=== PATIENT | female | born 1955 | race Asian ===

== ENCOUNTER 2016-12-22 11:03 | Inpatient (IN) | payer MEDICARE, BC ==
[~2016-12-22] VITALS: Ht 144.8 cm; Wt 34.0 kg
[2016-12-22] VITALS (22 sets, daily range): BP systolic 83–169; BP diastolic 48–107
[~2016-12-22 11:03] MED LIST: Lidocaine 2% MPF 5ml Vial INJ ONE
[2016-12-22] MEDS ORDERED: Levophed 4mg/4mL Inj IV ONE (11:15)
[2016-12-22] MEDS ORDERED: Vancomycin 1 GM in NS 275 ML IV ONE (11:15)
[2016-12-22] MEDS ORDERED: EPINEPHrine 1mg/10ml carp IV ONE (11:16)
[2016-12-22] MEDS ORDERED: Vancomycin 1gm inj IVPB ONE (11:33)
[2016-12-22] MEDS ORDERED: Zosyn 4.5gm inj ONE (11:33)
[2016-12-22 12:03] LABS: MEAN CORPUSCULAR HEMOGLOBIN 32.3 PG (27.0-31.0); MEAN CORPUSCULAR HGB CONC 31.3 G/DL (32.0-36.0); MEAN CORPUSCULAR VOLUME 103 FL (80-99); MEAN PLATELET VOLUME 7.5 FL (6.5-10.1); PLATELET COUNT 145 K/UL (150-450); RED BLOOD COUNT 2.63 M/UL (4.20-5.40); RED CELL DISTRIBUTION WIDTH 21.3 % (11.6-14.8); WHITE BLOOD COUNT 4.1 K/UL (4.8-10.8)
[2016-12-22 12:07] LABS: INR 1.4 (0.9-1.1); PROTHROMBIN TIME 13.9 SEC (9.30-11.50)
--- NOTE | 2016-12-22 12:11 | Diagnostic Imaging Report ---
Indications: Shortness of breath Technique: Portable AP chest Findings: Comparison: None Endotracheal tube in place, tip 2-3 cm above ramakrishna. DOS catheter and right chest wall, tip in region of right atrium. Cardiac silhouette enlarged. Pulmonary vasculature appears within normal limits. Interstitial markings mildly increased throughout both lungs. Both costophrenic angles mildly blunted. Aortic arch calcified. IMPRESSION: Endotracheal tube, hemodialysis catheter in good positions Cardiomegaly with evidence of congestive heart failure including pulmonary edema, small bilateral pleural effusions Aortosclerosis
[2016-12-22 12:15] LABS: ALBUMIN/GLOBULIN RATIO 0.8 (1.0-2.7); CALCIUM 7.6 mg/dL (8.6-10.2); CREATININE 4.6 mg/dL (0.5-0.9); GLOMERULAR FILTRATION RATE 9.6 mL/min (>60); POTASSIUM 5.3 mEQ/L (3.4-4.9); TOTAL PROTEIN 6.2 g/dL (6.6-8.7)
[2016-12-22 12:17] LABS: TROPONIN I < 0.30 ng/mL (<=0.30)
--- NOTE | 2016-12-22 12:20 | Emergency Room Report ---
History of Present Illness General Chief Complaint: Dyspnea/Respdistress Source: Medical Record Present Illness HPI 61 YOF brought in by EMS for AMS. Per EMS, found down on ground at SNF. Last seen well at 6am. Usually alert and oriented per SNF staff. Patient was hypoxic, lethargic per EMS. They placed left EJ. Poor peripheral access. Was due for HD today but didnt go. Patient being actively [facility] by EMS arrival. Hypoxic. Lethargic. No other history from EMS, patient, SNF. No family members bedside. EMS state patient is fullcode. Paperwork from SNF: CHF, anemia. ascites, cirrgosis, GI bleed, hypotension, toxic metabolic enceph Allergies: Coded Allergies: No Known Allergies (Unverified , 12/22/16) Nursing Documentation-PMH Hx Cardiac Problems: Yes - Blocked PAC, Hemorrhagic D/O, Anemia, Arrhythmia, DVT, PVC Hx Hypertension: Yes Hx Dialysis: Yes Review of Systems All Other Systems: limited - AMS Physical Exam Vital Signs Date Time Temp Pulse Resp B/P Pulse Ox O2 Delivery O2 Flow Rate FiO2 12/22/16 10:55 56 6 88/56 93 Ambu-Bag 15.0 12/22/16 11:20 100 Sp02 EP Interpretation: reviewed, abnormal General Appearance: severe distress, cachetic, lethargic Head: normocephalic, atraumatic Eyes: bilateral eye EOMI, bilateral eye PERRL ENT: normal ENT inspection, normal pharynx, no angioedema Neck: normal inspection, full range of motion, supple, no bony tend Respiratory: other - Poor respiratory effort; reduced air movement bilaterallyu Cardiovascular #1: normal inspection, normal peripheral pulses Gastrointestinal: normal inspection, soft, no guarding, no hernia, other - Distended abdomen Rectal: deferred Genitourinary: no CVA tenderness, other - Right groin central line placement by ED Musculoskeletal: other - Left tipia prox with IO placement in ED Neurologic: other - Focal extremity movement only to IO placement left tib Skin: normal inspection, other - Portocath access to Right upper chest; petichea on feet Procedures Critical Care Time Critical Care Time 60 minutes Care for a 61 YO F with AMS Hypotensive. borderline bradycardic, hypoxic. DDx includes CVA, ACS, infection, metabolic abnormality, CHF Patient is lethargic, responds only to painful stimuli. GCS4-5 Comprehensive physical exam completed, atraumatic. Unreliable history from patient. Labs include toxicology and chem panel, CT head, EKG 12 lead and constant cardiac rhythm strip monitoring, IV established. Patient emergently intubated for airway protection, hypoxia Central line placed for hypotension and poor access EKG reveals sinus bronson with 1st degree block Physician spent 60 minutes of direct critical care time monitoring patient's respiratory, cardiac and neurological status, reassessment, review of imaging, labs and discussion with attending hospitalist. Does not include procedures Central Line Central Line : Consent: Emergent Central Line Lumen: triple Maximal Sterile Barrier Tech: yes cap, yes mask, yes sterile gown, yes sterile gloves, yes large sterile sheet, yes hand hygiene, yes chlorhexidine prep No Max Barrier Tech Because: emergency insertion Central Line Postion: femoral (R) Anesthesia: Lidocaine Complications: none Central Line Post Position: sutured, good blood return Attempts: One Patient Tolerated: Well Complications: None Intubation Intubation : Consent: Emergent Tube Size (cm): 7.5 Medications: Etomidate, Rocuronium Breath Sounds after Intubation: equal Intubation Complications: no complications Post Intubation Xray: Yes Attempts: One Patient Tolerated: Well Complications: None Additional Procedure Procedure Narrative Left tibia Area 1-2cm on medial aspect of left tibia cleaned with betadine Flat area of medial aspect of left tibia palpated - no overlying cellulitis or other observed contraindications to IO access seen IO access obtained with retracted blood flow seen on negative pressure Line flushed with 10cc 2% lidocaine followed by NS flush Line secured to skin using IO tegaderm. Patient tolerated procedure No complications 1 attempt made Medical Decision Making Diagnostic Impression: Primary Impression: Acute respiratory failure Qualified Codes: J96.00 - Acute respiratory failure, unspecified whether with hypoxia or hypercapnia Additional Impressions: CHF (congestive heart failure) Qualified Codes: I50.9 - Heart failure, unspecified CKD (chronic kidney disease) Qualified Codes: N18.9 - Chronic kidney disease, unspecified Hypothermia Qualified Codes: T68.XXXA - Hypothermia, initial encounter Hyperkalemia Altered mental state Qualified Codes: R41.82 - Altered mental status, unspecified ER Course Acute respiratory failure, unknown cause. Hyothermic, hypotensive (now improved ), bradycardic. Labs: Leukopenic. H&H stable. Elevated serumCr, hyperK CXR with pulm congestion. No obvious PNA A: - Med records indicate history of cirrhosis and enceph. Adding on ammonia level - History of CHF, also acute on chronic - Empiric Abx given initially for undifferentiated AMS - CT head negative for ICH - ECG with sinus bronson. No previous to compare. IV calcium given - Likely needs HD when stable - Endorsed to Dr Hinojosa at 1220pm EKG Diagnostic Results Rate: other - sinus bronson with 1st av block Rhythm: NSR ST Segments: no acute changes ASA given to the pt in ED: No Rhythm Strip Diag. Results EP Interpretation: yes Rate: 56 Rhythm: NSR, no PVC's, no ectopy Chest X-Ray Diagnostic Results EP Interpretation: Yes Findings: no consolidation, no effusion, other - =Cardiomegaly, ?bilateral pulh congestion. ET tube in appropriate position Number of Views: 1 Last Vital Signs Date Time Temp Pulse Resp B/P Pulse Ox O2 Delivery O2 Flow Rate FiO2 12/22/16 11:20 55 20 100 12/22/16 10:55 88/56 93 Ambu-Bag 15.0 Status: improved Disposition: ADMITTED INPATIENT Condition: Critical Referrals: RACQUEL CRAMER (PCP) ROSCOE SAMANO M.D. Dec 22, 2016 12:20
[2016-12-22 12:26] LABS: CKMB 7.5 ng/mL (< 3.8)
[2016-12-22] MEDS ORDERED: Calcium Gluconate 10% 1 GM in NS 110 ML IVPB ONE (12:30)
[2016-12-22] MEDS ORDERED: Calcium Gluconate 1gm/10ml vial ONE (12:43)
[2016-12-22 12:48] LABS: LYMPHOCYTES % (MANUAL) 7 % (20-45); NEUTROPHILS % (MANUAL) 84 % (45-75); TOTAL CELLS COUNTED 100
[2016-12-22 12:49] LABS: ANISOCYTOSIS 2+; BAND NEUTROPHILS % (MANUAL) 0 % (0-8); BASOPHILS % (MANUAL) 0 % (0-2); EOSINOPHILS % (MANUAL) 0 % (0-3); HYPOCHROMASIA 1+; MACROCYTES 1+; PLATELET ESTIMATE ADEQUATE; PLATELET MORPHOLOGY NORMAL
[2016-12-22 12:55] LABS: ABG ALLEN TEST POSITIVE; ABG BASE EXCESS -4.8; ABG PCO2 30.7 mmHg (35.0-45.0)
--- NOTE | 2016-12-22 12:57 | Diagnostic Imaging Report ---
Indications: Altered level of consciousness Technique: Continuous helical CT imaging of the brain was performed with nonionic exposure control on a Siemens sensation [address] scanner. Axial and coronal images were reconstructed at 5 mm slice thickness and interval. CTDI volume(s): 70 mGy Total DLP: 1312 mGy-cm Findings: Comparison: None Confluent low attenuation is present in the bilateral periventricular and deep cerebral white matter. Prominent bilateral basal ganglia calcifications. Ventricles, cisterns, and sulci are diffusely prominent. No evidence of mass or hemorrhage, mass effect, midline shift, hydrocephalus, or increased intracranial pressure. Bone window images are unremarkable. Visualized paranasal sinuses and mastoid air cells are clear. IMPRESSION: No evidence of acute intracranial pathology Bilateral basal ganglia calcifications, very likely physiologic. Bilateral cerebral periventricular and deepwhite matter low attenuation, nonspecific, likely chronic microvascular ischemic in nature Atrophy The CT scanner at [facility] is accredited by the [employer] and the scans are performed using protocols designed to limit radiation exposure to as low as reasonably achievable to attain images of sufficient resolution adequate for diagnostic evaluation.
[2016-12-22] MEDS ORDERED: LORATADINE5 MG/5 ML PO (13:20)
[2016-12-22] MEDS ORDERED: B COMPLEX-FOLI1 EACH ORAL (13:20)
[2016-12-22] MEDS ORDERED: FLUTICASONE PRO16 G1 NASAL (13:20)
[2016-12-22] MEDS ORDERED: PROPAFENONE HC150 MG PO (13:20)
[2016-12-22] MEDS ORDERED: MARINOL2.5 MG ORAL (13:20)
[2016-12-22] MEDS ORDERED: ATORVASTATIN CA10 MG ORAL (13:20)
[2016-12-22] MEDS ORDERED: VITAMIN B-12500 MCG ORAL (13:20)
[2016-12-22] MEDS ORDERED: TYLENOL650 MG/20. ORAL (13:20)
[2016-12-22] MEDS ORDERED: ESCITALOPRAM OX10 MG ORAL (13:20)
[2016-12-22] MEDS ORDERED: XIFAXAN550 MG ORAL (13:20)
[2016-12-22] MEDS ORDERED: DUONEB 0.5-3(2.53 ML HHN (13:20)
[2016-12-22] MEDS ORDERED: HYDRALAZINE HCL50 MG ORAL (13:20)
[2016-12-22] MEDS ORDERED: LACTULOSE20 GM/301 ORAL (13:20)
[2016-12-22] MEDS ORDERED: SENNA8.6 M2 PO (13:20)
[2016-12-22] MEDS ORDERED: LISINOPRIL10 MG ORAL (13:20)
[2016-12-22] MEDS ORDERED: MIRTAZAPINE15 M3 ORAL (13:20)
[2016-12-22] MEDS ORDERED: EPOGEN20000 UNI1 SUBQ (13:20)
[2016-12-22] MEDS ORDERED: CARVEDILOL6.25 MG ORAL (13:20)
[2016-12-22] MEDS ORDERED: ZANTAC150 MG ORAL (13:20)
[2016-12-22] MEDS ORDERED: Miralax 17gm pkt ORAL PRN (13:45)
[2016-12-22] MEDS ORDERED: Nitroglycerin Subl 0.4mg tab (Bottle Of 25) SL PRN (13:45)
[2016-12-22] MEDS ORDERED: DuoNeb 0.5-3(2.5)mg/3ml neb HHN PRN (13:45)
[2016-12-22] MEDS ORDERED: Morphine Sulfate 2mg/ml Inj IVP PRN (13:45)
[2016-12-22] MEDS ORDERED: Piperacillin/Tazobactam 4.5 GM in NS 110 ML IV SCH (14:00)
--- NOTE | 2016-12-22 14:12 | Consultation ---
Consult Note Consult Note ID CONSULT: Dict# [id number] Assessment/Plan ASSESSMENT: 61 y/o female with: // Probable sepsis r/o HCAP, UTI, bacteremia - cultures pending // Leukopenia // Hypothermia // Acute encephalopathy / found down ?hepatic ( elevated NH4 ) r/o septic - CT Head: No evidence of acute intracranial pathology. Bilateral cerebral periventricular and deepwhite matter low attenuation, nonspecific, likely chronic microvascular ischemic in nature. Atrophy // Acute VDRF - intubated 12/22 // ?Cirrhosis / chronic liver disease with elevated LFTs, leukopenia, chronic macrocytic anemia, TCP, coagulopathy, hypoalbuminemia - US: pending // ESRD / HD with right chest TDC // Probable CHF exacerbation - CXR: evidence of congestive heart failure including pulmonary edema, small bilateral pleural effusions // NH resident // NKDA // Full Code PLAN: - continue empiric broad spectrum IV vancomycin, zosyn d# 1. DC cefepime ( no additional coverage ) - f/u cultures - f/u TTE - monitor CBC, temperatures - monitor BMP - monitor CXR - vent support, wean as tolerated Thanks! Will follow DARLIN GRANADO Dec 22, 2016 14:12
[2016-12-22 16:02] LABS: INR 1.3 (0.9-1.1); PROTHROMBIN TIME 12.9 SEC (9.30-11.50)
--- NOTE | 2016-12-22 17:19 | Consultation ---
History of Present Illness General Date patient seen: Dec 22, 2016 Time patient seen: 03:33 Chief Complaint: Dyspnea/Respdistress Reason for Consultation: HD Present Illness HPI pt with esrd on hd 2/2 ttp , GAVE, HTN, MR, multiple episodes of bleeding , ESLD ,She git [facility] on wednesday, today she was found unresponsive per sister she has been falling at the facility . She was hypotensive at the scene , no n/v diarrhea, ? gi bleed hb dropped by 2 gm in 1 day. Has been having chills x 2d ays . No other history is available . She is malnutrished, has ammonia levels of 56 , She lives at [facility]. Does not smoke drink Allergies: Coded Allergies: No Known Allergies (Unverified , 12/22/16) Medication History Scheduled Atorvastatin Calcium* (Lipitor*), 10 MG ORAL BEDTIME, (Reported) Carvedilol* (Carvedilol*), 6.25 MG ORAL EVERY 12 HOURS, (Reported) Cyanocobalamin (Vitamin B-12)* (Vitamin B-12*), 500 MCG ORAL DAILY, (Reported) Cyanocobalamin/Fa/Pyridoxine (B Complex-Folic Acid Tablet), 1 TAB ORAL DAILY, ( Reported) Dronabinol* (Marinol*), 2.5 MG ORAL THREE TIMES A DAY, (Reported) Epoetin José Miguel (Epogen), 20,000 UNIT SUBQ 3XW, (Reported) Escitalopram Oxalate (Escitalopram Oxalate*), 10 MG ORAL DAILY, (Reported) Fluticasone Propionate* (Fluticasone Propionate*), 1 SPRAY NASAL DAILY, ( Reported) Hydralazine Hcl* (Hydralazine Hcl*), 50 MG ORAL PRN, (Reported) Lactulose (Lactulose*), 15 ML ORAL BID, (Reported) Lisinopril* (Lisinopril*), 10 MG ORAL BID, (Reported) Loratadine (Loratadine), 10 MG PO DAILY, (Reported) Mirtazapine* (Mirtazapine*), 15 MG ORAL BEDTIME, (Reported) Propafenone Hcl* (Rhythmol*), 225 MG PO TID, (Reported) Ranitidine Hcl* (Zantac*), 150 MG ORAL DAILY, (Reported) Rifaximin* (Xifaxan*), 550 MG ORAL TWICE A DAY, (Reported) Scheduled PRN Acetaminophen (Acetaminophen), 650 MG ORAL Q6H PRN for Prn Headache/Temp > 101, (Reported) Ipratropium/Albuterol Sulfate (DuoNeb 0.5-3(2.5)mg/3ml), 3 ML HHN Q4HR PRN for Shortness of Breath, (Reported) Miscellaneous Medications Sennosides (Senna), 2 TAB PO, (Reported) Patient History Healthcare decision maker Resuscitation status Advanced Directive on File Past Medical/Surgical History Past Medical/Surgical History: (1) CHF (congestive heart failure) (2) CKD (chronic kidney disease) Review of Systems Constitutional: Reports: see HPI Physical Exam General Appearance: WD/WN, no apparent distress, thin, other - intubated Lines, tubes and drains: peripheral, other HEENT: normocephalic, atraumatic, anicteric, EOMI, supple, no JVD Neck: non-tender, normal alignment, supple Respiratory/Chest: chest wall non-tender, crackles/rales Cardiovascular/Chest: normal peripheral pulses, regular rhythm, systolic murmur - 3/6 systolic Abdomen: normal bowel sounds, non tender, distended, other - ascites Extremities: no edema Last 24 Hour Vital Signs Date Time Temp Pulse Resp B/P Pulse Ox O2 Delivery O2 Flow Rate FiO2 12/22/16 15:44 30 12/22/16 15:00 63 20 156/102 100 Mechanical Ventilator 30 12/22/16 14:33 70 23 30 12/22/16 14:15 68 21 151/113 100 Mechanical Ventilator 30 12/22/16 14:00 89.1 68 23 169/101 100 Mechanical Ventilator 30 12/22/16 13:09 86.7 61 23 161/107 100 Mechanical Ventilator 12/22/16 12:55 62 21 30 12/22/16 12:50 30 12/22/16 12:23 100 12/22/16 12:18 87.5 64 14 156/95 100 Mechanical Ventilator 100 12/22/16 11:20 55 20 100 12/22/16 11:05 44 12 Ambu-Bag 100 12/22/16 10:55 56 6 88/56 93 Ambu-Bag 15.0 Laboratory Tests Test 12/22/16 11:38 2/14/17 12:30 12/22/16 12:50 12/22/16 15:15 White Blood Count 4.1 K/UL (4.8-10.8) L Red Blood Count 2.63 M/UL (4.20-5.40) L Hemoglobin 8.5 G/DL (12.0-16.0) L Hematocrit 27.0 % (37.0-47.0) L Mean Corpuscular Volume 103 FL (80-99) H Mean Corpuscular Hemoglobin 32.3 PG (27.0-31.0) H Mean Corpuscular Hemoglobin Concent 31.3 G/DL (32.0-36.0) L Red Cell Distribution Width 21.3 % (11.6-14.8) H Platelet Count 145 K/UL (150-450) L Mean Platelet Volume 7.5 FL (6.5-10.1) Neutrophils (%) (Auto) % (45.0-75.0) Lymphocytes (%) (Auto) % (20.0-45.0) Monocytes (%) (Auto) % (1.0-10.0) Eosinophils (%) (Auto) % (0.0-3.0) Basophils (%) (Auto) % (0.0-2.0) Differential Total Cells Counted 100 Neutrophils % (Manual) 84 % (45-75) H Lymphocytes % (Manual) 7 % (20-45) L Monocytes % (Manual) 9 % (1-10) Eosinophils % (Manual) 0 % (0-3) Basophils % (Manual) 0 % (0-2) Band Neutrophils 0 % (0-8) Platelet Estimate Adequate Platelet Morphology Normal Hypochromasia 1+ Anisocytosis 2+ Macrocytosis 1+ Prothrombin Time 13.9 SEC (9.30-11.50) H 12.9 SEC (9.30-11.50) H Prothromb Time International Ratio 1.4 (0.9-1.1) H 1.3 (0.9-1.1) H Activated Partial Thromboplast Time 40 SEC (23-33) H 35 SEC (23-33) H Sodium Level 138 mEQ/L (135-145) Potassium Level 5.3 mEQ/L (3.4-4.9) H Chloride Level 103 mEQ/L (98-107) Carbon Dioxide Level 20 mEQ/L (20-30) Anion Gap 15 (5-15) Blood Urea Nitrogen 78 mg/dL (7-23) H Creatinine 4.6 mg/dL (0.5-0.9) H Estimat Glomerular Filtration Rate 9.6 mL/min (>60) Glucose Level 118 mg/dL (74-106) H Lactic Acid Level 0.60 mmol/L (0.66-2.22) L Calcium Level 7.6 mg/dL (8.6-10.2) L Total Bilirubin 0.2 mg/dL (0.0-1.2) Aspartate Amino Transf (AST/SGOT) 22 U/L (5-40) Alanine Aminotransferase (ALT/SGPT) 7 U/L (3-33) Alkaline Phosphatase 201 U/L (35-104) H Total Creatine Kinase 49 U/L (26-140) Creatine Kinase MB 7.5 ng/mL (< 3.8) H Creatine Kinase MB Relative Index 15.3 Troponin I < 0.30 ng/mL (<=0.30) Total Protein 6.2 g/dL (6.6-8.7) L Albumin 2.8 g/dL (3.5-5.2) L Globulin 3.4 g/dL Albumin/Globulin Ratio 0.8 (1.0-2.7) L Ammonia 56 umol/L (11-51) H Arterial Blood pH 7.400 (7.350-7.450) Arterial Blood Partial Pressure CO2 30.7 mmHg (35.0-45.0) L Arterial Blood Partial Pressure O2 594.5 mmHg (75.0-100.0) H Arterial Blood HCO3 19.8 mmol/L (22.0-26.0) L Arterial Blood Oxygen Saturation 99.7 % (92.0-98.0) H Arterial Blood Base Excess -4.8 Antonio Test Positive Erythrocyte Sedimentation Rate 88 MM/HR (0-30) H Reticulocyte Count Pending Iron Level 39 ug/dL (37-145) Total Iron Binding Capacity 98 ug/dL (250-400) L Percent Iron Saturation 40 % (15-50) Unsaturated Iron Binding 59 ug/dL (112-346) L Lactate Dehydrogenase 171 U/L (135-230) Carcinoembryonic Antigen 2.6 ng/mL Vitamin B12 Level 902 pg/mL (211-946) Folate Pending Height (Feet): 5 Height (Inches): 4.00 Weight (Pounds): 1000 Medications Current Medications Medications (Trade) Dose Ordered Sig/Reji Route PRN Reason Start Time Stop Time Status Last Admin Dose Admin Acetaminophen (Tylenol) 650 mg Q4H PRN ORAL fever 12/22/16 13:45 01/21/17 13:44 Albuterol/ Ipratropium 3 ml 3 ml Q4H PRN HHN Shortness of Breath 12/22/16 13:45 12/27/16 13:44 Lorazepam (Ativan 2mg/ml 1ml) 2 mg Q4H PRN IV For Anxiety 12/22/16 13:45 12/29/16 13:44 Morphine Sulfate (Morphine Sulfate) 4 mg Q4H PRN IVP For Pain 12/22/16 13:45 12/29/16 13:44 Nitroglycerin (Ntg) 0.4 mg Q5MIN X 3 DOSES PRN SL Prn Chest Pain 12/22/16 13:45 01/21/17 13:44 Ondansetron HCl (Zofran) 4 mg Q6H PRN IVP Nausea & Vomiting 12/22/16 13:45 01/21/17 13:44 Pantoprazole (Protonix) 40 mg DAILY IV 12/23/16 09:00 01/22/17 08:59 Polyethylene Glycol (Miralax) 17 gm DAILYPRN PRN ORAL Constipation 12/22/16 13:45 01/21/17 13:44 Vancomycin HCl/ Dextrose (Vancomycin/D5W) 110 ml @ 73.32 mls/ hr Q24H IVPB 12/23/16 13:00 12/28/16 12:59 Assessment/Plan Status: deteriorating Status Narrative 1. Sepsis 2. respiratory failure : pneumonia and Pulm edema most likely 3. ESRD on HD 4 GI bleed 5. ESLD 6. Encephalopathy 7. Anemia 2/2 GI bleed and CKD needs stat dialysis treatment with blood tx, since hemodynamically unstable Lactulose c/w antibiotics Blood cultures from Urine and permacath Assessment/Plan 1. Sepsis 2. respiratory failure : pneumonia and Pulm edema most likely 3. ESRD on HD 4 GI bleed 5. ESLD 6. Encephalopathy 7. Anemia 2/2 GI bleed and CKD needs stat dialysis treatment with blood tx, since hemodynamically unstable Lactulose c/w antibiotics Blood cultures from Urine and permacath all d/w pt 's sister pt, she opens her eyes and nods for yes or no. MOHIT TELLES Dec 22, 2016 17:19
--- NOTE | 2016-12-22 17:44 | History and Physical ---
History of Present Illness General Date patient seen: Dec 22, 2016 Reason for Hospitalization: Dyspnea/Respdistress Present Illness HPI 61 year old lady with cirrhosis of liver, ESRF, some sort of connective tissue disorder. She was at shelter when she was found down, with hypothermia. She was taken to [place] [facility]. She was intubated to protect the airway. Her CT of head was negative. She was hypotensive, was started on Levophed. Allergies: Coded Allergies: No Known Allergies (Unverified , 12/22/16) Medication History Scheduled Atorvastatin Calcium* (Lipitor*), 10 MG ORAL BEDTIME, (Reported) Carvedilol* (Carvedilol*), 6.25 MG ORAL EVERY 12 HOURS, (Reported) Cyanocobalamin (Vitamin B-12)* (Vitamin B-12*), 500 MCG ORAL DAILY, (Reported) Cyanocobalamin/Fa/Pyridoxine (B Complex-Folic Acid Tablet), 1 TAB ORAL DAILY, ( Reported) Dronabinol* (Marinol*), 2.5 MG ORAL THREE TIMES A DAY, (Reported) Epoetin José Miguel (Epogen), 20,000 UNIT SUBQ 3XW, (Reported) Escitalopram Oxalate (Escitalopram Oxalate*), 10 MG ORAL DAILY, (Reported) Fluticasone Propionate* (Fluticasone Propionate*), 1 SPRAY NASAL DAILY, ( Reported) Hydralazine Hcl* (Hydralazine Hcl*), 50 MG ORAL PRN, (Reported) Lactulose (Lactulose*), 15 ML ORAL BID, (Reported) Lisinopril* (Lisinopril*), 10 MG ORAL BID, (Reported) Loratadine (Loratadine), 10 MG PO DAILY, (Reported) Mirtazapine* (Mirtazapine*), 15 MG ORAL BEDTIME, (Reported) Propafenone Hcl* (Rhythmol*), 225 MG PO TID, (Reported) Ranitidine Hcl* (Zantac*), 150 MG ORAL DAILY, (Reported) Rifaximin* (Xifaxan*), 550 MG ORAL TWICE A DAY, (Reported) Scheduled PRN Acetaminophen (Acetaminophen), 650 MG ORAL Q6H PRN for Prn Headache/Temp > 101, (Reported) Ipratropium/Albuterol Sulfate (DuoNeb 0.5-3(2.5)mg/3ml), 3 ML HHN Q4HR PRN for Shortness of Breath, (Reported) Miscellaneous Medications Sennosides (Senna), 2 TAB PO, (Reported) Patient History Healthcare decision maker Resuscitation status Advanced Directive on File Past Medical/Surgical History Past Medical/Surgical History: (1) Liver cirrhosis (2) Connective tissue disease (3) CKD (chronic kidney disease) Review of Systems All Other Systems: negative except mentioned in HPI Physical Exam General Appearance: moderate distress, cachetic Lines, tubes and drains: peripheral, central line - right femoral HEENT: normocephalic, anicteric Neck: non-tender, normal alignment Respiratory/Chest: chest wall non-tender, lungs clear Breasts: no masses Cardiovascular/Chest: normal peripheral pulses, normal rate Abdomen: normal bowel sounds, non tender Genitourinary/Rectal: normal genital exam Extremities: normal range of motion 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 Last 24 Hour Vital Signs Date Time Temp Pulse Resp B/P Pulse Ox O2 Delivery O2 Flow Rate FiO2 12/22/16 16:50 75 28 30 12/22/16 15:44 30 12/22/16 15:00 63 20 156/102 100 Mechanical Ventilator 30 12/22/16 14:33 70 23 30 12/22/16 14:15 68 21 151/113 100 Mechanical Ventilator 30 12/22/16 14:00 89.1 68 23 169/101 100 Mechanical Ventilator 30 12/22/16 13:09 86.7 61 23 161/107 100 Mechanical Ventilator 12/22/16 12:55 62 21 30 12/22/16 12:50 30 12/22/16 12:23 100 12/22/16 12:18 87.5 64 14 156/95 100 Mechanical Ventilator 100 12/22/16 11:20 55 20 100 12/22/16 11:05 44 12 Ambu-Bag 100 12/22/16 10:55 56 6 88/56 93 Ambu-Bag 15.0 Laboratory Tests Test 12/22/16 11:38 12/22/16 12:30 12/22/16 12:50 12/22/16 15:15 White Blood Count 4.1 K/UL (4.8-10.8) L Red Blood Count 2.63 M/UL (4.20-5.40) L Hemoglobin 8.5 G/DL (12.0-16.0) L Hematocrit 27.0 % (37.0-47.0) L Mean Corpuscular Volume 103 FL (80-99) H Mean Corpuscular Hemoglobin 32.3 PG (27.0-31.0) H Mean Corpuscular Hemoglobin Concent 31.3 G/DL (32.0-36.0) L Red Cell Distribution Width 21.3 % (11.6-14.8) H Platelet Count 145 K/UL (150-450) L Mean Platelet Volume 7.5 FL (6.5-10.1) Neutrophils (%) (Auto) % (45.0-75.0) Lymphocytes (%) (Auto) % (20.0-45.0) Monocytes (%) (Auto) % (1.0-10.0) Eosinophils (%) (Auto) % (0.0-3.0) Basophils (%) (Auto) % (0.0-2.0) Differential Total Cells Counted 100 Neutrophils % (Manual) 84 % (45-75) H Lymphocytes % (Manual) 7 % (20-45) L Monocytes % (Manual) 9 % (1-10) Eosinophils % (Manual) 0 % (0-3) Basophils % (Manual) 0 % (0-2) Band Neutrophils 0 % (0-8) Platelet Estimate Adequate Platelet Morphology Normal Hypochromasia 1+ Anisocytosis 2+ Macrocytosis 1+ Prothrombin Time 13.9 SEC (9.30-11.50) H 12.9 SEC (9.30-11.50) H Prothromb Time International Ratio 1.4 (0.9-1.1) H 1.3 (0.9-1.1) H Activated Partial Thromboplast Time 40 SEC (23-33) H 35 SEC (23-33) H Sodium Level 138 mEQ/L (135-145) Potassium Level 5.3 mEQ/L (3.4-4.9) H Chloride Level 103 mEQ/L (98-107) Carbon Dioxide Level 20 mEQ/L (20-30) Anion Gap 15 (5-15) Blood Urea Nitrogen 78 mg/dL (7-23) H Creatinine 4.6 mg/dL (0.5-0.9) H Estimat Glomerular Filtration Rate 9.6 mL/min (>60) Glucose Level 118 mg/dL (74-106) H Lactic Acid Level 0.60 mmol/L (0.66-2.22) L Calcium Level 7.6 mg/dL (8.6-10.2) L Total Bilirubin 0.2 mg/dL (0.0-1.2) Aspartate Amino Transf (AST/SGOT) 22 U/L (5-40) Alanine Aminotransferase (ALT/SGPT) 7 U/L (3-33) Alkaline Phosphatase 201 U/L (35-104) H Total Creatine Kinase 49 U/L (26-140) Creatine Kinase MB 7.5 ng/mL (< 3.8) H Creatine Kinase MB Relative Index 15.3 Troponin I < 0.30 ng/mL (<=0.30) Total Protein 6.2 g/dL (6.6-8.7) L Albumin 2.8 g/dL (3.5-5.2) L Globulin 3.4 g/dL Albumin/Globulin Ratio 0.8 (1.0-2.7) L Ammonia 56 umol/L (11-51) H Arterial Blood pH 7.400 (7.350-7.450) Arterial Blood Partial Pressure CO2 30.7 mmHg (35.0-45.0) L Arterial Blood Partial Pressure O2 594.5 mmHg (75.0-100.0) H Arterial Blood HCO3 19.8 mmol/L (22.0-26.0) L Arterial Blood Oxygen Saturation 99.7 % (92.0-98.0) H Arterial Blood Base Excess -4.8 Antonio Test Positive Erythrocyte Sedimentation Rate 88 MM/HR (0-30) H Reticulocyte Count Pending Iron Level 39 ug/dL (37-145) Total Iron Binding Capacity 98 ug/dL (250-400) L Percent Iron Saturation 40 % (15-50) Unsaturated Iron Binding 59 ug/dL (112-346) L Lactate Dehydrogenase 171 U/L (135-230) Carcinoembryonic Antigen 2.6 ng/mL Vitamin B12 Level 902 pg/mL (211-946) Folate Pending Height (Feet): 5 Height (Inches): 4.00 Weight (Pounds): 1000 Medications Current Medications Medications (Trade) Dose Ordered Sig/Reji Route PRN Reason Start Time Stop Time Status Last Admin Dose Admin Acetaminophen (Tylenol) 650 mg Q4H PRN ORAL fever 12/22/16 13:45 01/21/17 13:44 Albuterol/ Ipratropium 3 ml 3 ml Q4H PRN HHN Shortness of Breath 12/22/16 13:45 12/27/16 13:44 Estrogens Conjugated (Premarin) 25 mg ONCE ONCE IV 12/22/16 17:45 12/22/16 17:46 UNV Lactulose (Cephulac) 20 gm THREE TIMES A DAY ORAL 12/22/16 18:00 01/21/17 17:59 Lorazepam (Ativan 2mg/ml 1ml) 2 mg Q4H PRN IV For Anxiety 12/22/16 13:45 12/29/16 13:44 Morphine Sulfate (Morphine Sulfate) 4 mg Q4H PRN IVP For Pain 12/22/16 13:45 12/29/16 13:44 Nitroglycerin (Ntg) 0.4 mg Q5MIN X 3 DOSES PRN SL Prn Chest Pain 12/22/16 13:45 01/21/17 13:44 Ondansetron HCl (Zofran) 4 mg Q6H PRN IVP Nausea & Vomiting 12/22/16 13:45 01/21/17 13:44 Pantoprazole (Protonix) 40 mg DAILY IV 12/23/16 09:00 01/22/17 08:59 Polyethylene Glycol (Miralax) 17 gm DAILYPRN PRN ORAL Constipation 12/22/16 13:45 01/21/17 13:44 Vancomycin HCl/ Dextrose (Vancomycin/D5W) 110 ml @ 73.32 mls/ hr Q24H IVPB 12/23/16 13:00 12/28/16 12:59 Assessment/Plan Problem List: (1) Acute respiratory failure ICD Codes: J96.00 - Acute respiratory failure, unspecified whether with hypoxia or hypercapnia SNOMED: 76625710 Qualifiers: Qualified Codes: J96.00 - Acute respiratory failure, unspecified whether with hypoxia or hypercapnia (2) Hyperkalemia ICD Codes: E87.5 - Hyperkalemia SNOMED: 70957493 (3) Altered mental state ICD Codes: R41.82 - Altered mental status, unspecified SNOMED: 388666681 Qualifiers: Qualified Codes: R41.82 - Altered mental status, unspecified (4) CHF (congestive heart failure) ICD Codes: I50.9 - Heart failure, unspecified SNOMED: 72630676 Qualifiers: Qualified Codes: I50.9 - Heart failure, unspecified (5) CKD (chronic kidney disease) ICD Codes: N18.9 - Chronic kidney disease, unspecified SNOMED: 935230400 Qualifiers: Qualified Codes: N18.9 - Chronic kidney disease, unspecified Respiratory: monitor respiratory rate, adjust FIO2, CXR, ABG Cardiac: continue pressors, continue to monitor HR/BP Renal: F/U I&O, keep IV fluid, check electrolytes, other - Hd Infectious Disease: check cultures, continue antibiotics Gastrointestinal: continue feedings/current rate Endocrine: monitor blood sugar, check HgA1C Hematologic: monitor H/H Neurologic: PRN Ativan, PRN Morphine Affect: PRN ativan Prophylaxis: Heparin Disposition: keep in ICU 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
[2016-12-22] MEDS: Lactulose 20gm/30ml UDC ORAL SCH (18:00)
[2016-12-22] MEDS ORDERED: Premarin Inj IV ONE (18:30)
[2016-12-22] MEDS ORDERED: Surgicel 4in x 8in TOPIC ONE (19:32)
[2016-12-22 20:02] LABS: PATH BLOOD SMEAR/OMC SENT TO PATHOLOGIST
[2016-12-22] MEDS ORDERED: Heparin 5000 units/ml inj SUBQ SCH (21:00)
[2016-12-22] MEDS ORDERED: Cefepime HCl 2 GM in D5W 110 ML IV SCH (21:00)
[2016-12-22] MEDS: Morphine Sulfate 4mg/ml Inj IVP PRN (23:01)
--- NOTE | 2016-12-22 23:19 | Consultation ---
DATE OF CONSULTATION: 12/22/2016 INFECTIOUS DISEASE CONSULTATION: REQUESTING PHYSICIAN: Jes Bautista M.D. REASON FOR CONSULTATION: Sepsis. HISTORY OF PRESENT ILLNESS: This is a 61-year-old female, [place] [facility] resident, admitted on 12/22/2016 after being found down. A CT of the head showed no evidence of acute intracranial pathology. The patient was intubated in the emergency room for airway protection. She has evidence of probable cirrhosis and chronic liver disease, end-stage renal disease, on dialysis with a right chest tunnel catheter, a probable CHF exacerbation with pulmonary edema and bilateral pleural effusions on chest x-ray, leukopenia, hypothermia, thrombocytopenia, elevated LFTs, and coagulopathy. She has been started on empiric IV vancomycin, cefepime, and Zosyn and ID now consulted to assist in management. PAST MEDICAL HISTORY: 1. End-stage renal disease, on dialysis. 2. CHF. 3. Hypertension. 4. Question chronic liver disease and cirrhosis. PAST SURGICAL HISTORY: Right chest tunneled catheter in place, otherwise unknown. MEDICATIONS: 1. Vancomycin. 2. Cefepime. 3. Zosyn. 4. Protonix. 5. DuoNebs. ALLERGIES: No known drug allergies. SOCIAL HISTORY: The patient is a resident of a [place] [facility] care facility. No active tobacco, alcohol, or illicit drug abuse. FAMILY HISTORY: None known. REVIEW OF SYSTEMS: Unable to obtain. PHYSICAL EXAMINATION: VITAL SIGNS: Maximum temperature 87.5 degrees, blood pressure 161/107, heart rate in the 60s, respiratory rate 23, saturating 100% on 30% FiO2. GENERAL: The patient is intubated. Nonresponsive. CARDIOVASCULAR: Bradycardic. PULMONARY: Clear to auscultation bilaterally. ABDOMEN: Bowel sounds present. Soft, nondistended, and nontender. EXTREMITIES: No edema. SKIN: Petechiae on the feet. LABORATORY DATA: White blood cell count 4.1 with left shift, hemoglobin 8.5, and platelets 145,000. Sodium 138, potassium 5.3, chloride 103, bicarbonate 20, BUN 78, and creatinine 4.6. INR 1.4. Lactic acid 0.6. AST 22, ALT 7, and alkaline phosphatase 201. Total bilirubin 0.2. Albumin 2.8. Troponin negative x1. Ammonia 56. MICROBIOLOGY: 1. On 12/22/2016, blood culture pending. 2. On 12/22/2016, urine culture pending. 3. On 12/22/2016, sputum culture pending. 4. On 12/22/2016, C. difficile toxin pending. IMAGIN. 12/22/2016, chest x-ray bilateral pulmonary edema and small pleural effusions. 2. On 12/22/2016, CT of the head, no acute findings. Atrophy and probable chronic microvascular ischemic changes. 3. On 12/22/2016, echocardiogram pending. ASSESSMENT: 1. Probable sepsis rule out healthcare associated pneumonia and urinary tract infection bacteremia. Cultures are pending. 2. Leukopenia. 3. Hypothermia. 4. Acute encephalopathy/found down question hepatic with elevated ammonia level rule out septic. CT of the head shows no acute findings. 5. Acute ventilator-dependent respiratory failure intubated on 12/22/2016. 6. Question cirrhosis and chronic liver disease with elevated liver function test, leukopenia, microcytic anemia, thrombocytopenia, coagulopathy, and hypoalbuminemia. An ultrasound is pending. 7. End-stage renal disease, on dialysis with a right chest tunneled catheter. 8. Probable congestive heart failure exacerbation with evidence of pulmonary edema and bilateral pleural effusions on chest x-ray. 9. [facility] resident. 10. No known drug allergies. 11. Full Code. PLAN: 1. Continue empiric broad-spectrum IV vancomycin Zosyn day # 1. Discontinue cefepime and provides no additional antimicrobial coverage. 2. Follow up cultures. 3. Follow up echocardiogram. 4. Monitor CBC and temperatures. 5. Monitor BMP. 6. Monitor chest x-ray. 7. Ventilator support and wean as tolerated. Thank you. We will follow. Vince Doty M.D. DR: Kathy JOB#: [id number] CC: Jes Bautista M.D.; Fax#: [phone] Calderon M.D; Fax#: [phone]
[2016-12-23] VITALS (84 sets, daily range): BP systolic 51–160; BP diastolic 25–116
[2016-12-23] MEDS ORDERED: NS 250 ML IVPB ONE ×2 (01:00)
[2016-12-23] MEDS ORDERED: Vancomycin 1 GM in D5W 275 ML IVPB ONE (01:00)
[2016-12-23] MEDS ORDERED: Levophed 4mg/4mL Inj IV ONE (01:07)
[2016-12-23 05:04] LABS: MEAN CORPUSCULAR HEMOGLOBIN 30.8 PG (27.0-31.0); MEAN CORPUSCULAR HGB CONC 32.2 G/DL (32.0-36.0); MEAN CORPUSCULAR VOLUME 96 FL (80-99); MEAN PLATELET VOLUME 7.9 FL (6.5-10.1); PLATELET COUNT 129 K/UL (150-450); RED BLOOD COUNT 3.52 M/UL (4.20-5.40); RED CELL DISTRIBUTION WIDTH 20.1 % (11.6-14.8); WHITE BLOOD COUNT 8.6 K/UL (4.8-10.8)
[2016-12-23 05:31] LABS: TOTAL PROTEIN 6.7 g/dL (6.6-8.7)
[2016-12-23 05:34] LABS: ALBUMIN/GLOBULIN RATIO 0.8 (1.0-2.7); CALCIUM 8.4 mg/dL (8.6-10.2); CREATININE 2.3 mg/dL (0.5-0.9); GLOMERULAR FILTRATION RATE 21.5 mL/min (>60); TOTAL PROTEIN 6.7 g/dL (6.6-8.7)
[2016-12-23] MEDS: Lactulose 20gm/30ml UDC ORAL SCH ×3 (08:31→17:33)
[2016-12-23] MEDS ORDERED: Pantoprazole Inj IV SCH (09:00)
[2016-12-23 09:35] LABS: BILIRUBIN,DIRECT 0.7 mg/dL (0.1-0.3)
[2016-12-23] MEDS ORDERED: KCl 10% 20 mEq/15ml liquid NG ONE (09:45)
[2016-12-23] MEDS ORDERED: Etomidate 40mg/20ml Inj IV ONE (11:01)
[2016-12-23] MEDS ORDERED: Zemuron 50mg/5ml Inj IV ONE (11:01)
[2016-12-23] MEDS ORDERED: Succinylcholine 20mg/ml 10ml vial ONE (11:01)
--- NOTE | 2016-12-23 11:14 | Pulmonolgy Critical Care Note ---
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, 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 Discussed with: nurses, consultants Critical Care - Objective Last 24 Hour Vital Signs Date Time Temp Pulse Resp B/P Pulse Ox O2 Delivery O2 Flow Rate FiO2 12/23/16 09:26 121/58 12/23/16 09:11 98 15 30 12/23/16 07:12 106 14 30 12/23/16 07:00 101 16 139/46 100 Mechanical Ventilator 30 12/23/16 06:45 95 16 51/25 100 Mechanical Ventilator 30 12/23/16 06:30 96 16 69/47 100 Mechanical Ventilator 30 12/23/16 06:15 107 16 130/47 100 Mechanical Ventilator 30 12/23/16 06:00 109 15 139/47 100 Mechanical Ventilator 30 12/23/16 05:45 111 15 149/60 100 Mechanical Ventilator 30 12/23/16 05:30 106 15 124/60 100 Mechanical Ventilator 30 12/23/16 05:22 100 14 30 12/23/16 05:15 101 15 124/60 100 Mechanical Ventilator 30 12/23/16 05:00 102 17 133/59 100 Mechanical Ventilator 30 12/23/16 04:45 101 14 120/54 100 Mechanical Ventilator 30 12/23/16 04:30 98 14 71/36 94 Mechanical Ventilator 30 12/23/16 04:15 98 14 69/37 100 Mechanical Ventilator 30 12/23/16 04:00 98.4 88 27 160/116 100 Mechanical Ventilator 30 12/23/16 04:00 98 12/23/16 04:00 30 12/23/16 03:18 98 27 30 12/23/16 03:00 99 28 121/52 100 Mechanical Ventilator 30 12/23/16 02:00 96 28 121/52 100 Mechanical Ventilator 30 12/23/16 01:14 79/54 12/23/16 01:00 92 27 112/37 100 Mechanical Ventilator 30 12/23/16 00:52 88 29 30 12/23/16 00:00 96 12/23/16 00:00 98.4 88 27 160/116 100 Mechanical Ventilator 30 12/23/16 00:00 30 12/22/16 23:31 98.2 12/22/16 23:30 97.8 89 166/89 12/22/16 23:15 113 141/67 12/22/16 23:00 109 139/61 12/22/16 23:00 97.1 114 27 141/87 100 Mechanical Ventilator 30 12/22/16 22:57 128 19 30 12/22/16 22:45 125 164/75 12/22/16 22:30 96 135/72 12/22/16 22:15 94 105/70 12/22/16 22:00 93 106/65 12/22/16 22:00 98.2 94 27 107/56 99 Mechanical Ventilator 30 12/22/16 21:45 92 97/54 12/22/16 21:30 90 95/61 12/22/16 21:15 88 109/52 12/22/16 21:09 87 29 30 12/22/16 21:00 87 83/48 12/22/16 21:00 81 20 110/69 100 Mechanical Ventilator 30 12/22/16 20:45 90 86/58 12/22/16 20:30 97.9 69 113/56 12/22/16 20:00 30 12/22/16 20:00 82 12/22/16 20:00 95.0 83 26 113/56 100 Mechanical Ventilator 30 12/22/16 19:18 83 26 30 12/22/16 19:00 81 20 129/69 100 Mechanical Ventilator 30 12/22/16 18:00 80 20 114/72 100 Mechanical Ventilator 30 12/22/16 17:00 94.8 72 23 124/87 100 Mechanical Ventilator 30 12/22/16 16:50 75 28 30 12/22/16 16:00 93.8 67 23 150/102 100 Mechanical Ventilator 30 12/22/16 16:00 30 12/22/16 16:00 80 12/22/16 15:44 30 12/22/16 15:00 63 20 156/102 100 Mechanical Ventilator 30 12/22/16 14:33 70 23 30 12/22/16 14:15 68 21 151/113 100 Mechanical Ventilator 30 12/22/16 14:00 89.1 68 23 169/101 100 Mechanical Ventilator 30 12/22/16 13:09 86.7 61 23 161/107 100 Mechanical Ventilator 12/22/16 12:55 62 21 30 12/22/16 12:50 30 12/22/16 12:23 100 12/22/16 12:18 87.5 64 14 156/95 100 Mechanical Ventilator 100 12/22/16 11:20 55 20 100 Status: awake Condition: critical, grave HEENT: atraumatic, normocephalic Lungs: clear, chest wall tender Heart: HR/BP stable, HR/BP unstable Abdomen: soft, active bowel sounds, feeding tube Extremities: no C/C/E, edema Micro: Microbiology Date/Time Source Procedure Growth Status 12/23/16 01:00 Stool Clostridium difficile Toxin Assay - Final Complete Accucheck: 55 Critical Care - Subjective ROS Limited/Unobtainable: No Condition: critical EKG Rhythm: V-Paced FI02: 30 Vent Support Breath Rate: 14 Vent Support Mode: AC Vent Tidal Volume: 450 Sputum Amount: Small PEEP: 5.0 PIP: 49 Fluids: levophed I&O: Intake and Output 12/22/16 12/23/16 19:00 07:00 Intake Total 100 ml 1281.25 ml Output Total 0 ml 1660 ml Balance 100 ml -378.75 ml Intake Oral 0 ml IV Total 100 ml 131.25 ml Blood Product 600 ml Hemodialysis 550 ml Output Urine Total 0 ml 10 ml Hemodialysis UF 1650 ml # Bowel Movements 3 CXR: no change ET-Tube: 7.5 ET Position: 22 Labs: Laboratory Tests Test 12/22/16 11:38 12/22/16 12:30 12/22/16 12:50 12/22/16 15:15 White Blood Count 4.1 K/UL (4.8-10.8) L Red Blood Count 2.63 M/UL (4.20-5.40) L Hemoglobin 8.5 G/DL (12.0-16.0) L Hematocrit 27.0 % (37.0-47.0) L Mean Corpuscular Volume 103 FL (80-99) H Mean Corpuscular Hemoglobin 32.3 PG (27.0-31.0) H Mean Corpuscular Hemoglobin Concent 31.3 G/DL (32.0-36.0) L Red Cell Distribution Width 21.3 % (11.6-14.8) H Platelet Count 145 K/UL (150-450) L Mean Platelet Volume 7.5 FL (6.5-10.1) Neutrophils (%) (Auto) % (45.0-75.0) Lymphocytes (%) (Auto) % (20.0-45.0) Monocytes (%) (Auto) % (1.0-10.0) Eosinophils (%) (Auto) % (0.0-3.0) Basophils (%) (Auto) % (0.0-2.0) Differential Total Cells Counted 100 Neutrophils % (Manual) 84 % (45-75) H Lymphocytes % (Manual) 7 % (20-45) L Monocytes % (Manual) 9 % (1-10) Eosinophils % (Manual) 0 % (0-3) Basophils % (Manual) 0 % (0-2) Band Neutrophils 0 % (0-8) Platelet Estimate Adequate Platelet Morphology Normal Hypochromasia 1+ Anisocytosis 2+ Macrocytosis 1+ Prothrombin Time 13.9 SEC (9.30-11.50) H 12.9 SEC (9.30-11.50) H Prothromb Time International Ratio 1.4 (0.9-1.1) H 1.3 (0.9-1.1) H Activated Partial Thromboplast Time 40 SEC (23-33) H 35 SEC (23-33) H Sodium Level 138 mEQ/L (135-145) Potassium Level 5.3 mEQ/L (3.4-4.9) H Chloride Level 103 mEQ/L (98-107) Carbon Dioxide Level 20 mEQ/L (20-30) Anion Gap 15 (5-15) Blood Urea Nitrogen 78 mg/dL (7-23) H Creatinine 4.6 mg/dL (0.5-0.9) H Estimat Glomerular Filtration Rate 9.6 mL/min (>60) Glucose Level 118 mg/dL (74-106) H Lactic Acid Level 0.60 mmol/L (0.66-2.22) L Calcium Level 7.6 mg/dL (8.6-10.2) L Total Bilirubin 0.2 mg/dL (0.0-1.2) Aspartate Amino Transf (AST/SGOT) 22 U/L (5-40) Alanine Aminotransferase (ALT/SGPT) 7 U/L (3-33) Alkaline Phosphatase 201 U/L (35-104) H Total Creatine Kinase 49 U/L (26-140) Creatine Kinase MB 7.5 ng/mL (< 3.8) H Creatine Kinase MB Relative Index 15.3 Troponin I < 0.30 ng/mL (<=0.30) Total Protein 6.2 g/dL (6.6-8.7) L Albumin 2.8 g/dL (3.5-5.2) L Globulin 3.4 g/dL Albumin/Globulin Ratio 0.8 (1.0-2.7) L Ammonia 56 umol/L (11-51) H Arterial Blood pH 7.400 (7.350-7.450) Arterial Blood Partial Pressure CO2 30.7 mmHg (35.0-45.0) L Arterial Blood Partial Pressure O2 594.5 mmHg (75.0-100.0) H Arterial Blood HCO3 19.8 mmol/L (22.0-26.0) L Arterial Blood Oxygen Saturation 99.7 % (92.0-98.0) H Arterial Blood Base Excess -4.8 Antonio Test Positive Erythrocyte Sedimentation Rate 88 MM/HR (0-30) H Reticulocyte Count 2.0 % (0.0-2.0) Iron Level 39 ug/dL (37-145) Total Iron Binding Capacity 98 ug/dL (250-400) L Percent Iron Saturation 40 % (15-50) Unsaturated Iron Binding 59 ug/dL (112-346) L Lactate Dehydrogenase 171 U/L (135-230) Carcinoembryonic Antigen 2.6 ng/mL Vitamin B12 Level 902 pg/mL (211-946) Folate Pending Test 12/23/16 01:00 12/23/16 04:00 Stool Occult Blood Pending White Blood Count 8.6 K/UL (4.8-10.8) # Red Blood Count 3.52 M/UL (4.20-5.40) L Hemoglobin 10.8 G/DL (12.0-16.0) L Hematocrit 33.6 % (37.0-47.0) L Mean Corpuscular Volume 96 FL (80-99) Mean Corpuscular Hemoglobin 30.8 PG (27.0-31.0) Mean Corpuscular Hemoglobin Concent 32.2 G/DL (32.0-36.0) Red Cell Distribution Width 20.1 % (11.6-14.8) H Platelet Count 129 K/UL (150-450) L Mean Platelet Volume 7.9 FL (6.5-10.1) Neutrophils (%) (Auto) % (45.0-75.0) Lymphocytes (%) (Auto) % (20.0-45.0) Monocytes (%) (Auto) % (1.0-10.0) Eosinophils (%) (Auto) % (0.0-3.0) Basophils (%) (Auto) % (0.0-2.0) Sodium Level 139 mEQ/L (135-145) Potassium Level 3.0 mEQ/L (3.4-4.9) L Chloride Level 97 mEQ/L (98-107) L Carbon Dioxide Level 23 mEQ/L (20-30) Anion Gap 19 (5-15) H Blood Urea Nitrogen 27 mg/dL (7-23) #H Creatinine 2.3 mg/dL (0.5-0.9) H Estimat Glomerular Filtration Rate 21.5 mL/min (>60) Glucose Level 55 mg/dL (74-106) L Calcium Level 8.4 mg/dL (8.6-10.2) L Total Bilirubin 2.5 mg/dL (0.0-1.2) H Direct Bilirubin 0.7 mg/dL (0.1-0.3) H Aspartate Amino Transf (AST/SGOT) 33 U/L (5-40) Alanine Aminotransferase (ALT/SGPT) 8 U/L (3-33) Alkaline Phosphatase 237 U/L (35-104) H Total Protein 6.7 g/dL (6.6-8.7) Albumin 3.0 g/dL (3.5-5.2) L Globulin 3.6 g/dL Albumin/Globulin Ratio 0.8 (1.0-2.7) L FRANCESCA FELTON Dec 23, 2016 11:13
[2016-12-23] MEDS: Dextrose 10%/0.9% SOD CHL 1,000 ML IV SCH (12:14)
--- NOTE | 2016-12-23 12:47 | History & Physical ---
History and Physical History & Physicial Dictated for Int Med-Dr Vigil [facility] no. [id number]. DIONE BULL Dec 23, 2016 12:47
[2016-12-23] MEDS: Vancomycin 500mg/D5W 110ml IVPB SCH ×2 (12:50)
--- NOTE | 2016-12-23 12:56 | Wound Care Consultation ---
Wound Assessment Wound Assessment : Wound Number: #1 Wound Present on Admission: Yes New Wound: No Status Change of Wound: No Wound Location Body Site Modif: mid Wound Location Body Site: sacral Wound Type: pressure ulcer Vishnu Test: Does not Vishnu Pressure Ulcer Stage: deep tissue injury - suspected Wound Thickness: Full Thickness Wound Length: 1.5 Wound Width: 1.0 Wound Depth: utd Percent of Wound Olin/Red: 50 Percent of Wound Purple/Maroon: 50 Wound Drainage Amount: None Wound Drainage Odor: None/Absent Tissue Surrounding Wound: Intact Wound General Appearance: Reddened Wound Comment #1 Mid Sacral Suspected Deep tissue injury. Recommendation -Apply low air loss overlay mattress for skin and wound management. -Local wound care as ordered. -Turn and reposition. -Offload affected site. -Offload heels and feet. -Heel protectors. -Avoid shear and friction. -Optimize nutrition. -Keep clean and dry. -Assess and notify MD for any change of condition noted. BETTINA STEPHENSON Dec 23, 2016 12:56
[2016-12-23] MEDS ORDERED: VANCOMYCIN IVPB SCH (13:00)
[2016-12-23] MEDS ORDERED: D5W IVPB SCH (13:00)
--- NOTE | 2016-12-23 14:08 | GI Initial Consult Note ---
History of Present Illness General Date patient seen: Dec 23, 2016 Time patient seen: 11:00 Reason for Hospitalization: Dyspnea/Respdistress Referring physician: FRANCESCA LOCO Reason for Consultation: GAVE / GI BLEED Present Illness HPI 61 YOF brought in by EMS for AMS. Per EMS, found down on ground at SNF. Last seen well at 6am. Usually alert and oriented per SNF staff. Patient was hypoxic, lethargic per EMS. They placed left EJ. Poor peripheral access. Was due for HD today but didn't go. Patient being actively [facility] by EMS arrival. Hypoxic. Lethargic. No other history from EMS, patient, SNF. No family members bedside. EMS state patient is full code. Paperwork from SNF: CHF, anemia. ascites, cirrhosis, GI bleed, hypotension, toxic metabolic encephalopathy GI CONSULT: HPI as noted above. GI consulted for hx of GI bleed / GAVE. Pt seen in ICU, alert & oriented intubated at this time. This is a [facility] patient whom recently underwent endoscopic procedures. According the [facility] endoscopy records, the patient was scoped and the esophagus had no varices given history of cirrhosis. The stomach with GAVE appearance and did not show portal hypertensive gastropathy. Findings included an active bleed in the focal area of the antrum which was treated. Noted that the patient went into a CODE BLUE during the procedure. See full endoscopic report in chart. The patient presents today with anemia, abnormal LFTs, hypoalbuminemia, and elevated ammonia levels. Home Meds Reported Medications Acetaminophen (Acetaminophen) 650 Mg/20.3 Ml Solution, 650 MG ORAL Q6H Y for Prn Headache/Temp > 101, ML 0 Refills 12/22/16 Sennosides (SENNA) 8.6 Mg Tablet, 2 TAB PO, TAB 12/22/16 Rifaximin* (XIFAXAN*) 550 Mg Tablet, 550 MG ORAL TWICE A DAY for 30 Days, MG 0 Refills 12/22/16 Ranitidine Hcl* (ZANTAC*) 150 Mg Tablet, 150 MG ORAL DAILY, #30 TAB 0 Refills 12/22/16 Propafenone Hcl* (RHYTHMOL*) 150 Mg Tablet, 225 MG PO TID, TAB 12/22/16 Mirtazapine* (MIRTAZAPINE*) 15 Mg Tablet, 15 MG ORAL BEDTIME, TAB 12/22/16 Loratadine (LORATADINE) 5 Mg/5 Ml Solution, 10 MG PO DAILY 12/22/16 Lisinopril* (LISINOPRIL*) 10 Mg Tablet, 10 MG ORAL BID, TAB 12/22/16 Atorvastatin Calcium* (LIPITOR*) 10 Mg Tablet, 10 MG ORAL BEDTIME, TAB 12/22/16 Lactulose (LACTULOSE*) 20 Gm/30 Ml Solution, 15 ML ORAL BID, ML 0 Refills 12/22/16 Hydralazine Hcl* (HYDRALAZINE HCL*) 50 Mg Tablet, 50 MG ORAL PRN, TAB 12/22/16 Fluticasone Propionate* (FLUTICASONE PROPIONATE*) 16 Gm [place].susp, 1 SPRAY NASAL DAILY, EA 12/22/16 Escitalopram Oxalate (ESCITALOPRAM OXALATE*) 10 Mg Tablet, 10 MG ORAL DAILY, # 30 TAB 0 Refills 12/22/16 Epoetin José Miguel (EPOGEN) 20,000 Unit/2 Ml Vial, 40467 UNIT SUBQ 3XW, VIAL 12/22/16 Ipratropium/Albuterol Sulfate (DuoNeb 0.5-3(2.5)mg/3ml) 3 Ml Ampul.neb, 3 ML HHN Q4HR Y for Shortness of Breath, EA 12/22/16 Dronabinol* (MARINOL*) 2.5 Mg Capsule, 2.5 MG ORAL THREE TIMES A DAY, #15 CAP 0 Refills 12/22/16 Carvedilol* (CARVEDILOL*) 6.25 Mg Tablet, 6.25 MG ORAL EVERY 12 HOURS, TAB 12/22/16 Cyanocobalamin (Vitamin B-12)* (VITAMIN B-12*) 500 Mcg Tablet, 500 MCG ORAL DAILY, #30 TAB 0 Refills 12/22/16 Cyanocobalamin/Fa/Pyridoxine (B COMPLEX-FOLIC ACID TABLET) 1 Each Tablet, 1 TAB ORAL DAILY, #30 TAB 0 Refills 12/22/16 Med list reviewed/reconciled: Yes Allergies: Coded Allergies: No Known Allergies (Unverified , 12/22/16) Patient History PMH Narrative Hx Cardiac Problems: Yes - Blocked PAC, Hemorrhagic D/O, Anemia, Arrhythmia, DVT, PVC Hx Hypertension: Yes Hx Dialysis: Yes Review of Systems All Other Systems: limited Physical Exam Vital Signs Date Time Temp Pulse Resp B/P Pulse Ox O2 Delivery O2 Flow Rate FiO2 12/22/16 10:55 56 6 88/56 93 Ambu-Bag 15.0 12/22/16 11:05 100 12/22/16 12:18 87.5 Sp02 EP Interpretation: reviewed Labs Laboratory Tests Test 12/22/16 15:15 12/23/16 01:00 12/23/16 04:00 Erythrocyte Sedimentation Rate 88 MM/HR (0-30) H Reticulocyte Count 2.0 % (0.0-2.0) Prothrombin Time 12.9 SEC (9.30-11.50) H Prothromb Time International Ratio 1.3 (0.9-1.1) H Activated Partial Thromboplast Time 35 SEC (23-33) H Iron Level 39 ug/dL (37-145) Total Iron Binding Capacity 98 ug/dL (250-400) L Percent Iron Saturation 40 % (15-50) Unsaturated Iron Binding 59 ug/dL (112-346) L Lactate Dehydrogenase 171 U/L (135-230) Carcinoembryonic Antigen 2.6 ng/mL Vitamin B12 Level 902 pg/mL (211-946) Folate 15.6 ng/mL (>3.0) Stool Occult Blood Positive (NEGATIVE) White Blood Count 8.6 K/UL (4.8-10.8) # Red Blood Count 3.52 M/UL (4.20-5.40) L Hemoglobin 10.8 G/DL (12.0-16.0) L Hematocrit 33.6 % (37.0-47.0) L Mean Corpuscular Volume 96 FL (80-99) Mean Corpuscular Hemoglobin 30.8 PG (27.0-31.0) Mean Corpuscular Hemoglobin Concent 32.2 G/DL (32.0-36.0) Red Cell Distribution Width 20.1 % (11.6-14.8) H Platelet Count 129 K/UL (150-450) L Mean Platelet Volume 7.9 FL (6.5-10.1) Neutrophils (%) (Auto) % (45.0-75.0) Lymphocytes (%) (Auto) % (20.0-45.0) Monocytes (%) (Auto) % (1.0-10.0) Eosinophils (%) (Auto) % (0.0-3.0) Basophils (%) (Auto) % (0.0-2.0) Sodium Level 139 mEQ/L (135-145) Potassium Level 3.0 mEQ/L (3.4-4.9) L Chloride Level 97 mEQ/L (98-107) L Carbon Dioxide Level 23 mEQ/L (20-30) Anion Gap 19 (5-15) H Blood Urea Nitrogen 27 mg/dL (7-23) #H Creatinine 2.3 mg/dL (0.5-0.9) H Estimat Glomerular Filtration Rate 21.5 mL/min (>60) Glucose Level 55 mg/dL (74-106) L Calcium Level 8.4 mg/dL (8.6-10.2) L Total Bilirubin 2.5 mg/dL (0.0-1.2) H Direct Bilirubin 0.7 mg/dL (0.1-0.3) H Aspartate Amino Transf (AST/SGOT) 33 U/L (5-40) Alanine Aminotransferase (ALT/SGPT) 8 U/L (3-33) Alkaline Phosphatase 237 U/L (35-104) H Total Protein 6.7 g/dL (6.6-8.7) Albumin 3.0 g/dL (3.5-5.2) L Globulin 3.6 g/dL Albumin/Globulin Ratio 0.8 (1.0-2.7) L General Appearance: no apparent distress, alert Head: normocephalic EENT: normal ENT inspection Neck: supple Respiratory: other - mech vent Cardiovascular: bradycardia Gastrointestinal: distended, other - firm / tympanic Rectal: deferred Neurologic: alert Skin: normal inspection, normal color, no rash, warm/dry Lymphatic: normal inspection, no adenopathy Current Medications Current Medications Medications (Trade) Dose Ordered Sig/Reji Route PRN Reason Start Time Stop Time Status Last Admin Dose Admin Acetaminophen (Tylenol) 650 mg Q4H PRN ORAL fever 12/22/16 13:45 01/21/17 13:44 Albuterol/ Ipratropium (DuoNeb 0.5-3(2.5)mg/3ml) 3 ml Q4H PRN HHN Shortness of Breath 12/22/16 13:45 12/27/16 13:44 Dextrose/Sodium Chloride (D10ns) 1,000 ml @ 20 mls/hr Q24H IV 12/23/16 11:00 01/22/17 10:59 12/23/16 12:14 Lactulose 20 gm 20 gm THREE TIMES A DAY ORAL 12/22/16 18:00 01/21/17 17:59 12/23/16 13:00 Lorazepam (Ativan 2mg/ml 1ml) 2 mg Q4H PRN IV For Anxiety 12/22/16 13:45 12/29/16 13:44 Morphine Sulfate (Morphine Sulfate) 4 mg Q4H PRN IVP For Pain 12/22/16 13:45 12/29/16 13:44 12/22/16 23:01 Nitroglycerin (Ntg) 0.4 mg Q5MIN X 3 DOSES PRN SL Prn Chest Pain 12/22/16 13:45 01/21/17 13:44 Norepinephrine Bitartrate 4 mg/ Dextrose 250 ml @ 0 mls/hr Q24H IV 12/23/16 01:00 01/22/17 00:59 12/23/16 09:26 Ondansetron HCl (Zofran) 4 mg Q6H PRN IVP Nausea & Vomiting 12/22/16 13:45 01/21/17 13:44 Pantoprazole (Protonix) 40 mg DAILY IV 12/23/16 09:00 01/22/17 08:59 12/23/16 08:31 Polyethylene Glycol (Miralax) 17 gm DAILYPRN PRN ORAL Constipation 12/22/16 13:45 01/21/17 13:44 Vancomycin HCl 500 mg/Dextrose 110 ml @ 110 mls/hr Q24H IVPB 12/23/16 13:00 12/28/16 12:59 12/23/16 12:50 GI: Plan Problems: (1) GAVE (gastric antral vascular ectasia) (2) Anemia (3) Hypoalbuminemia (4) Severe malnutrition (5) Gaseous abdominal distention (6) Liver cirrhosis (7) Altered mental state Plan s/p EGD/colon at [facility] recently, see full report in chart. defer any GI procedures at this time monitor H&H, transfuse prn ordered Protonix gtt ordered KUB dietary consult added Xifaxan, repeat ammonia levels fu abdominal U/S fu labs Discussed with Dr. Galarza. Thank you for referring this patient, we will follow. Suzy Middleton N.P. Dec 23, 2016 14:08
[2016-12-23] MEDS ORDERED: Tubing IV Secondary IV ONE (15:19)
[2016-12-23] MEDS ORDERED: NS 275ml ONE (15:19)
--- NOTE | 2016-12-23 15:21 | Cardiology Report ---
APPROVED REPORT EXAM: Two-dimensional and M-mode echocardiogram with Doppler and color Doppler. INDICATION LV function M-Mode DIMENSIONS IVSd1.1 (0.7-1.1cm)Left Atrium (MM)2.5 (1.6-4.0cm) LVDd3.8 (3.5-5.6cm)Aortic Root2.5 (2.0-3.7cm) PWd1.1 (0.7-1.1cm)Aortic Cusp Exc.1.7 (1.5-2.0cm) LVDs2.5 (2.5-4.0cm) PWs1.1 cm Normal left ventricular chamber size, systolic function and wall motion. Left ventricular ejection fraction estimated to be 65 %. Borderline mild left ventricular hypertrophy. Small posterior pericardial effusion. Large posterior pleural effusion. Left atrial size at upper limits of normal. Right cardiac chamber sizes are within normal limits. Mild focal aortic valve sclerosis with adequate cusp excursion. Mildly thickened mitral valve leaflets with normal excursion. Mitral annulus and aortic root calcification. Pulmonic valve not well visualized. Normal tricuspid valve structure. IVC measured at 2.1 cm with slight physiologic collapse suggestive of mildly increased RA pressure. A color flow and spectral Doppler study was performed and revealed: Trace aortic regurgitation. Moderate mitral regurgitation. Mitral diastolic velocities suggest reduced left ventricular relaxation c/w mild LV diastolic dysfunction (Grade I ). Mild to moderate tricuspid regurgitation. Tricuspid systolic velocities suggests peak right ventricular systolic pressure of 49 mmHg, consistent with moderate pulmonary hypertension. Trace pulmonic regurgitation present.
[2016-12-23] MEDS: Pantoprazole 80 MG in NS 250 ML IV SCH (15:49)
--- NOTE | 2016-12-23 15:50 | Diagnostic Imaging Report ---
Indication: Abdominal pain and distention Technique: Supine view of the abdomen Comparison: none Findings: Is a nasogastric tube in place, tip projected at the level gastric body. There is a right femoral central venous catheter. There is a Silveira catheter. Bowel gas pattern is unremarkable, with one or more prominent but not frankly dilated small bowel loops in the left lower quadrant. No unusual masses or calcifications Impression: No acute process. Satisfactory nasogastric tube and right femoral central venous catheter position, as described
--- NOTE | 2016-12-23 16:05 | Infectious Diseases Prog Note ---
Assessment/Plan Assessment/Plan ASSESSMENT: 61 y/o female with: // Probable sepsis r/o HCAP, UTI, bacteremia - cultures pending // Negative C.difficile // Shock / pressors // Leukopenia SP // Hypothermia SP // Acute encephalopathy / found down ?hepatic ( elevated NH4 ) r/o septic - improved - CT Head: No evidence of acute intracranial pathology. Bilateral cerebral periventricular and deepwhite matter low attenuation, nonspecific, likely chronic microvascular ischemic in nature. Atrophy // Acute VDRF - intubated 12/22 // ?Cirrhosis / chronic liver disease with elevated LFTs, leukopenia, chronic macrocytic anemia, TCP, coagulopathy, hypoalbuminemia - US: pending // ESRD / HD with right chest TDC // FOBT(+) macrocytic anemia SP PRBCs - recent EGD: GAVE // Probable CHF exacerbation - CXR: evidence of congestive heart failure including pulmonary edema, small bilateral pleural effusions - TTE: EF 65%, grade I diastolic dysfunction, mild-mod TR, mod MR, pulmonary HTN // Elevated ESR // NH resident // NKDA // Full Code PLAN: - continue empiric broad spectrum IV vancomycin, rifaximin d# 2. Noted zosyn DC 'd - f/u cultures - monitor CBC, temperatures - monitor BMP - monitor CXR - vent, pressor support, wean as tolerated - transfuse prn Subjective Allergies: Coded Allergies: No Known Allergies (Unverified , 12/22/16) Subjective remains afebrile on vent, pressors more awake family at bedside Objective Vital Signs Last 24 Hour Vital Signs Date Time Temp Pulse Resp B/P Pulse Ox O2 Delivery O2 Flow Rate FiO2 12/23/16 15:49 89/46 12/23/16 15:29 85 14 30 12/23/16 15:00 92 14 103/52 100 Mechanical Ventilator 30 12/23/16 14:45 93 15 109/55 100 Mechanical Ventilator 30 12/23/16 14:30 92 14 100/52 100 Mechanical Ventilator 30 12/23/16 14:15 95 15 103/53 100 Mechanical Ventilator 30 12/23/16 14:00 90 14 101/54 100 Mechanical Ventilator 30 12/23/16 13:45 90 14 88/45 100 Mechanical Ventilator 30 12/23/16 13:30 90 15 101/59 100 Mechanical Ventilator 30 12/23/16 13:16 92 14 30 12/23/16 13:15 93 15 105/54 100 Mechanical Ventilator 30 12/23/16 13:06 30 12/23/16 13:00 91 14 114/55 100 Mechanical Ventilator 30 12/23/16 12:45 89 14 97/54 100 Mechanical Ventilator 30 12/23/16 12:30 90 14 110/42 100 Mechanical Ventilator 30 12/23/16 12:15 90 14 94/44 100 Mechanical Ventilator 30 12/23/16 12:00 97.3 94 14 84/44 100 Mechanical Ventilator 30 12/23/16 12:00 92 12/23/16 11:45 95 14 86/62 100 Mechanical Ventilator 30 12/23/16 11:30 103 18 113/52 100 Mechanical Ventilator 30 12/23/16 11:21 109 27 30 12/23/16 11:15 93 15 87/37 100 Mechanical Ventilator 30 12/23/16 11:00 98 15 80/34 100 Mechanical Ventilator 30 12/23/16 10:45 110 17 106/66 100 Mechanical Ventilator 30 12/23/16 10:30 100 15 141/60 100 Mechanical Ventilator 30 12/23/16 10:15 101 14 132/58 100 Mechanical Ventilator 30 12/23/16 10:00 102 14 129/53 100 Mechanical Ventilator 30 12/23/16 09:45 100 15 112/50 100 Mechanical Ventilator 30 12/23/16 09:30 98 14 102/44 100 Mechanical Ventilator 30 12/23/16 09:26 121/58 12/23/16 09:15 102 15 121/58 100 Mechanical Ventilator 30 12/23/16 09:11 98 15 30 12/23/16 09:00 100 14 115/37 100 Mechanical Ventilator 30 12/23/16 08:45 100 15 119/40 100 Mechanical Ventilator 30 12/23/16 08:30 99 14 111/37 100 Mechanical Ventilator 30 12/23/16 08:15 99 15 127/44 100 Mechanical Ventilator 30 12/23/16 08:00 98.0 99 15 101/45 100 Mechanical Ventilator 30 12/23/16 08:00 104 12/23/16 08:00 30 12/23/16 07:45 101 15 114/40 100 Mechanical Ventilator 30 12/23/16 07:30 104 14 119/40 100 Mechanical Ventilator 30 12/23/16 07:15 105 14 139/46 100 Mechanical Ventilator 30 12/23/16 07:12 106 14 30 12/23/16 07:00 101 16 139/46 100 Mechanical Ventilator 30 12/23/16 06:45 95 16 51/25 100 Mechanical Ventilator 30 12/23/16 06:30 96 16 69/47 100 Mechanical Ventilator 30 12/23/16 06:15 107 16 130/47 100 Mechanical Ventilator 30 12/23/16 06:00 109 15 139/47 100 Mechanical Ventilator 30 12/23/16 05:45 111 15 149/60 100 Mechanical Ventilator 30 12/23/16 05:30 106 15 124/60 100 Mechanical Ventilator 30 12/23/16 05:22 100 14 30 12/23/16 05:15 101 15 124/60 100 Mechanical Ventilator 30 12/23/16 05:00 102 17 133/59 100 Mechanical Ventilator 30 12/23/16 04:45 101 14 120/54 100 Mechanical Ventilator 30 12/23/16 04:30 98 14 71/36 94 Mechanical Ventilator 30 12/23/16 04:15 98 14 69/37 100 Mechanical Ventilator 30 12/23/16 04:00 98.4 88 27 160/116 100 Mechanical Ventilator 30 12/23/16 04:00 98 12/23/16 04:00 30 12/23/16 03:18 98 27 30 12/23/16 03:00 99 28 121/52 100 Mechanical Ventilator 30 12/23/16 02:00 96 28 121/52 100 Mechanical Ventilator 30 12/23/16 01:14 79/54 12/23/16 01:00 92 27 112/37 100 Mechanical Ventilator 30 12/23/16 00:52 88 29 30 12/23/16 00:00 96 12/23/16 00:00 98.4 88 27 160/116 100 Mechanical Ventilator 30 12/23/16 00:00 30 12/22/16 23:31 98.2 12/22/16 23:30 97.8 89 166/89 12/22/16 23:15 113 141/67 12/22/16 23:00 109 139/61 12/22/16 23:00 97.1 114 27 141/87 100 Mechanical Ventilator 30 12/22/16 22:57 128 19 30 12/22/16 22:45 125 164/75 12/22/16 22:30 96 135/72 12/22/16 22:15 94 105/70 12/22/16 22:00 93 106/65 12/22/16 22:00 98.2 94 27 107/56 99 Mechanical Ventilator 30 12/22/16 21:45 92 97/54 12/22/16 21:30 90 95/61 12/22/16 21:15 88 109/52 12/22/16 21:09 87 29 30 12/22/16 21:00 87 83/48 12/22/16 21:00 81 20 110/69 100 Mechanical Ventilator 30 12/22/16 20:45 90 86/58 12/22/16 20:30 97.9 69 113/56 12/22/16 20:00 30 12/22/16 20:00 82 12/22/16 20:00 95.0 83 26 113/56 100 Mechanical Ventilator 30 12/22/16 19:18 83 26 30 12/22/16 19:00 81 20 129/69 100 Mechanical Ventilator 30 12/22/16 18:00 80 20 114/72 100 Mechanical Ventilator 30 12/22/16 17:00 94.8 72 23 124/87 100 Mechanical Ventilator 30 12/22/16 16:50 75 28 30 Height (Feet): 4 Height (Inches): 9.00 Weight (Pounds): 75 General Appearance: other - intubated Respiratory/Chest: no respiratory distress Cardiovascular: normal rate, regular rhythm Abdomen: normal bowel sounds, soft, non tender, non distended Microbiology Date/Time Source Procedure Growth Status 12/23/16 01:00 Stool Clostridium difficile Toxin Assay - Final Complete Laboratory Tests Test 12/23/16 01:00 12/23/16 04:00 Stool Occult Blood Positive (NEGATIVE) White Blood Count 8.6 K/UL (4.8-10.8) # Red Blood Count 3.52 M/UL (4.20-5.40) L Hemoglobin 10.8 G/DL (12.0-16.0) L Hematocrit 33.6 % (37.0-47.0) L Mean Corpuscular Volume 96 FL (80-99) Mean Corpuscular Hemoglobin 30.8 PG (27.0-31.0) Mean Corpuscular Hemoglobin Concent 32.2 G/DL (32.0-36.0) Red Cell Distribution Width 20.1 % (11.6-14.8) H Platelet Count 129 K/UL (150-450) L Mean Platelet Volume 7.9 FL (6.5-10.1) Neutrophils (%) (Auto) % (45.0-75.0) Lymphocytes (%) (Auto) % (20.0-45.0) Monocytes (%) (Auto) % (1.0-10.0) Eosinophils (%) (Auto) % (0.0-3.0) Basophils (%) (Auto) % (0.0-2.0) Sodium Level 139 mEQ/L (135-145) Potassium Level 3.0 mEQ/L (3.4-4.9) L Chloride Level 97 mEQ/L (98-107) L Carbon Dioxide Level 23 mEQ/L (20-30) Anion Gap 19 (5-15) H Blood Urea Nitrogen 27 mg/dL (7-23) #H Creatinine 2.3 mg/dL (0.5-0.9) H Estimat Glomerular Filtration Rate 21.5 mL/min (>60) Glucose Level 55 mg/dL (74-106) L Calcium Level 8.4 mg/dL (8.6-10.2) L Total Bilirubin 2.5 mg/dL (0.0-1.2) H Direct Bilirubin 0.7 mg/dL (0.1-0.3) H Aspartate Amino Transf (AST/SGOT) 33 U/L (5-40) Alanine Aminotransferase (ALT/SGPT) 8 U/L (3-33) Alkaline Phosphatase 237 U/L (35-104) H Total Protein 6.7 g/dL (6.6-8.7) Albumin 3.0 g/dL (3.5-5.2) L Globulin 3.6 g/dL Albumin/Globulin Ratio 0.8 (1.0-2.7) L Current Medications Medications (Trade) Dose Ordered Sig/Reji Route PRN Reason Start Time Stop Time Status Last Admin Dose Admin Acetaminophen (Tylenol) 650 mg Q4H PRN ORAL fever 12/22/16 13:45 01/21/17 13:44 Albuterol/ Ipratropium (DuoNeb 0.5-3(2.5)mg/3ml) 3 ml Q4H PRN HHN Shortness of Breath 12/22/16 13:45 12/27/16 13:44 Dextrose/Sodium Chloride 1,000 ml @ 20 mls/hr Q24H IV 12/23/16 11:00 01/22/17 10:59 12/23/16 12:14 Lactulose 20 gm 20 gm THREE TIMES A DAY ORAL 12/22/16 18:00 01/21/17 17:59 12/23/16 13:00 Lorazepam (Ativan 2mg/ml 1ml) 2 mg Q4H PRN IV For Anxiety 12/22/16 13:45 12/29/16 13:44 Morphine Sulfate (Morphine Sulfate) 4 mg Q4H PRN IVP For Pain 12/22/16 13:45 12/29/16 13:44 12/22/16 23:01 Nitroglycerin (Ntg) 0.4 mg Q5MIN X 3 DOSES PRN SL Prn Chest Pain 12/22/16 13:45 01/21/17 13:44 Norepinephrine Bitartrate 4 mg/ Dextrose 250 ml @ 0 mls/hr Q24H IV 12/23/16 01:00 01/22/17 00:59 12/23/16 15:49 Ondansetron HCl (Zofran) 4 mg Q6H PRN IVP Nausea & Vomiting 12/22/16 13:45 01/21/17 13:44 Pantoprazole/ Sodium Chloride (Protonix/Sodium Chloride) 250 ml @ 25 mls/hr Q10H IV 12/23/16 15:30 01/22/17 15:29 12/23/16 15:49 Polyethylene Glycol (Miralax) 17 gm DAILYPRN PRN ORAL Constipation 12/22/16 13:45 01/21/17 13:44 Rifaximin (Xifaxan) 550 mg EVERY 12 HOURS ORAL 12/23/16 21:00 12/30/16 20:59 Vancomycin HCl 500 mg/Dextrose 110 ml @ 110 mls/hr Q24H IVPB 12/23/16 13:00 12/28/16 12:59 12/23/16 12:50 DARLIN GRANADO Dec 23, 2016 16:05
--- NOTE | 2016-12-23 16:14 | Nephrology Progress Note ---
Assessment/Plan Problem List: (1) Hypovolemic shock (2) End-stage kidney disease (3) Acute respiratory failure (4) CHF (congestive heart failure) (5) Liver cirrhosis (6) Hypoalbuminemia (7) Severe malnutrition (8) GAVE (gastric antral vascular ectasia) Plan try to wean off levophed, NS and albumin, hd 12/24 Subjective Constitutional: Reports: weakness HEENT: Reports: no symptoms Genitourinary: Reports: no symptoms Neurologic/Psychiatric: Reports: no symptoms Subjective awake on vent Objective Objective Last 24 Hour Vital Signs Date Time Temp Pulse Resp B/P Pulse Ox O2 Delivery O2 Flow Rate FiO2 12/23/16 15:49 89/46 12/23/16 15:29 85 14 30 12/23/16 15:00 92 14 103/52 100 Mechanical Ventilator 30 12/23/16 14:45 93 15 109/55 100 Mechanical Ventilator 30 12/23/16 14:30 92 14 100/52 100 Mechanical Ventilator 30 12/23/16 14:15 95 15 103/53 100 Mechanical Ventilator 30 12/23/16 14:00 90 14 101/54 100 Mechanical Ventilator 30 12/23/16 13:45 90 14 88/45 100 Mechanical Ventilator 30 12/23/16 13:30 90 15 101/59 100 Mechanical Ventilator 30 12/23/16 13:16 92 14 30 12/23/16 13:15 93 15 105/54 100 Mechanical Ventilator 30 12/23/16 13:06 30 12/23/16 13:00 91 14 114/55 100 Mechanical Ventilator 30 12/23/16 12:45 89 14 97/54 100 Mechanical Ventilator 30 12/23/16 12:30 90 14 110/42 100 Mechanical Ventilator 30 12/23/16 12:15 90 14 94/44 100 Mechanical Ventilator 30 12/23/16 12:00 97.3 94 14 84/44 100 Mechanical Ventilator 30 12/23/16 12:00 92 12/23/16 11:45 95 14 86/62 100 Mechanical Ventilator 30 12/23/16 11:30 103 18 113/52 100 Mechanical Ventilator 30 12/23/16 11:21 109 27 30 12/23/16 11:15 93 15 87/37 100 Mechanical Ventilator 30 12/23/16 11:00 98 15 80/34 100 Mechanical Ventilator 30 12/23/16 10:45 110 17 106/66 100 Mechanical Ventilator 30 12/23/16 10:30 100 15 141/60 100 Mechanical Ventilator 30 12/23/16 10:15 101 14 132/58 100 Mechanical Ventilator 30 12/23/16 10:00 102 14 129/53 100 Mechanical Ventilator 30 17 09:45 100 15 112/50 100 Mechanical Ventilator 30 12/23/16 09:30 98 14 102/44 100 Mechanical Ventilator 30 12/23/16 09:26 121/58 12/23/16 09:15 102 15 121/58 100 Mechanical Ventilator 30 12/23/16 09:11 98 15 30 12/23/16 09:00 100 14 115/37 100 Mechanical Ventilator 30 12/23/16 08:45 100 15 119/40 100 Mechanical Ventilator 30 12/23/16 08:30 99 14 111/37 100 Mechanical Ventilator 30 12/23/16 08:15 99 15 127/44 100 Mechanical Ventilator 30 12/23/16 08:00 98.0 99 15 101/45 100 Mechanical Ventilator 30 12/23/16 08:00 104 12/23/16 08:00 30 12/23/16 07:45 101 15 114/40 100 Mechanical Ventilator 30 12/23/16 07:30 104 14 119/40 100 Mechanical Ventilator 30 12/23/16 07:15 105 14 139/46 100 Mechanical Ventilator 30 12/23/16 07:12 106 14 30 12/23/16 07:00 101 16 139/46 100 Mechanical Ventilator 30 12/23/16 06:45 95 16 51/25 100 Mechanical Ventilator 30 12/23/16 06:30 96 16 69/47 100 Mechanical Ventilator 30 12/23/16 06:15 107 16 130/47 100 Mechanical Ventilator 30 12/23/16 06:00 109 15 139/47 100 Mechanical Ventilator 30 12/23/16 05:45 111 15 149/60 100 Mechanical Ventilator 30 12/23/16 05:30 106 15 124/60 100 Mechanical Ventilator 30 12/23/16 05:22 100 14 30 12/23/16 05:15 101 15 124/60 100 Mechanical Ventilator 30 12/23/16 05:00 102 17 133/59 100 Mechanical Ventilator 30 12/23/16 04:45 101 14 120/54 100 Mechanical Ventilator 30 12/23/16 04:30 98 14 71/36 94 Mechanical Ventilator 30 12/23/16 04:15 98 14 69/37 100 Mechanical Ventilator 30 12/23/16 04:00 98.4 88 27 160/116 100 Mechanical Ventilator 30 12/23/16 04:00 98 12/23/16 04:00 30 12/23/16 03:18 98 27 30 12/23/16 03:00 99 28 121/52 100 Mechanical Ventilator 30 12/23/16 02:00 96 28 121/52 100 Mechanical Ventilator 30 12/23/16 01:14 79/54 12/23/16 01:00 92 27 112/37 100 Mechanical Ventilator 30 12/23/16 00:52 88 29 30 12/23/16 00:00 96 12/23/16 00:00 98.4 88 27 160/116 100 Mechanical Ventilator 30 12/23/16 00:00 30 12/22/16 23:31 98.2 12/22/16 23:30 97.8 89 166/89 12/22/16 23:15 113 141/67 12/22/16 23:00 109 139/61 12/22/16 23:00 97.1 114 27 141/87 100 Mechanical Ventilator 30 12/22/16 22:57 128 19 30 12/22/16 22:45 125 164/75 12/22/16 22:30 96 135/72 12/22/16 22:15 94 105/70 12/22/16 22:00 93 106/65 12/22/16 22:00 98.2 94 27 107/56 99 Mechanical Ventilator 30 12/22/16 21:45 92 97/54 12/22/16 21:30 90 95/61 12/22/16 21:15 88 109/52 12/22/16 21:09 87 29 30 12/22/16 21:00 87 83/48 12/22/16 21:00 81 20 110/69 100 Mechanical Ventilator 30 12/22/16 20:45 90 86/58 12/22/16 20:30 97.9 69 113/56 12/22/16 20:00 30 12/22/16 20:00 82 12/22/16 20:00 95.0 83 26 113/56 100 Mechanical Ventilator 30 12/22/16 19:18 83 26 30 12/22/16 19:00 81 20 129/69 100 Mechanical Ventilator 30 12/22/16 18:00 80 20 114/72 100 Mechanical Ventilator 30 12/22/16 17:00 94.8 72 23 124/87 100 Mechanical Ventilator 30 12/22/16 16:50 75 28 30 Intake and Output 12/22/16 12/23/16 19:00 07:00 Intake Total 100 ml 1281.25 ml Output Total 0 ml 1660 ml Balance 100 ml -378.75 ml Intake Oral 0 ml IV Total 100 ml 131.25 ml Blood Product 600 ml Hemodialysis 550 ml Output Urine Total 0 ml 10 ml Hemodialysis UF 1650 ml # Bowel Movements 3 Laboratory Tests 12/23/16 01:00: Stool Occult Blood Positive 12/23/16 04:00: White Blood Count 8.6#, Red Blood Count 3.52L, Hemoglobin 10.8L, Hematocrit 33.6L, Mean Corpuscular Volume 96, Mean Corpuscular Hemoglobin 30.8, Mean Corpuscular Hemoglobin Concent 32.2, Red Cell Distribution Width 20.1H, Platelet Count 129L, Mean Platelet Volume 7.9, Neutrophils (%) (Auto) , Lymphocytes (%) (Auto) , Monocytes (%) (Auto) , Eosinophils (%) (Auto) , Basophils (%) (Auto) , Sodium Level 139, Potassium Level 3.0L, Chloride Level 97L, Carbon Dioxide Level 23, Anion Gap 19H, Blood Urea Nitrogen 27#H, Creatinine 2.3H, Estimat Glomerular Filtration Rate 21.5, Glucose Level 55L, Calcium Level 8.4L, Total Bilirubin 2.5H, Direct Bilirubin 0.7H, Aspartate Amino Transf (AST/SGOT) 33, Alanine Aminotransferase (ALT/SGPT) 8, Alkaline Phosphatase 237H, Total Protein 6.7, Albumin 3.0L, Globulin 3.6, Albumin/ Globulin Ratio 0.8L Height (Feet): 4 Height (Inches): 9.00 Weight (Pounds): 75 General Appearance: thin EENT: PERRL/EOMI Neck: normal alignment Cardiovascular: regular rhythm Respiratory/Chest: lungs clear, normal breath sounds Abdomen: non tender, soft, no organomegaly Extremities: other - no edema muscle wasting Neurologic: emergency dept tech II-XII grossly normal PERLITA HOOD Dec 23, 2016 16:14
--- NOTE | 2016-12-23 17:56 | Cardiology Progress Note ---
Assessment/Plan Assessment/Plan ams hypotension hs of mod to sever MR paf hs of avb with pvc cirrhosis , esrd on dialyusis mgus htn scleroderma hs of [facility] o gave full note dictated contienu on rhtymol for now watch on tele for afib recurrece or for av block repeat trop titrae off levophed as safe and possible iv abx empiric dialyssis lv fucntion has been preserve [id number] Objective Last 24 Hour Vital Signs Date Time Temp Pulse Resp B/P Pulse Ox O2 Delivery O2 Flow Rate FiO2 12/23/16 17:01 83 14 30 12/23/16 16:00 30 12/23/16 16:00 88 12/23/16 16:00 98.9 87 15 91/51 100 Mechanical Ventilator 30 12/23/16 15:49 89/46 12/23/16 15:45 86 15 89/46 100 Mechanical Ventilator 30 12/23/16 15:30 90 16 96/33 100 Mechanical Ventilator 30 12/23/16 15:29 85 14 30 12/23/16 15:15 89 15 102/60 100 Mechanical Ventilator 30 12/23/16 15:00 92 14 103/52 100 Mechanical Ventilator 30 12/23/16 14:45 93 15 109/55 100 Mechanical Ventilator 30 12/23/16 14:30 92 14 100/52 100 Mechanical Ventilator 30 12/23/16 14:15 95 15 103/53 100 Mechanical Ventilator 30 12/23/16 14:00 90 14 101/54 100 Mechanical Ventilator 30 12/23/16 13:45 90 14 88/45 100 Mechanical Ventilator 30 12/23/16 13:30 90 15 101/59 100 Mechanical Ventilator 30 12/23/16 13:16 92 14 30 12/23/16 13:15 93 15 105/54 100 Mechanical Ventilator 30 12/23/16 13:06 30 12/23/16 13:00 91 14 114/55 100 Mechanical Ventilator 30 12/23/16 12:45 89 14 97/54 100 Mechanical Ventilator 30 12/23/16 12:30 90 14 110/42 100 Mechanical Ventilator 30 12/23/16 12:15 90 14 94/44 100 Mechanical Ventilator 30 12/23/16 12:00 97.3 94 14 84/44 100 Mechanical Ventilator 30 12/23/16 12:00 92 12/23/16 11:45 95 14 86/62 100 Mechanical Ventilator 30 12/23/16 11:30 103 18 113/52 100 Mechanical Ventilator 30 17 11:21 109 27 30 12/23/16 11:15 93 15 87/37 100 Mechanical Ventilator 30 12/23/16 11:00 98 15 80/34 100 Mechanical Ventilator 30 12/23/16 10:45 110 17 106/66 100 Mechanical Ventilator 30 12/23/16 10:30 100 15 141/60 100 Mechanical Ventilator 30 12/23/16 10:15 101 14 132/58 100 Mechanical Ventilator 30 12/23/16 10:00 102 14 129/53 100 Mechanical Ventilator 30 12/23/16 09:45 100 15 112/50 100 Mechanical Ventilator 30 12/23/16 09:30 98 14 102/44 100 Mechanical Ventilator 30 12/23/16 09:26 121/58 12/23/16 09:15 102 15 121/58 100 Mechanical Ventilator 30 12/23/16 09:11 98 15 30 12/23/16 09:00 100 14 115/37 100 Mechanical Ventilator 30 12/23/16 08:45 100 15 119/40 100 Mechanical Ventilator 30 12/23/16 08:30 99 14 111/37 100 Mechanical Ventilator 30 12/23/16 08:15 99 15 127/44 100 Mechanical Ventilator 30 12/23/16 08:00 98.0 99 15 101/45 100 Mechanical Ventilator 30 12/23/16 08:00 104 12/23/16 08:00 30 12/23/16 07:45 101 15 114/40 100 Mechanical Ventilator 30 12/23/16 07:30 104 14 119/40 100 Mechanical Ventilator 30 12/23/16 07:15 105 14 139/46 100 Mechanical Ventilator 30 12/23/16 07:12 106 14 30 17 07:00 101 16 139/46 100 Mechanical Ventilator 30 12/23/17 06:45 95 16 51/25 100 Mechanical Ventilator 30 12/23/16 06:30 96 16 69/47 100 Mechanical Ventilator 30 17 06:15 107 16 130/47 100 Mechanical Ventilator 30 17 06:00 109 15 139/47 100 Mechanical Ventilator 30 12/23/17 05:45 111 15 149/60 100 Mechanical Ventilator 30 12/23/16 05:30 106 15 124/60 100 Mechanical Ventilator 30 12/23/16 05:22 100 14 30 12/23/16 05:15 101 15 124/60 100 Mechanical Ventilator 30 12/23/16 05:00 102 17 133/59 100 Mechanical Ventilator 30 12/23/16 04:45 101 14 120/54 100 Mechanical Ventilator 30 12/23/16 04:30 98 14 71/36 94 Mechanical Ventilator 30 12/23/16 04:15 98 14 69/37 100 Mechanical Ventilator 30 12/23/16 04:00 98.4 88 27 160/116 100 Mechanical Ventilator 30 12/23/16 04:00 98 12/23/16 04:00 30 12/23/16 03:18 98 27 30 12/23/16 03:00 99 28 121/52 100 Mechanical Ventilator 30 12/23/16 02:00 96 28 121/52 100 Mechanical Ventilator 30 12/23/16 01:14 79/54 12/23/16 01:00 92 27 112/37 100 Mechanical Ventilator 30 12/23/16 00:52 88 29 30 12/23/16 00:00 96 12/23/16 00:00 98.4 88 27 160/116 100 Mechanical Ventilator 30 12/23/16 00:00 30 12/22/16 23:31 98.2 12/22/16 23:30 97.8 89 166/89 12/22/16 23:15 113 141/67 12/22/16 23:00 109 139/61 12/22/16 23:00 97.1 114 27 141/87 100 Mechanical Ventilator 30 12/22/16 22:57 128 19 30 12/22/16 22:45 125 164/75 12/22/16 22:30 96 135/72 12/22/16 22:15 94 105/70 12/22/16 22:00 93 106/65 12/22/16 22:00 98.2 94 27 107/56 99 Mechanical Ventilator 30 12/22/16 21:45 92 97/54 12/22/16 21:30 90 95/61 12/22/16 21:15 88 109/52 12/22/16 21:09 87 29 30 12/22/16 21:00 87 83/48 12/22/16 21:00 81 20 110/69 100 Mechanical Ventilator 30 12/22/16 20:45 90 86/58 12/22/16 20:30 97.9 69 113/56 2/14/17 20:00 30 12/22/16 20:00 82 12/22/16 20:00 95.0 83 26 113/56 100 Mechanical Ventilator 30 12/22/16 19:18 83 26 30 12/22/16 19:00 81 20 129/69 100 Mechanical Ventilator 30 12/22/16 18:00 80 20 114/72 100 Mechanical Ventilator 30 Intake and Output 12/22/16 12/23/16 19:00 07:00 Intake Total 100 ml 1281.25 ml Output Total 0 ml 1660 ml Balance 100 ml -378.75 ml Intake Oral 0 ml IV Total 100 ml 131.25 ml Blood Product 600 ml Hemodialysis 550 ml Output Urine Total 0 ml 10 ml Hemodialysis UF 1650 ml # Bowel Movements 3 Laboratory Tests Test 12/23/16 01:00 12/23/16 04:00 Stool Occult Blood Positive (NEGATIVE) White Blood Count 8.6 K/UL (4.8-10.8) # Red Blood Count 3.52 M/UL (4.20-5.40) L Hemoglobin 10.8 G/DL (12.0-16.0) L Hematocrit 33.6 % (37.0-47.0) L Mean Corpuscular Volume 96 FL (80-99) Mean Corpuscular Hemoglobin 30.8 PG (27.0-31.0) Mean Corpuscular Hemoglobin Concent 32.2 G/DL (32.0-36.0) Red Cell Distribution Width 20.1 % (11.6-14.8) H Platelet Count 129 K/UL (150-450) L Mean Platelet Volume 7.9 FL (6.5-10.1) Neutrophils (%) (Auto) % (45.0-75.0) Lymphocytes (%) (Auto) % (20.0-45.0) Monocytes (%) (Auto) % (1.0-10.0) Eosinophils (%) (Auto) % (0.0-3.0) Basophils (%) (Auto) % (0.0-2.0) Sodium Level 139 mEQ/L (135-145) Potassium Level 3.0 mEQ/L (3.4-4.9) L Chloride Level 97 mEQ/L (98-107) L Carbon Dioxide Level 23 mEQ/L (20-30) Anion Gap 19 (5-15) H Blood Urea Nitrogen 27 mg/dL (7-23) #H Creatinine 2.3 mg/dL (0.5-0.9) H Estimat Glomerular Filtration Rate 21.5 mL/min (>60) Glucose Level 55 mg/dL (74-106) L Calcium Level 8.4 mg/dL (8.6-10.2) L Total Bilirubin 2.5 mg/dL (0.0-1.2) H Direct Bilirubin 0.7 mg/dL (0.1-0.3) H Aspartate Amino Transf (AST/SGOT) 33 U/L (5-40) Alanine Aminotransferase (ALT/SGPT) 8 U/L (3-33) Alkaline Phosphatase 237 U/L (35-104) H Total Protein 6.7 g/dL (6.6-8.7) Albumin 3.0 g/dL (3.5-5.2) L Globulin 3.6 g/dL Albumin/Globulin Ratio 0.8 (1.0-2.7) L Microbiology Date/Time Source Procedure Growth Status 12/23/16 01:00 Stool Clostridium difficile Toxin Assay - Final Complete CHRISTIN JIMENEZ Dec 23, 2016 17:56
[2016-12-23] MEDS: Morphine Sulfate 4mg/ml Inj IVP PRN (19:36)
--- NOTE | 2016-12-23 19:49 | History and Physical Report ---
DATE OF ADMISSION: 12/22/2016 CHIEF COMPLAINT: The patient is a 61-year-old female who presents with chief complaint of altered mental status. HISTORY OF PRESENT ILLNESS: The patient is a resident of rehabilitation on [facility]. The patient was found by staff to be down. The patient was also hypothermic. The patient was transported to [facility]. The patient was emergently intubated in the emergency room. The patient presents with chief complaint of respiratory failure. REVIEW OF SYSTEMS: Unable to obtain secondary to patient's mental status. PAST MEDICAL HISTORY: Significant for: 1. End-stage renal disease, on hemodialysis. 2. Cirrhosis of the liver. 3. Congestive heart failure. 4. Gastrointestinal hemorrhage, status post endoscopy in September 2016. 5. Anemia of blood loss. 6. Ascites. 7. Toxic metabolic encephalopathy. 8. Major depression. PAST SURGICAL HISTORY: Endoscopy as above. CURRENT MEDICATIONS: From [facility] on [facility]. 1. Folic acid 0.8 mg p.o. daily. 2. Coreg 6.25 mg one tablet p.o. twice daily. 3. Vitamin. 4. Cyanocobalamin 500 mcg one tablet p.o. daily. 5. Marinol 2.5 mg one tablet p.o. twice daily. 6. DuoNeb nebulized every four hours as needed. 7. Epogen 9000 units every Wednesday and Wednesday with dialysis. 8. Lexapro 10 mg one tablet p.o. daily. 9. Flonase one spray in both nostrils twice daily. 10. Hydralazine 50 mg one tablet p.o. q.i.d. as needed hypertension. 11. Lactulose 15 mL by p.o. twice daily. 12. Lipitor 10 mg one tablet p.o. at bedtime. 13. Lisinopril 10 mg one tablet p.o. daily. 14. Claritin 10 mg p.o. daily. 15. Mirtazapine 15 mg one tablet p.o. at bedtime. 16. Protonix 40 mg one tablet p.o. twice daily. 17. Propafenone 225 mg one tablet p.o. 8 hours. 18. Zantac 150 mg one tablet p.o. daily. 19. Rifaximin 550 milligram one tablet p.o. twice daily. 20. Tylenol 650 mg one tablet p.o. every four hours as needed. ALLERGIES: No known drug allergies. SOCIAL HISTORY: The patient is resident of a local rehabilitation center [facility], [facility]. The patient denies tobacco or alcohol use. PHYSICAL EXAMINATION: VITAL SIGNS: Temperature 98.0, respirations 15, pulse 104, blood pressure 101/45. GENERAL: The patient is well-developed and well-nourished female, who is intubated and sedated. HEENT: Eyes are pupils are equal and responsive to light and accommodation. Extraocular movements are intact. NECK: Supple. No lymphadenopathy. CHEST: Diffuse wheezes bilaterally. Otherwise without crackles or rales. CARDIOVASCULAR: Regular rhythm and rate. S1 and S2. No murmurs, rubs, or gallops. ABDOMEN: Soft, nontender, and nondistended. Positive bowel sounds. No evidence of hepatosplenomegaly. Currently no rebound or guarding noted. EXTREMITIES: Negative for clubbing, cyanosis, or edema. RECTAL/GENITAL: Refused. NEUROLOGIC: Unable to assess secondary to patient's mental status. LABORATORY STUDIES: WBC 4.1, hemoglobin 8.5, hematocrit 27.0, platelets 145,000. Sodium 138, potassium 5.3, chloride 103, CO2 20, BUN 78, creatinine 4.6, glucose 118. Troponin less than 0.3. ASSESSMENT: This is a 61-year-old female. 1. Respiratory failure. 2. End-stage renal disease. 3. Cirrhosis of liver. 4. Congestive heart failure. 5. History of gastrointestinal hemorrhage. 6. Anemia of chronic blood loss. 7. Ascites. 8. Encephalopathy. 9. Major depression. TREATMENT: 1. Respiratory failure. The patient is currently admitted to the intensive care unit. The patient is intubated and sedated. The pulmonary consultation has been obtained with Dr. Jes Bautista. The patient is currently on intravenous vancomycin. Sputum cultures are pending. 2. End-stage renal disease. A Nephrology consultation was obtained with Dr. Boland. Hemodialysis as tolerated per Nephrology. 3. Cirrhosis of liver. Gastroenterology consultation obtained with Dr. Chau Galarza. We will follow recommendations of Gastroenterology. 4. Congestive heart failure. 5. History of gastrointestinal bleed as above. A Gastroenterology consultation obtained with Dr. Galarza. 6. Anemia of chronic blood loss. 7. Ascites. 8. Toxic metabolic encephalopathy. 9. Major depression. Hu Sullivan M.D. DR: Monica JOB#: [id number] CC:
[2016-12-23] MEDS: Rifaximin 550mg tab ORAL SCH (20:53)
--- NOTE | 2016-12-23 22:09 | Consultation ---
DATE OF CONSULTATION: 12/23/2016 CARDIOLOGY CONSULTATION CONSULTING PHYSICIAN: Cristian Green M.D. REFERRING PHYSICIAN: Jes Bautista M.D. REASON FOR REFERRAL: Altered mentation in a convalescent facility. There was extensive records at [facility], which I have been able to download some and review and in anticipation of this consultation. The patient was found lying in bed at the convalescent facility, the paramedics were called because of altered level of consciousness. Upon arrival, the patient found to be pale and cool and diaphoretic with a respiratory rate of 6, assisted ventilation with back valve was started. The patient was noted to have a gag reflex. She was usually alert and oriented, spontaneous. She was noted to be hypotensive and intravenous was established, 550 mL of normal saline was administered. The patient was supposed to get dialysis and was transferred from the Convalescent to the Emergency Room at [facility]. An EKG performed by the paramedics and it was reported to be normal. On arrival in the emergency room, she was intubated for airway protection and has been admitted to the hospital. She is now awake and oriented. She is hypotensive, on vasopressors that is being tapered down and she is responsive. She denies any chest pain and denies any shortness of breath at the present time. PAST MEDICAL HISTORY: Extensive includes a history of cardiac arrest status post pulseless electric activity in 12/03/2016. 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 difficile colitis, pneumonia, hypertension, anemia, history of AV block with PVC, cirrhosis, altered mentation, toxic metabolic encephalopathy, protein calorie malnutrition, SONIA positive, but 1 to 6 Dawson possible scleroderma subtypes all negative monoclonal gammopathy undetermined significance mitral regurgitation, cough that lowered, and normal left ventricular systolic function by history with [id number] mitral regurgitation, small pericardial effusion on prior occasions. She also has end-stage renal disease, on hemodialysis, atrial fibrillation rapid ventricular response, septic shock, and hypotension, metabolic acidosis, hepatic encephalopathy, hyponatremia, and low complement levels. MEDICATIONS: Available elsewhere. ALLERGIES: She has apparently no known drug allergies and according to the records here at [facility] an ischemia evaluation performed on 10/12/2016, was negative with ejection fraction of 52% at [facility]. 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 FAMILY HISTORY: Negative for premature coronary disease. Mother had a myocardial infarction at age 85 according to the data. REVIEW OF SYSTEMS: Unable to obtain. PHYSICAL EXAMINATION: GENERAL: Shows to be middle-aged female, on a mechanical ventilator. She is not communicative by head motions only. She is responsive at this time. LUNGS: Rhonchi noted on examination of lungs with good air entry. CARDIAC: Regular rate and rhythm. No heaves, lifts, thrills, or gallops noted. ABDOMEN: Soft and nontender. Positive bowel sounds. EXTREMITIES: There is no clubbing, cyanosis, nor is there any edema. NEUROLOGIC: Neurologically, she is awake, alert, and responsive. She seems to be moving all four extremities. LABORATORY VALUES: So far obtained today sodium 139, potassium 3.0, chloride 97, bicarbonate of 19, BUN 27, creatinine 2.3 and a glucose of 55. Liver function tests were all normal except for alkaline phosphatase of 240 and ammonia level was 56. Albumin is down at 3, folic acid is 15.6, and vitamin B12 was 902 with CEA of 2.6. Coagulations INR 1.3 and PTT of 35 and stool for occult blood was positive. Laboratories C. difficile negative at this time and x-rays of the abdomen performed shows satisfactory NG and right femoral venous catheter positions and an echocardiogram was apparently performed here to his ejection fraction of 65%, felt moderate mitral regurgitation with pressure of 49 estimated here. A chest x-ray performed yesterday shows endotracheal tube, hemodialysis catheter cardiomegaly with evidence of congestive heart failure including pulmonary edema with small bilateral pleural effusions and aortosclerosis. Head CT was negative and no intracranial pathology, but atrophy was noted bilateral basal ganglia calcifications. There is likely physiologic noted. ASSESSMENT AND PLAN: 1. Altered mentation in the convalescent facility. 2. Hypotension and possible sepsis. 3. Significant mitral regurgitation history with preserved left ventricular systolic function. 4. History gastrointestinal bleed, secondary to gastric antral vascular ectasia and telangiectasias. 5. History of recent Clostridium difficile colitis. 6. Hyperlipidemia. 7. Hypertension. 8. History of atrioventricular block with premature ventricular contractions. 9. Cirrhosis of the liver. 10. Monoclonal gammopathy of undetermined significance. 11. Scleroderma suspected. Dr. Bautista, this patient was seen in cardiac consultation. The patient is not experiencing any chest pain. She has had on telemetry appears to be sinus rhythm. No significant bradycardic episodes have been documented. No AV blocks have been documented. The electrocardiogram one found by the paramedics and subsequently here have not shown any significant bradycardia except for sinus at 56. At this time, her main issue is hypotension and she is being managed with vasopressors that the nursing staff were titrating downward as possible. An echocardiogram here performed shows evidence of moderate mitral regurgitation and not severe, although that may be interpretation issues. She has had some dialysis yesterday this will plan for having dialysis tomorrow. She does have a history of atrial fibrillation that record ventricular response according to the records from the [facility], but none have been documented since she has been here. She will have a cardiac enzymes checked as a matter of routine, the first one set yesterday was unremarkable, we will repeat that today. The remainder of the blood tests appeared to be relatively benign. Her C. difficile was negative. Blood cultures may be pending at this time and she may be getting empiric antibiotics per recommendations of Infectious Disease as well. I will follow the patient along with you. She will be monitored for episodes of arrhythmias including AV block that she has had previously and she apparently had symptomatic premature ventricular complexes and metal products viewer had seen her before was considering ablation of those in the future. Should she have evidence of AV block, we will need to address with again. I would consider decreasing the dose of Coreg in light of the fact that she has had episodes of AV block so as to not worsened that condition and she has been on propafenone previously as well for rhythm management for atrial fibrillation and that will be continued for the time being. Cristian Green M.D. DR: Tye JOB#: [id number] CC:
[2016-12-24] VITALS (65 sets, daily range): BP systolic 78–131; BP diastolic 45–85
[2016-12-24] MEDS: Pantoprazole 80 MG in NS 250 ML IV SCH ×3 (01:09→21:01)
[2016-12-24 05:17] LABS: MEAN CORPUSCULAR HEMOGLOBIN 32.2 PG (27.0-31.0); MEAN CORPUSCULAR HGB CONC 32.4 G/DL (32.0-36.0); MEAN CORPUSCULAR VOLUME 99 FL (80-99); MEAN PLATELET VOLUME 8.2 FL (6.5-10.1); PLATELET COUNT 114 K/UL (150-450); RED BLOOD COUNT 3.05 M/UL (4.20-5.40); RED CELL DISTRIBUTION WIDTH 20.5 % (11.6-14.8)
[2016-12-24 05:45] LABS: ALBUMIN/GLOBULIN RATIO 1.1 (1.0-2.7); CALCIUM 8.7 mg/dL (8.6-10.2); CREATININE 3.1 mg/dL (0.5-0.9); GLOMERULAR FILTRATION RATE 15.2 mL/min (>60); MAGNESIUM 1.8 mg/dL (1.7-2.5); PHOSPHORUS 5.3 mg/dL (2.5-4.8); POTASSIUM 3.5 mEQ/L (3.4-4.9); TOTAL PROTEIN 7.5 g/dL (6.6-8.7)
[2016-12-24] MEDS ORDERED: Heparin Sod 1000 units/ml 10ml IV PRN (06:00)
[2016-12-24 07:12] LABS: TROPONIN I < 0.30 ng/mL (<=0.30)
[2016-12-24 08:10] LABS: ABG BASE EXCESS -5.4; ABG PCO2 42.3 mmHg (35.0-45.0)
[2016-12-24 08:11] LABS: ABG ALLEN TEST POSITIVE
[2016-12-24] MEDS: Rifaximin 550mg tab ORAL SCH ×2 (08:35→21:01)
[2016-12-24] MEDS: Lactulose 20gm/30ml UDC ORAL SCH (08:36)
--- NOTE | 2016-12-24 10:46 | Diagnostic Imaging Report ---
Indication: Abnormal liver function tests and renal function tests Technique: Tyson-scale and duplex images of the upper abdomen were obtained Comparison: None Findings: There is moderate ascites.. Gallbladder demonstrates no stones. There is mild gallbladder wall thickening, gallbladder wall 4 mm thick.. . Common bile duct measures 8 mm in diameter. No intrahepatic biliary ductal dilatation. Liver demonstrates normal echogenicity, no focal abnormality. Portal vein and hepatic veins are patent.. Pancreas is unremarkable. Spleen is unremarkable. Left kidney measures 5.1 cm in length. Right kidney measures 6.6 cm length. Both kidneys demonstrate markedly increased echogenicity. There is no hydronephrosis. No focal abnormality. . Non-aneurysmal abdominal aorta. Impression: Moderate ascites, nonspecific as regards etiology Negative for gallstones. There is mild gallbladder wall thickening, suspect secondary to whatever process is causing ascites, but acute acalculous cholecystitis not completely excludable. Consider nuclear medicine hepatobiliary scan if there is high clinical suspicion for acute cholecystitis Bilateral echogenic atrophic kidneys, consistent with known history of chronic renal disease
[2016-12-24] MEDS: Dextrose 10%/0.9% SOD CHL 1,000 ML IV SCH ×3 (11:00→13:02)
--- NOTE | 2016-12-24 11:27 | GI Progress Note ---
Assessment/Plan Problems: (1) End-stage kidney disease ICD Codes: N18.6 - End stage renal disease SNOMED: 02442045 (2) GAVE (gastric antral vascular ectasia) ICD Codes: K31.819 - Angiodysplasia of stomach and duodenum without bleeding SNOMED: 88867235 (3) Severe malnutrition ICD Codes: E43 - Unspecified severe protein-calorie malnutrition SNOMED: 64699505 (4) Hypoalbuminemia ICD Codes: E88.09 - Other disorders of plasma-protein metabolism, not elsewhere classified SNOMED: 202987033 (5) Anemia ICD Codes: D64.9 - Anemia, unspecified SNOMED: 976860134 (6) Liver cirrhosis ICD Codes: K74.60 - Unspecified cirrhosis of liver SNOMED: 38862836 Status: progressing, unchanged Status Narrative Discussed with Dr. Galarza. Assessment/Plan s/p EGD/colon at [facility] recently, see full report in chart. KUB >> negative abd U/S >> Moderate ascites. Mild gallbladder wall thickening. See full report below. elevated ammonia defer any GI procedures at this time monitor H&H, transfuse prn protonix gtt OGT to goal rate per dietary lactulose + Xifaxan fu labs Subjective Subjective limited Objective Last 24 Hour Vital Signs Date Time Temp Pulse Resp B/P Pulse Ox O2 Delivery O2 Flow Rate FiO2 12/24/16 10:50 81 14 30 12/24/16 10:30 78 15 103/53 98 Mechanical Ventilator 30 12/24/16 10:20 82 14 30 12/24/16 10:00 82 15 99/65 98 Mechanical Ventilator 30 12/24/16 09:30 81 14 94/61 100 Mechanical Ventilator 30 12/24/16 09:00 81 15 94/51 98 Mechanical Ventilator 30 12/24/16 08:45 82 15 90/45 99 Mechanical Ventilator 30 12/24/16 08:36 81 12/24/16 08:30 82 15 111/64 100 Mechanical Ventilator 30 12/24/16 08:15 82 15 97/54 98 Mechanical Ventilator 30 12/24/16 08:00 97.0 79 14 96/56 99 Mechanical Ventilator 30 12/24/16 08:00 85 12/24/16 08:00 30 12/24/16 07:45 80 15 97/53 97 Mechanical Ventilator 30 12/24/16 07:30 80 15 98/60 97 Mechanical Ventilator 30 16/17 07:15 80 16 91/55 97 Mechanical Ventilator 30 16/17 07:05 80 14 30 16/17 07:00 80 15 91/53 100 Mechanical Ventilator 30 16/17 06:45 81 15 108/60 100 Mechanical Ventilator 30 16/17 06:30 91 15 101/58 99 Mechanical Ventilator 30 16/17 06:15 80 14 115/58 98 Mechanical Ventilator 30 12/24/17 06:00 82 15 115/57 97 Mechanical Ventilator 30 16/17 05:45 82 15 104/57 98 Mechanical Ventilator 30 12/24/17 05:30 82 16 111/56 99 Mechanical Ventilator 30 12/24/ 05:15 84 15 131/74 99 Mechanical Ventilator 30 12/24/ 05:02 86 14 30 12/24/ 05:00 85 16 122/73 98 Mechanical Ventilator 30 12/24/ 04:45 86 16 131/69 98 Mechanical Ventilator 30 12/24/16 04:30 86 16 126/85 95 Mechanical Ventilator 30 12/24/ 04:15 84 15 127/70 99 Mechanical Ventilator 30 12/24/ 04:00 81 16/ 04:00 80 15 113/63 100 Mechanical Ventilator 30 12/24/ 04:00 30 12/24/ 03:45 80 14 118/59 99 Mechanical Ventilator 30 12/24/ 03:30 80 14 102/52 99 Mechanical Ventilator 30 16/17 03:15 82 14 107/55 98 Mechanical Ventilator 30 12/24/16 03:00 82 14 114/60 96 Mechanical Ventilator 30 12/24/17 02:56 81 14 30 16/17 02:45 81 14 96/50 99 Mechanical Ventilator 30 16/17 02:30 79 14 95/49 97 Mechanical Ventilator 30 16/17 02:15 81 14 100/55 100 Mechanical Ventilator 30 16/17 02:00 79 14 105/56 97 Mechanical Ventilator 30 16/17 01:45 77 14 98/53 99 Mechanical Ventilator 30 16/17 01:30 78 14 94/53 95 Mechanical Ventilator 30 16/17 01:15 79 14 97/60 100 Mechanical Ventilator 30 16/17 01:00 78 15 97/60 100 Mechanical Ventilator 30 12/24/16 00:45 79 14 102/55 100 Mechanical Ventilator 30 12/24/16 00:44 83 14 30 12/24/16 00:30 81 14 109/65 100 Mechanical Ventilator 30 12/24/16 00:15 78 14 107/57 99 Mechanical Ventilator 30 12/24/16 00:00 30 12/24/16 00:00 78 12/24/16 00:00 78 14 98/56 99 Mechanical Ventilator 30 12/23/16 23:45 78 14 96/56 98 Mechanical Ventilator 30 12/23/16 23:30 97.1 77 14 93/57 100 Mechanical Ventilator 30 12/23/16 23:15 79 14 75/42 99 Mechanical Ventilator 30 12/23/16 23:00 80 16 87/56 100 Mechanical Ventilator 30 12/23/16 22:57 78 18 30 12/23/16 22:45 78 17 86/56 100 Mechanical Ventilator 30 12/23/16 22:30 83 16 97/58 100 Mechanical Ventilator 30 12/23/16 22:15 82 19 123/64 16 Mechanical Ventilator 30 12/23/16 22:00 76 15 89/58 100 Mechanical Ventilator 30 12/23/16 22:00 123/64 12/23/16 21:45 80 19 89/58 100 Mechanical Ventilator 30 12/23/16 21:30 80 14 101/60 100 Mechanical Ventilator 30 12/23/16 21:16 85 14 30 12/23/16 21:15 87 17 103/61 100 Mechanical Ventilator 30 12/23/16 21:00 88 19 116/54 100 Mechanical Ventilator 30 12/23/16 20:55 88 12/23/16 20:45 85 19 116/54 100 Mechanical Ventilator 30 12/23/16 20:30 81 19 98/57 100 Mechanical Ventilator 30 12/23/16 20:15 77 19 88/52 100 Mechanical Ventilator 30 12/23/16 20:06 98.9 12/23/16 20:00 98.9 81 19 89/45 100 Mechanical Ventilator 30 12/23/16 20:00 30 12/23/16 20:00 78 12/23/16 19:45 85 19 108/56 100 Mechanical Ventilator 30 12/23/16 19:30 96 19 92/56 100 Mechanical Ventilator 30 12/23/16 19:15 88 19 120/66 100 Mechanical Ventilator 30 12/23/16 19:10 85 14 30 12/23/16 19:00 87 19 86/34 100 Mechanical Ventilator 30 12/23/16 18:45 85 19 88/48 100 Mechanical Ventilator 30 12/23/16 18:30 85 19 99/56 100 Mechanical Ventilator 30 17 18:15 95 19 97/49 100 Mechanical Ventilator 30 17 18:00 95 19 97/49 100 Mechanical Ventilator 30 17 17:45 93 19 93/47 100 Mechanical Ventilator 30 17 17:30 96 19 92/66 100 Mechanical Ventilator 30 17 17:15 88 16 108/52 100 Mechanical Ventilator 30 12/23/16 17:01 83 14 30 12/23/16 17:00 86 15 100/58 100 Mechanical Ventilator 30 12/23/16 16:45 84 16 88/41 100 Mechanical Ventilator 30 12/23/16 16:30 89 15 81/50 100 Mechanical Ventilator 30 12/23/16 16:15 84 15 82/38 100 Mechanical Ventilator 30 12/23/16 16:00 30 12/23/16 16:00 88 12/23/16 16:00 98.9 87 15 91/51 100 Mechanical Ventilator 30 12/23/16 15:49 89/46 12/23/16 15:45 86 15 89/46 100 Mechanical Ventilator 30 12/23/16 15:30 90 16 96/33 100 Mechanical Ventilator 30 12/23/16 15:29 85 14 30 12/23/16 15:15 89 15 102/60 100 Mechanical Ventilator 30 12/23/16 15:00 92 14 103/52 100 Mechanical Ventilator 30 12/23/16 14:45 93 15 109/55 100 Mechanical Ventilator 30 12/23/16 14:30 92 14 100/52 100 Mechanical Ventilator 30 12/23/17 14:15 95 15 103/53 100 Mechanical Ventilator 30 12/23/16 14:00 90 14 101/54 100 Mechanical Ventilator 30 12/23/16 13:45 90 14 88/45 100 Mechanical Ventilator 30 12/23/16 13:30 90 15 101/59 100 Mechanical Ventilator 30 12/23/17 13:16 92 14 30 12/23/16 13:15 93 15 105/54 100 Mechanical Ventilator 30 12/23/16 13:06 30 12/23/16 13:00 91 14 114/55 100 Mechanical Ventilator 30 12/23/16 12:45 89 14 97/54 100 Mechanical Ventilator 30 12/23/16 12:30 90 14 110/42 100 Mechanical Ventilator 30 12/23/16 12:15 90 14 94/44 100 Mechanical Ventilator 30 12/23/16 12:00 97.3 94 14 84/44 100 Mechanical Ventilator 30 12/23/16 12:00 92 12/23/16 11:45 95 14 86/62 100 Mechanical Ventilator 30 12/23/16 11:30 103 18 113/52 100 Mechanical Ventilator 30 Intake and Output 12/23/16 12/24/16 19:00 07:00 Intake Total 890.0 ml 952.50 ml Output Total 5 ml 10 ml Balance 885.0 ml 942.50 ml Free Water 40 ml IV Total 790.0 ml 747.50 ml Tube Feeding 145 ml Other 60 ml 60 ml Output Urine Total 5 ml 10 ml # Bowel Movements 4 3 Laboratory Tests Test 12/24/16 05:00 12/24/16 08:02 White Blood Count 10.0 K/UL (4.8-10.8) Red Blood Count 3.05 M/UL (4.20-5.40) L Hemoglobin 9.8 G/DL (12.0-16.0) L Hematocrit 30.3 % (37.0-47.0) L Mean Corpuscular Volume 99 FL (80-99) Mean Corpuscular Hemoglobin 32.2 PG (27.0-31.0) H Mean Corpuscular Hemoglobin Concent 32.4 G/DL (32.0-36.0) Red Cell Distribution Width 20.5 % (11.6-14.8) H Platelet Count 114 K/UL (150-450) L Mean Platelet Volume 8.2 FL (6.5-10.1) Neutrophils (%) (Auto) % (45.0-75.0) Lymphocytes (%) (Auto) % (20.0-45.0) Monocytes (%) (Auto) % (1.0-10.0) Eosinophils (%) (Auto) % (0.0-3.0) Basophils (%) (Auto) % (0.0-2.0) Sodium Level 136 mEQ/L (135-145) Potassium Level 3.5 mEQ/L (3.4-4.9) Chloride Level 95 mEQ/L (98-107) L Carbon Dioxide Level 23 mEQ/L (20-30) Anion Gap 18 (5-15) H Blood Urea Nitrogen 39 mg/dL (7-23) H Creatinine 3.1 mg/dL (0.5-0.9) H Estimat Glomerular Filtration Rate 15.2 mL/min (>60) Glucose Level 138 mg/dL (74-106) H Calcium Level 8.7 mg/dL (8.6-10.2) Phosphorus Level 5.3 mg/dL (2.5-4.8) H Magnesium Level 1.8 mg/dL (1.7-2.5) Total Bilirubin 0.8 mg/dL (0.0-1.2) Aspartate Amino Transf (AST/SGOT) 28 U/L (5-40) Alanine Aminotransferase (ALT/SGPT) 7 U/L (3-33) Alkaline Phosphatase 291 U/L (35-104) H Ammonia 22 umol/L (11-51) Troponin I < 0.30 ng/mL (<=0.30) Total Protein 7.5 g/dL (6.6-8.7) Albumin 4.0 g/dL (3.5-5.2) Globulin 3.5 g/dL Albumin/Globulin Ratio 1.1 (1.0-2.7) Arterial Blood pH 7.305 (7.350-7.450) Arterial Blood Partial Pressure CO2 42.3 mmHg (35.0-45.0) Arterial Blood Partial Pressure O2 104.4 mmHg (75.0-100.0) H Arterial Blood HCO3 20.6 mmol/L (22.0-26.0) L Arterial Blood Oxygen Saturation 97.1 % (92.0-98.0) Arterial Blood Base Excess -5.4 Antonio Test Positive Height (Feet): 4 Height (Inches): 9.00 Weight (Pounds): 75 General Appearance: no apparent distress, alert, thin Cardiovascular: normal rate Respiratory/Chest: other - mech vent Abdominal Exam: other - OGT Objective Procedure: US ABD Complete Indication: Abnormal liver function tests and renal function tests Impression: Moderate ascites, nonspecific as regards etiology Negative for gallstones. There is mild gallbladder wall thickening, suspect secondary to whatever process is causing ascites, but acute acalculous cholecystitis not completely excludable. Consider nuclear medicine hepatobiliary scan if there is high clinical suspicion for acute cholecystitis Bilateral echogenic atrophic kidneys, consistent with known history of chronic renal disease Suzy Middleton N.P. Dec 24, 2016 11:27
--- NOTE | 2016-12-24 11:36 | Diagnostic Imaging Report ---
Indication: DYSPNEA Technique: One view of the chest Comparison: 12/22/2016 Findings: There appears to be slightly improved parenchymal opacity bilaterally. Minimal congestive change persists. Endotracheal tube and right jugular tunneled dialysis catheter remain. Interim placement of a nasogastric tube, tip projected beyond the image, presumably in good position Impression: Improved interstitial congestion, over 2 days Satisfactory nasogastric intubation Other stable findings as described
--- NOTE | 2016-12-24 13:03 | Pulmonolgy Critical Care Note ---
Critical Care - Asmt/Plan Problems: (1) Acute respiratory failure (2) Altered mental state (3) CKD (chronic kidney disease) (4) Hyperkalemia (5) Liver cirrhosis (6) Connective tissue disease (7) CHF (congestive heart failure) Respiratory: monitor respiratory rate, adjust FIO2, CXR Cardiac: continue pressors, continue to monitor HR/BP Renal: F/U I&O, keep IV fluid, check electrolytes Infectious Disease: check cultures, continue antibiotics Gastrointestinal: continue feedings/current rate Endocrine: monitor blood sugar, check HgA1C, continue sliding scale insulin Hematologic: monitor H/H, transfuse if hgb<8.5 Neurologic: PRN Ativan, PRN Morphine, keep patient comfortable Affect: PRN ativan Prophylaxis: Heparin Notes Reviewed: tobacco stemmer machine, cardio, renal Discussed with: nurses, consultants, 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 - Objective Last 24 Hour Vital Signs Date Time Temp Pulse Resp B/P Pulse Ox O2 Delivery O2 Flow Rate FiO2 12/24/16 11:55 30 12/24/16 11:00 78 16 97/61 97 Mechanical Ventilator 30 12/24/16 10:50 81 14 30 12/24/16 10:30 78 15 103/53 98 Mechanical Ventilator 30 12/24/16 10:20 82 14 30 12/24/16 10:00 82 15 99/65 98 Mechanical Ventilator 30 12/24/16 09:30 81 14 94/61 100 Mechanical Ventilator 30 12/24/16 09:00 81 15 94/51 98 Mechanical Ventilator 30 12/24/16 08:45 82 15 90/45 99 Mechanical Ventilator 30 12/24/16 08:36 81 12/24/16 08:30 82 15 111/64 100 Mechanical Ventilator 30 12/24/16 08:15 82 15 97/54 98 Mechanical Ventilator 30 12/24/16 08:00 97.0 79 14 96/56 99 Mechanical Ventilator 30 12/24/16 08:00 85 12/24/16 08:00 30 12/24/16 07:45 80 15 97/53 97 Mechanical Ventilator 30 12/24/16 07:30 80 15 98/60 97 Mechanical Ventilator 30 12/24/16 07:15 80 16 91/55 97 Mechanical Ventilator 30 12/24/16 07:05 80 14 30 12/24/16 07:00 80 15 91/53 100 Mechanical Ventilator 30 2/16/17 06:45 81 15 108/60 100 Mechanical Ventilator 30 16/17 06:30 91 15 101/58 99 Mechanical Ventilator 30 16/17 06:15 80 14 115/58 98 Mechanical Ventilator 30 16/17 06:00 82 15 115/57 97 Mechanical Ventilator 30 16/17 05:45 82 15 104/57 98 Mechanical Ventilator 30 16/17 05:30 82 16 111/56 99 Mechanical Ventilator 30 16/17 05:15 84 15 131/74 99 Mechanical Ventilator 30 16/17 05:02 86 14 30 16/17 05:00 85 16 122/73 98 Mechanical Ventilator 30 16/17 04:45 86 16 131/69 98 Mechanical Ventilator 30 12/24/ 04:30 86 16 126/85 95 Mechanical Ventilator 30 12/24/ 04:15 84 15 127/70 99 Mechanical Ventilator 30 12/24/ 04:00 81 16 04:00 80 15 113/63 100 Mechanical Ventilator 30 12/24/16 04:00 30 12/24/16 03:45 80 14 118/59 99 Mechanical Ventilator 30 12/24/ 03:30 80 14 102/52 99 Mechanical Ventilator 30 16/17 03:15 82 14 107/55 98 Mechanical Ventilator 30 12/24/16 03:00 82 14 114/60 96 Mechanical Ventilator 30 12/24/ 02:56 81 14 30 16/ 02:45 81 14 96/50 99 Mechanical Ventilator 30 12/24/ 02:30 79 14 95/49 97 Mechanical Ventilator 30 12/24/ 02:15 81 14 100/55 100 Mechanical Ventilator 30 12/24/ 02:00 79 14 105/56 97 Mechanical Ventilator 30 12/24/17 01:45 77 14 98/53 99 Mechanical Ventilator 30 16/17 01:30 78 14 94/53 95 Mechanical Ventilator 30 16/17 01:15 79 14 97/60 100 Mechanical Ventilator 30 16/17 01:00 78 15 97/60 100 Mechanical Ventilator 30 16/17 00:45 79 14 102/55 100 Mechanical Ventilator 30 16/17 00:44 83 14 30 16/ 00:30 81 14 109/65 100 Mechanical Ventilator 30 12/24/ 00:15 78 14 107/57 99 Mechanical Ventilator 30 12/24/16 00:00 30 12/24/16 00:00 78 12/24/16 00:00 78 14 98/56 99 Mechanical Ventilator 30 12/23/16 23:45 78 14 96/56 98 Mechanical Ventilator 30 12/23/16 23:30 97.1 77 14 93/57 100 Mechanical Ventilator 30 12/23/16 23:15 79 14 75/42 99 Mechanical Ventilator 30 12/23/16 23:00 80 16 87/56 100 Mechanical Ventilator 30 12/23/16 22:57 78 18 30 12/23/16 22:45 78 17 86/56 100 Mechanical Ventilator 30 12/23/16 22:30 83 16 97/58 100 Mechanical Ventilator 30 12/23/16 22:15 82 19 123/64 16 Mechanical Ventilator 30 12/23/16 22:00 76 15 89/58 100 Mechanical Ventilator 30 12/23/16 22:00 123/64 12/23/16 21:45 80 19 89/58 100 Mechanical Ventilator 30 12/23/16 21:30 80 14 101/60 100 Mechanical Ventilator 30 12/23/16 21:16 85 14 30 12/23/16 21:15 87 17 103/61 100 Mechanical Ventilator 30 12/23/16 21:00 88 19 116/54 100 Mechanical Ventilator 30 12/23/16 20:55 88 12/23/16 20:45 85 19 116/54 100 Mechanical Ventilator 30 12/23/16 20:30 81 19 98/57 100 Mechanical Ventilator 30 12/23/16 20:15 77 19 88/52 100 Mechanical Ventilator 30 12/23/16 20:06 98.9 12/23/16 20:00 98.9 81 19 89/45 100 Mechanical Ventilator 30 12/23/16 20:00 30 12/23/16 20:00 78 12/23/16 19:45 85 19 108/56 100 Mechanical Ventilator 30 12/23/16 19:30 96 19 92/56 100 Mechanical Ventilator 30 12/23/16 19:15 88 19 120/66 100 Mechanical Ventilator 30 12/23/16 19:10 85 14 30 12/23/16 19:00 87 19 86/34 100 Mechanical Ventilator 30 12/23/16 18:45 85 19 88/48 100 Mechanical Ventilator 30 12/23/16 18:30 85 19 99/56 100 Mechanical Ventilator 30 12/23/16 18:15 95 19 97/49 100 Mechanical Ventilator 30 12/23/16 18:00 95 19 97/49 100 Mechanical Ventilator 30 12/23/16 17:45 93 19 93/47 100 Mechanical Ventilator 30 12/23/16 17:30 96 19 92/66 100 Mechanical Ventilator 30 12/23/16 17:15 88 16 108/52 100 Mechanical Ventilator 30 12/23/16 17:01 83 14 30 12/23/16 17:00 86 15 100/58 100 Mechanical Ventilator 30 12/23/16 16:45 84 16 88/41 100 Mechanical Ventilator 30 12/23/16 16:30 89 15 81/50 100 Mechanical Ventilator 30 12/23/16 16:15 84 15 82/38 100 Mechanical Ventilator 30 12/23/16 16:00 30 12/23/16 16:00 88 12/23/16 16:00 98.9 87 15 91/51 100 Mechanical Ventilator 30 12/23/16 15:49 89/46 12/23/16 15:45 86 15 89/46 100 Mechanical Ventilator 30 12/23/16 15:30 90 16 96/33 100 Mechanical Ventilator 30 12/23/16 15:29 85 14 30 12/23/16 15:15 89 15 102/60 100 Mechanical Ventilator 30 12/23/16 15:00 92 14 103/52 100 Mechanical Ventilator 30 12/23/16 14:45 93 15 109/55 100 Mechanical Ventilator 30 12/23/16 14:30 92 14 100/52 100 Mechanical Ventilator 30 12/23/16 14:15 95 15 103/53 100 Mechanical Ventilator 30 12/23/16 14:00 90 14 101/54 100 Mechanical Ventilator 30 12/23/16 13:45 90 14 88/45 100 Mechanical Ventilator 30 12/23/16 13:30 90 15 101/59 100 Mechanical Ventilator 30 12/23/16 13:16 92 14 30 12/23/16 13:15 93 15 105/54 100 Mechanical Ventilator 30 12/23/16 13:06 30 Status: awake, sedated Condition: improving HEENT: atraumatic Neck: full ROM Lungs: clear Heart: HR/BP stable Abdomen: soft, non-tender Decubiti: location Micro: Microbiology Date/Time Source Procedure Growth Status 12/22/16 23:30 Blood Blood Culture - Preliminary NO GROWTH AFTER 24 HOURS Resulted 2/14/17 23:15 Blood Blood Culture - Preliminary NO GROWTH AFTER 24 HOURS Resulted 12/22/16 11:38 Blood Blood Culture - Preliminary NO GROWTH AFTER 24 HOURS Resulted 12/22/16 11:30 Blood Blood Culture - Preliminary NO GROWTH AFTER 24 HOURS Resulted 12/22/16 12:30 Nasal Nares MRSA Culture - Final NO METHICILLIN RESISTANT STAPH AUREUS... Complete 12/23/16 01:00 Stool Clostridium difficile Toxin Assay - Final Complete 12/22/16 12:30 Rectum VRE Culture - Final NO VANCOMYCIN RESISTANT ENTEROCOCCUS ... Complete Accucheck: 55 Critical Care - Subjective ROS Limited/Unobtainable: No ICU Day: 3 Intubation Day: 3 Condition: critical EKG Rhythm: Sinus Rhythm FI02: 30 Vent Support Breath Rate: 14 Vent Support Mode: AC Vent Tidal Volume: 450 Sputum Amount: Scant PEEP: 5.0 PIP: 50 Fluids: d10 w at 20cc.houir Tube Feeding Amount: 20 I&O: Intake and Output 12/23/16 12/24/16 19:00 07:00 Intake Total 890.0 ml 952.50 ml Output Total 5 ml 10 ml Balance 885.0 ml 942.50 ml Free Water 40 ml IV Total 790.0 ml 747.50 ml Tube Feeding 145 ml Other 60 ml 60 ml Output Urine Total 5 ml 10 ml # Bowel Movements 4 3 CXR: DINESH, ET in good position ET-Tube: 7.5 ET Position: 23 Labs: Laboratory Tests Test 12/24/16 05:00 12/24/16 08:02 White Blood Count 10.0 K/UL (4.8-10.8) Red Blood Count 3.05 M/UL (4.20-5.40) L Hemoglobin 9.8 G/DL (12.0-16.0) L Hematocrit 30.3 % (37.0-47.0) L Mean Corpuscular Volume 99 FL (80-99) Mean Corpuscular Hemoglobin 32.2 PG (27.0-31.0) H Mean Corpuscular Hemoglobin Concent 32.4 G/DL (32.0-36.0) Red Cell Distribution Width 20.5 % (11.6-14.8) H Platelet Count 114 K/UL (150-450) L Mean Platelet Volume 8.2 FL (6.5-10.1) Neutrophils (%) (Auto) % (45.0-75.0) Lymphocytes (%) (Auto) % (20.0-45.0) Monocytes (%) (Auto) % (1.0-10.0) Eosinophils (%) (Auto) % (0.0-3.0) Basophils (%) (Auto) % (0.0-2.0) Sodium Level 136 mEQ/L (135-145) Potassium Level 3.5 mEQ/L (3.4-4.9) Chloride Level 95 mEQ/L (98-107) L Carbon Dioxide Level 23 mEQ/L (20-30) Anion Gap 18 (5-15) H Blood Urea Nitrogen 39 mg/dL (7-23) H Creatinine 3.1 mg/dL (0.5-0.9) H Estimat Glomerular Filtration Rate 15.2 mL/min (>60) Glucose Level 138 mg/dL (74-106) H Calcium Level 8.7 mg/dL (8.6-10.2) Phosphorus Level 5.3 mg/dL (2.5-4.8) H Magnesium Level 1.8 mg/dL (1.7-2.5) Total Bilirubin 0.8 mg/dL (0.0-1.2) Aspartate Amino Transf (AST/SGOT) 28 U/L (5-40) Alanine Aminotransferase (ALT/SGPT) 7 U/L (3-33) Alkaline Phosphatase 291 U/L (35-104) H Ammonia 22 umol/L (11-51) Troponin I < 0.30 ng/mL (<=0.30) Total Protein 7.5 g/dL (6.6-8.7) Albumin 4.0 g/dL (3.5-5.2) Globulin 3.5 g/dL Albumin/Globulin Ratio 1.1 (1.0-2.7) Arterial Blood pH 7.305 (7.350-7.450) Arterial Blood Partial Pressure CO2 42.3 mmHg (35.0-45.0) Arterial Blood Partial Pressure O2 104.4 mmHg (75.0-100.0) H Arterial Blood HCO3 20.6 mmol/L (22.0-26.0) L Arterial Blood Oxygen Saturation 97.1 % (92.0-98.0) Arterial Blood Base Excess -5.4 Antonio Test Positive FRANCESCA FELTON Dec 24, 2016 13:03
--- NOTE | 2016-12-24 13:39 | Infectious Diseases Prog Note ---
Assessment/Plan Assessment/Plan ASSESSMENT: 61 y/o female with: // Probable sepsis r/o HCAP, UTI, bacteremia - cultures NGTD // Negative C.difficile // Shock SP - off pressors // Leukopenia SP // Hypothermia SP // Acute encephalopathy / found down ?hepatic ( elevated NH4 ) r/o septic - improved - CT Head: No evidence of acute intracranial pathology. Bilateral cerebral periventricular and deepwhite matter low attenuation, nonspecific, likely chronic microvascular ischemic in nature. Atrophy // Acute VDRF - intubated 12/22 // ?Cirrhosis / chronic liver disease with elevated LFTs, leukopenia, chronic macrocytic anemia, TCP, coagulopathy, hypoalbuminemia - US: pending // ESRD / HD with right chest TDC // FOBT(+) macrocytic anemia SP PRBCs - recent EGD: GAVE // Probable CHF exacerbation - CXR: evidence of congestive heart failure including pulmonary edema, small bilateral pleural effusions - TTE: EF 65%, grade I diastolic dysfunction, mild-mod TR, mod MR, pulmonary HTN // Elevated ESR // NH resident // NKDA // Full Code PLAN: - continue empiric broad spectrum IV vancomycin, rifaximin d# 3 ( 12/23 SP zosyn ) - f/u cultures - monitor CBC, temperatures - monitor BMP - monitor CXR - vent support, wean as tolerated - transfuse prn Subjective Allergies: Coded Allergies: No Known Allergies (Unverified , 12/22/16) Subjective remains afebrile, awake on vent, off pressors getting HD Objective Vital Signs Last 24 Hour Vital Signs Date Time Temp Pulse Resp B/P Pulse Ox O2 Delivery O2 Flow Rate FiO2 12/24/16 13:31 85 86/59 12/24/16 13:20 84 16 30 12/24/16 13:15 84 90/59 12/24/16 13:00 83 84/57 12/24/16 12:45 84 78/58 12/24/16 12:30 75 80/50 12/24/16 12:15 63 93/53 12/24/16 12:00 64 95/59 12/24/16 12:00 79 12/24/16 11:55 30 12/24/16 11:55 95.6 74 14 90/56 12/24/16 11:00 78 16 97/61 97 Mechanical Ventilator 30 12/24/17 10:50 81 14 30 16/17 10:30 78 15 103/53 98 Mechanical Ventilator 30 16/17 10:20 82 14 30 16/17 10:00 82 15 99/65 98 Mechanical Ventilator 30 16/17 09:30 81 14 94/61 100 Mechanical Ventilator 30 16/17 09:00 81 15 94/51 98 Mechanical Ventilator 30 12/24/17 08:45 82 15 90/45 99 Mechanical Ventilator 30 12/24/ 08:36 81 16/17 08:30 82 15 111/64 100 Mechanical Ventilator 30 16/17 08:15 82 15 97/54 98 Mechanical Ventilator 30 12/24/ 08:00 97.0 79 14 96/56 99 Mechanical Ventilator 30 12/24/16 08:00 85 16/ 08:00 30 16/ 07:45 80 15 97/53 97 Mechanical Ventilator 30 12/24/16 07:30 80 15 98/60 97 Mechanical Ventilator 30 12/24/16 07:15 80 16 91/55 97 Mechanical Ventilator 30 12/24/ 07:05 80 14 30 12/24/ 07:00 80 15 91/53 100 Mechanical Ventilator 30 12/24/ 06:45 81 15 108/60 100 Mechanical Ventilator 30 12/24/ 06:30 91 15 101/58 99 Mechanical Ventilator 30 12/24/ 06:15 80 14 115/58 98 Mechanical Ventilator 30 12/24/ 06:00 82 15 115/57 97 Mechanical Ventilator 30 12/24/16 05:45 82 15 104/57 98 Mechanical Ventilator 30 12/24/16 05:30 82 16 111/56 99 Mechanical Ventilator 30 12/24/17 05:15 84 15 131/74 99 Mechanical Ventilator 30 16/17 05:02 86 14 30 16/17 05:00 85 16 122/73 98 Mechanical Ventilator 30 16/17 04:45 86 16 131/69 98 Mechanical Ventilator 30 16/17 04:30 86 16 126/85 95 Mechanical Ventilator 30 16/17 04:15 84 15 127/70 99 Mechanical Ventilator 30 16/17 04:00 81 16/17 04:00 80 15 113/63 100 Mechanical Ventilator 30 2/16/17 04:00 30 12/24/16 03:45 80 14 118/59 99 Mechanical Ventilator 30 12/24/16 03:30 80 14 102/52 99 Mechanical Ventilator 30 12/24/16 03:15 82 14 107/55 98 Mechanical Ventilator 30 12/24/16 03:00 82 14 114/60 96 Mechanical Ventilator 30 12/24/16 02:56 81 14 30 12/24/16 02:45 81 14 96/50 99 Mechanical Ventilator 30 12/24/16 02:30 79 14 95/49 97 Mechanical Ventilator 30 12/24/16 02:15 81 14 100/55 100 Mechanical Ventilator 30 12/24/16 02:00 79 14 105/56 97 Mechanical Ventilator 30 12/24/16 01:45 77 14 98/53 99 Mechanical Ventilator 30 12/24/16 01:30 78 14 94/53 95 Mechanical Ventilator 30 12/24/16 01:15 79 14 97/60 100 Mechanical Ventilator 30 12/24/16 01:00 78 15 97/60 100 Mechanical Ventilator 30 12/24/16 00:45 79 14 102/55 100 Mechanical Ventilator 30 12/24/16 00:44 83 14 30 12/24/16 00:30 81 14 109/65 100 Mechanical Ventilator 30 12/24/16 00:15 78 14 107/57 99 Mechanical Ventilator 30 12/24/16 00:00 30 12/24/16 00:00 78 12/24/16 00:00 78 14 98/56 99 Mechanical Ventilator 30 12/23/16 23:45 78 14 96/56 98 Mechanical Ventilator 30 12/23/16 23:30 97.1 77 14 93/57 100 Mechanical Ventilator 30 12/23/16 23:15 79 14 75/42 99 Mechanical Ventilator 30 12/23/16 23:00 80 16 87/56 100 Mechanical Ventilator 30 12/23/16 22:57 78 18 30 12/23/16 22:45 78 17 86/56 100 Mechanical Ventilator 30 12/23/16 22:30 83 16 97/58 100 Mechanical Ventilator 30 12/23/16 22:15 82 19 123/64 16 Mechanical Ventilator 30 12/23/16 22:00 76 15 89/58 100 Mechanical Ventilator 30 12/23/16 22:00 123/64 12/23/16 21:45 80 19 89/58 100 Mechanical Ventilator 30 12/23/16 21:30 80 14 101/60 100 Mechanical Ventilator 30 12/23/16 21:16 85 14 30 12/23/16 21:15 87 17 103/61 100 Mechanical Ventilator 30 12/23/16 21:00 88 19 116/54 100 Mechanical Ventilator 30 12/23/16 20:55 88 12/23/16 20:45 85 19 116/54 100 Mechanical Ventilator 30 12/23/16 20:30 81 19 98/57 100 Mechanical Ventilator 30 12/23/16 20:15 77 19 88/52 100 Mechanical Ventilator 30 12/23/16 20:06 98.9 12/23/16 20:00 98.9 81 19 89/45 100 Mechanical Ventilator 30 12/23/16 20:00 30 12/23/16 20:00 78 12/23/16 19:45 85 19 108/56 100 Mechanical Ventilator 30 12/23/16 19:30 96 19 92/56 100 Mechanical Ventilator 30 12/23/16 19:15 88 19 120/66 100 Mechanical Ventilator 30 12/23/16 19:10 85 14 30 12/23/16 19:00 87 19 86/34 100 Mechanical Ventilator 30 12/23/16 18:45 85 19 88/48 100 Mechanical Ventilator 30 12/23/16 18:30 85 19 99/56 100 Mechanical Ventilator 30 12/23/16 18:15 95 19 97/49 100 Mechanical Ventilator 30 12/23/16 18:00 95 19 97/49 100 Mechanical Ventilator 30 12/23/16 17:45 93 19 93/47 100 Mechanical Ventilator 30 12/23/16 17:30 96 19 92/66 100 Mechanical Ventilator 30 17 17:15 88 16 108/52 100 Mechanical Ventilator 30 12/23/16 17:01 83 14 30 12/23/16 17:00 86 15 100/58 100 Mechanical Ventilator 30 17 16:45 84 16 88/41 100 Mechanical Ventilator 30 17 16:30 89 15 81/50 100 Mechanical Ventilator 30 17 16:15 84 15 82/38 100 Mechanical Ventilator 30 17 16:00 30 17 16:00 88 17 16:00 98.9 87 15 91/51 100 Mechanical Ventilator 30 17 15:49 89/46 17 15:45 86 15 89/46 100 Mechanical Ventilator 30 12/23/16 15:30 90 16 96/33 100 Mechanical Ventilator 30 12/23/16 15:29 85 14 30 12/23/16 15:15 89 15 102/60 100 Mechanical Ventilator 30 12/23/16 15:00 92 14 103/52 100 Mechanical Ventilator 30 12/23/16 14:45 93 15 109/55 100 Mechanical Ventilator 30 12/23/16 14:30 92 14 100/52 100 Mechanical Ventilator 30 12/23/16 14:15 95 15 103/53 100 Mechanical Ventilator 30 12/23/16 14:00 90 14 101/54 100 Mechanical Ventilator 30 12/23/16 13:45 90 14 88/45 100 Mechanical Ventilator 30 Height (Feet): 4 Height (Inches): 9.00 Weight (Pounds): 75 General Appearance: other - intubated, awake Respiratory/Chest: decreased breath sounds Cardiovascular: normal rate, regular rhythm Abdomen: normal bowel sounds, soft, non tender, non distended Microbiology Date/Time Source Procedure Growth Status 12/22/16 23:30 Blood Blood Culture - Preliminary NO GROWTH AFTER 24 HOURS Resulted 12/22/16 23:15 Blood Blood Culture - Preliminary NO GROWTH AFTER 24 HOURS Resulted 12/22/16 11:38 Blood Blood Culture - Preliminary NO GROWTH AFTER 24 HOURS Resulted 12/22/16 11:30 Blood Blood Culture - Preliminary NO GROWTH AFTER 24 HOURS Resulted 12/22/16 12:30 Nasal Nares MRSA Culture - Final NO METHICILLIN RESISTANT STAPH AUREUS... Complete 12/23/16 01:00 Stool Clostridium difficile Toxin Assay - Final Complete 12/22/16 12:30 Rectum VRE Culture - Final NO VANCOMYCIN RESISTANT ENTEROCOCCUS ... Complete Laboratory Tests Test 12/24/16 05:00 12/24/16 08:02 White Blood Count 10.0 K/UL (4.8-10.8) Red Blood Count 3.05 M/UL (4.20-5.40) L Hemoglobin 9.8 G/DL (12.0-16.0) L Hematocrit 30.3 % (37.0-47.0) L Mean Corpuscular Volume 99 FL (80-99) Mean Corpuscular Hemoglobin 32.2 PG (27.0-31.0) H Mean Corpuscular Hemoglobin Concent 32.4 G/DL (32.0-36.0) Red Cell Distribution Width 20.5 % (11.6-14.8) H Platelet Count 114 K/UL (150-450) L Mean Platelet Volume 8.2 FL (6.5-10.1) Neutrophils (%) (Auto) % (45.0-75.0) Lymphocytes (%) (Auto) % (20.0-45.0) Monocytes (%) (Auto) % (1.0-10.0) Eosinophils (%) (Auto) % (0.0-3.0) Basophils (%) (Auto) % (0.0-2.0) Sodium Level 136 mEQ/L (135-145) Potassium Level 3.5 mEQ/L (3.4-4.9) Chloride Level 95 mEQ/L (98-107) L Carbon Dioxide Level 23 mEQ/L (20-30) Anion Gap 18 (5-15) H Blood Urea Nitrogen 39 mg/dL (7-23) H Creatinine 3.1 mg/dL (0.5-0.9) H Estimat Glomerular Filtration Rate 15.2 mL/min (>60) Glucose Level 138 mg/dL (74-106) H Calcium Level 8.7 mg/dL (8.6-10.2) Phosphorus Level 5.3 mg/dL (2.5-4.8) H Magnesium Level 1.8 mg/dL (1.7-2.5) Total Bilirubin 0.8 mg/dL (0.0-1.2) Aspartate Amino Transf (AST/SGOT) 28 U/L (5-40) Alanine Aminotransferase (ALT/SGPT) 7 U/L (3-33) Alkaline Phosphatase 291 U/L (35-104) H Ammonia 22 umol/L (11-51) Troponin I < 0.30 ng/mL (<=0.30) Total Protein 7.5 g/dL (6.6-8.7) Albumin 4.0 g/dL (3.5-5.2) Globulin 3.5 g/dL Albumin/Globulin Ratio 1.1 (1.0-2.7) Arterial Blood pH 7.305 (7.350-7.450) Arterial Blood Partial Pressure CO2 42.3 mmHg (35.0-45.0) Arterial Blood Partial Pressure O2 104.4 mmHg (75.0-100.0) H Arterial Blood HCO3 20.6 mmol/L (22.0-26.0) L Arterial Blood Oxygen Saturation 97.1 % (92.0-98.0) Arterial Blood Base Excess -5.4 Antonio Test Positive Current Medications Medications (Trade) Dose Ordered Sig/Reji Route PRN Reason Start Time Stop Time Status Last Admin Dose Admin Acetaminophen (Tylenol) 650 mg Q4H PRN ORAL fever 12/22/16 13:45 01/21/17 13:44 Albumin Human (Albumisol) 100 ml @ 200 mls/hr PRN PRN IV sbp<90 during hd 12/24/16 06:00 12/24/16 23:59 12/24/16 11:27 Albuterol/ Ipratropium (DuoNeb 0.5-3(2.5)mg/3ml) 3 ml Q4H PRN HHN Shortness of Breath 12/22/16 13:45 12/27/16 13:44 Dextrose/Sodium Chloride 1,000 ml @ 20 mls/hr Q24H IV 12/23/16 11:00 01/22/17 10:59 12/24/16 13:02 Heparin Sodium (Porcine) (Heparin Sod 1000 units/ml 10ml) 500 unit ONCE PRN IV FOR HD 12/24/16 06:00 12/24/16 23:59 Lactulose (Cephulac) 20 gm BID GT 12/24/16 18:00 01/23/17 17:59 Lorazepam (Ativan 2mg/ml 1ml) 2 mg Q4H PRN IV For Anxiety 12/22/16 13:45 12/29/16 13:44 Morphine Sulfate 4 mg 4 mg Q4H PRN IVP For Pain 12/22/16 13:45 12/29/16 13:44 12/23/16 19:36 Nitroglycerin (Ntg) 0.4 mg Q5MIN X 3 DOSES PRN SL Prn Chest Pain 12/22/16 13:45 01/21/17 13:44 Norepinephrine Bitartrate 4 mg/ Dextrose 250 ml @ 0 mls/hr Q24H IV 12/23/16 01:00 01/22/17 00:59 12/23/16 15:49 Ondansetron HCl (Zofran) 4 mg Q6H PRN IVP Nausea & Vomiting 12/22/16 13:45 01/21/17 13:44 12/23/16 19:36 Pantoprazole/ Sodium Chloride (Protonix/Sodium Chloride) 250 ml @ 25 mls/hr Q10H IV 12/23/16 15:30 01/22/17 15:29 12/24/16 11:16 Polyethylene Glycol (Miralax) 17 gm DAILYPRN PRN ORAL Constipation 12/22/16 13:45 01/21/17 13:44 Propafenone HCl (Rythmol) 225 mg TID NG 12/23/16 21:00 01/22/17 20:59 12/24/16 08:36 Rifaximin 550 mg 550 mg EVERY 12 HOURS ORAL 12/23/16 21:00 12/30/16 20:59 12/24/16 08:35 Sodium Chloride 1,000 ml @ 500 mls/hr Q2H PRN IVLG sbp<90 during hd 12/24/16 06:00 12/24/16 23:59 Vancomycin HCl (Vanco rx to dose) 1 ea DAILY PRN MISC . 12/24/16 13:00 01/23/17 12:59 Vancomycin HCl 500 mg/Dextrose 110 ml @ 110 mls/hr Q24H IVPB 12/23/16 13:00 12/24/16 19:00 12/23/16 12:50 DARLIN GRANADO Dec 24, 2016 13:39
[2016-12-24] MEDS: Vancomycin 500mg/D5W 110ml IVPB SCH ×2 (16:23)
--- NOTE | 2016-12-24 17:43 | Nephrology Progress Note ---
Assessment/Plan Problem List: (1) Hypovolemic shock (2) End-stage kidney disease (3) Acute respiratory failure (4) CHF (congestive heart failure) (5) Liver cirrhosis (6) Hypoalbuminemia (7) Severe malnutrition (8) GAVE (gastric antral vascular ectasia) (9) Diarrhea Plan try to wean off levophed, done NS and albumin, hd 12/24 stable with low-nl bp, cxr better despite giving fluids Subjective Constitutional: Reports: weakness HEENT: Reports: no symptoms Genitourinary: Reports: no symptoms Neurologic/Psychiatric: Reports: weakness Subjective awake on vent Objective Objective Last 24 Hour Vital Signs Date Time Temp Pulse Resp B/P Pulse Ox O2 Delivery O2 Flow Rate FiO2 12/24/16 17:39 30 12/24/16 17:20 81 22 30 12/24/16 17:00 98.0 83 21 111/69 95 Mechanical Ventilator 30 12/24/16 16:00 80 15 92/54 95 Mechanical Ventilator 30 12/24/16 16:00 80 12/24/16 16:00 30 12/24/16 15:20 97.0 93 110/62 12/24/16 15:15 79 94/56 12/24/16 15:10 80 23 30 12/24/16 15:00 81 99/46 12/24/16 15:00 81 99/46 12/24/16 14:45 80 85/47 12/24/16 14:30 80 89/49 12/24/16 14:15 81 84/60 12/24/16 14:00 82 103/46 12/24/16 13:45 84 92/50 12/24/16 13:31 85 86/59 12/24/16 13:20 84 16 30 12/24/16 13:15 84 90/59 12/24/16 13:00 83 84/57 12/24/16 12:45 84 78/58 12/24/16 12:30 75 80/50 12/24/16 12:15 63 93/53 12/24/16 12:00 64 95/59 12/24/16 12:00 79 12/24/16 11:55 30 12/24/16 11:55 95.6 74 14 90/56 12/24/16 11:00 78 16 97/61 97 Mechanical Ventilator 30 12/24/16 10:50 81 14 30 12/24/16 10:30 78 15 103/53 98 Mechanical Ventilator 30 12/24/16 10:20 82 14 30 12/24/16 10:00 82 15 99/65 98 Mechanical Ventilator 30 12/24/16 09:30 81 14 94/61 100 Mechanical Ventilator 30 12/24/16 09:00 81 15 94/51 98 Mechanical Ventilator 30 12/24/16 08:45 82 15 90/45 99 Mechanical Ventilator 30 12/24/16 08:36 81 12/24/16 08:30 82 15 111/64 100 Mechanical Ventilator 30 12/24/16 08:15 82 15 97/54 98 Mechanical Ventilator 30 12/24/16 08:00 97.0 79 14 96/56 99 Mechanical Ventilator 30 12/24/16 08:00 85 12/24/16 08:00 30 12/24/16 07:45 80 15 97/53 97 Mechanical Ventilator 30 12/24/16 07:30 80 15 98/60 97 Mechanical Ventilator 30 12/24/16 07:15 80 16 91/55 97 Mechanical Ventilator 30 12/24/16 07:05 80 14 30 12/24/16 07:00 80 15 91/53 100 Mechanical Ventilator 30 12/24/16 06:45 81 15 108/60 100 Mechanical Ventilator 30 12/24/16 06:30 91 15 101/58 99 Mechanical Ventilator 30 12/24/16 06:15 80 14 115/58 98 Mechanical Ventilator 30 12/24/16 06:00 82 15 115/57 97 Mechanical Ventilator 30 12/24/16 05:45 82 15 104/57 98 Mechanical Ventilator 30 12/24/16 05:30 82 16 111/56 99 Mechanical Ventilator 30 12/24/16 05:15 84 15 131/74 99 Mechanical Ventilator 30 12/24/16 05:02 86 14 30 12/24/16 05:00 85 16 122/73 98 Mechanical Ventilator 30 12/24/16 04:45 86 16 131/69 98 Mechanical Ventilator 30 12/24/16 04:30 86 16 126/85 95 Mechanical Ventilator 30 12/24/16 04:15 84 15 127/70 99 Mechanical Ventilator 30 12/24/16 04:00 81 16 04:00 80 15 113/63 100 Mechanical Ventilator 30 12/24/16 04:00 30 12/24/16 03:45 80 14 118/59 99 Mechanical Ventilator 30 12/24/16 03:30 80 14 102/52 99 Mechanical Ventilator 30 12/24/16 03:15 82 14 107/55 98 Mechanical Ventilator 30 12/24/16 03:00 82 14 114/60 96 Mechanical Ventilator 30 12/24/16 02:56 81 14 30 12/24/16 02:45 81 14 96/50 99 Mechanical Ventilator 30 12/24/16 02:30 79 14 95/49 97 Mechanical Ventilator 30 12/24/16 02:15 81 14 100/55 100 Mechanical Ventilator 30 12/24/16 02:00 79 14 105/56 97 Mechanical Ventilator 30 12/24/16 01:45 77 14 98/53 99 Mechanical Ventilator 30 12/24/16 01:30 78 14 94/53 95 Mechanical Ventilator 30 12/24/16 01:15 79 14 97/60 100 Mechanical Ventilator 30 12/24/16 01:00 78 15 97/60 100 Mechanical Ventilator 30 12/24/16 00:45 79 14 102/55 100 Mechanical Ventilator 30 12/24/16 00:44 83 14 30 12/24/16 00:30 81 14 109/65 100 Mechanical Ventilator 30 12/24/16 00:15 78 14 107/57 99 Mechanical Ventilator 30 12/24/16 00:00 30 12/24/16 00:00 78 12/24/16 00:00 78 14 98/56 99 Mechanical Ventilator 30 12/23/16 23:45 78 14 96/56 98 Mechanical Ventilator 30 12/23/16 23:30 97.1 77 14 93/57 100 Mechanical Ventilator 30 12/23/16 23:15 79 14 75/42 99 Mechanical Ventilator 30 12/23/16 23:00 80 16 87/56 100 Mechanical Ventilator 30 12/23/16 22:57 78 18 30 12/23/16 22:45 78 17 86/56 100 Mechanical Ventilator 30 12/23/16 22:30 83 16 97/58 100 Mechanical Ventilator 30 12/23/16 22:15 82 19 123/64 16 Mechanical Ventilator 30 12/23/16 22:00 76 15 89/58 100 Mechanical Ventilator 30 12/23/16 22:00 123/64 12/23/16 21:45 80 19 89/58 100 Mechanical Ventilator 30 12/23/16 21:30 80 14 101/60 100 Mechanical Ventilator 30 12/23/16 21:16 85 14 30 12/23/16 21:15 87 17 103/61 100 Mechanical Ventilator 30 12/23/16 21:00 88 19 116/54 100 Mechanical Ventilator 30 12/23/16 20:55 88 12/23/16 20:45 85 19 116/54 100 Mechanical Ventilator 30 12/23/16 20:30 81 19 98/57 100 Mechanical Ventilator 30 12/23/16 20:15 77 19 88/52 100 Mechanical Ventilator 30 12/23/16 20:06 98.9 12/23/16 20:00 98.9 81 19 89/45 100 Mechanical Ventilator 30 12/23/16 20:00 30 12/23/16 20:00 78 12/23/16 19:45 85 19 108/56 100 Mechanical Ventilator 30 12/23/16 19:30 96 19 92/56 100 Mechanical Ventilator 30 12/23/16 19:15 88 19 120/66 100 Mechanical Ventilator 30 12/23/16 19:10 85 14 30 12/23/16 19:00 87 19 86/34 100 Mechanical Ventilator 30 12/23/16 18:45 85 19 88/48 100 Mechanical Ventilator 30 12/23/16 18:30 85 19 99/56 100 Mechanical Ventilator 30 12/23/16 18:15 95 19 97/49 100 Mechanical Ventilator 30 12/23/16 18:00 95 19 97/49 100 Mechanical Ventilator 30 12/23/16 17:45 93 19 93/47 100 Mechanical Ventilator 30 Intake and Output 12/23/16 12/24/16 19:00 07:00 Intake Total 890.0 ml 952.50 ml Output Total 5 ml 10 ml Balance 885.0 ml 942.50 ml Free Water 40 ml IV Total 790.0 ml 747.50 ml Tube Feeding 145 ml Other 60 ml 60 ml Output Urine Total 5 ml 10 ml # Bowel Movements 4 3 Laboratory Tests 12/24/16 05:00: White Blood Count 10.0, Red Blood Count 3.05L, Hemoglobin 9.8L, Hematocrit 30.3L , Mean Corpuscular Volume 99, Mean Corpuscular Hemoglobin 32.2H, Mean Corpuscular Hemoglobin Concent 32.4, Red Cell Distribution Width 20.5H, Platelet Count 114L, Mean Platelet Volume 8.2, Neutrophils (%) (Auto) , Lymphocytes (%) (Auto) , Monocytes (%) (Auto) , Eosinophils (%) (Auto) , Basophils (%) (Auto) , Sodium Level 136, Potassium Level 3.5, Chloride Level 95L , Carbon Dioxide Level 23, Anion Gap 18H, Blood Urea Nitrogen 39H, Creatinine 3.1H, Estimat Glomerular Filtration Rate 15.2, Glucose Level 138H, Calcium Level 8.7, Phosphorus Level 5.3H, Magnesium Level 1.8, Total Bilirubin 0.8, Aspartate Amino Transf (AST/SGOT) 28, Alanine Aminotransferase (ALT/SGPT) 7, Alkaline Phosphatase 291H, Ammonia 22, Troponin I < 0.30, Total Protein 7.5, Albumin 4.0, Globulin 3.5, Albumin/Globulin Ratio 1.1 12/24/16 08:02: Arterial Blood pH 7.305L, Arterial Blood Partial Pressure CO2 42.3, Arterial Blood Partial Pressure O2 104.4H, Arterial Blood HCO3 20.6L, Arterial Blood Oxygen Saturation 97.1, Arterial Blood Base Excess -5.4, Antonio Test Positive 12/24/16 13:58: Hepatitis A IgM Antibody [Pending], Hepatitis B Surface Antigen [Pending], Hepatitis B Core IgM Antibody [Pending], Hepatitis C Antibody [Pending] Height (Feet): 4 Height (Inches): 9.00 Weight (Pounds): 75 General Appearance: no apparent distress, thin EENT: PERRL/EOMI Neck: normal alignment Cardiovascular: normal rate, regular rhythm Respiratory/Chest: lungs clear Abdomen: non tender Extremities: other - no edema 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
--- NOTE | 2016-12-24 17:44 | Internal Med Progress Note ---
Subjective Date of Service: Dec 24, 2016 Physician Name Dione Bull Attending Physician Jes Bautista Current Medications Medications (Trade) Dose Ordered Sig/Reji Route PRN Reason Start Time Stop Time Status Last Admin Dose Admin Acetaminophen (Tylenol) 650 mg Q4H PRN ORAL fever 12/22/16 13:45 01/21/17 13:44 Albumin Human (Albumisol) 100 ml @ 200 mls/hr PRN PRN IV sbp<90 during hd 12/24/16 06:00 12/24/16 23:59 12/24/16 11:27 Albuterol/ Ipratropium (DuoNeb 0.5-3(2.5)mg/3ml) 3 ml Q4H PRN HHN Shortness of Breath 12/22/16 13:45 12/27/16 13:44 Dextrose/Sodium Chloride 1,000 ml @ 20 mls/hr Q24H IV 12/23/16 11:00 01/22/17 10:59 12/24/16 13:02 Heparin Sodium (Porcine) (Heparin Sod 1000 units/ml 10ml) 500 unit ONCE PRN IV FOR HD 12/24/16 06:00 12/24/16 23:59 Lactulose (Cephulac) 20 gm BID GT 12/24/16 18:00 01/23/17 17:59 Lorazepam (Ativan 2mg/ml 1ml) 2 mg Q4H PRN IV For Anxiety 12/22/16 13:45 12/29/16 13:44 Morphine Sulfate 4 mg 4 mg Q4H PRN IVP For Pain 12/22/16 13:45 12/29/16 13:44 12/23/16 19:36 Nitroglycerin (Ntg) 0.4 mg Q5MIN X 3 DOSES PRN SL Prn Chest Pain 12/22/16 13:45 01/21/17 13:44 Norepinephrine Bitartrate 4 mg/ Dextrose 250 ml @ 0 mls/hr Q24H IV 12/23/16 01:00 01/22/17 00:59 12/23/16 15:49 Ondansetron HCl (Zofran) 4 mg Q6H PRN IVP Nausea & Vomiting 12/22/16 13:45 01/21/17 13:44 12/23/16 19:36 Pantoprazole/ Sodium Chloride (Protonix/Sodium Chloride) 250 ml @ 25 mls/hr Q10H IV 12/23/16 15:30 01/22/17 15:29 12/24/16 11:16 Polyethylene Glycol (Miralax) 17 gm DAILYPRN PRN ORAL Constipation 12/22/16 13:45 01/21/17 13:44 Propafenone HCl (Rythmol) 225 mg TID NG 12/23/16 21:00 01/22/17 20:59 12/24/16 08:36 Rifaximin 550 mg 550 mg EVERY 12 HOURS ORAL 12/23/16 21:00 12/30/16 20:59 12/24/16 08:35 Sodium Chloride 1,000 ml @ 500 mls/hr Q2H PRN IVLG sbp<90 during hd 12/24/16 06:00 12/24/16 23:59 Vancomycin HCl (Vanco rx to dose) 1 ea DAILY PRN MISC . 12/24/16 13:00 01/23/17 12:59 Vancomycin HCl 500 mg/Dextrose 110 ml @ 110 mls/hr Q24H IVPB 12/23/16 13:00 12/24/16 19:00 12/23/16 12:50 Allergies: Coded Allergies: No Known Allergies (Unverified , 12/22/16) ROS Limited/Unobtainable: Yes Subjective 61 YO F admitted with respiratory failure. Now probable sepsis with septic shock. Intubated and sedated. ICU. Cover for Int Jamie-Dr Vigil. 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 Skin: normal pigmentation, warm/dry Laboratory Tests Test 12/24/16 05:00 12/24/16 08:02 12/24/16 13:58 White Blood Count 10.0 K/UL (4.8-10.8) Red Blood Count 3.05 M/UL (4.20-5.40) L Hemoglobin 9.8 G/DL (12.0-16.0) L Hematocrit 30.3 % (37.0-47.0) L Mean Corpuscular Volume 99 FL (80-99) Mean Corpuscular Hemoglobin 32.2 PG (27.0-31.0) H Mean Corpuscular Hemoglobin Concent 32.4 G/DL (32.0-36.0) Red Cell Distribution Width 20.5 % (11.6-14.8) H Platelet Count 114 K/UL (150-450) L Mean Platelet Volume 8.2 FL (6.5-10.1) Neutrophils (%) (Auto) % (45.0-75.0) Lymphocytes (%) (Auto) % (20.0-45.0) Monocytes (%) (Auto) % (1.0-10.0) Eosinophils (%) (Auto) % (0.0-3.0) Basophils (%) (Auto) % (0.0-2.0) Sodium Level 136 mEQ/L (135-145) Potassium Level 3.5 mEQ/L (3.4-4.9) Chloride Level 95 mEQ/L (98-107) L Carbon Dioxide Level 23 mEQ/L (20-30) Anion Gap 18 (5-15) H Blood Urea Nitrogen 39 mg/dL (7-23) H Creatinine 3.1 mg/dL (0.5-0.9) H Estimat Glomerular Filtration Rate 15.2 mL/min (>60) Glucose Level 138 mg/dL (74-106) H Calcium Level 8.7 mg/dL (8.6-10.2) Phosphorus Level 5.3 mg/dL (2.5-4.8) H Magnesium Level 1.8 mg/dL (1.7-2.5) Total Bilirubin 0.8 mg/dL (0.0-1.2) Aspartate Amino Transf (AST/SGOT) 28 U/L (5-40) Alanine Aminotransferase (ALT/SGPT) 7 U/L (3-33) Alkaline Phosphatase 291 U/L (35-104) H Ammonia 22 umol/L (11-51) Troponin I < 0.30 ng/mL (<=0.30) Total Protein 7.5 g/dL (6.6-8.7) Albumin 4.0 g/dL (3.5-5.2) Globulin 3.5 g/dL Albumin/Globulin Ratio 1.1 (1.0-2.7) Arterial Blood pH 7.305 (7.350-7.450) Arterial Blood Partial Pressure CO2 42.3 mmHg (35.0-45.0) Arterial Blood Partial Pressure O2 104.4 mmHg (75.0-100.0) H Arterial Blood HCO3 20.6 mmol/L (22.0-26.0) L Arterial Blood Oxygen Saturation 97.1 % (92.0-98.0) Arterial Blood Base Excess -5.4 Antonio Test Positive Hepatitis A IgM Antibody Pending Hepatitis B Surface Antigen Pending Hepatitis B Core IgM Antibody Pending Hepatitis C Antibody Pending Microbiology Date/Time Source Procedure Growth Status 12/22/16 23:30 Blood Blood Culture - Preliminary NO GROWTH AFTER 24 HOURS Resulted 12/22/16 23:15 Blood Blood Culture - Preliminary NO GROWTH AFTER 24 HOURS Resulted 12/22/16 11:38 Blood Blood Culture - Preliminary NO GROWTH AFTER 24 HOURS Resulted 12/22/16 11:30 Blood Blood Culture - Preliminary NO GROWTH AFTER 24 HOURS Resulted 12/22/16 12:30 Nasal Nares MRSA Culture - Final NO METHICILLIN RESISTANT STAPH AUREUS... Complete 12/23/16 01:00 Stool Clostridium difficile Toxin Assay - Final Complete 12/22/16 12:30 Rectum VRE Culture - Final NO VANCOMYCIN RESISTANT ENTEROCOCCUS ... Complete Intake and Output 12/23/16 12/24/16 19:00 07:00 Intake Total 890.0 ml 952.50 ml Output Total 5 ml 10 ml Balance 885.0 ml 942.50 ml Free Water 40 ml IV Total 790.0 ml 747.50 ml Tube Feeding 145 ml Other 60 ml 60 ml Output Urine Total 5 ml 10 ml # Bowel Movements 4 3 Assessment/Plan Problem List: (1) Encephalopathy (2) ESRD (end stage renal disease) on dialysis Assessment & Plan: See nephrology note. (3) HTN (hypertension) Assessment & Plan: Currently hypotensive. (4) Acute respiratory failure Assessment & Plan: Cont mech vent per pulmonary (5) CHF (congestive heart failure) (6) Anemia (7) Liver cirrhosis (8) Sepsis Assessment & Plan: Cont zosyn and vanco per ID (9) Septic shock Assessment & Plan: Cont pressors. Status: not improved DIONE BULL Dec 24, 2016 17:44
[2016-12-24] MEDS: Lactulose 20gm/30ml UDC GT SCH (18:24)
--- NOTE | 2016-12-24 19:31 | Cardiology Progress Note ---
Assessment/Plan Assessment/Plan ams hypotension hs of mod to sever MR paf hs of avb with pvc cirrhosis , esrd on dialyusis mgus htn scleroderma hs of [place] o gave continue on rhtymol for now watch on tele for afib recurrence or for av block wean off tele iv abx dialysis lv function has been preserved tele sinus wean to extubate Subjective Cardiovascular: Denies: chest pain, irregular heart rate, lightheadedness, palpitations Respiratory: Denies: shortness of breath Gastrointestinal/Abdominal: Denies: abdominal pain Genitourinary: Denies: burning Objective Last 24 Hour Vital Signs Date Time Temp Pulse Resp B/P Pulse Ox O2 Delivery O2 Flow Rate FiO2 12/24/16 19:00 87 19 112/69 96 Mechanical Ventilator 30 12/24/16 18:25 88 12/24/16 18:00 83 19 117/61 99 Mechanical Ventilator 30 12/24/16 17:39 30 12/24/16 17:20 81 22 30 12/24/16 17:00 98.0 83 21 111/69 95 Mechanical Ventilator 30 12/24/16 16:00 80 15 92/54 95 Mechanical Ventilator 30 12/24/16 16:00 80 12/24/16 16:00 30 12/24/16 15:20 97.0 93 110/62 12/24/16 15:15 79 94/56 12/24/16 15:10 80 23 30 12/24/16 15:00 81 99/46 12/24/16 15:00 81 99/46 12/24/16 14:45 80 85/47 12/24/16 14:30 80 89/49 12/24/16 14:15 81 84/60 12/24/16 14:00 82 103/46 12/24/16 13:45 84 92/50 12/24/16 13:31 85 86/59 12/24/16 13:20 84 16 30 12/24/16 13:15 84 90/59 12/24/16 13:00 83 84/57 12/24/16 12:45 84 78/58 12/24/16 12:30 75 80/50 12/24/16 12:15 63 93/53 12/24/16 12:00 64 95/59 12/24/16 12:00 79 12/24/16 11:55 30 2/16/17 11:55 95.6 74 14 90/56 12/24/ 11:00 78 16 97/61 97 Mechanical Ventilator 30 16/ 10:50 81 14 30 16/17 10:30 78 15 103/53 98 Mechanical Ventilator 30 16/17 10:20 82 14 30 16/17 10:00 82 15 99/65 98 Mechanical Ventilator 30 12/24/ 09:30 81 14 94/61 100 Mechanical Ventilator 30 12/24/16 09:00 81 15 94/51 98 Mechanical Ventilator 30 16/17 08:45 82 15 90/45 99 Mechanical Ventilator 30 12/24/ 08:36 81 16 08:30 82 15 111/64 100 Mechanical Ventilator 30 12/24/16 08:15 82 15 97/54 98 Mechanical Ventilator 30 12/24/16 08:00 97.0 79 14 96/56 99 Mechanical Ventilator 30 12/24/16 08:00 85 12/24/16 08:00 30 12/24/16 07:45 80 15 97/53 97 Mechanical Ventilator 30 12/24/16 07:30 80 15 98/60 97 Mechanical Ventilator 30 12/24/16 07:15 80 16 91/55 97 Mechanical Ventilator 30 12/24/ 07:05 80 14 30 12/24/ 07:00 80 15 91/53 100 Mechanical Ventilator 30 12/24/16 06:45 81 15 108/60 100 Mechanical Ventilator 30 12/24/16 06:30 91 15 101/58 99 Mechanical Ventilator 30 12/24/16 06:15 80 14 115/58 98 Mechanical Ventilator 30 12/24/16 06:00 82 15 115/57 97 Mechanical Ventilator 30 12/24/16 05:45 82 15 104/57 98 Mechanical Ventilator 30 12/24/16 05:30 82 16 111/56 99 Mechanical Ventilator 30 16/17 05:15 84 15 131/74 99 Mechanical Ventilator 30 12/24/ 05:02 86 14 30 12/24/16 05:00 85 16 122/73 98 Mechanical Ventilator 30 16/17 04:45 86 16 131/69 98 Mechanical Ventilator 30 16/17 04:30 86 16 126/85 95 Mechanical Ventilator 30 16/17 04:15 84 15 127/70 99 Mechanical Ventilator 30 12/24/16 04:00 81 2/16/17 04:00 80 15 113/63 100 Mechanical Ventilator 30 12/24/16 04:00 30 12/24/16 03:45 80 14 118/59 99 Mechanical Ventilator 30 12/24/16 03:30 80 14 102/52 99 Mechanical Ventilator 30 12/24/16 03:15 82 14 107/55 98 Mechanical Ventilator 30 12/24/16 03:00 82 14 114/60 96 Mechanical Ventilator 30 12/24/16 02:56 81 14 30 12/24/16 02:45 81 14 96/50 99 Mechanical Ventilator 30 12/24/16 02:30 79 14 95/49 97 Mechanical Ventilator 30 12/24/16 02:15 81 14 100/55 100 Mechanical Ventilator 30 12/24/16 02:00 79 14 105/56 97 Mechanical Ventilator 30 12/24/16 01:45 77 14 98/53 99 Mechanical Ventilator 30 12/24/16 01:30 78 14 94/53 95 Mechanical Ventilator 30 12/24/16 01:15 79 14 97/60 100 Mechanical Ventilator 30 12/24/16 01:00 78 15 97/60 100 Mechanical Ventilator 30 12/24/16 00:45 79 14 102/55 100 Mechanical Ventilator 30 12/24/16 00:44 83 14 30 12/24/16 00:30 81 14 109/65 100 Mechanical Ventilator 30 12/24/16 00:15 78 14 107/57 99 Mechanical Ventilator 30 12/24/16 00:00 30 12/24/16 00:00 78 12/24/16 00:00 78 14 98/56 99 Mechanical Ventilator 30 12/23/16 23:45 78 14 96/56 98 Mechanical Ventilator 30 12/23/16 23:30 97.1 77 14 93/57 100 Mechanical Ventilator 30 12/23/16 23:15 79 14 75/42 99 Mechanical Ventilator 30 12/23/16 23:00 80 16 87/56 100 Mechanical Ventilator 30 12/23/16 22:57 78 18 30 12/23/16 22:45 78 17 86/56 100 Mechanical Ventilator 30 12/23/16 22:30 83 16 97/58 100 Mechanical Ventilator 30 12/23/16 22:15 82 19 123/64 16 Mechanical Ventilator 30 12/23/16 22:00 76 15 89/58 100 Mechanical Ventilator 30 12/23/16 22:00 123/64 2/15/17 21:45 80 19 89/58 100 Mechanical Ventilator 30 12/23/16 21:30 80 14 101/60 100 Mechanical Ventilator 30 12/23/16 21:16 85 14 30 12/23/16 21:15 87 17 103/61 100 Mechanical Ventilator 30 12/23/16 21:00 88 19 116/54 100 Mechanical Ventilator 30 12/23/16 20:55 88 12/23/16 20:45 85 19 116/54 100 Mechanical Ventilator 30 12/23/16 20:30 81 19 98/57 100 Mechanical Ventilator 30 12/23/16 20:15 77 19 88/52 100 Mechanical Ventilator 30 12/23/16 20:06 98.9 12/23/16 20:00 98.9 81 19 89/45 100 Mechanical Ventilator 30 12/23/16 20:00 30 12/23/16 20:00 78 12/23/16 19:45 85 19 108/56 100 Mechanical Ventilator 30 12/23/16 19:30 96 19 92/56 100 Mechanical Ventilator 30 General Appearance: no apparent distress, alert Neck: non-tender Cardiovascular: normal rate, regular rhythm Respiratory/Chest: chest wall non-tender, lungs clear Abdomen: normal bowel sounds, non tender, soft Extremities: no swelling Intake and Output 12/23/16 12/24/16 19:00 07:00 Intake Total 890.0 ml 952.50 ml Output Total 5 ml 10 ml Balance 885.0 ml 942.50 ml Free Water 40 ml IV Total 790.0 ml 747.50 ml Tube Feeding 145 ml Other 60 ml 60 ml Output Urine Total 5 ml 10 ml # Bowel Movements 4 3 Laboratory Tests Test 12/24/16 05:00 12/24/16 08:02 12/24/16 13:58 White Blood Count 10.0 K/UL (4.8-10.8) Red Blood Count 3.05 M/UL (4.20-5.40) L Hemoglobin 9.8 G/DL (12.0-16.0) L Hematocrit 30.3 % (37.0-47.0) L Mean Corpuscular Volume 99 FL (80-99) Mean Corpuscular Hemoglobin 32.2 PG (27.0-31.0) H Mean Corpuscular Hemoglobin Concent 32.4 G/DL (32.0-36.0) Red Cell Distribution Width 20.5 % (11.6-14.8) H Platelet Count 114 K/UL (150-450) L Mean Platelet Volume 8.2 FL (6.5-10.1) Neutrophils (%) (Auto) % (45.0-75.0) Lymphocytes (%) (Auto) % (20.0-45.0) Monocytes (%) (Auto) % (1.0-10.0) Eosinophils (%) (Auto) % (0.0-3.0) Basophils (%) (Auto) % (0.0-2.0) Sodium Level 136 mEQ/L (135-145) Potassium Level 3.5 mEQ/L (3.4-4.9) Chloride Level 95 mEQ/L (98-107) L Carbon Dioxide Level 23 mEQ/L (20-30) Anion Gap 18 (5-15) H Blood Urea Nitrogen 39 mg/dL (7-23) H Creatinine 3.1 mg/dL (0.5-0.9) H Estimat Glomerular Filtration Rate 15.2 mL/min (>60) Glucose Level 138 mg/dL (74-106) H Calcium Level 8.7 mg/dL (8.6-10.2) Phosphorus Level 5.3 mg/dL (2.5-4.8) H Magnesium Level 1.8 mg/dL (1.7-2.5) Total Bilirubin 0.8 mg/dL (0.0-1.2) Aspartate Amino Transf (AST/SGOT) 28 U/L (5-40) Alanine Aminotransferase (ALT/SGPT) 7 U/L (3-33) Alkaline Phosphatase 291 U/L (35-104) H Ammonia 22 umol/L (11-51) Troponin I < 0.30 ng/mL (<=0.30) Total Protein 7.5 g/dL (6.6-8.7) Albumin 4.0 g/dL (3.5-5.2) Globulin 3.5 g/dL Albumin/Globulin Ratio 1.1 (1.0-2.7) Arterial Blood pH 7.305 (7.350-7.450) Arterial Blood Partial Pressure CO2 42.3 mmHg (35.0-45.0) Arterial Blood Partial Pressure O2 104.4 mmHg (75.0-100.0) H Arterial Blood HCO3 20.6 mmol/L (22.0-26.0) L Arterial Blood Oxygen Saturation 97.1 % (92.0-98.0) Arterial Blood Base Excess -5.4 Antonio Test Positive Hepatitis A IgM Antibody Pending Hepatitis B Surface Antigen Pending Hepatitis B Core IgM Antibody Pending Hepatitis C Antibody Pending Microbiology Date/Time Source Procedure Growth Status 12/22/16 23:30 Blood Blood Culture - Preliminary NO GROWTH AFTER 24 HOURS Resulted 12/22/16 23:15 Blood Blood Culture - Preliminary NO GROWTH AFTER 24 HOURS Resulted 12/22/16 11:38 Blood Blood Culture - Preliminary NO GROWTH AFTER 24 HOURS Resulted 12/22/16 11:30 Blood Blood Culture - Preliminary NO GROWTH AFTER 24 HOURS Resulted 12/22/16 12:30 Nasal Nares MRSA Culture - Final NO METHICILLIN RESISTANT STAPH AUREUS... Complete 12/23/16 01:00 Stool Clostridium difficile Toxin Assay - Final Complete 12/22/16 12:30 Rectum VRE Culture - Final NO VANCOMYCIN RESISTANT ENTEROCOCCUS ... Complete CHRISTIN JIMENEZ Dec 24, 2016 19:31
[2016-12-25] VITALS (27 sets, daily range): BP systolic 67–131; BP diastolic 35–78
[2016-12-25 05:44] LABS: MEAN CORPUSCULAR HGB CONC 31.9 G/DL (32.0-36.0); MEAN CORPUSCULAR VOLUME 97 FL (80-99); MEAN PLATELET VOLUME 11.3 FL (6.5-10.1); PLATELET COUNT 93 K/UL (150-450); RED BLOOD COUNT 2.89 M/UL (4.20-5.40); RED CELL DISTRIBUTION WIDTH 20.7 % (11.6-14.8); WHITE BLOOD COUNT 7.3 K/UL (4.8-10.8)
[2016-12-25 06:12] LABS: MAGNESIUM 1.6 mg/dL (1.7-2.5); PHOSPHORUS 2.9 mg/dL (2.5-4.8)
[2016-12-25 06:20] LABS: ALBUMIN/GLOBULIN RATIO 1.2 (1.0-2.7); CALCIUM 8.6 mg/dL (8.6-10.2); CREATININE 1.9 mg/dL (0.5-0.9); GLOMERULAR FILTRATION RATE 26.8 mL/min (>60); POTASSIUM 3.8 mEQ/L (3.4-4.9); TOTAL PROTEIN 6.6 g/dL (6.6-8.7)
[2016-12-25] MEDS: Pantoprazole 80 MG in NS 250 ML IV SCH ×2 (06:34→16:52)
[2016-12-25 07:37] LABS: ABG ALLEN TEST POSITIVE; ABG BASE EXCESS -1.7
[2016-12-25] MEDS: Lactulose 20gm/30ml UDC GT SCH (08:31)
[2016-12-25] MEDS: Rifaximin 550mg tab ORAL SCH (08:32)
[2016-12-25 08:35] LABS: ANISOCYTOSIS 2+; BAND NEUTROPHILS % (MANUAL) 2 % (0-8); BASOPHILS % (MANUAL) 0 % (0-2); EOSINOPHILS % (MANUAL) 1 % (0-3); HYPOCHROMASIA 1+; LYMPHOCYTES % (MANUAL) 11 % (20-45); NEUTROPHILS % (MANUAL) 78 % (45-75); PLATELET ESTIMATE DECREASED; TOTAL CELLS COUNTED 100
[2016-12-25 09:18] LABS: PLATELET MORPHOLOGY NORMAL
--- NOTE | 2016-12-25 10:17 | Pulmonolgy Critical Care Note ---
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 Discussed with: nurses, consultants, 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 - Objective Last 24 Hour Vital Signs Date Time Temp Pulse Resp B/P Pulse Ox O2 Delivery O2 Flow Rate FiO2 12/25/16 09:10 100 12/25/16 09:10 81 21 30 12/25/16 09:00 82 14 112/60 100 Mechanical Ventilator 30 12/25/16 08:38 86 12/25/16 08:00 86 12/25/16 08:00 30 12/25/16 08:00 97.0 84 13 122/64 100 Mechanical Ventilator 30 12/25/16 07:10 85 15 30 12/25/16 07:00 85 16 105/57 100 Mechanical Ventilator 30 12/25/16 06:00 88 14 102/56 100 Mechanical Ventilator 30 12/25/16 05:29 90 20 30 12/25/16 05:00 89 16 122/73 100 Mechanical Ventilator 30 12/25/16 04:00 98.1 90 15 121/63 100 Mechanical Ventilator 30 12/25/16 04:00 30 12/25/16 04:00 88 12/25/16 03:22 89 13 30 12/25/16 03:00 88 16 131/78 100 Mechanical Ventilator 30 12/25/16 02:00 87 17 93/51 100 Mechanical Ventilator 30 12/25/16 01:04 88 16 30 12/25/16 01:00 114/69 12/25/16 01:00 86 18 114/69 99 Mechanical Ventilator 30 12/25/16 00:00 98.4 87 20 113/69 100 Mechanical Ventilator 30 12/25/16 00:00 82 12/25/16 00:00 30 12/24/16 23:30 84 14 30 2/16/17 23:00 86 21 109/63 99 Mechanical Ventilator 30 16 22:00 87 20 112/60 99 Mechanical Ventilator 30 1617 21:20 86 26 30 16/17 21:00 83 19 111/68 96 Mechanical Ventilator 30 1617 20:00 98.1 84 19 103/49 96 Mechanical Ventilator 30 16/17 20:00 86 1617 19:30 85 20 30 16/17 19:00 87 19 112/69 96 Mechanical Ventilator 30 16/17 18:25 88 16/17 18:00 83 19 117/61 99 Mechanical Ventilator 30 16/17 17:39 30 16/17 17:20 81 22 30 16/17 17:00 98.0 83 21 111/69 95 Mechanical Ventilator 30 12/24/16 16:00 80 15 92/54 95 Mechanical Ventilator 30 16/17 16:00 80 1617 16:00 30 12/24/16 15:20 97.0 93 110/62 1617 15:15 79 94/56 16/17 15:10 80 23 30 16/17 15:00 81 99/46 16/17 15:00 81 99/46 16/17 14:45 80 85/47 16/17 14:30 80 89/49 16/17 14:15 81 84/60 16/17 14:00 82 103/46 16/17 13:45 84 92/50 16/17 13:31 85 86/59 16/17 13:20 84 16 30 16/17 13:15 84 90/59 16/17 13:00 83 84/57 16/17 12:45 84 78/58 16/17 12:30 75 80/50 16/17 12:15 63 93/53 16/17 12:00 64 95/59 16/17 12:00 79 16/17 11:55 30 16/17 11:55 95.6 74 14 90/56 16/17 11:00 78 16 97/61 97 Mechanical Ventilator 30 12/24/16 10:50 81 14 30 2/16/17 10:30 78 15 103/53 98 Mechanical Ventilator 30 12/24/16 10:20 82 14 30 Status: awake, sedated Condition: critical HEENT: atraumatic, normocephalic Neck: full ROM Lungs: chest wall tender Heart: HR/BP stable Abdomen: soft, non-tender Extremities: no C/C/E, edema Micro: Microbiology Date/Time Source Procedure Growth Status 12/22/16 23:30 Blood Blood Culture - Preliminary NO GROWTH AFTER 48 HOURS Resulted 12/22/16 23:15 Blood Blood Culture - Preliminary NO GROWTH AFTER 48 HOURS Resulted 12/22/16 11:38 Blood Blood Culture - Preliminary NO GROWTH AFTER 48 HOURS Resulted 12/22/16 11:30 Blood Blood Culture - Preliminary NO GROWTH AFTER 48 HOURS Resulted 12/23/16 23:00 Sputum Gram Stain - Final Resulted 12/23/16 23:00 Sputum Sputum Culture - Preliminary Resulted 12/22/16 12:30 Nasal Nares MRSA Culture - Final NO METHICILLIN RESISTANT STAPH AUREUS... Complete 12/23/16 01:00 Stool Clostridium difficile Toxin Assay - Final Complete 12/22/16 12:30 Rectum VRE Culture - Final NO VANCOMYCIN RESISTANT ENTEROCOCCUS ... Complete Accucheck: 55 Critical Care - Subjective ROS Limited/Unobtainable: Yes ICU Day: 3 Intubation Day: 3 Condition: critical EKG Rhythm: Sinus Rhythm FI02: 30 Vent Support Breath Rate: 10 Vent Support Mode: IMV/SIMV Vent Tidal Volume: 450 Sputum Amount: Scant PEEP: 5.0 PIP: 49 Tube Feeding Amount: 25 I&O: Intake and Output 12/24/16 12/25/16 19:00 07:00 Intake Total 1820 ml 740 ml Output Total 593 ml 0 ml Balance 1227 ml 740 ml Free Water 20 ml IV Total 595 ml 515 ml Tube Feeding 125 ml 175 ml Hemodialysis 1000 ml Other 80 ml 50 ml Output Urine Total 0 ml 0 ml Hemodialysis UF 593 ml # Bowel Movements 6 10 CXR: DINESH, ET tube in good position ET-Tube: 7.5 ET Position: 22 Labs: Laboratory Tests Test 12/24/16 13:58 12/25/16 04:00 12/25/16 07:31 Hepatitis A IgM Antibody Pending Hepatitis B Surface Antigen Pending Hepatitis B Core IgM Antibody Pending Hepatitis C Antibody Pending White Blood Count 7.3 K/UL (4.8-10.8) Red Blood Count 2.89 M/UL (4.20-5.40) L Hemoglobin 9.0 G/DL (12.0-16.0) L Hematocrit 28.1 % (37.0-47.0) L Mean Corpuscular Volume 97 FL (80-99) Mean Corpuscular Hemoglobin 31.0 PG (27.0-31.0) Mean Corpuscular Hemoglobin Concent 31.9 G/DL (32.0-36.0) L Red Cell Distribution Width 20.7 % (11.6-14.8) H Platelet Count 93 K/UL (150-450) L Mean Platelet Volume 11.3 FL (6.5-10.1) H Neutrophils (%) (Auto) % (45.0-75.0) Lymphocytes (%) (Auto) % (20.0-45.0) Monocytes (%) (Auto) % (1.0-10.0) Eosinophils (%) (Auto) % (0.0-3.0) Basophils (%) (Auto) % (0.0-2.0) Differential Total Cells Counted 100 Neutrophils % (Manual) 78 % (45-75) H Lymphocytes % (Manual) 11 % (20-45) L Monocytes % (Manual) 8 % (1-10) Eosinophils % (Manual) 1 % (0-3) Basophils % (Manual) 0 % (0-2) Band Neutrophils 2 % (0-8) Platelet Estimate Decreased L Platelet Morphology Normal Hypochromasia 1+ Anisocytosis 2+ Sodium Level 132 mEQ/L (135-145) L Potassium Level 3.8 mEQ/L (3.4-4.9) Chloride Level 93 mEQ/L (98-107) L Carbon Dioxide Level 26 mEQ/L (20-30) Anion Gap 13 (5-15) Blood Urea Nitrogen 20 mg/dL (7-23) Creatinine 1.9 mg/dL (0.5-0.9) H Estimat Glomerular Filtration Rate 26.8 mL/min (>60) Glucose Level 103 mg/dL (74-106) Calcium Level 8.6 mg/dL (8.6-10.2) Phosphorus Level 2.9 mg/dL (2.5-4.8) Magnesium Level 1.6 mg/dL (1.7-2.5) L Total Bilirubin 0.5 mg/dL (0.0-1.2) Aspartate Amino Transf (AST/SGOT) 47 U/L (5-40) H Alanine Aminotransferase (ALT/SGPT) 11 U/L (3-33) Alkaline Phosphatase 335 U/L (35-104) H Total Protein 6.6 g/dL (6.6-8.7) Albumin 3.6 g/dL (3.5-5.2) Globulin 3.0 g/dL Albumin/Globulin Ratio 1.2 (1.0-2.7) Arterial Blood pH 7.352 (7.350-7.450) Arterial Blood Partial Pressure CO2 44.0 mmHg (35.0-45.0) Arterial Blood Partial Pressure O2 116.7 mmHg (75.0-100.0) H Arterial Blood HCO3 23.9 mmol/L (22.0-26.0) Arterial Blood Oxygen Saturation 98.2 % (92.0-98.0) H Arterial Blood Base Excess -1.7 Antonio Test Positive FRANCESCA FELTON Dec 25, 2016 10:17
[2016-12-25] MEDS ORDERED: Miralax 17gm pkt GT PRN (11:03)
[2016-12-25] MEDS: Dextrose 10%/0.9% SOD CHL 1,000 ML IV SCH (11:04)
--- NOTE | 2016-12-25 12:01 | GI Progress Note ---
Assessment/Plan Problems: (1) End-stage kidney disease ICD Codes: N18.6 - End stage renal disease SNOMED: 04662235 (2) GAVE (gastric antral vascular ectasia) ICD Codes: K31.819 - Angiodysplasia of stomach and duodenum without bleeding SNOMED: 65309008 (3) Severe malnutrition ICD Codes: E43 - Unspecified severe protein-calorie malnutrition SNOMED: 92789334 (4) Hypoalbuminemia ICD Codes: E88.09 - Other disorders of plasma-protein metabolism, not elsewhere classified SNOMED: 611712565 (5) Anemia ICD Codes: D64.9 - Anemia, unspecified SNOMED: 745246009 (6) Liver cirrhosis ICD Codes: K74.60 - Unspecified cirrhosis of liver SNOMED: 22081954 Status: progressing, unchanged Status Narrative Discussed with Dr. Galarza. Assessment/Plan s/p EGD/colon at [facility] recently, see full report in chart. KUB >> negative abd U/S >> Moderate ascites. Mild gallbladder wall thickening. See full report below. elevated ammonia OB stool positive defer any GI procedures at this time monitor H&H, transfuse prn protonix gtt OGT to goal rate per dietary lactulose + Xifaxan fu labs Subjective Subjective limited Objective Last 24 Hour Vital Signs Date Time Temp Pulse Resp B/P Pulse Ox O2 Delivery O2 Flow Rate FiO2 12/25/16 11:10 84 25 30 12/25/16 11:00 86 17 106/66 100 Mechanical Ventilator 30 12/25/16 10:00 88 27 98/49 100 Mechanical Ventilator 30 12/25/16 09:10 100 12/25/16 09:10 81 21 30 12/25/16 09:00 82 14 112/60 100 Mechanical Ventilator 30 12/25/16 08:38 86 12/25/16 08:00 86 12/25/16 08:00 30 12/25/16 08:00 97.0 84 13 122/64 100 Mechanical Ventilator 30 12/25/16 07:10 85 15 30 12/25/16 07:00 85 16 105/57 100 Mechanical Ventilator 30 12/25/16 06:00 88 14 102/56 100 Mechanical Ventilator 30 12/25/16 05:29 90 20 30 12/25/16 05:00 89 16 122/73 100 Mechanical Ventilator 30 12/25/16 04:00 98.1 90 15 121/63 100 Mechanical Ventilator 30 12/25/16 04:00 30 12/25/16 04:00 88 12/25/16 03:22 89 13 30 12/25/16 03:00 88 16 131/78 100 Mechanical Ventilator 30 12/25/16 02:00 87 17 93/51 100 Mechanical Ventilator 30 12/25/16 01:04 88 16 30 12/25/16 01:00 114/69 12/25/16 01:00 86 18 114/69 99 Mechanical Ventilator 30 12/25/16 00:00 98.4 87 20 113/69 100 Mechanical Ventilator 30 12/25/16 00:00 82 12/25/16 00:00 30 12/24/16 23:30 84 14 30 12/24/16 23:00 86 21 109/63 99 Mechanical Ventilator 30 12/24/16 22:00 87 20 112/60 99 Mechanical Ventilator 30 12/24/16 21:20 86 26 30 12/24/16 21:00 83 19 111/68 96 Mechanical Ventilator 30 12/24/16 20:00 98.1 84 19 103/49 96 Mechanical Ventilator 30 12/24/16 20:00 86 17 19:30 85 20 30 17 19:00 87 19 112/69 96 Mechanical Ventilator 30 12/24/16 18:25 88 12/24/16 18:00 83 19 117/61 99 Mechanical Ventilator 30 17 17:39 30 12/24/17 17:20 81 22 30 1617 17:00 98.0 83 21 111/69 95 Mechanical Ventilator 30 17 16:00 80 15 92/54 95 Mechanical Ventilator 30 16/17 16:00 80 16/17 16:00 30 16/17 15:20 97.0 93 110/62 16/17 15:15 79 94/56 16/17 15:10 80 23 30 16/17 15:00 81 99/46 216/17 15:00 81 99/46 16/17 14:45 80 85/47 216/17 14:30 80 89/49 216/17 14:15 81 84/60 16/17 14:00 82 103/46 216/17 13:45 84 92/50 12/24/16 13:31 85 86/59 12/24/16 13:20 84 16 30 12/24/16 13:15 84 90/59 12/24/16 13:00 83 84/57 12/24/16 12:45 84 78/58 12/24/16 12:30 75 80/50 12/24/16 12:15 63 93/53 12/24/16 12:00 64 95/59 12/24/16 12:00 79 Intake and Output 12/24/16 12/25/16 19:00 07:00 Intake Total 1820 ml 740 ml Output Total 593 ml 0 ml Balance 1227 ml 740 ml Free Water 20 ml IV Total 595 ml 515 ml Tube Feeding 125 ml 175 ml Hemodialysis 1000 ml Other 80 ml 50 ml Output Urine Total 0 ml 0 ml Hemodialysis UF 593 ml # Bowel Movements 6 10 Laboratory Tests Test 12/24/16 13:58 12/25/16 04:00 12/25/16 07:31 Hepatitis A IgM Antibody Pending Hepatitis B Surface Antigen Pending Hepatitis B Core IgM Antibody Pending Hepatitis C Antibody Pending White Blood Count 7.3 K/UL (4.8-10.8) Red Blood Count 2.89 M/UL (4.20-5.40) L Hemoglobin 9.0 G/DL (12.0-16.0) L Hematocrit 28.1 % (37.0-47.0) L Mean Corpuscular Volume 97 FL (80-99) Mean Corpuscular Hemoglobin 31.0 PG (27.0-31.0) Mean Corpuscular Hemoglobin Concent 31.9 G/DL (32.0-36.0) L Red Cell Distribution Width 20.7 % (11.6-14.8) H Platelet Count 93 K/UL (150-450) L Mean Platelet Volume 11.3 FL (6.5-10.1) H Neutrophils (%) (Auto) % (45.0-75.0) Lymphocytes (%) (Auto) % (20.0-45.0) Monocytes (%) (Auto) % (1.0-10.0) Eosinophils (%) (Auto) % (0.0-3.0) Basophils (%) (Auto) % (0.0-2.0) Differential Total Cells Counted 100 Neutrophils % (Manual) 78 % (45-75) H Lymphocytes % (Manual) 11 % (20-45) L Monocytes % (Manual) 8 % (1-10) Eosinophils % (Manual) 1 % (0-3) Basophils % (Manual) 0 % (0-2) Band Neutrophils 2 % (0-8) Platelet Estimate Decreased L Platelet Morphology Normal Hypochromasia 1+ Anisocytosis 2+ Sodium Level 132 mEQ/L (135-145) L Potassium Level 3.8 mEQ/L (3.4-4.9) Chloride Level 93 mEQ/L (98-107) L Carbon Dioxide Level 26 mEQ/L (20-30) Anion Gap 13 (5-15) Blood Urea Nitrogen 20 mg/dL (7-23) Creatinine 1.9 mg/dL (0.5-0.9) H Estimat Glomerular Filtration Rate 26.8 mL/min (>60) Glucose Level 103 mg/dL (74-106) Calcium Level 8.6 mg/dL (8.6-10.2) Phosphorus Level 2.9 mg/dL (2.5-4.8) Magnesium Level 1.6 mg/dL (1.7-2.5) L Total Bilirubin 0.5 mg/dL (0.0-1.2) Aspartate Amino Transf (AST/SGOT) 47 U/L (5-40) H Alanine Aminotransferase (ALT/SGPT) 11 U/L (3-33) Alkaline Phosphatase 335 U/L (35-104) H Total Protein 6.6 g/dL (6.6-8.7) Albumin 3.6 g/dL (3.5-5.2) Globulin 3.0 g/dL Albumin/Globulin Ratio 1.2 (1.0-2.7) Arterial Blood pH 7.352 (7.350-7.450) Arterial Blood Partial Pressure CO2 44.0 mmHg (35.0-45.0) Arterial Blood Partial Pressure O2 116.7 mmHg (75.0-100.0) H Arterial Blood HCO3 23.9 mmol/L (22.0-26.0) Arterial Blood Oxygen Saturation 98.2 % (92.0-98.0) H Arterial Blood Base Excess -1.7 Antonio Test Positive Height (Feet): 4 Height (Inches): 9.00 Weight (Pounds): 75 General Appearance: no apparent distress, alert Cardiovascular: normal rate Respiratory/Chest: other - mech vent Abdominal Exam: other - OGT Objective Procedure: US ABD Complete Indication: Abnormal liver function tests and renal function tests Impression: Moderate ascites, nonspecific as regards etiology Negative for gallstones. There is mild gallbladder wall thickening, suspect secondary to whatever process is causing ascites, but acute acalculous cholecystitis not completely excludable. Consider nuclear medicine hepatobiliary scan if there is high clinical suspicion for acute cholecystitis Bilateral echogenic atrophic kidneys, consistent with known history of chronic renal disease Suzy Middleton N.P. Dec 25, 2016 12:01
--- NOTE | 2016-12-25 12:02 | Cardiology Report ---
APPROVED REPORT EKG Measurement Heart [id number] Sinus bradycardia with 1st degree AV block Possible Left atrial enlargement Left bundle branch block Abnormal ECG
--- NOTE | 2016-12-25 12:06 | Infectious Diseases Prog Note ---
Assessment/Plan Assessment/Plan ASSESSMENT: 61 y/o female with: // Probable sepsis r/o HCAP, UTI, bacteremia - cultures NGTD // Negative C.difficile // Shock SP - off pressors // Leukopenia SP // Hypothermia SP // Acute encephalopathy / found down ?hepatic ( elevated NH4 ) r/o septic - improved - CT Head: No evidence of acute intracranial pathology. Bilateral cerebral periventricular and deepwhite matter low attenuation, nonspecific, likely chronic microvascular ischemic in nature. Atrophy // Acute VDRF - intubated 12/22, weaning to extubate // ?Cirrhosis / chronic liver disease with elevated LFTs, leukopenia, chronic macrocytic anemia, TCP, coagulopathy, hypoalbuminemia - US: pending // ESRD / HD with right chest TDC // FOBT(+) macrocytic anemia SP PRBCs - recent EGD: GAVE // Probable CHF exacerbation - CXR: evidence of congestive heart failure including pulmonary edema, small bilateral pleural effusions - TTE: EF 65%, grade I diastolic dysfunction, mild-mod TR, mod MR, pulmonary HTN // Elevated ESR // NH resident // NKDA // Full Code PLAN: - continue empiric IV vancomycin, rifaximin d# 4 / 5 ( 12/23 SP zosyn ) - f/u final cultures - monitor CBC, temperatures - monitor BMP - monitor CXR - vent support, wean as tolerated - transfuse prn Subjective Allergies: Coded Allergies: No Known Allergies (Unverified , 12/22/16) Subjective remains afebrile, awake on vent weaning to extubate Objective Vital Signs Last 24 Hour Vital Signs Date Time Temp Pulse Resp B/P Pulse Ox O2 Delivery O2 Flow Rate FiO2 12/25/16 12:00 30 12/25/16 11:10 84 25 30 12/25/16 11:00 86 17 106/66 100 Mechanical Ventilator 30 12/25/16 10:00 88 27 98/49 100 Mechanical Ventilator 30 12/25/16 09:10 100 12/25/16 09:10 81 21 30 12/25/16 09:00 82 14 112/60 100 Mechanical Ventilator 30 12/25/16 08:38 86 12/25/16 08:00 86 12/25/16 08:00 30 12/25/16 08:00 97.0 84 13 122/64 100 Mechanical Ventilator 30 12/25/16 07:10 85 15 30 12/25/16 07:00 85 16 105/57 100 Mechanical Ventilator 30 12/25/16 06:00 88 14 102/56 100 Mechanical Ventilator 30 12/25/16 05:29 90 20 30 12/25/16 05:00 89 16 122/73 100 Mechanical Ventilator 30 12/25/16 04:00 98.1 90 15 121/63 100 Mechanical Ventilator 30 12/25/16 04:00 30 12/25/16 04:00 88 12/25/16 03:22 89 13 30 12/25/16 03:00 88 16 131/78 100 Mechanical Ventilator 30 12/25/16 02:00 87 17 93/51 100 Mechanical Ventilator 30 12/25/16 01:04 88 16 30 12/25/16 01:00 114/69 12/25/16 01:00 86 18 114/69 99 Mechanical Ventilator 30 12/25/16 00:00 98.4 87 20 113/69 100 Mechanical Ventilator 30 12/25/16 00:00 82 12/25/16 00:00 30 12/24/16 23:30 84 14 30 12/24/16 23:00 86 21 109/63 99 Mechanical Ventilator 30 12/24/16 22:00 87 20 112/60 99 Mechanical Ventilator 30 12/24/16 21:20 86 26 30 12/24/16 21:00 83 19 111/68 96 Mechanical Ventilator 30 12/24/16 20:00 98.1 84 19 103/49 96 Mechanical Ventilator 30 12/24/16 20:00 86 12/24/16 19:30 85 20 30 12/24/16 19:00 87 19 112/69 96 Mechanical Ventilator 30 17 18:25 88 17 18:00 83 19 117/61 99 Mechanical Ventilator 30 17 17:39 30 16/17 17:20 81 22 30 16/17 17:00 98.0 83 21 111/69 95 Mechanical Ventilator 30 12/24/17 16:00 80 15 92/54 95 Mechanical Ventilator 30 12/24/17 16:00 80 16/17 16:00 30 16/17 15:20 97.0 93 110/62 16/17 15:15 79 94/56 16/17 15:10 80 23 30 12/24/16 15:00 81 99/46 12/24/16 15:00 81 99/46 12/24/16 14:45 80 85/47 12/24/16 14:30 80 89/49 12/24/16 14:15 81 84/60 12/24/16 14:00 82 103/46 12/24/16 13:45 84 92/50 12/24/16 13:31 85 86/59 12/24/16 13:20 84 16 30 12/24/16 13:15 84 90/59 12/24/16 13:00 83 84/57 12/24/16 12:45 84 78/58 12/24/16 12:30 75 80/50 12/24/16 12:15 63 93/53 Height (Feet): 4 Height (Inches): 9.00 Weight (Pounds): 75 General Appearance: other - intubated, awake Respiratory/Chest: decreased breath sounds Cardiovascular: normal rate, regular rhythm Abdomen: normal bowel sounds, soft, non tender, non distended Microbiology Date/Time Source Procedure Growth Status 12/22/16 23:30 Blood Blood Culture - Preliminary NO GROWTH AFTER 48 HOURS Resulted 12/22/16 23:15 Blood Blood Culture - Preliminary NO GROWTH AFTER 48 HOURS Resulted 12/23/16 23:00 Sputum Gram Stain - Final Resulted 12/23/16 23:00 Sputum Sputum Culture - Preliminary Resulted 12/22/16 12:30 Nasal Nares MRSA Culture - Final NO METHICILLIN RESISTANT STAPH AUREUS... Complete 12/23/16 01:00 Stool Clostridium difficile Toxin Assay - Final Complete 12/22/16 12:30 Rectum VRE Culture - Final NO VANCOMYCIN RESISTANT ENTEROCOCCUS ... Complete Laboratory Tests Test 12/24/16 13:58 12/25/16 04:00 12/25/16 07:31 Hepatitis A IgM Antibody Pending Hepatitis B Surface Antigen Pending Hepatitis B Core IgM Antibody Pending Hepatitis C Antibody Pending White Blood Count 7.3 K/UL (4.8-10.8) Red Blood Count 2.89 M/UL (4.20-5.40) L Hemoglobin 9.0 G/DL (12.0-16.0) L Hematocrit 28.1 % (37.0-47.0) L Mean Corpuscular Volume 97 FL (80-99) Mean Corpuscular Hemoglobin 31.0 PG (27.0-31.0) Mean Corpuscular Hemoglobin Concent 31.9 G/DL (32.0-36.0) L Red Cell Distribution Width 20.7 % (11.6-14.8) H Platelet Count 93 K/UL (150-450) L Mean Platelet Volume 11.3 FL (6.5-10.1) H Neutrophils (%) (Auto) % (45.0-75.0) Lymphocytes (%) (Auto) % (20.0-45.0) Monocytes (%) (Auto) % (1.0-10.0) Eosinophils (%) (Auto) % (0.0-3.0) Basophils (%) (Auto) % (0.0-2.0) Differential Total Cells Counted 100 Neutrophils % (Manual) 78 % (45-75) H Lymphocytes % (Manual) 11 % (20-45) L Monocytes % (Manual) 8 % (1-10) Eosinophils % (Manual) 1 % (0-3) Basophils % (Manual) 0 % (0-2) Band Neutrophils 2 % (0-8) Platelet Estimate Decreased L Platelet Morphology Normal Hypochromasia 1+ Anisocytosis 2+ Sodium Level 132 mEQ/L (135-145) L Potassium Level 3.8 mEQ/L (3.4-4.9) Chloride Level 93 mEQ/L (98-107) L Carbon Dioxide Level 26 mEQ/L (20-30) Anion Gap 13 (5-15) Blood Urea Nitrogen 20 mg/dL (7-23) Creatinine 1.9 mg/dL (0.5-0.9) H Estimat Glomerular Filtration Rate 26.8 mL/min (>60) Glucose Level 103 mg/dL (74-106) Calcium Level 8.6 mg/dL (8.6-10.2) Phosphorus Level 2.9 mg/dL (2.5-4.8) Magnesium Level 1.6 mg/dL (1.7-2.5) L Total Bilirubin 0.5 mg/dL (0.0-1.2) Aspartate Amino Transf (AST/SGOT) 47 U/L (5-40) H Alanine Aminotransferase (ALT/SGPT) 11 U/L (3-33) Alkaline Phosphatase 335 U/L (35-104) H Total Protein 6.6 g/dL (6.6-8.7) Albumin 3.6 g/dL (3.5-5.2) Globulin 3.0 g/dL Albumin/Globulin Ratio 1.2 (1.0-2.7) Arterial Blood pH 7.352 (7.350-7.450) Arterial Blood Partial Pressure CO2 44.0 mmHg (35.0-45.0) Arterial Blood Partial Pressure O2 116.7 mmHg (75.0-100.0) H Arterial Blood HCO3 23.9 mmol/L (22.0-26.0) Arterial Blood Oxygen Saturation 98.2 % (92.0-98.0) H Arterial Blood Base Excess -1.7 Antonio Test Positive Current Medications Medications (Trade) Dose Ordered Sig/Erji Route PRN Reason Start Time Stop Time Status Last Admin Dose Admin Acetaminophen (Tylenol) 650 mg Q4H PRN ORAL fever 12/22/16 13:45 01/21/17 13:44 Albuterol/ Ipratropium (DuoNeb 0.5-3(2.5)mg/3ml) 3 ml Q4H PRN HHN Shortness of Breath 12/22/16 13:45 12/27/16 13:44 12/25/16 11:51 Dextrose/Sodium Chloride 1,000 ml @ 20 mls/hr Q24H IV 12/23/16 11:00 01/22/17 10:59 12/25/16 11:04 Lactulose (Cephulac) 20 gm DAILY GT 12/26/16 09:00 01/25/17 08:59 UNV Lorazepam (Ativan 2mg/ml 1ml) 2 mg Q4H PRN IV For Anxiety 12/22/16 13:45 12/29/16 13:44 Morphine Sulfate 4 mg 4 mg Q4H PRN IVP For Pain 12/22/16 13:45 12/29/16 13:44 12/23/16 19:36 Nitroglycerin (Ntg) 0.4 mg Q5MIN X 3 DOSES PRN SL Prn Chest Pain 12/22/16 13:45 01/21/17 13:44 Norepinephrine Bitartrate 4 mg/ Dextrose 250 ml @ 0 mls/hr Q24H IV 12/23/16 01:00 01/22/17 00:59 12/23/16 15:49 Ondansetron HCl (Zofran) 4 mg Q6H PRN IVP Nausea & Vomiting 12/22/16 13:45 01/21/17 13:44 12/23/16 19:36 Pantoprazole/ Sodium Chloride (Protonix/Sodium Chloride) 250 ml @ 25 mls/hr Q10H IV 12/23/16 15:30 01/22/17 15:29 12/25/16 06:34 Polyethylene Glycol (Miralax) 17 gm DAILYPRN PRN GT Constipation 12/25/16 11:03 01/21/17 13:44 Propafenone HCl (Rythmol) 225 mg TID NG 12/23/16 21:00 01/22/17 20:59 12/25/16 08:38 Rifaximin (Xifaxan) 550 mg EVERY 12 HOURS GT 12/25/16 11:03 12/30/16 20:59 Vancomycin HCl (Vanco rx to dose) 1 ea DAILY PRN MISC . 12/24/16 13:00 01/23/17 12:59 DARLIN GRANADO Dec 25, 2016 12:06
[2016-12-25] MEDS ORDERED: Surgicel 4in x 8in TOPIC ONE ×2 (13:13)
--- NOTE | 2016-12-25 14:27 | Nephrology Progress Note ---
Assessment/Plan Problem List: (1) Hypovolemic shock (2) End-stage kidney disease (3) Acute respiratory failure (4) CHF (congestive heart failure) (5) Liver cirrhosis (6) Hypoalbuminemia (7) Severe malnutrition (8) GAVE (gastric antral vascular ectasia) (9) Diarrhea Plan try to wean off levophed, done NS and albumin, hd 12/24 stable with low-nl bp, cxr better despite giving fluids , paracentesis, hd 12/26 Subjective Constitutional: Reports: weakness HEENT: Reports: no symptoms Genitourinary: Reports: no symptoms Neurologic/Psychiatric: Reports: no symptoms Subjective awake on vent Objective Objective Last 24 Hour Vital Signs Date Time Temp Pulse Resp B/P Pulse Ox O2 Delivery O2 Flow Rate FiO2 12/25/16 14:00 87 20 84/49 100 Mechanical Ventilator 30 12/25/16 13:08 81 12 30 12/25/16 13:00 83 13 90/49 100 Mechanical Ventilator 30 12/25/16 12:20 81 12/25/16 12:00 96.9 85 18 121/67 100 Mechanical Ventilator 30 12/25/16 12:00 85 12/25/16 12:00 30 12/25/16 11:10 84 25 30 12/25/16 11:00 86 17 106/66 100 Mechanical Ventilator 30 12/25/16 10:00 88 27 98/49 100 Mechanical Ventilator 30 12/25/16 09:10 100 12/25/16 09:10 81 21 30 12/25/16 09:00 82 14 112/60 100 Mechanical Ventilator 30 12/25/16 08:38 86 12/25/16 08:00 86 12/25/16 08:00 30 12/25/16 08:00 97.0 84 13 122/64 100 Mechanical Ventilator 30 12/25/16 07:10 85 15 30 12/25/16 07:00 85 16 105/57 100 Mechanical Ventilator 30 12/25/16 06:00 88 14 102/56 100 Mechanical Ventilator 30 12/25/16 05:29 90 20 30 12/25/16 05:00 89 16 122/73 100 Mechanical Ventilator 30 12/25/16 04:00 98.1 90 15 121/63 100 Mechanical Ventilator 30 12/25/16 04:00 30 12/25/16 04:00 88 12/25/16 03:22 89 13 30 2/17/17 03:00 88 16 131/78 100 Mechanical Ventilator 30 12/25/16 02:00 87 17 93/51 100 Mechanical Ventilator 30 12/25/16 01:04 88 16 30 12/25/16 01:00 114/69 12/25/16 01:00 86 18 114/69 99 Mechanical Ventilator 30 12/25/16 00:00 98.4 87 20 113/69 100 Mechanical Ventilator 30 12/25/16 00:00 82 12/25/16 00:00 30 12/24/16 23:30 84 14 30 12/24/16 23:00 86 21 109/63 99 Mechanical Ventilator 30 12/24/16 22:00 87 20 112/60 99 Mechanical Ventilator 30 12/24/16 21:20 86 26 30 12/24/16 21:00 83 19 111/68 96 Mechanical Ventilator 30 12/24/16 20:00 98.1 84 19 103/49 96 Mechanical Ventilator 30 12/24/16 20:00 86 12/24/16 19:30 85 20 30 12/24/16 19:00 87 19 112/69 96 Mechanical Ventilator 30 12/24/16 18:25 88 12/24/16 18:00 83 19 117/61 99 Mechanical Ventilator 30 12/24/16 17:39 30 12/24/16 17:20 81 22 30 12/24/16 17:00 98.0 83 21 111/69 95 Mechanical Ventilator 30 12/24/16 16:00 80 15 92/54 95 Mechanical Ventilator 30 12/24/16 16:00 80 12/24/16 16:00 30 12/24/16 15:20 97.0 93 110/62 12/24/16 15:15 79 94/56 12/24/16 15:10 80 23 30 12/24/16 15:00 81 99/46 12/24/16 15:00 81 99/46 12/24/16 14:45 80 85/47 12/24/16 14:30 80 89/49 Intake and Output 12/24/16 12/25/16 19:00 07:00 Intake Total 1820 ml 740 ml Output Total 593 ml 0 ml Balance 1227 ml 740 ml Free Water 20 ml IV Total 595 ml 515 ml Tube Feeding 125 ml 175 ml Hemodialysis 1000 ml Other 80 ml 50 ml Output Urine Total 0 ml 0 ml Hemodialysis UF 593 ml # Bowel Movements 6 10 Laboratory Tests 12/25/16 04:00: White Blood Count 7.3, Red Blood Count 2.89L, Hemoglobin 9.0L, Hematocrit 28.1L , Mean Corpuscular Volume 97, Mean Corpuscular Hemoglobin 31.0, Mean Corpuscular Hemoglobin Concent 31.9L, Red Cell Distribution Width 20.7H, Platelet Count 93L, Mean Platelet Volume 11.3H, Neutrophils (%) (Auto) , Lymphocytes (%) (Auto) , Monocytes (%) (Auto) , Eosinophils (%) (Auto) , Basophils (%) (Auto) , Differential Total Cells Counted 100, Neutrophils % ( Manual) 78H, Lymphocytes % (Manual) 11L, Monocytes % (Manual) 8, Eosinophils % ( Manual) 1, Basophils % (Manual) 0, Band Neutrophils 2, Platelet Estimate DecreasedL, Platelet Morphology Normal, Hypochromasia 1+, Anisocytosis 2+, Sodium Level 132L, Potassium Level 3.8, Chloride Level 93L, Carbon Dioxide Level 26, Anion Gap 13, Blood Urea Nitrogen 20, Creatinine 1.9H, Estimat Glomerular Filtration Rate 26.8, Glucose Level 103, Calcium Level 8.6, Phosphorus Level 2.9, Magnesium Level 1.6L, Total Bilirubin 0.5, Aspartate Amino Transf (AST/SGOT) 47H, Alanine Aminotransferase (ALT/SGPT) 11, Alkaline Phosphatase 335H, Total Protein 6.6, Albumin 3.6, Globulin 3.0, Albumin/ Globulin Ratio 1.2 12/25/16 07:31: Arterial Blood pH 7.352, Arterial Blood Partial Pressure CO2 44.0, Arterial Blood Partial Pressure O2 116.7H, Arterial Blood HCO3 23.9, Arterial Blood Oxygen Saturation 98.2H, Arterial Blood Base Excess -1.7, Antonio Test Positive Height (Feet): 4 Height (Inches): 9.00 Weight (Pounds): 75 General Appearance: thin EENT: PERRL/EOMI Neck: non-tender Cardiovascular: regular rhythm Respiratory/Chest: lungs clear, decreased breath sounds Abdomen: other - ascites Extremities: other - no PERLITA Marte Dec 25, 2016 14:27
--- NOTE | 2016-12-25 15:07 | Cardiology Report ---
APPROVED REPORT EKG Measurement Heart [id number] Normal sinus rhythm Possible Left atrial enlargement Nonspecific T wave abnormality Prolonged QT Abnormal ECG
[2016-12-25] MEDS ORDERED: NS 275ml ONE (15:24)
[2016-12-25] MEDS ORDERED: Tubing IV Secondary IV ONE (15:24)
[2016-12-25] MEDS ORDERED: NS 550ML IV ONE (15:24)
--- NOTE | 2016-12-25 18:51 | Internal Med Progress Note ---
Subjective Date of Service: Dec 25, 2016 Physician Name Dione Bull Attending Physician Jes Bautista Current Medications Medications (Trade) Dose Ordered Sig/Reji Route PRN Reason Start Time Stop Time Status Last Admin Dose Admin Acetaminophen (Tylenol) 650 mg Q4H PRN ORAL fever 12/22/16 13:45 01/21/17 13:44 Albumin Human (Albumisol) 100 ml @ 200 mls/hr PRN PRN IV sbp<90 during hd 12/26/16 06:00 12/26/16 23:59 Albuterol/ Ipratropium (DuoNeb 0.5-3(2.5)mg/3ml) 3 ml Q4H PRN HHN Shortness of Breath 12/22/16 13:45 12/27/16 13:44 12/25/16 11:51 Dextrose/Sodium Chloride 1,000 ml @ 20 mls/hr Q24H IV 12/23/16 11:00 01/22/17 10:59 12/25/16 11:04 Epoetin José Miguel (Procrit (for ESRD on dialysis)) 7,000 units WED-WED-WED SUBQ 12/25/16 21:00 01/24/17 20:59 Heparin Sodium (Porcine) (Heparin Sod 1000 units/ml 10ml) 500 unit ONCE PRN IV for HD 12/26/16 06:00 12/26/16 23:59 Lactulose 20 gm 20 gm DAILY GT 12/26/16 09:00 01/25/17 08:59 Lorazepam (Ativan 2mg/ml 1ml) 2 mg Q4H PRN IV For Anxiety 12/22/16 13:45 12/29/16 13:44 Morphine Sulfate 4 mg 4 mg Q4H PRN IVP For Pain 12/22/16 13:45 12/29/16 13:44 12/23/16 19:36 Nitroglycerin (Ntg) 0.4 mg Q5MIN X 3 DOSES PRN SL Prn Chest Pain 12/22/16 13:45 01/21/17 13:44 Norepinephrine Bitartrate 4 mg/ Dextrose 250 ml @ 0 mls/hr Q24H IV 12/23/16 01:00 01/22/17 00:59 12/23/16 15:49 Ondansetron HCl (Zofran) 4 mg Q6H PRN IVP Nausea & Vomiting 12/22/16 13:45 01/21/17 13:44 12/23/16 19:36 Pantoprazole/ Sodium Chloride (Protonix/Sodium Chloride) 250 ml @ 25 mls/hr Q10H IV 12/23/16 15:30 01/22/17 15:29 12/25/16 16:52 Polyethylene Glycol (Miralax) 17 gm DAILYPRN PRN GT Constipation 12/25/16 11:03 01/21/17 13:44 Propafenone HCl (Rythmol) 225 mg TID NG 12/23/16 21:00 01/22/17 20:59 12/25/16 18:29 Rifaximin (Xifaxan) 550 mg EVERY 12 HOURS GT 12/25/16 11:03 12/30/16 20:59 Sodium Chloride 1,000 ml @ 500 mls/hr Q2H PRN IVLG sbp<90 during hd 12/26/16 06:00 12/26/16 23:59 Vancomycin HCl (Vanco rx to dose) 1 ea DAILY PRN MISC . 12/24/16 13:00 01/23/17 12:59 Allergies: Coded Allergies: No Known Allergies (Unverified , 12/22/16) Subjective 61 YO F admitted with respiratory failure. Now probable sepsis with septic shock. Intubated and sedated. ICU. Cover for Int Jamie-Dr Vigil. Objective Last Vital Signs Date Time Temp Pulse Resp B/P Pulse Ox O2 Delivery O2 Flow Rate FiO2 12/25/16 18:29 87 12/25/16 17:10 19 30 12/25/16 17:00 107/64 100 Mechanical Ventilator 12/25/16 16:00 98.0 12/22/16 10:55 15.0 Laboratory Tests Test 12/25/16 04:00 12/25/16 07:31 White Blood Count 7.3 K/UL (4.8-10.8) Red Blood Count 2.89 M/UL (4.20-5.40) L Hemoglobin 9.0 G/DL (12.0-16.0) L Hematocrit 28.1 % (37.0-47.0) L Mean Corpuscular Volume 97 FL (80-99) Mean Corpuscular Hemoglobin 31.0 PG (27.0-31.0) Mean Corpuscular Hemoglobin Concent 31.9 G/DL (32.0-36.0) L Red Cell Distribution Width 20.7 % (11.6-14.8) H Platelet Count 93 K/UL (150-450) L Mean Platelet Volume 11.3 FL (6.5-10.1) H Neutrophils (%) (Auto) % (45.0-75.0) Lymphocytes (%) (Auto) % (20.0-45.0) Monocytes (%) (Auto) % (1.0-10.0) Eosinophils (%) (Auto) % (0.0-3.0) Basophils (%) (Auto) % (0.0-2.0) Differential Total Cells Counted 100 Neutrophils % (Manual) 78 % (45-75) H Lymphocytes % (Manual) 11 % (20-45) L Monocytes % (Manual) 8 % (1-10) Eosinophils % (Manual) 1 % (0-3) Basophils % (Manual) 0 % (0-2) Band Neutrophils 2 % (0-8) Platelet Estimate Decreased L Platelet Morphology Normal Hypochromasia 1+ Anisocytosis 2+ Sodium Level 132 mEQ/L (135-145) L Potassium Level 3.8 mEQ/L (3.4-4.9) Chloride Level 93 mEQ/L (98-107) L Carbon Dioxide Level 26 mEQ/L (20-30) Anion Gap 13 (5-15) Blood Urea Nitrogen 20 mg/dL (7-23) Creatinine 1.9 mg/dL (0.5-0.9) H Estimat Glomerular Filtration Rate 26.8 mL/min (>60) Glucose Level 103 mg/dL (74-106) Calcium Level 8.6 mg/dL (8.6-10.2) Phosphorus Level 2.9 mg/dL (2.5-4.8) Magnesium Level 1.6 mg/dL (1.7-2.5) L Total Bilirubin 0.5 mg/dL (0.0-1.2) Aspartate Amino Transf (AST/SGOT) 47 U/L (5-40) H Alanine Aminotransferase (ALT/SGPT) 11 U/L (3-33) Alkaline Phosphatase 335 U/L (35-104) H Total Protein 6.6 g/dL (6.6-8.7) Albumin 3.6 g/dL (3.5-5.2) Globulin 3.0 g/dL Albumin/Globulin Ratio 1.2 (1.0-2.7) Arterial Blood pH 7.352 (7.350-7.450) Arterial Blood Partial Pressure CO2 44.0 mmHg (35.0-45.0) Arterial Blood Partial Pressure O2 116.7 mmHg (75.0-100.0) H Arterial Blood HCO3 23.9 mmol/L (22.0-26.0) Arterial Blood Oxygen Saturation 98.2 % (92.0-98.0) H Arterial Blood Base Excess -1.7 Antonio Test Positive Microbiology Date/Time Source Procedure Growth Status 12/22/16 23:30 Blood Blood Culture - Preliminary NO GROWTH AFTER 48 HOURS Resulted 12/22/16 23:15 Blood Blood Culture - Preliminary NO GROWTH AFTER 48 HOURS Resulted 12/23/16 23:00 Sputum Gram Stain - Final Resulted 12/23/16 23:00 Sputum Sputum Culture - Preliminary Resulted 12/23/16 01:00 Stool Clostridium difficile Toxin Assay - Final Complete Intake and Output 12/24/16 12/25/16 19:00 07:00 Intake Total 1820 ml 740 ml Output Total 593 ml 0 ml Balance 1227 ml 740 ml Free Water 20 ml IV Total 595 ml 515 ml Tube Feeding 125 ml 175 ml Hemodialysis 1000 ml Other 80 ml 50 ml Output Urine Total 0 ml 0 ml Hemodialysis UF 593 ml # Bowel Movements 6 10 Objective General Appearance: mild distress, thin EENT: PERRL/EOMI, normal ENT inspection Neck: non-tender, normal alignment, supple Cardiovascular: normal peripheral pulses, normal rate, regular rhythm, no gallop/murmur, no JVD Respiratory/Chest: Mech Vent; respiratory distress, crackles/rales, rhonchi - bilaterally, expiratory wheezing Abdomen: normal bowel sounds, non tender, soft, no organomegaly, no mass Neurologic: supplier manager II-XII grossly normal Skin: normal pigmentation, warm/dry Assessment/Plan Problem List: (1) Encephalopathy (2) ESRD (end stage renal disease) on dialysis Assessment & Plan: See nephrology note. (3) HTN (hypertension) Assessment & Plan: Currently hypotensive. (4) Acute respiratory failure Assessment & Plan: Cont mech vent per pulmonary (5) CHF (congestive heart failure) (6) Anemia (7) Liver cirrhosis (8) Sepsis Assessment & Plan: Cont zosyn and vanco per ID (9) Septic shock Assessment & Plan: Cont pressors. Status: not improved DIONE BULL Dec 25, 2016 18:51
--- NOTE | 2016-12-25 19:19 | Cardiology Progress Note ---
Assessment/Plan Assessment/Plan ams hypotension hs of mod to sever MR paf hs of avb with pvc cirrhosis , esrd on dialyusis mgus htn scleroderma hs of [place] o gave continue on rhtymol for now watch on tele for afib recurrence or for av block wean off tele iv abx dialysis lv function has been preserved tele sinus wean to extubate Subjective ROS Limited/Unobtainable: Yes Subjective no cp soem sob no dizziness Objective Last 24 Hour Vital Signs Date Time Temp Pulse Resp B/P Pulse Ox O2 Delivery O2 Flow Rate FiO2 12/25/16 19:00 90 23 30 12/25/16 18:29 87 12/25/16 17:10 86 19 30 12/25/16 17:00 88 21 107/64 100 Mechanical Ventilator 30 12/25/16 16:00 98.0 89 21 107/60 100 Mechanical Ventilator 30 12/25/16 15:10 87 16 30 12/25/16 15:00 85 20 105/71 100 Mechanical Ventilator 30 12/25/16 14:00 87 20 84/49 100 Mechanical Ventilator 30 12/25/16 13:08 81 12 30 12/25/16 13:00 83 13 90/49 100 Mechanical Ventilator 30 12/25/16 12:20 81 12/25/16 12:00 96.9 85 18 121/67 100 Mechanical Ventilator 30 12/25/16 12:00 85 12/25/16 12:00 30 12/25/16 11:55 24 25 100 Mechanical Ventilator 30 12/25/16 11:45 85 22 100 Mechanical Ventilator 30 12/25/16 11:10 84 25 30 12/25/16 11:00 86 17 106/66 100 Mechanical Ventilator 30 12/25/16 10:00 88 27 98/49 100 Mechanical Ventilator 30 12/25/16 09:10 100 12/25/16 09:10 81 21 30 12/25/16 09:00 82 14 112/60 100 Mechanical Ventilator 30 12/25/16 08:38 86 12/25/16 08:00 86 12/25/16 08:00 30 12/25/16 08:00 97.0 84 13 122/64 100 Mechanical Ventilator 30 12/25/16 07:10 85 15 30 12/25/16 07:00 85 16 105/57 100 Mechanical Ventilator 30 12/25/16 06:00 88 14 102/56 100 Mechanical Ventilator 30 12/25/16 05:29 90 20 30 12/25/16 05:00 89 16 122/73 100 Mechanical Ventilator 30 12/25/16 04:00 98.1 90 15 121/63 100 Mechanical Ventilator 30 12/25/16 04:00 30 12/25/16 04:00 88 12/25/16 03:22 89 13 30 12/25/16 03:00 88 16 131/78 100 Mechanical Ventilator 30 12/25/16 02:00 87 17 93/51 100 Mechanical Ventilator 30 12/25/16 01:04 88 16 30 12/25/16 01:00 114/69 12/25/16 01:00 86 18 114/69 99 Mechanical Ventilator 30 12/25/16 00:00 98.4 87 20 113/69 100 Mechanical Ventilator 30 12/25/16 00:00 82 12/25/16 00:00 30 12/24/16 23:30 84 14 30 12/24/16 23:00 86 21 109/63 99 Mechanical Ventilator 30 12/24/16 22:00 87 20 112/60 99 Mechanical Ventilator 30 12/24/16 21:20 86 26 30 12/24/16 21:00 83 19 111/68 96 Mechanical Ventilator 30 12/24/16 20:00 98.1 84 19 103/49 96 Mechanical Ventilator 30 12/24/16 20:00 86 12/24/16 19:30 85 20 30 General Appearance: no apparent distress, alert, on vent, patient on isolation Neck: supple Cardiovascular: normal rate, regular rhythm Respiratory/Chest: lungs clear, normal breath sounds Abdomen: normal bowel sounds, non tender, soft Extremities: no swelling Intake and Output 12/24/16 12/25/16 19:00 07:00 Intake Total 1820 ml 740 ml Output Total 593 ml 0 ml Balance 1227 ml 740 ml Free Water 20 ml IV Total 595 ml 515 ml Tube Feeding 125 ml 175 ml Hemodialysis 1000 ml Other 80 ml 50 ml Output Urine Total 0 ml 0 ml Hemodialysis UF 593 ml # Bowel Movements 6 10 Laboratory Tests Test 12/25/16 04:00 12/25/16 07:31 White Blood Count 7.3 K/UL (4.8-10.8) Red Blood Count 2.89 M/UL (4.20-5.40) L Hemoglobin 9.0 G/DL (12.0-16.0) L Hematocrit 28.1 % (37.0-47.0) L Mean Corpuscular Volume 97 FL (80-99) Mean Corpuscular Hemoglobin 31.0 PG (27.0-31.0) Mean Corpuscular Hemoglobin Concent 31.9 G/DL (32.0-36.0) L Red Cell Distribution Width 20.7 % (11.6-14.8) H Platelet Count 93 K/UL (150-450) L Mean Platelet Volume 11.3 FL (6.5-10.1) H Neutrophils (%) (Auto) % (45.0-75.0) Lymphocytes (%) (Auto) % (20.0-45.0) Monocytes (%) (Auto) % (1.0-10.0) Eosinophils (%) (Auto) % (0.0-3.0) Basophils (%) (Auto) % (0.0-2.0) Differential Total Cells Counted 100 Neutrophils % (Manual) 78 % (45-75) H Lymphocytes % (Manual) 11 % (20-45) L Monocytes % (Manual) 8 % (1-10) Eosinophils % (Manual) 1 % (0-3) Basophils % (Manual) 0 % (0-2) Band Neutrophils 2 % (0-8) Platelet Estimate Decreased L Platelet Morphology Normal Hypochromasia 1+ Anisocytosis 2+ Sodium Level 132 mEQ/L (135-145) L Potassium Level 3.8 mEQ/L (3.4-4.9) Chloride Level 93 mEQ/L (98-107) L Carbon Dioxide Level 26 mEQ/L (20-30) Anion Gap 13 (5-15) Blood Urea Nitrogen 20 mg/dL (7-23) Creatinine 1.9 mg/dL (0.5-0.9) H Estimat Glomerular Filtration Rate 26.8 mL/min (>60) Glucose Level 103 mg/dL (74-106) Calcium Level 8.6 mg/dL (8.6-10.2) Phosphorus Level 2.9 mg/dL (2.5-4.8) Magnesium Level 1.6 mg/dL (1.7-2.5) L Total Bilirubin 0.5 mg/dL (0.0-1.2) Aspartate Amino Transf (AST/SGOT) 47 U/L (5-40) H Alanine Aminotransferase (ALT/SGPT) 11 U/L (3-33) Alkaline Phosphatase 335 U/L (35-104) H Total Protein 6.6 g/dL (6.6-8.7) Albumin 3.6 g/dL (3.5-5.2) Globulin 3.0 g/dL Albumin/Globulin Ratio 1.2 (1.0-2.7) Arterial Blood pH 7.352 (7.350-7.450) Arterial Blood Partial Pressure CO2 44.0 mmHg (35.0-45.0) Arterial Blood Partial Pressure O2 116.7 mmHg (75.0-100.0) H Arterial Blood HCO3 23.9 mmol/L (22.0-26.0) Arterial Blood Oxygen Saturation 98.2 % (92.0-98.0) H Arterial Blood Base Excess -1.7 Antonio Test Positive Microbiology Date/Time Source Procedure Growth Status 12/22/16 23:30 Blood Blood Culture - Preliminary NO GROWTH AFTER 48 HOURS Resulted 12/22/16 23:15 Blood Blood Culture - Preliminary NO GROWTH AFTER 48 HOURS Resulted 12/23/16 23:00 Sputum Gram Stain - Final Resulted 12/23/16 23:00 Sputum Sputum Culture - Preliminary Resulted 12/23/16 01:00 Stool Clostridium difficile Toxin Assay - Final Complete CHRISTIN JIMENEZ Dec 25, 2016 19:19
[2016-12-25] MEDS ORDERED: Epogen (for ESRD on dialysis) SUBQ SCH (21:00)
[2016-12-25] MEDS: Rifaximin 550mg tab GT SCH (21:31)
[2016-12-25] MEDS: LORazepam Inj 2mg/ml 1ml IV PRN (22:32)
[2016-12-25] MEDS ORDERED: Levophed 4mg/4mL Inj IV ONE (23:41)
[2016-12-26] VITALS (93 sets, daily range): BP systolic 80–174; BP diastolic 40–88
[2016-12-26] MEDS: Pantoprazole 80 MG in NS 250 ML IV SCH ×3 (03:12→23:51)
[2016-12-26 05:52] LABS: MEAN CORPUSCULAR HEMOGLOBIN 30.5 PG (27.0-31.0); MEAN CORPUSCULAR HGB CONC 31.1 G/DL (32.0-36.0); MEAN CORPUSCULAR VOLUME 98 FL (80-99); MEAN PLATELET VOLUME 9.6 FL (6.5-10.1); PLATELET COUNT 97 K/UL (150-450); RED BLOOD COUNT 2.86 M/UL (4.20-5.40); RED CELL DISTRIBUTION WIDTH 20.2 % (11.6-14.8); WHITE BLOOD COUNT 8.1 K/UL (4.8-10.8)
[2016-12-26] MEDS ORDERED: Heparin Sod 1000 units/ml 10ml IV PRN (06:00)
[2016-12-26 06:25] LABS: ALBUMIN/GLOBULIN RATIO 0.9 (1.0-2.7); CALCIUM 8.3 mg/dL (8.6-10.2); CREATININE 2.7 mg/dL (0.5-0.9); GLOMERULAR FILTRATION RATE 17.9 mL/min (>60); POTASSIUM 4.1 mEQ/L (3.4-4.9); TOTAL PROTEIN 6.1 g/dL (6.6-8.7)
[2016-12-26 07:13] LABS: ABG PCO2 45.4 mmHg (35.0-45.0)
[2016-12-26 07:14] LABS: ABG ALLEN TEST POSITIVE
[2016-12-26 07:24] LABS: MAGNESIUM 1.6 mg/dL (1.7-2.5); PHOSPHORUS 3.8 mg/dL (2.5-4.8)
[2016-12-26 08:05] LABS: BAND NEUTROPHILS % (MANUAL) 0 % (0-8); BASOPHILS % (MANUAL) 0 % (0-2); EOSINOPHILS % (MANUAL) 3 % (0-3); LYMPHOCYTES % (MANUAL) 2 % (20-45); NEUTROPHILS % (MANUAL) 83 % (45-75); PLATELET ESTIMATE DECREASED; TOTAL CELLS COUNTED 100
[2016-12-26 08:06] LABS: ANISOCYTOSIS 2+; HYPOCHROMASIA 2+; PLATELET MORPHOLOGY NORMAL
[2016-12-26] MEDS: Rifaximin 550mg tab GT SCH ×2 (09:28→20:59)
[2016-12-26] MEDS: Lactulose 20gm/30ml UDC GT SCH (09:28)
--- NOTE | 2016-12-26 10:48 | Pulmonology Progress Note ---
Assessment/Plan Problems: (1) Acute respiratory failure (2) Hyperkalemia (3) Altered mental state (4) CHF (congestive heart failure) (5) CKD (chronic kidney disease) Respiratory: monitor respiratory rate, adjust FIO2 Cardiac: continue to monitor HR/BP Renal: F/U I&O, keep IV fluid, check electrolytes Infectious Disease: check cultures, continue antibiotics Gastrointestinal: continue feedings/current rate Endocrine: monitor blood sugar, check HgA1C, continue sliding scale insulin Hematologic: transfuse if hgb<8.5 Neurologic: PRN Ativan, PRN Morphine, keep patient comfortable Affect: PRN ativan Disposition: keep in ICU Notes Reviewed: cardio, renal Discussed with: nurses, consultants, pillowcase cutter Subjective ROS Limited/Unobtainable: Yes Allergies: Coded Allergies: No Known Allergies (Unverified , 12/22/16) All Systems: reviewed and negative except above Objective Last 24 Hour Vital Signs Date Time Temp Pulse Resp B/P Pulse Ox O2 Delivery O2 Flow Rate FiO2 12/26/16 10:15 81 14 95/58 100 Mechanical Ventilator 30 12/26/16 10:00 82 14 106/60 100 Mechanical Ventilator 30 12/26/16 09:45 82 14 98/59 100 Mechanical Ventilator 30 12/26/16 09:30 82 14 96/58 100 Mechanical Ventilator 30 12/26/16 09:27 81 12/26/16 09:15 86 14 114/67 100 Mechanical Ventilator 30 12/26/16 09:08 85 14 30 12/26/16 09:00 85 14 111/61 100 Mechanical Ventilator 30 12/26/16 08:45 78 14 89/53 100 Mechanical Ventilator 30 12/26/16 08:30 80 14 86/51 100 Mechanical Ventilator 30 12/26/16 08:15 82 14 97/57 100 Mechanical Ventilator 30 12/26/16 08:15 97/57 12/26/16 08:06 12/26/16 08:00 87 12/26/16 08:00 96.7 84 14 97/57 100 Mechanical Ventilator 30 12/26/16 07:45 30 12/26/16 07:45 90 16 103/60 100 Mechanical Ventilator 30 12/26/16 07:30 82 14 89/52 100 Mechanical Ventilator 30 12/26/16 07:20 82 14 30 12/26/16 07:15 86 15 109/62 100 Mechanical Ventilator 30 2/18/17 07:00 105/62 2/18/17 07:00 95 17 109/48 100 Mechanical Ventilator 30 2/18/17 06:45 95 17 105/50 100 Mechanical Ventilator 30 2/18/17 06:30 95 17 116/56 100 Mechanical Ventilator 30 2/18/17 06:15 78 20 105/50 100 Mechanical Ventilator 30 2/18/17 06:00 116/65 2/18/17 06:00 86 17 95/46 100 Mechanical Ventilator 30 2/18/17 05:45 95 18 100/56 100 Mechanical Ventilator 30 2/18/17 05:30 85 17 96/46 100 Mechanical Ventilator 30 2/18/17 05:15 80 20 105/40 100 Mechanical Ventilator 30 2/18/17 05:06 86 14 30 2/18/17 05:00 72 17 101/46 100 Mechanical Ventilator 30 2/18/17 05:00 95/50 2/18/17 04:45 74 17 109/69 100 Mechanical Ventilator 30 2/18/17 04:30 71 17 105/46 100 Mechanical Ventilator 30 2/18/17 04:15 97.5 72 17 101/54 100 Mechanical Ventilator 30 2/18/17 04:00 30 2/18/17 04:00 101/56 2/18/17 04:00 78 17 101/46 100 Mechanical Ventilator 30 2/18/17 04:00 70 2/18/17 03:45 96 17 86/46 100 Mechanical Ventilator 30 2/18/17 03:30 78 17 86/56 100 Mechanical Ventilator 30 2/18/17 03:15 80 17 84/56 100 Mechanical Ventilator 30 2/18/17 03:05 90 16 30 2/18/17 03:00 82 17 86/56 100 Mechanical Ventilator 30 2/18/17 03:00 86/58 2/18/17 02:45 84 17 95/46 100 Mechanical Ventilator 30 2/18/17 02:30 82 17 96/52 100 Mechanical Ventilator 30 2/18/17 02:15 82 17 96/52 100 Mechanical Ventilator 30 2/18/17 02:00 84 17 86/49 100 Mechanical Ventilator 30 2/18/17 02:00 30 2/18/17 02:00 96/56 2/18/17 01:45 83 17 85/49 100 Mechanical Ventilator 30 2/18/17 01:30 84 16 82/46 100 Mechanical Ventilator 30 2/18/17 01:15 88 18 84/46 100 Mechanical Ventilator 30 2/18/17 01:00 92 16 89/48 100 Mechanical Ventilator 30 2/18/17 01:00 84/46 2/18/17 01:00 84/46 2/18/17 00:45 94 17 113/58 100 Mechanical Ventilator 30 2/18/17 00:45 90 16 30 2/18/17 00:30 100 18 129/68 100 Mechanical Ventilator 30 2/18/17 00:15 95 18 174/88 100 Mechanical Ventilator 30 2/18/17 00:00 30 2/18/17 00:00 83 2/18/17 00:00 97.4 90 16 151/59 100 Mechanical Ventilator 30 2/17/17 23:45 82 19 72/44 100 Mechanical Ventilator 30 2/17/17 23:30 81 18 68/43 100 Mechanical Ventilator 30 2/17/17 23:15 82 17 67/35 100 Mechanical Ventilator 30 2/17/17 23:01 86 20 30 2/17/17 23:00 80 20 71/43 100 Mechanical Ventilator 30 2/17/17 22:00 90 20 110/54 100 Mechanical Ventilator 30 2/17/17 21:14 85 20 30 2/17/17 21:00 89 18 102/54 100 Mechanical Ventilator 30 2/17/17 20:00 30 2/17/17 20:00 98.2 86 18 95/39 100 Mechanical Ventilator 30 2/17/17 20:00 86 2/17/17 19:00 87 17 89/39 100 Mechanical Ventilator 30 2/17/17 19:00 90 23 30 2/17/17 18:29 87 2/17/17 18:00 90 21 116/64 100 Mechanical Ventilator 30 2/17/17 17:10 86 19 30 2/17/17 17:00 88 21 107/64 100 Mechanical Ventilator 30 2/17/17 16:00 30 2/17/17 16:00 87 2/17/17 16:00 98.0 89 21 107/60 100 Mechanical Ventilator 30 2/17/17 15:10 87 16 30 2/17/17 15:00 85 20 105/71 100 Mechanical Ventilator 30 2/17/17 14:00 87 20 84/49 100 Mechanical Ventilator 30 2 13:08 81 12 30 12/25/16 13:00 83 13 90/49 100 Mechanical Ventilator 30 12/25/16 12:20 81 12/25/16 12:00 96.9 85 18 121/67 100 Mechanical Ventilator 30 12/25/16 12:00 85 12/25/16 12:00 30 12/25/16 11:55 24 25 100 Mechanical Ventilator 30 12/25/16 11:45 85 22 100 Mechanical Ventilator 30 12/25/16 11:10 84 25 30 12/25/16 11:00 86 17 106/66 100 Mechanical Ventilator 30 Intake and Output 12/25/16 12/26/16 19:00 07:00 Intake Total 845 ml 942.5 ml Output Total 1606 ml 0 ml Balance -761 ml 942.5 ml Free Water 130 ml 100 ml IV Total 540 ml 567.5 ml Tube Feeding 75 ml 275 ml Other 100 ml Output Urine Total 6 ml 0 ml Other 1600 ml # Bowel Movements 3 3 General Appearance: cachetic HEENT: normocephalic, atraumatic Respiratory/Chest: chest wall non-tender, lungs clear Cardiovascular: normal peripheral pulses, normal rate Abdomen: normal bowel sounds, no organomegaly Extremities: no cyanosis, no clubbing Skin: no lesions Microbiology Date/Time Source Procedure Growth Status 12/23/16 23:00 Sputum Gram Stain - Final Resulted 12/23/16 23:00 Sputum Sputum Culture - Preliminary Resulted Laboratory Tests 12/26/16 05:30: White Blood Count 8.1, Red Blood Count 2.86L, Hemoglobin 8.7L, Hematocrit 28.1L , Mean Corpuscular Volume 98, Mean Corpuscular Hemoglobin 30.5, Mean Corpuscular Hemoglobin Concent 31.1L, Red Cell Distribution Width 20.2H, Platelet Count 97L, Mean Platelet Volume 9.6, Neutrophils (%) (Auto) , Lymphocytes (%) (Auto) , Monocytes (%) (Auto) , Eosinophils (%) (Auto) , Basophils (%) (Auto) , Differential Total Cells Counted 100, Neutrophils % ( Manual) 83H, Lymphocytes % (Manual) 2L, Monocytes % (Manual) 12H, Eosinophils % (Manual) 3, Basophils % (Manual) 0, Band Neutrophils 0, Platelet Estimate DecreasedL, Platelet Morphology Normal, Hypochromasia 2+, Anisocytosis 2+, Sodium Level 131L, Potassium Level 4.1, Chloride Level 96L, Carbon Dioxide Level 23, Anion Gap 12, Blood Urea Nitrogen 36H, Creatinine 2.7H, Estimat Glomerular Filtration Rate 17.9, Glucose Level 103, Calcium Level 8.3L, Phosphorus Level 3.8, Magnesium Level 1.6L, Total Bilirubin 0.5, Aspartate Amino Transf (AST/SGOT) 29, Alanine Aminotransferase (ALT/SGPT) 8, Alkaline Phosphatase 274H, Total Protein 6.1L, Albumin 2.9L, Globulin 3.2, Albumin/ Globulin Ratio 0.9L, Random Vancomycin Level 15.6 12/26/16 07:03: Arterial Blood pH 7.300L, Arterial Blood Partial Pressure CO2 45.4H, Arterial Blood Partial Pressure O2 117.8H, Arterial Blood HCO3 22.1, Arterial Blood Oxygen Saturation 98.0, Arterial Blood Base Excess -4.0, Antonio Test Positive Current Medications Medications (Trade) Dose Ordered Sig/Reji Route PRN Reason Start Time Stop Time Status Last Admin Dose Admin Acetaminophen (Tylenol) 650 mg Q4H PRN ORAL fever 12/22/16 13:45 01/21/17 13:44 Albumin Human (Albumisol) 100 ml @ 200 mls/hr PRN PRN IV sbp<90 during hd 12/26/16 06:00 12/26/16 23:59 Albuterol/ Ipratropium (DuoNeb 0.5-3(2.5)mg/3ml) 3 ml Q4H PRN HHN Shortness of Breath 12/22/16 13:45 12/27/16 13:44 12/25/16 11:51 Dextrose/Sodium Chloride 1,000 ml @ 20 mls/hr Q24H IV 12/23/16 11:00 01/22/17 10:59 12/25/16 11:04 Epoetin José Miguel 7000 units 7,000 units WED-WED-WED SUBQ 12/25/16 21:00 01/24/17 20:59 12/25/16 21:31 Heparin Sodium (Porcine) (Heparin Sod 1000 units/ml 10ml) 500 unit ONCE PRN IV for HD 12/26/16 06:00 12/26/16 23:59 Lactulose 20 gm 20 gm DAILY GT 12/26/16 09:00 01/25/17 08:59 12/26/16 09:28 Lorazepam (Ativan 2mg/ml 1ml) 2 mg Q4H PRN IV For Anxiety 12/22/16 13:45 12/29/16 13:44 12/25/16 22:32 Morphine Sulfate 4 mg 4 mg Q4H PRN IVP For Pain 12/22/16 13:45 12/29/16 13:44 12/23/16 19:36 Nitroglycerin (Ntg) 0.4 mg Q5MIN X 3 DOSES PRN SL Prn Chest Pain 12/22/16 13:45 01/21/17 13:44 Norepinephrine Bitartrate 4 mg/ Dextrose 250 ml @ 0 mls/hr Q24H IV 12/23/16 01:00 01/22/17 00:59 12/26/16 01:00 Ondansetron HCl (Zofran) 4 mg Q6H PRN IVP Nausea & Vomiting 12/22/16 13:45 01/21/17 13:44 12/23/16 19:36 Pantoprazole/ Sodium Chloride (Protonix/Sodium Chloride) 250 ml @ 25 mls/hr Q10H IV 12/23/16 15:30 01/22/17 15:29 12/26/16 03:12 Polyethylene Glycol (Miralax) 17 gm DAILYPRN PRN GT Constipation 12/25/16 11:03 01/21/17 13:44 Propafenone HCl (Rythmol) 225 mg TID NG 12/23/16 21:00 01/22/17 20:59 12/26/16 09:27 Rifaximin (Xifaxan) 550 mg EVERY 12 HOURS GT 12/25/16 11:03 12/30/16 20:59 12/26/16 09:28 Sodium Chloride 1,000 ml @ 500 mls/hr Q2H PRN IVLG sbp<90 during hd 12/26/16 06:00 12/26/16 23:59 Vancomycin HCl (Vanco rx to dose) 1 ea DAILY PRN MISC . 12/24/16 13:00 01/23/17 12:59 Vancomycin HCl/ Dextrose (Vancomycin/D5W) 110 ml @ 110 mls/hr ONCE ONCE IVPB 12/26/16 20:00 12/26/16 20:59 FRANCESCA FELTON Dec 26, 2016 10:48
--- NOTE | 2016-12-26 11:03 | Infectious Diseases Prog Note ---
Assessment/Plan Assessment/Plan ASSESSMENT: 61 y/o female with: // Probable sepsis r/o HCAP, UTI, bacteremia - cultures NGTD // Negative C.difficile // Shock SP - off pressors // Leukopenia SP // Hypothermia SP // Acute encephalopathy / found down ?hepatic ( elevated NH4 ) r/o septic - improved - CT Head: No evidence of acute intracranial pathology. Bilateral cerebral periventricular and deepwhite matter low attenuation, nonspecific, likely chronic microvascular ischemic in nature. Atrophy // Acute VDRF - intubated 12/22, weaning to extubate // ?Cirrhosis / chronic liver disease with elevated LFTs, leukopenia, chronic macrocytic anemia, TCP, coagulopathy, hypoalbuminemia - US: pending // ESRD / HD with right chest TDC // FOBT(+) macrocytic anemia SP PRBCs - recent EGD: GAVE // Probable CHF exacerbation - CXR: evidence of congestive heart failure including pulmonary edema, small bilateral pleural effusions - TTE: EF 65%, grade I diastolic dysfunction, mild-mod TR, mod MR, pulmonary HTN // Elevated ESR // NH resident // NKDA // Full Code PLAN: - continue empiric IV vancomycin, rifaximin d# 5 / ( may stop in AM ) ( 12/23 SP zosyn ) - f/u final cultures - monitor CBC, temperatures - monitor BMP - monitor CXR - vent support, wean as tolerated - transfuse prn Subjective Constitutional: Denies: anorexia, chills, drenching sweats, fatigue, fever, no symptoms, other Allergies: Coded Allergies: No Known Allergies (Unverified , 12/22/16) Objective Vital Signs Last 24 Hour Vital Signs Date Time Temp Pulse Resp B/P Pulse Ox O2 Delivery O2 Flow Rate FiO2 12/26/16 10:15 81 14 95/58 100 Mechanical Ventilator 30 12/26/16 10:00 82 14 106/60 100 Mechanical Ventilator 30 12/26/16 09:45 82 14 98/59 100 Mechanical Ventilator 30 12/26/16 09:30 82 14 96/58 100 Mechanical Ventilator 30 12/26/16 09:27 81 12/26/16 09:15 86 14 114/67 100 Mechanical Ventilator 30 12/26/16 09:08 85 14 30 12/26/16 09:00 85 14 111/61 100 Mechanical Ventilator 30 2/18/17 08:45 78 14 89/53 100 Mechanical Ventilator 30 2/18/17 08:30 80 14 86/51 100 Mechanical Ventilator 30 2/18/17 08:15 82 14 97/57 100 Mechanical Ventilator 30 2/18/17 08:15 97/57 2/18/17 08:06 2/18/17 08:00 87 2/18/17 08:00 96.7 84 14 97/57 100 Mechanical Ventilator 30 2/18/17 07:45 30 2/18/17 07:45 90 16 103/60 100 Mechanical Ventilator 30 2/18/17 07:30 82 14 89/52 100 Mechanical Ventilator 30 2/18/17 07:20 82 14 30 2/18/17 07:15 86 15 109/62 100 Mechanical Ventilator 30 2/18/17 07:00 105/62 2/18/17 07:00 95 17 109/48 100 Mechanical Ventilator 30 2/18/17 06:45 95 17 105/50 100 Mechanical Ventilator 30 2/18/17 06:30 95 17 116/56 100 Mechanical Ventilator 30 2/18/17 06:15 78 20 105/50 100 Mechanical Ventilator 30 2/18/17 06:00 116/65 2/18/17 06:00 86 17 95/46 100 Mechanical Ventilator 30 2/18/17 05:45 95 18 100/56 100 Mechanical Ventilator 30 2/18/17 05:30 85 17 96/46 100 Mechanical Ventilator 30 2/18/17 05:15 80 20 105/40 100 Mechanical Ventilator 30 2/18/17 05:06 86 14 30 2/18/17 05:00 72 17 101/46 100 Mechanical Ventilator 30 2/18/17 05:00 95/50 2/18/17 04:45 74 17 109/69 100 Mechanical Ventilator 30 2/18/17 04:30 71 17 105/46 100 Mechanical Ventilator 30 2/18/17 04:15 97.5 72 17 101/54 100 Mechanical Ventilator 30 2/18/17 04:00 30 2/18/17 04:00 101/56 2/18/17 04:00 78 17 101/46 100 Mechanical Ventilator 30 2/18/17 04:00 70 2/18/17 03:45 96 17 86/46 100 Mechanical Ventilator 30 2/18/17 03:30 78 17 86/56 100 Mechanical Ventilator 30 2/18/17 03:15 80 17 84/56 100 Mechanical Ventilator 30 2/18/17 03:05 90 16 30 2/18/17 03:00 82 17 86/56 100 Mechanical Ventilator 30 2/18/17 03:00 86/58 2/18/17 02:45 84 17 95/46 100 Mechanical Ventilator 30 2/18/17 02:30 82 17 96/52 100 Mechanical Ventilator 30 2/18/17 02:15 82 17 96/52 100 Mechanical Ventilator 30 2/18/17 02:00 84 17 86/49 100 Mechanical Ventilator 30 2/18/17 02:00 30 2/18/17 02:00 96/56 2/18/17 01:45 83 17 85/49 100 Mechanical Ventilator 30 2/18/17 01:30 84 16 82/46 100 Mechanical Ventilator 30 2/18/17 01:15 88 18 84/46 100 Mechanical Ventilator 30 2/18/17 01:00 92 16 89/48 100 Mechanical Ventilator 30 2/18/17 01:00 84/46 2/18/17 01:00 84/46 2/18/17 00:45 94 17 113/58 100 Mechanical Ventilator 30 2/18/17 00:45 90 16 30 2/18/17 00:30 100 18 129/68 100 Mechanical Ventilator 30 2/18/17 00:15 95 18 174/88 100 Mechanical Ventilator 30 2/18/17 00:00 30 2/18/17 00:00 83 2/18/17 00:00 97.4 90 16 151/59 100 Mechanical Ventilator 30 2/17/17 23:45 82 19 72/44 100 Mechanical Ventilator 30 2/17/17 23:30 81 18 68/43 100 Mechanical Ventilator 30 2/17/17 23:15 82 17 67/35 100 Mechanical Ventilator 30 2/17/17 23:01 86 20 30 2/17/17 23:00 80 20 71/43 100 Mechanical Ventilator 30 2/17/17 22:00 90 20 110/54 100 Mechanical Ventilator 30 2/17/17 21:14 85 20 30 2/17/17 21:00 89 18 102/54 100 Mechanical Ventilator 30 2/17/17 20:00 30 2/17/17 20:00 98.2 86 18 95/39 100 Mechanical Ventilator 30 2/17/ 20:00 86 12/25/16 19:00 87 17 89/39 100 Mechanical Ventilator 30 12/25/16 19:00 90 23 30 12/25/16 18:29 87 12/25/16 18:00 90 21 116/64 100 Mechanical Ventilator 30 12/25/16 17:10 86 19 30 12/25/16 17:00 88 21 107/64 100 Mechanical Ventilator 30 12/25/16 16:00 30 12/25/16 16:00 87 12/25/16 16:00 98.0 89 21 107/60 100 Mechanical Ventilator 30 12/25/16 15:10 87 16 30 12/25/16 15:00 85 20 105/71 100 Mechanical Ventilator 30 12/25/16 14:00 87 20 84/49 100 Mechanical Ventilator 30 12/25/16 13:08 81 12 30 12/25/16 13:00 83 13 90/49 100 Mechanical Ventilator 30 12/25/16 12:20 81 12/25/16 12:00 96.9 85 18 121/67 100 Mechanical Ventilator 30 12/25/16 12:00 85 12/25/16 12:00 30 12/25/16 11:55 24 25 100 Mechanical Ventilator 30 12/25/16 11:45 85 22 100 Mechanical Ventilator 30 12/25/16 11:10 84 25 30 Height (Feet): 4 Height (Inches): 9.00 Weight (Pounds): 75 HEENT: atraumatic Respiratory/Chest: lungs clear Cardiovascular: regular rhythm Abdomen: non distended Microbiology Date/Time Source Procedure Growth Status 12/23/16 23:00 Sputum Gram Stain - Final Resulted 12/23/16 23:00 Sputum Sputum Culture - Preliminary Resulted Laboratory Tests Test 12/26/16 05:30 12/26/16 07:03 White Blood Count 8.1 K/UL (4.8-10.8) Red Blood Count 2.86 M/UL (4.20-5.40) L Hemoglobin 8.7 G/DL (12.0-16.0) L Hematocrit 28.1 % (37.0-47.0) L Mean Corpuscular Volume 98 FL (80-99) Mean Corpuscular Hemoglobin 30.5 PG (27.0-31.0) Mean Corpuscular Hemoglobin Concent 31.1 G/DL (32.0-36.0) L Red Cell Distribution Width 20.2 % (11.6-14.8) H Platelet Count 97 K/UL (150-450) L Mean Platelet Volume 9.6 FL (6.5-10.1) Neutrophils (%) (Auto) % (45.0-75.0) Lymphocytes (%) (Auto) % (20.0-45.0) Monocytes (%) (Auto) % (1.0-10.0) Eosinophils (%) (Auto) % (0.0-3.0) Basophils (%) (Auto) % (0.0-2.0) Differential Total Cells Counted 100 Neutrophils % (Manual) 83 % (45-75) H Lymphocytes % (Manual) 2 % (20-45) L Monocytes % (Manual) 12 % (1-10) H Eosinophils % (Manual) 3 % (0-3) Basophils % (Manual) 0 % (0-2) Band Neutrophils 0 % (0-8) Platelet Estimate Decreased L Platelet Morphology Normal Hypochromasia 2+ Anisocytosis 2+ Sodium Level 131 mEQ/L (135-145) L Potassium Level 4.1 mEQ/L (3.4-4.9) Chloride Level 96 mEQ/L (98-107) L Carbon Dioxide Level 23 mEQ/L (20-30) Anion Gap 12 (5-15) Blood Urea Nitrogen 36 mg/dL (7-23) H Creatinine 2.7 mg/dL (0.5-0.9) H Estimat Glomerular Filtration Rate 17.9 mL/min (>60) Glucose Level 103 mg/dL (74-106) Calcium Level 8.3 mg/dL (8.6-10.2) L Phosphorus Level 3.8 mg/dL (2.5-4.8) Magnesium Level 1.6 mg/dL (1.7-2.5) L Total Bilirubin 0.5 mg/dL (0.0-1.2) Aspartate Amino Transf (AST/SGOT) 29 U/L (5-40) Alanine Aminotransferase (ALT/SGPT) 8 U/L (3-33) Alkaline Phosphatase 274 U/L (35-104) H Total Protein 6.1 g/dL (6.6-8.7) L Albumin 2.9 g/dL (3.5-5.2) L Globulin 3.2 g/dL Albumin/Globulin Ratio 0.9 (1.0-2.7) L Random Vancomycin Level 15.6 ug/mL Arterial Blood pH 7.300 (7.350-7.450) Arterial Blood Partial Pressure CO2 45.4 mmHg (35.0-45.0) H Arterial Blood Partial Pressure O2 117.8 mmHg (75.0-100.0) H Arterial Blood HCO3 22.1 mmol/L (22.0-26.0) Arterial Blood Oxygen Saturation 98.0 % (92.0-98.0) Arterial Blood Base Excess -4.0 Antonio Test Positive Current Medications Medications (Trade) Dose Ordered Sig/Reji Route PRN Reason Start Time Stop Time Status Last Admin Dose Admin Acetaminophen (Tylenol) 650 mg Q4H PRN ORAL fever 12/22/16 13:45 01/21/17 13:44 Albumin Human (Albumisol) 100 ml @ 200 mls/hr PRN PRN IV sbp<90 during hd 12/26/16 06:00 12/26/16 23:59 Albuterol/ Ipratropium (DuoNeb 0.5-3(2.5)mg/3ml) 3 ml Q4H PRN HHN Shortness of Breath 12/22/16 13:45 12/27/16 13:44 12/25/16 11:51 Dextrose/Sodium Chloride 1,000 ml @ 20 mls/hr Q24H IV 12/23/16 11:00 01/22/17 10:59 12/25/16 11:04 Epoetin José Miguel 7000 units 7,000 units WED-WED-WED SUBQ 12/25/16 21:00 01/24/17 20:59 12/25/16 21:31 Heparin Sodium (Porcine) (Heparin Sod 1000 units/ml 10ml) 500 unit ONCE PRN IV for HD 12/26/16 06:00 12/26/16 23:59 Lactulose 20 gm 20 gm DAILY GT 12/26/16 09:00 01/25/17 08:59 12/26/16 09:28 Lorazepam (Ativan 2mg/ml 1ml) 2 mg Q4H PRN IV For Anxiety 12/22/16 13:45 12/29/16 13:44 12/25/16 22:32 Morphine Sulfate 4 mg 4 mg Q4H PRN IVP For Pain 12/22/16 13:45 12/29/16 13:44 12/23/16 19:36 Nitroglycerin (Ntg) 0.4 mg Q5MIN X 3 DOSES PRN SL Prn Chest Pain 12/22/16 13:45 01/21/17 13:44 Norepinephrine Bitartrate 4 mg/ Dextrose 250 ml @ 0 mls/hr Q24H IV 12/23/16 01:00 01/22/17 00:59 12/26/16 01:00 Ondansetron HCl (Zofran) 4 mg Q6H PRN IVP Nausea & Vomiting 12/22/16 13:45 01/21/17 13:44 12/23/16 19:36 Pantoprazole/ Sodium Chloride (Protonix/Sodium Chloride) 250 ml @ 25 mls/hr Q10H IV 12/23/16 15:30 01/22/17 15:29 12/26/16 03:12 Polyethylene Glycol (Miralax) 17 gm DAILYPRN PRN GT Constipation 12/25/16 11:03 01/21/17 13:44 Propafenone HCl (Rythmol) 225 mg TID NG 12/23/16 21:00 01/22/17 20:59 12/26/16 09:27 Rifaximin (Xifaxan) 550 mg EVERY 12 HOURS GT 12/25/16 11:03 12/30/16 20:59 12/26/16 09:28 Sodium Chloride 1,000 ml @ 500 mls/hr Q2H PRN IVLG sbp<90 during hd 12/26/16 06:00 12/26/16 23:59 Vancomycin HCl (Vanco rx to dose) 1 ea DAILY PRN MISC . 12/24/16 13:00 01/23/17 12:59 Vancomycin HCl/ Dextrose (Vancomycin/D5W) 110 ml @ 110 mls/hr ONCE ONCE IVPB 12/26/16 20:00 12/26/16 20:59 RISHABH COTTO M.D. Dec 26, 2016 11:03
[2016-12-26] MEDS: Dextrose 10%/0.9% SOD CHL 1,000 ML IV SCH (11:40)
--- NOTE | 2016-12-26 12:11 | General Progress Note ---
Assessment/Plan Problem List: (1) ESRD (end stage renal disease) on dialysis ICD Codes: N18.6 - End stage renal disease; Z99.2 - Dependence on renal dialysis SNOMED: 695504346 (2) HTN (hypertension) ICD Codes: I10 - Essential (primary) hypertension SNOMED: 33817916 (3) Encephalopathy ICD Codes: G93.40 - Encephalopathy, unspecified SNOMED: 50806287, 964772874 (4) Cirrhosis of liver ICD Codes: K74.60 - Unspecified cirrhosis of liver SNOMED: 48208373 (5) GAVE (gastric antral vascular ectasia) ICD Codes: K31.819 - Angiodysplasia of stomach and duodenum without bleeding SNOMED: 18387269 (6) Anemia ICD Codes: D64.9 - Anemia, unspecified SNOMED: 296897040 Assessment/Plan s/p 1600 paracentesis fu labs increase TF poor prognosis Subjective ROS Limited/Unobtainable: No Allergies: Coded Allergies: No Known Allergies (Unverified , 12/22/16) Objective Last 24 Hour Vital Signs Date Time Temp Pulse Resp B/P Pulse Ox O2 Delivery O2 Flow Rate FiO2 12/26/16 11:45 81 14 86/52 100 Mechanical Ventilator 30 12/26/16 11:45 86/52 12/26/16 11:30 84 14 92/55 100 Mechanical Ventilator 30 12/26/16 11:19 81 14 30 12/26/16 11:15 80 14 91/53 100 Mechanical Ventilator 30 12/26/16 11:00 81 14 85/54 100 Mechanical Ventilator 30 12/26/16 11:00 85/54 12/26/16 10:45 80 14 116/52 100 Mechanical Ventilator 30 12/26/16 10:30 80 14 90/56 100 Mechanical Ventilator 30 12/26/16 10:15 81 14 95/58 100 Mechanical Ventilator 30 12/26/16 10:00 82 14 106/60 100 Mechanical Ventilator 30 12/26/16 10:00 106/60 12/26/16 09:45 82 14 98/59 100 Mechanical Ventilator 30 12/26/16 09:30 82 14 96/58 100 Mechanical Ventilator 30 12/26/16 09:27 81 12/26/16 09:15 86 14 114/67 100 Mechanical Ventilator 30 12/26/16 09:08 85 14 30 2/18/17 09:00 85 14 111/61 100 Mechanical Ventilator 30 2/18/17 09:00 111/61 2/18/17 08:45 78 14 89/53 100 Mechanical Ventilator 30 2/18/17 08:30 80 14 86/51 100 Mechanical Ventilator 30 2/18/17 08:15 82 14 97/57 100 Mechanical Ventilator 30 2/18/17 08:15 97/57 2/18/17 08:06 2/18/17 08:00 87 2/18/17 08:00 96.7 84 14 97/57 100 Mechanical Ventilator 30 2/18/17 07:45 30 2/18/17 07:45 90 16 103/60 100 Mechanical Ventilator 30 2/18/17 07:30 82 14 89/52 100 Mechanical Ventilator 30 2/18/17 07:20 82 14 30 2/18/17 07:15 86 15 109/62 100 Mechanical Ventilator 30 2/18/17 07:00 105/62 2/18/17 07:00 95 17 109/48 100 Mechanical Ventilator 30 2/18/17 06:45 95 17 105/50 100 Mechanical Ventilator 30 2/18/17 06:30 95 17 116/56 100 Mechanical Ventilator 30 2/18/17 06:15 78 20 105/50 100 Mechanical Ventilator 30 2/18/17 06:00 116/65 2/18/17 06:00 86 17 95/46 100 Mechanical Ventilator 30 2/18/17 05:45 95 18 100/56 100 Mechanical Ventilator 30 2/18/17 05:30 85 17 96/46 100 Mechanical Ventilator 30 2/18/17 05:15 80 20 105/40 100 Mechanical Ventilator 30 2/18/17 05:06 86 14 30 2/18/17 05:00 72 17 101/46 100 Mechanical Ventilator 30 2/18/17 05:00 95/50 2/18/17 04:45 74 17 109/69 100 Mechanical Ventilator 30 2/18/17 04:30 71 17 105/46 100 Mechanical Ventilator 30 2/18/17 04:15 97.5 72 17 101/54 100 Mechanical Ventilator 30 2/18/17 04:00 30 2/18/17 04:00 101/56 2/18/17 04:00 78 17 101/46 100 Mechanical Ventilator 30 2/18/17 04:00 70 2/18/17 03:45 96 17 86/46 100 Mechanical Ventilator 30 2/18/17 03:30 78 17 86/56 100 Mechanical Ventilator 30 2/18/17 03:15 80 17 84/56 100 Mechanical Ventilator 30 2/18/17 03:05 90 16 30 2/18/17 03:00 82 17 86/56 100 Mechanical Ventilator 30 2/18/17 03:00 86/58 2/18/17 02:45 84 17 95/46 100 Mechanical Ventilator 30 2/18/17 02:30 82 17 96/52 100 Mechanical Ventilator 30 2/18/17 02:15 82 17 96/52 100 Mechanical Ventilator 30 2/18/17 02:00 84 17 86/49 100 Mechanical Ventilator 30 2/18/17 02:00 30 2/18/17 02:00 96/56 2/18/17 01:45 83 17 85/49 100 Mechanical Ventilator 30 2/18/17 01:30 84 16 82/46 100 Mechanical Ventilator 30 2/18/17 01:15 88 18 84/46 100 Mechanical Ventilator 30 2/18/17 01:00 92 16 89/48 100 Mechanical Ventilator 30 2/18/17 01:00 84/46 2/18/17 01:00 84/46 2/18/17 00:45 94 17 113/58 100 Mechanical Ventilator 30 2/18/17 00:45 90 16 30 2/18/17 00:30 100 18 129/68 100 Mechanical Ventilator 30 2/18/17 00:15 95 18 174/88 100 Mechanical Ventilator 30 2/18/17 00:00 30 2/18/17 00:00 83 2/18/17 00:00 97.4 90 16 151/59 100 Mechanical Ventilator 30 2/17/17 23:45 82 19 72/44 100 Mechanical Ventilator 30 2/17/17 23:30 81 18 68/43 100 Mechanical Ventilator 30 2/17/17 23:15 82 17 67/35 100 Mechanical Ventilator 30 2/17/17 23:01 86 20 30 2/17/17 23:00 80 20 71/43 100 Mechanical Ventilator 30 2/17/17 22:00 90 20 110/54 100 Mechanical Ventilator 30 2/17/17 21:14 85 20 30 2/17/17 21:00 89 18 102/54 100 Mechanical Ventilator 30 2/17/17 20:00 30 2/17/17 20:00 98.2 86 18 95/39 100 Mechanical Ventilator 30 12/25/16 20:00 86 12/25/16 19:00 87 17 89/39 100 Mechanical Ventilator 30 12/25/16 19:00 90 23 30 12/25/16 18:29 87 12/25/16 18:00 90 21 116/64 100 Mechanical Ventilator 30 12/25/16 17:10 86 19 30 12/25/16 17:00 88 21 107/64 100 Mechanical Ventilator 30 12/25/16 16:00 30 12/25/16 16:00 87 12/25/16 16:00 98.0 89 21 107/60 100 Mechanical Ventilator 30 12/25/16 15:10 87 16 30 12/25/16 15:00 85 20 105/71 100 Mechanical Ventilator 30 12/25/16 14:00 87 20 84/49 100 Mechanical Ventilator 30 12/25/16 13:08 81 12 30 12/25/16 13:00 83 13 90/49 100 Mechanical Ventilator 30 12/25/16 12:20 81 Intake and Output 12/25/16 12/26/16 19:00 07:00 Intake Total 845 ml 942.5 ml Output Total 1606 ml 0 ml Balance -761 ml 942.5 ml Free Water 130 ml 100 ml IV Total 540 ml 567.5 ml Tube Feeding 75 ml 275 ml Other 100 ml Output Urine Total 6 ml 0 ml Other 1600 ml # Bowel Movements 3 3 Laboratory Tests 12/26/16 05:30: White Blood Count 8.1, Red Blood Count 2.86L, Hemoglobin 8.7L, Hematocrit 28.1L , Mean Corpuscular Volume 98, Mean Corpuscular Hemoglobin 30.5, Mean Corpuscular Hemoglobin Concent 31.1L, Red Cell Distribution Width 20.2H, Platelet Count 97L, Mean Platelet Volume 9.6, Neutrophils (%) (Auto) , Lymphocytes (%) (Auto) , Monocytes (%) (Auto) , Eosinophils (%) (Auto) , Basophils (%) (Auto) , Differential Total Cells Counted 100, Neutrophils % ( Manual) 83H, Lymphocytes % (Manual) 2L, Monocytes % (Manual) 12H, Eosinophils % (Manual) 3, Basophils % (Manual) 0, Band Neutrophils 0, Platelet Estimate DecreasedL, Platelet Morphology Normal, Hypochromasia 2+, Anisocytosis 2+, Sodium Level 131L, Potassium Level 4.1, Chloride Level 96L, Carbon Dioxide Level 23, Anion Gap 12, Blood Urea Nitrogen 36H, Creatinine 2.7H, Estimat Glomerular Filtration Rate 17.9, Glucose Level 103, Calcium Level 8.3L, Phosphorus Level 3.8, Magnesium Level 1.6L, Total Bilirubin 0.5, Aspartate Amino Transf (AST/SGOT) 29, Alanine Aminotransferase (ALT/SGPT) 8, Alkaline Phosphatase 274H, Total Protein 6.1L, Albumin 2.9L, Globulin 3.2, Albumin/ Globulin Ratio 0.9L, Random Vancomycin Level 15.6 12/26/16 07:03: Arterial Blood pH 7.300L, Arterial Blood Partial Pressure CO2 45.4H, Arterial Blood Partial Pressure O2 117.8H, Arterial Blood HCO3 22.1, Arterial Blood Oxygen Saturation 98.0, Arterial Blood Base Excess -4.0, Antonio Test Positive Height (Feet): 4 Height (Inches): 9.00 Weight (Pounds): 75 General Appearance: lethargic EENT: normal ENT inspection Neck: supple Cardiovascular: normal rate Respiratory/Chest: decreased breath sounds Abdomen: hypoactive bowel sounds, distended Extremities: non-tender RADHA GROSSMAN Dec 26, 2016 12:11
--- NOTE | 2016-12-26 14:29 | Internal Med Progress Note ---
Subjective Date of Service: Dec 26, 2016 Physician Name LaurieDione Attending Physician Jes Bautista Current Medications Medications (Trade) Dose Ordered Sig/Reji Route PRN Reason Start Time Stop Time Status Last Admin Dose Admin Acetaminophen (Tylenol) 650 mg Q4H PRN ORAL fever 12/22/16 13:45 01/21/17 13:44 Albumin Human (Albumisol) 100 ml @ 200 mls/hr PRN PRN IV sbp<90 during hd 12/26/16 06:00 12/26/16 23:59 Albuterol/ Ipratropium (DuoNeb 0.5-3(2.5)mg/3ml) 3 ml Q4H PRN HHN Shortness of Breath 12/22/16 13:45 12/27/16 13:44 12/25/16 11:51 Dextrose/Sodium Chloride 1,000 ml @ 20 mls/hr Q24H IV 12/23/16 11:00 01/22/17 10:59 12/26/16 11:40 Epoetin José Miguel 7000 units 7,000 units WED-WED-WED SUBQ 12/25/16 21:00 01/24/17 20:59 12/25/16 21:31 Heparin Sodium (Porcine) (Heparin Sod 1000 units/ml 10ml) 500 unit ONCE PRN IV for HD 12/26/16 06:00 12/26/16 23:59 Lactulose 20 gm 20 gm DAILY GT 12/26/16 09:00 01/25/17 08:59 12/26/16 09:28 Lorazepam (Ativan 2mg/ml 1ml) 2 mg Q4H PRN IV For Anxiety 12/22/16 13:45 12/29/16 13:44 12/25/16 22:32 Morphine Sulfate 4 mg 4 mg Q4H PRN IVP For Pain 12/22/16 13:45 12/29/16 13:44 12/23/16 19:36 Nitroglycerin (Ntg) 0.4 mg Q5MIN X 3 DOSES PRN SL Prn Chest Pain 12/22/16 13:45 01/21/17 13:44 Norepinephrine Bitartrate 4 mg/ Dextrose 250 ml @ 0 mls/hr Q24H IV 12/23/16 01:00 01/22/17 00:59 12/26/16 01:00 Ondansetron HCl (Zofran) 4 mg Q6H PRN IVP Nausea & Vomiting 12/22/16 13:45 01/21/17 13:44 12/23/16 19:36 Pantoprazole/ Sodium Chloride (Protonix/Sodium Chloride) 250 ml @ 25 mls/hr Q10H IV 12/23/16 15:30 01/22/17 15:29 12/26/16 14:14 Polyethylene Glycol (Miralax) 17 gm DAILYPRN PRN GT Constipation 12/25/16 11:03 01/21/17 13:44 Propafenone HCl (Rythmol) 225 mg TID NG 12/23/16 21:00 01/22/17 20:59 12/26/16 13:45 Rifaximin (Xifaxan) 550 mg EVERY 12 HOURS GT 12/25/16 11:03 12/30/16 20:59 12/26/16 09:28 Sodium Chloride 1,000 ml @ 500 mls/hr Q2H PRN IVLG sbp<90 during hd 12/26/16 06:00 12/26/16 23:59 Vancomycin HCl (Vanco rx to dose) 1 ea DAILY PRN MISC . 12/24/16 13:00 01/23/17 12:59 Vancomycin HCl/ Dextrose (Vancomycin/D5W) 110 ml @ 110 mls/hr ONCE ONCE IVPB 12/26/16 20:00 12/26/16 20:59 Allergies: Coded Allergies: No Known Allergies (Unverified , 12/22/16) ROS Limited/Unobtainable: Yes Subjective 61 YO F admitted with respiratory failure. Now probable sepsis with septic shock. Intubated and sedated. ICU. Cover for Samuel Ayala-Dr Vigil. Objective Last Vital Signs Date Time Temp Pulse Resp B/P Pulse Ox O2 Delivery O2 Flow Rate FiO2 12/26/16 14:00 80 14 96/57 100 Mechanical Ventilator 30 12/26/16 12:00 97.0 12/22/16 10:55 15.0 Laboratory Tests Test 12/26/16 05:30 12/26/16 07:03 White Blood Count 8.1 K/UL (4.8-10.8) Red Blood Count 2.86 M/UL (4.20-5.40) L Hemoglobin 8.7 G/DL (12.0-16.0) L Hematocrit 28.1 % (37.0-47.0) L Mean Corpuscular Volume 98 FL (80-99) Mean Corpuscular Hemoglobin 30.5 PG (27.0-31.0) Mean Corpuscular Hemoglobin Concent 31.1 G/DL (32.0-36.0) L Red Cell Distribution Width 20.2 % (11.6-14.8) H Platelet Count 97 K/UL (150-450) L Mean Platelet Volume 9.6 FL (6.5-10.1) Neutrophils (%) (Auto) % (45.0-75.0) Lymphocytes (%) (Auto) % (20.0-45.0) Monocytes (%) (Auto) % (1.0-10.0) Eosinophils (%) (Auto) % (0.0-3.0) Basophils (%) (Auto) % (0.0-2.0) Differential Total Cells Counted 100 Neutrophils % (Manual) 83 % (45-75) H Lymphocytes % (Manual) 2 % (20-45) L Monocytes % (Manual) 12 % (1-10) H Eosinophils % (Manual) 3 % (0-3) Basophils % (Manual) 0 % (0-2) Band Neutrophils 0 % (0-8) Platelet Estimate Decreased L Platelet Morphology Normal Hypochromasia 2+ Anisocytosis 2+ Sodium Level 131 mEQ/L (135-145) L Potassium Level 4.1 mEQ/L (3.4-4.9) Chloride Level 96 mEQ/L (98-107) L Carbon Dioxide Level 23 mEQ/L (20-30) Anion Gap 12 (5-15) Blood Urea Nitrogen 36 mg/dL (7-23) H Creatinine 2.7 mg/dL (0.5-0.9) H Estimat Glomerular Filtration Rate 17.9 mL/min (>60) Glucose Level 103 mg/dL (74-106) Calcium Level 8.3 mg/dL (8.6-10.2) L Phosphorus Level 3.8 mg/dL (2.5-4.8) Magnesium Level 1.6 mg/dL (1.7-2.5) L Total Bilirubin 0.5 mg/dL (0.0-1.2) Aspartate Amino Transf (AST/SGOT) 29 U/L (5-40) Alanine Aminotransferase (ALT/SGPT) 8 U/L (3-33) Alkaline Phosphatase 274 U/L (35-104) H Total Protein 6.1 g/dL (6.6-8.7) L Albumin 2.9 g/dL (3.5-5.2) L Globulin 3.2 g/dL Albumin/Globulin Ratio 0.9 (1.0-2.7) L Random Vancomycin Level 15.6 ug/mL Arterial Blood pH 7.300 (7.350-7.450) Arterial Blood Partial Pressure CO2 45.4 mmHg (35.0-45.0) H Arterial Blood Partial Pressure O2 117.8 mmHg (75.0-100.0) H Arterial Blood HCO3 22.1 mmol/L (22.0-26.0) Arterial Blood Oxygen Saturation 98.0 % (92.0-98.0) Arterial Blood Base Excess -4.0 Antonio Test Positive Microbiology Date/Time Source Procedure Growth Status 12/23/16 23:00 Sputum Gram Stain - Final Complete 12/23/16 23:00 Sputum Sputum Culture - Final NORMAL UPPER RESPIRATORY DENNIS AT 48 ... Complete Intake and Output 12/25/16 12/26/16 19:00 07:00 Intake Total 845 ml 942.5 ml Output Total 1606 ml 0 ml Balance -761 ml 942.5 ml Free Water 130 ml 100 ml IV Total 540 ml 567.5 ml Tube Feeding 75 ml 275 ml Other 100 ml Output Urine Total 6 ml 0 ml Other 1600 ml # Bowel Movements 3 3 Objective General Appearance: mild distress, thin EENT: PERRL/EOMI, normal ENT inspection Neck: non-tender, normal alignment, supple Cardiovascular: normal peripheral pulses, normal rate, regular rhythm, no gallop/murmur, no JVD Respiratory/Chest: Mech Vent; respiratory distress, crackles/rales, rhonchi - bilaterally, expiratory wheezing Abdomen: normal bowel sounds, non tender, soft, no organomegaly, no mass 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 (3) HTN (hypertension) Assessment & Plan: Currently hypotensive. (4) Acute respiratory failure Assessment & Plan: Cont mech vent per pulmonary (5) CHF (congestive heart failure) (6) Anemia (7) Liver cirrhosis (8) Sepsis Assessment & Plan: Cont vanco per ID (9) Septic shock Assessment & Plan: Cont pressors. Status: not improved DIONE BULL Dec 26, 2016 14:28
--- NOTE | 2016-12-26 16:05 | Nephrology Progress Note ---
Assessment/Plan Assessment 1) ESRD 2) CHF 3) S?p resp failure on the vent 4) GAVE 5) Cirrhosis Plan: Continue HD as ordered Subjective Subjective Seen on HD, alert on the vent, no c/p or increasing sob Objective Objective Last 24 Hour Vital Signs Date Time Temp Pulse Resp B/P Pulse Ox O2 Delivery O2 Flow Rate FiO2 12/26/16 15:28 87 14 30 17 14:45 88 20 113/63 100 Mechanical Ventilator 30 12/26/16 14:30 85 16 108/52 100 Mechanical Ventilator 30 12/26/16 14:15 80 12 93/60 100 Mechanical Ventilator 30 12/26/16 14:00 96/57 12/26/16 14:00 80 14 96/57 100 Mechanical Ventilator 30 12/26/16 13:45 84 14 94/54 100 Mechanical Ventilator 30 12/26/16 13:45 84 18 13:30 90 14 108/67 100 Mechanical Ventilator 30 12/26/16 13:15 84 14 105/62 100 Mechanical Ventilator 30 12/26/16 13:11 86 14 30 12/26/16 13:00 82 14 88/58 100 Mechanical Ventilator 30 12/26/16 13:00 105/62 17 12:45 85 14 102/61 100 Mechanical Ventilator 30 12/26/16 12:30 83 14 103/62 100 Mechanical Ventilator 30 12/26/16 12:15 82 14 97/62 100 Mechanical Ventilator 30 17 12:15 81 14 92/55 100 Mechanical Ventilator 30 12/26/16 12:00 30 12/26/16 12:00 92/55 12/26/16 12:00 90 12/26/16 12:00 97.0 80 14 80/47 100 Mechanical Ventilator 30 17 11:45 81 14 86/52 100 Mechanical Ventilator 30 12/26/17 11:45 86/52 18/17 11:30 84 14 92/55 100 Mechanical Ventilator 30 12/26/17 11:19 81 14 30 18/17 11:15 80 14 91/53 100 Mechanical Ventilator 30 18/17 11:00 81 14 85/54 100 Mechanical Ventilator 30 18/17 11:00 85/54 18/17 10:45 80 14 116/52 100 Mechanical Ventilator 30 2/18/17 10:30 80 14 90/56 100 Mechanical Ventilator 30 2/18/17 10:15 81 14 95/58 100 Mechanical Ventilator 30 2/18/17 10:00 82 14 106/60 100 Mechanical Ventilator 30 2/18/17 10:00 106/60 2/18/17 09:45 82 14 98/59 100 Mechanical Ventilator 30 2/18/17 09:30 82 14 96/58 100 Mechanical Ventilator 30 2/18/17 09:27 81 2/18/17 09:15 86 14 114/67 100 Mechanical Ventilator 30 2/18/17 09:08 85 14 30 2/18/17 09:00 85 14 111/61 100 Mechanical Ventilator 30 2/18/17 09:00 111/61 2/18/17 08:45 78 14 89/53 100 Mechanical Ventilator 30 2/18/17 08:30 80 14 86/51 100 Mechanical Ventilator 30 2/18/17 08:15 82 14 97/57 100 Mechanical Ventilator 30 2/18/17 08:15 97/57 2/18/17 08:06 2/18/17 08:00 87 2/18/17 08:00 96.7 84 14 97/57 100 Mechanical Ventilator 30 2/18/17 07:45 30 2/18/17 07:45 90 16 103/60 100 Mechanical Ventilator 30 2/18/17 07:30 82 14 89/52 100 Mechanical Ventilator 30 2/18/17 07:20 82 14 30 2/18/17 07:15 86 15 109/62 100 Mechanical Ventilator 30 2/18/17 07:00 105/62 2/18/17 07:00 95 17 109/48 100 Mechanical Ventilator 30 2/18/17 06:45 95 17 105/50 100 Mechanical Ventilator 30 2/18/17 06:30 95 17 116/56 100 Mechanical Ventilator 30 2/18/17 06:15 78 20 105/50 100 Mechanical Ventilator 30 2/18/17 06:00 116/65 2/18/17 06:00 86 17 95/46 100 Mechanical Ventilator 30 2/18/17 05:45 95 18 100/56 100 Mechanical Ventilator 30 2/18/17 05:30 85 17 96/46 100 Mechanical Ventilator 30 2/18/17 05:15 80 20 105/40 100 Mechanical Ventilator 30 2/18/17 05:06 86 14 30 2/18/17 05:00 72 17 101/46 100 Mechanical Ventilator 30 2/18/17 05:00 95/50 2/18/17 04:45 74 17 109/69 100 Mechanical Ventilator 30 2/18/17 04:30 71 17 105/46 100 Mechanical Ventilator 30 2/18/17 04:15 97.5 72 17 101/54 100 Mechanical Ventilator 30 2/18/17 04:00 30 2/18/17 04:00 101/56 2/18/17 04:00 78 17 101/46 100 Mechanical Ventilator 30 2/18/17 04:00 70 2/18/17 03:45 96 17 86/46 100 Mechanical Ventilator 30 2/18/17 03:30 78 17 86/56 100 Mechanical Ventilator 30 2/18/17 03:15 80 17 84/56 100 Mechanical Ventilator 30 2/18/17 03:05 90 16 30 2/18/17 03:00 82 17 86/56 100 Mechanical Ventilator 30 2/18/17 03:00 86/58 2/18/17 02:45 84 17 95/46 100 Mechanical Ventilator 30 2/18/17 02:30 82 17 96/52 100 Mechanical Ventilator 30 2/18/17 02:15 82 17 96/52 100 Mechanical Ventilator 30 2/18/17 02:00 84 17 86/49 100 Mechanical Ventilator 30 2/18/17 02:00 30 2/18/17 02:00 96/56 2/18/17 01:45 83 17 85/49 100 Mechanical Ventilator 30 2/18/17 01:30 84 16 82/46 100 Mechanical Ventilator 30 2/18/17 01:15 88 18 84/46 100 Mechanical Ventilator 30 2/18/17 01:00 92 16 89/48 100 Mechanical Ventilator 30 2/18/17 01:00 84/46 2/18/17 01:00 84/46 2/18/17 00:45 94 17 113/58 100 Mechanical Ventilator 30 2/18/17 00:45 90 16 30 2/18/17 00:30 100 18 129/68 100 Mechanical Ventilator 30 2/18/17 00:15 95 18 174/88 100 Mechanical Ventilator 30 2/18/17 00:00 30 2/18/17 00:00 83 2/18/17 00:00 97.4 90 16 151/59 100 Mechanical Ventilator 30 2/17/17 23:45 82 19 72/44 100 Mechanical Ventilator 30 12/25/16 23:30 81 18 68/43 100 Mechanical Ventilator 30 12/25/16 23:15 82 17 67/35 100 Mechanical Ventilator 30 12/25/16 23:01 86 20 30 12/25/16 23:00 80 20 71/43 100 Mechanical Ventilator 30 12/25/16 22:00 90 20 110/54 100 Mechanical Ventilator 30 12/25/16 21:14 85 20 30 12/25/16 21:00 89 18 102/54 100 Mechanical Ventilator 30 12/25/16 20:00 30 12/25/16 20:00 98.2 86 18 95/39 100 Mechanical Ventilator 30 12/25/16 20:00 86 12/25/16 19:00 87 17 89/39 100 Mechanical Ventilator 30 12/25/16 19:00 90 23 30 12/25/16 18:29 87 12/25/16 18:00 90 21 116/64 100 Mechanical Ventilator 30 12/25/16 17:10 86 19 30 12/25/16 17:00 88 21 107/64 100 Mechanical Ventilator 30 Intake and Output 12/25/16 12/26/16 19:00 07:00 Intake Total 845 ml 942.5 ml Output Total 1606 ml 0 ml Balance -761 ml 942.5 ml Free Water 130 ml 100 ml IV Total 540 ml 567.5 ml Tube Feeding 75 ml 275 ml Other 100 ml Output Urine Total 6 ml 0 ml Other 1600 ml # Bowel Movements 3 3 Laboratory Tests 12/26/16 05:30: White Blood Count 8.1, Red Blood Count 2.86L, Hemoglobin 8.7L, Hematocrit 28.1L , Mean Corpuscular Volume 98, Mean Corpuscular Hemoglobin 30.5, Mean Corpuscular Hemoglobin Concent 31.1L, Red Cell Distribution Width 20.2H, Platelet Count 97L, Mean Platelet Volume 9.6, Neutrophils (%) (Auto) , Lymphocytes (%) (Auto) , Monocytes (%) (Auto) , Eosinophils (%) (Auto) , Basophils (%) (Auto) , Differential Total Cells Counted 100, Neutrophils % ( Manual) 83H, Lymphocytes % (Manual) 2L, Monocytes % (Manual) 12H, Eosinophils % (Manual) 3, Basophils % (Manual) 0, Band Neutrophils 0, Platelet Estimate DecreasedL, Platelet Morphology Normal, Hypochromasia 2+, Anisocytosis 2+, Sodium Level 131L, Potassium Level 4.1, Chloride Level 96L, Carbon Dioxide Level 23, Anion Gap 12, Blood Urea Nitrogen 36H, Creatinine 2.7H, Estimat Glomerular Filtration Rate 17.9, Glucose Level 103, Calcium Level 8.3L, Phosphorus Level 3.8, Magnesium Level 1.6L, Total Bilirubin 0.5, Aspartate Amino Transf (AST/SGOT) 29, Alanine Aminotransferase (ALT/SGPT) 8, Alkaline Phosphatase 274H, Total Protein 6.1L, Albumin 2.9L, Globulin 3.2, Albumin/ Globulin Ratio 0.9L, Random Vancomycin Level 15.6 12/26/16 07:03: Arterial Blood pH 7.300L, Arterial Blood Partial Pressure CO2 45.4H, Arterial Blood Partial Pressure O2 117.8H, Arterial Blood HCO3 22.1, Arterial Blood Oxygen Saturation 98.0, Arterial Blood Base Excess -4.0, Antonio Test Positive Height (Feet): 4 Height (Inches): 9.00 Weight (Pounds): 75 General Appearance: WD/WN, alert EENT: PERRL/EOMI, other - on the vent Neck: supple Cardiovascular: normal rate, regular rhythm, JVD - high Respiratory/Chest: crackles/rales, expiratory wheezing Abdomen: soft 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
--- NOTE | 2016-12-26 17:52 | Cardiology Progress Note ---
Assessment/Plan Assessment/Plan during last 24 hours, no new cardiac arrhythmia noted. she was in sinus rhythm with PVC will monitor Subjective Subjective The patient is intubated she is not comminaicating, does not seem to udnerstand questions seen during dialysis Objective Last 24 Hour Vital Signs Date Time Temp Pulse Resp B/P Pulse Ox O2 Delivery O2 Flow Rate FiO2 12/26/16 17:30 82 100/61 18/17 17:30 84 18 100/61 100 Mechanical Ventilator 30 12/26/17 17:17 81 18 30 18/17 17:15 80 18 97/55 94 Mechanical Ventilator 30 12/26/17 17:15 82 18 102/56 94 Mechanical Ventilator 30 12/26/17 17:00 80 18 100/53 100 Mechanical Ventilator 30 12/26/17 17:00 80 18 100/53 100 12/26/17 16:45 83 101/52 12/26/17 16:30 83 98/56 18/17 16:15 87 94/50 12/26/17 16:00 30 12/26/17 16:00 86 107/47 12/26/17 16:00 98.0 85 19 107/47 100 Mechanical Ventilator 30 12/26/17 16:00 85 18/17 15:45 87 17 107/47 94 Mechanical Ventilator 30 12/26/17 15:45 87 101/56 18/17 15:30 88 111/71 218/17 15:30 87 18 111/64 96 Mechanical Ventilator 30 12/26/17 15:28 87 14 30 18/17 15:15 88 18 108/62 96 Mechanical Ventilator 30 18/17 15:15 90 106/68 218/17 15:00 89 20 108/63 96 Mechanical Ventilator 30 18/17 15:00 89 113/63 2/18/17 14:45 88 20 113/63 100 Mechanical Ventilator 30 18/17 14:45 89 113/61 2/18/17 14:30 83 108/52 218/17 14:30 85 16 108/52 100 Mechanical Ventilator 30 18/17 14:15 80 12 93/60 100 Mechanical Ventilator 30 18/17 14:15 79 93/60 218/17 14:12 97.2 81 16 96/57 18/17 14:00 96/57 2/18/17 14:00 80 14 96/57 100 Mechanical Ventilator 30 2/18/17 13:45 84 14 94/54 100 Mechanical Ventilator 30 2/18/17 13:45 84 2/18/17 13:30 90 14 108/67 100 Mechanical Ventilator 30 2/18/17 13:15 84 14 105/62 100 Mechanical Ventilator 30 2/18/17 13:11 86 14 30 2/18/17 13:00 82 14 88/58 100 Mechanical Ventilator 30 2/18/17 13:00 105/62 2/18/17 12:45 85 14 102/61 100 Mechanical Ventilator 30 2/18/17 12:30 83 14 103/62 100 Mechanical Ventilator 30 2/18/17 12:15 82 14 97/62 100 Mechanical Ventilator 30 2/18/17 12:15 81 14 92/55 100 Mechanical Ventilator 30 2/18/17 12:00 30 2/18/17 12:00 92/55 2/18/17 12:00 90 2/18/17 12:00 97.0 80 14 80/47 100 Mechanical Ventilator 30 2/18/17 11:45 81 14 86/52 100 Mechanical Ventilator 30 2/18/17 11:45 86/52 2/18/17 11:30 84 14 92/55 100 Mechanical Ventilator 30 2/18/17 11:19 81 14 30 2/18/17 11:15 80 14 91/53 100 Mechanical Ventilator 30 2/18/17 11:00 81 14 85/54 100 Mechanical Ventilator 30 2/18/17 11:00 85/54 2/18/17 10:45 80 14 116/52 100 Mechanical Ventilator 30 2/18/17 10:30 80 14 90/56 100 Mechanical Ventilator 30 2/18/17 10:15 81 14 95/58 100 Mechanical Ventilator 30 2/18/17 10:00 82 14 106/60 100 Mechanical Ventilator 30 2/18/17 10:00 106/60 2/18/17 09:45 82 14 98/59 100 Mechanical Ventilator 30 2/18/17 09:30 82 14 96/58 100 Mechanical Ventilator 30 2/18/17 09:27 81 2/18/17 09:15 86 14 114/67 100 Mechanical Ventilator 30 2/18/17 09:08 85 14 30 2/18/17 09:00 85 14 111/61 100 Mechanical Ventilator 30 2/18/17 09:00 111/61 2/18/17 08:45 78 14 89/53 100 Mechanical Ventilator 30 2/18/17 08:30 80 14 86/51 100 Mechanical Ventilator 30 2/18/17 08:15 82 14 97/57 100 Mechanical Ventilator 30 2/18/17 08:15 97/57 2/18/17 08:06 2/18/17 08:00 87 2/18/17 08:00 96.7 84 14 97/57 100 Mechanical Ventilator 30 2/18/17 07:45 30 2/18/17 07:45 90 16 103/60 100 Mechanical Ventilator 30 2/18/17 07:30 82 14 89/52 100 Mechanical Ventilator 30 2/18/17 07:20 82 14 30 2/18/17 07:15 86 15 109/62 100 Mechanical Ventilator 30 2/18/17 07:00 105/62 2/18/17 07:00 95 17 109/48 100 Mechanical Ventilator 30 2/18/17 06:45 95 17 105/50 100 Mechanical Ventilator 30 2/18/17 06:30 95 17 116/56 100 Mechanical Ventilator 30 2/18/17 06:15 78 20 105/50 100 Mechanical Ventilator 30 2/18/17 06:00 116/65 2/18/17 06:00 86 17 95/46 100 Mechanical Ventilator 30 2/18/17 05:45 95 18 100/56 100 Mechanical Ventilator 30 2/18/17 05:30 85 17 96/46 100 Mechanical Ventilator 30 2/18/17 05:15 80 20 105/40 100 Mechanical Ventilator 30 2/18/17 05:06 86 14 30 2/18/17 05:00 72 17 101/46 100 Mechanical Ventilator 30 2/18/17 05:00 95/50 2/18/17 04:45 74 17 109/69 100 Mechanical Ventilator 30 2/18/17 04:30 71 17 105/46 100 Mechanical Ventilator 30 2/18/17 04:15 97.5 72 17 101/54 100 Mechanical Ventilator 30 2/18/17 04:00 30 2/18/17 04:00 101/56 2/18/17 04:00 78 17 101/46 100 Mechanical Ventilator 30 2/18/17 04:00 70 2/18/17 03:45 96 17 86/46 100 Mechanical Ventilator 30 2/18/17 03:30 78 17 86/56 100 Mechanical Ventilator 30 2/18/17 03:15 80 17 84/56 100 Mechanical Ventilator 30 2/18/17 03:05 90 16 30 2/18/17 03:00 82 17 86/56 100 Mechanical Ventilator 30 2/18/17 03:00 86/58 2/18/17 02:45 84 17 95/46 100 Mechanical Ventilator 30 2/18/17 02:30 82 17 96/52 100 Mechanical Ventilator 30 2/18/17 02:15 82 17 96/52 100 Mechanical Ventilator 30 2/18/17 02:00 84 17 86/49 100 Mechanical Ventilator 30 2/18/17 02:00 30 2/18/17 02:00 96/56 2/18/17 01:45 83 17 85/49 100 Mechanical Ventilator 30 2/18/17 01:30 84 16 82/46 100 Mechanical Ventilator 30 2/18/17 01:15 88 18 84/46 100 Mechanical Ventilator 30 2/18/17 01:00 92 16 89/48 100 Mechanical Ventilator 30 2/18/17 01:00 84/46 2/18/17 01:00 84/46 2/18/17 00:45 94 17 113/58 100 Mechanical Ventilator 30 2/18/17 00:45 90 16 30 2/18/17 00:30 100 18 129/68 100 Mechanical Ventilator 30 2/18/17 00:15 95 18 174/88 100 Mechanical Ventilator 30 2/18/17 00:00 30 2/18/17 00:00 83 2/18/17 00:00 97.4 90 16 151/59 100 Mechanical Ventilator 30 2/17/17 23:45 82 19 72/44 100 Mechanical Ventilator 30 2/17/17 23:30 81 18 68/43 100 Mechanical Ventilator 30 2/17/17 23:15 82 17 67/35 100 Mechanical Ventilator 30 2/17/17 23:01 86 20 30 2/17/17 23:00 80 20 71/43 100 Mechanical Ventilator 30 2/17/17 22:00 90 20 110/54 100 Mechanical Ventilator 30 2/17/17 21:14 85 20 30 2/17/17 21:00 89 18 102/54 100 Mechanical Ventilator 30 2/17/17 20:00 30 2/17/17 20:00 98.2 86 18 95/39 100 Mechanical Ventilator 30 2/17/17 20:00 86 12/25/16 19:00 87 17 89/39 100 Mechanical Ventilator 30 12/25/16 19:00 90 23 30 12/25/16 18:29 87 12/25/16 18:00 90 21 116/64 100 Mechanical Ventilator 30 General Appearance: on vent EENT: PERRL/EOMI Neck: non-tender Rhythm: NSR, PACs Cardiovascular: normal rate Respiratory/Chest: crackles/rales Abdomen: soft Extremities: normal range of motion Intake and Output 12/25/16 12/26/16 19:00 07:00 Intake Total 845 ml 942.5 ml Output Total 1606 ml 0 ml Balance -761 ml 942.5 ml Free Water 130 ml 100 ml IV Total 540 ml 567.5 ml Tube Feeding 75 ml 275 ml Other 100 ml Output Urine Total 6 ml 0 ml Other 1600 ml # Bowel Movements 3 3 Laboratory Tests Test 12/26/16 05:30 12/26/16 07:03 White Blood Count 8.1 K/UL (4.8-10.8) Red Blood Count 2.86 M/UL (4.20-5.40) L Hemoglobin 8.7 G/DL (12.0-16.0) L Hematocrit 28.1 % (37.0-47.0) L Mean Corpuscular Volume 98 FL (80-99) Mean Corpuscular Hemoglobin 30.5 PG (27.0-31.0) Mean Corpuscular Hemoglobin Concent 31.1 G/DL (32.0-36.0) L Red Cell Distribution Width 20.2 % (11.6-14.8) H Platelet Count 97 K/UL (150-450) L Mean Platelet Volume 9.6 FL (6.5-10.1) Neutrophils (%) (Auto) % (45.0-75.0) Lymphocytes (%) (Auto) % (20.0-45.0) Monocytes (%) (Auto) % (1.0-10.0) Eosinophils (%) (Auto) % (0.0-3.0) Basophils (%) (Auto) % (0.0-2.0) Differential Total Cells Counted 100 Neutrophils % (Manual) 83 % (45-75) H Lymphocytes % (Manual) 2 % (20-45) L Monocytes % (Manual) 12 % (1-10) H Eosinophils % (Manual) 3 % (0-3) Basophils % (Manual) 0 % (0-2) Band Neutrophils 0 % (0-8) Platelet Estimate Decreased L Platelet Morphology Normal Hypochromasia 2+ Anisocytosis 2+ Sodium Level 131 mEQ/L (135-145) L Potassium Level 4.1 mEQ/L (3.4-4.9) Chloride Level 96 mEQ/L (98-107) L Carbon Dioxide Level 23 mEQ/L (20-30) Anion Gap 12 (5-15) Blood Urea Nitrogen 36 mg/dL (7-23) H Creatinine 2.7 mg/dL (0.5-0.9) H Estimat Glomerular Filtration Rate 17.9 mL/min (>60) Glucose Level 103 mg/dL (74-106) Calcium Level 8.3 mg/dL (8.6-10.2) L Phosphorus Level 3.8 mg/dL (2.5-4.8) Magnesium Level 1.6 mg/dL (1.7-2.5) L Total Bilirubin 0.5 mg/dL (0.0-1.2) Aspartate Amino Transf (AST/SGOT) 29 U/L (5-40) Alanine Aminotransferase (ALT/SGPT) 8 U/L (3-33) Alkaline Phosphatase 274 U/L (35-104) H Total Protein 6.1 g/dL (6.6-8.7) L Albumin 2.9 g/dL (3.5-5.2) L Globulin 3.2 g/dL Albumin/Globulin Ratio 0.9 (1.0-2.7) L Random Vancomycin Level 15.6 ug/mL Arterial Blood pH 7.300 (7.350-7.450) Arterial Blood Partial Pressure CO2 45.4 mmHg (35.0-45.0) H Arterial Blood Partial Pressure O2 117.8 mmHg (75.0-100.0) H Arterial Blood HCO3 22.1 mmol/L (22.0-26.0) Arterial Blood Oxygen Saturation 98.0 % (92.0-98.0) Arterial Blood Base Excess -4.0 Antonio Test Positive Microbiology Date/Time Source Procedure Growth Status 12/23/16 23:00 Sputum Gram Stain - Final Complete 12/23/16 23:00 Sputum Sputum Culture - Final NORMAL UPPER RESPIRATORY DENNIS AT 48 ... Complete ROSSANA FOURNIER Dec 26, 2016 17:52
[2016-12-26] MEDS ORDERED: Vancomycin 500mg/D5W 110ml IVPB ONE ×2 (20:00)
[2016-12-27] VITALS (24 sets, daily range): BP systolic 75–132; BP diastolic 43–80
[2016-12-27 04:35] LABS: BASOPHILS % (AUTO) 0.5 % (0.0-2.0); EOSINOPHILS % (AUTO) 1.5 % (0.0-3.0); LYMPHOCYTES % (AUTO) 1.6 % (20.0-45.0); MEAN CORPUSCULAR HEMOGLOBIN 31.2 PG (27.0-31.0); MEAN CORPUSCULAR HGB CONC 31.6 G/DL (32.0-36.0); MEAN CORPUSCULAR VOLUME 99 FL (80-99); MEAN PLATELET VOLUME 10.2 FL (6.5-10.1); MONOCYTES % (AUTO) 13.2 % (1.0-10.0); NEUTROPHILS % (AUTO) 83.2 % (45.0-75.0); PLATELET COUNT 101 K/UL (150-450); RED BLOOD COUNT 2.76 M/UL (4.20-5.40); RED CELL DISTRIBUTION WIDTH 20.7 % (11.6-14.8); WHITE BLOOD COUNT 8.7 K/UL (4.8-10.8)
[2016-12-27 05:03] LABS: ALBUMIN/GLOBULIN RATIO 0.9 (1.0-2.7); CALCIUM 8.1 mg/dL (8.6-10.2); CREATININE 1.7 mg/dL (0.5-0.9); GLOMERULAR FILTRATION RATE 30.4 mL/min (>60); MAGNESIUM 1.6 mg/dL (1.7-2.5); PHOSPHORUS 2.2 mg/dL (2.5-4.8); POTASSIUM 3.9 mEQ/L (3.4-4.9); TOTAL PROTEIN 6.3 g/dL (6.6-8.7)
[2016-12-27] MEDS: Lactulose 20gm/30ml UDC GT SCH (08:21)
[2016-12-27] MEDS: Rifaximin 550mg tab GT SCH ×2 (08:22→21:29)
[2016-12-27] MEDS: LORazepam Inj 2mg/ml 1ml IV PRN (08:22)
[2016-12-27 09:14] LABS: ABG ALLEN TEST POSITIVE; ABG BASE EXCESS -1.4
[2016-12-27] MEDS ORDERED: Morphine Sulfate 4mg/ml Inj IVP PRN (09:45)
[2016-12-27] MEDS ORDERED: DuoNeb 0.5-3(2.5)mg/3ml neb HHN PRN (09:45)
[2016-12-27] MEDS: Pantoprazole 80 MG in NS 250 ML IV SCH ×2 (10:00→20:25)
[2016-12-27] MEDS: Dextrose 10%/0.9% SOD CHL 1,000 ML IV SCH (11:17)
--- NOTE | 2016-12-27 12:31 | Infectious Diseases Prog Note ---
Assessment/Plan Assessment/Plan ASSESSMENT: 61 y/o female with: // Probable sepsis r/o HCAP, UTI, bacteremia - cultures NGTD // Negative C.difficile // Shock SP - off pressors // Leukopenia SP // Hypothermia SP // Acute encephalopathy / found down ?hepatic ( elevated NH4 ) r/o septic - improved - CT Head: No evidence of acute intracranial pathology. Bilateral cerebral periventricular and deepwhite matter low attenuation, nonspecific, likely chronic microvascular ischemic in nature. Atrophy // Acute VDRF - intubated 12/22, weaning // ?Cirrhosis / chronic liver disease with elevated LFTs, leukopenia, chronic macrocytic anemia, TCP, coagulopathy, hypoalbuminemia - US: pending // ESRD / HD with right chest TDC // FOBT(+) macrocytic anemia SP PRBCs - recent EGD: GAVE // Probable CHF exacerbation - CXR: evidence of congestive heart failure including pulmonary edema, small bilateral pleural effusions - TTE: EF 65%, grade I diastolic dysfunction, mild-mod TR, mod MR, pulmonary HTN // Elevated ESR // NH resident // NKDA // Full Code PLAN: - DC empiric IV vancomycin d# 5 / , monitor pt off of ABX ( 12/23 SP zosyn ) - f/u final cultures - monitor CBC, temperatures - monitor BMP - monitor CXR - vent support, wean as tolerated - transfuse prn Subjective Allergies: Coded Allergies: No Known Allergies (Unverified , 12/22/16) Subjective remains afebrile, awake on vent Objective Vital Signs Last 24 Hour Vital Signs Date Time Temp Pulse Resp B/P Pulse Ox O2 Delivery O2 Flow Rate FiO2 12/27/16 12:26 102 12/27/16 10:44 85 14 50 12/27/16 09:14 92 22 122/80 100 Mechanical Ventilator 30 12/27/16 09:10 89 15 50 12/27/16 08:22 98 12/27/16 08:00 96 12/27/16 08:00 30 12/27/16 08:00 98.3 92 21 122/80 100 Mechanical Ventilator 30 12/27/16 07:00 98 21 109/54 100 Mechanical Ventilator 30 12/27/16 06:45 100 23 30 12/27/16 06:00 97 22 122/78 100 Mechanical Ventilator 30 2/19/17 05:00 97 22 111/58 100 Mechanical Ventilator 30 2/17 04:59 97 24 30 12/27/17 04:00 93 2/17 04:00 98.7 96 21 106/48 100 Mechanical Ventilator 30 2/17 04:00 30 2/17 03:05 94 22 30 2/17 03:00 95 20 132/65 100 Mechanical Ventilator 30 12/27/17 02:00 91 25 99/50 100 Mechanical Ventilator 30 12/27/17 01:00 104/61 2/17 01:00 88 20 94/47 100 Mechanical Ventilator 30 12/27/17 00:48 89 17 30 12/27/17 00:00 98.1 91 20 100/57 100 Mechanical Ventilator 30 12/27/17 00:00 93 12/27/17 00:00 30 218/17 23:00 94 25 104/47 100 Mechanical Ventilator 30 218/17 22:59 88 21 30 218/17 22:30 90 20 97/46 100 Mechanical Ventilator 30 218/17 22:00 89 24 102/51 100 Mechanical Ventilator 30 218/17 22:00 102/51 2/18/17 21:45 90 24 108/48 100 Mechanical Ventilator 30 218/17 21:30 88 20 98/55 100 Mechanical Ventilator 30 2/18/17 21:15 87 27 120/64 100 Mechanical Ventilator 30 2/18/17 21:00 113/61 2/18/17 21:00 83 22 110/64 100 Mechanical Ventilator 30 2/18/17 20:52 80 22 30 2/18/17 20:45 80 20 105/48 100 Mechanical Ventilator 30 2/18/17 20:30 79 16 91/59 100 Mechanical Ventilator 30 2/18/17 20:15 79 18 97/68 100 Mechanical Ventilator 30 2/18/17 20:04 99/51 2/18/17 20:00 30 2/18/17 20:00 80 2/18/17 20:00 98.2 80 16 99/51 100 Mechanical Ventilator 30 2/18/17 19:45 83 17 126/64 100 Mechanical Ventilator 30 2/18/17 19:30 84 19 89/53 100 Mechanical Ventilator 30 2/18/17 19:15 84 18 110/56 100 Mechanical Ventilator 30 2/18/17 19:00 79 14 90/57 100 Mechanical Ventilator 30 2/18/17 19:00 90/57 2/18/17 18:45 78 14 98/63 100 Mechanical Ventilator 30 2/18/17 18:43 76 14 30 2/18/17 18:30 76 14 87/57 100 Mechanical Ventilator 30 2/18/17 18:15 78 14 98/56 100 Mechanical Ventilator 30 2/18/17 18:12 78 2/18/17 18:00 115/62 2/18/17 18:00 80 17 115/62 100 Mechanical Ventilator 30 2/18/17 17:45 82 17 107/63 100 Mechanical Ventilator 30 2/18/17 17:42 97.5 86 18 113/57 100 2/18/17 17:30 82 100/61 2/18/17 17:30 84 18 100/61 100 Mechanical Ventilator 30 2/18/17 17:17 81 18 30 2/18/17 17:15 80 18 97/55 94 Mechanical Ventilator 30 2/18/17 17:15 82 18 102/56 94 Mechanical Ventilator 30 2/18/17 17:00 80 18 100/53 100 Mechanical Ventilator 30 2/18/17 17:00 80 18 100/53 100 2/18/17 17:00 102/48 2/18/17 16:45 83 101/52 2/18/17 16:30 83 98/56 2/18/17 16:15 87 94/50 2/18/17 16:00 30 2/18/17 16:00 86 107/47 2/18/17 16:00 107/47 2/18/17 16:00 98.0 85 19 107/47 100 Mechanical Ventilator 30 2/18/17 16:00 85 2/18/17 15:45 87 17 107/47 94 Mechanical Ventilator 30 2/18/17 15:45 87 101/56 2/18/17 15:30 88 111/71 2/18/17 15:30 87 18 111/64 96 Mechanical Ventilator 30 2/18/17 15:28 87 14 30 2/18/17 15:15 88 18 108/62 96 Mechanical Ventilator 30 2/18/17 15:15 90 106/68 2/18/17 15:00 89 20 108/63 96 Mechanical Ventilator 30 2/18/17 15:00 108/63 2/18/17 15:00 89 113/63 12/26/16 14:45 88 20 113/63 100 Mechanical Ventilator 30 12/26/16 14:45 89 113/61 12/26/16 14:30 83 108/52 12/26/16 14:30 85 16 108/52 100 Mechanical Ventilator 30 12/26/16 14:15 80 12 93/60 100 Mechanical Ventilator 30 12/26/16 14:15 79 93/60 12/26/16 14:12 97.2 81 16 96/57 12/26/16 14:00 96/57 12/26/16 14:00 80 14 96/57 100 Mechanical Ventilator 30 12/26/16 13:45 84 14 94/54 100 Mechanical Ventilator 30 12/26/16 13:45 84 12/26/16 13:30 90 14 108/67 100 Mechanical Ventilator 30 12/26/16 13:15 84 14 105/62 100 Mechanical Ventilator 30 12/26/16 13:11 86 14 30 12/26/16 13:00 82 14 88/58 100 Mechanical Ventilator 30 12/26/16 13:00 105/62 12/26/16 12:45 85 14 102/61 100 Mechanical Ventilator 30 12/26/16 12:30 83 14 103/62 100 Mechanical Ventilator 30 Height (Feet): 4 Height (Inches): 9.00 Weight (Pounds): 75 General Appearance: other - intubated, awake Respiratory/Chest: decreased breath sounds Cardiovascular: normal rate, regular rhythm Abdomen: normal bowel sounds, soft, non tender, non distended Microbiology Date/Time Source Procedure Growth Status 12/25/16 14:40 Indwelling Cath Urine Culture - Preliminary NO GROWTH Resulted Laboratory Tests Test 12/27/16 04:00 12/27/16 08:42 White Blood Count 8.7 K/UL (4.8-10.8) Red Blood Count 2.76 M/UL (4.20-5.40) L Hemoglobin 8.6 G/DL (12.0-16.0) L Hematocrit 27.2 % (37.0-47.0) L Mean Corpuscular Volume 99 FL (80-99) Mean Corpuscular Hemoglobin 31.2 PG (27.0-31.0) H Mean Corpuscular Hemoglobin Concent 31.6 G/DL (32.0-36.0) L Red Cell Distribution Width 20.7 % (11.6-14.8) H Platelet Count 101 K/UL (150-450) L Mean Platelet Volume 10.2 FL (6.5-10.1) H Neutrophils (%) (Auto) 83.2 % (45.0-75.0) H Lymphocytes (%) (Auto) 1.6 % (20.0-45.0) L Monocytes (%) (Auto) 13.2 % (1.0-10.0) H Eosinophils (%) (Auto) 1.5 % (0.0-3.0) Basophils (%) (Auto) 0.5 % (0.0-2.0) Sodium Level 136 mEQ/L (135-145) Potassium Level 3.9 mEQ/L (3.4-4.9) Chloride Level 100 mEQ/L (98-107) Carbon Dioxide Level 26 mEQ/L (20-30) Anion Gap 10 (5-15) Blood Urea Nitrogen 17 mg/dL (7-23) Creatinine 1.7 mg/dL (0.5-0.9) H Estimat Glomerular Filtration Rate 30.4 mL/min (>60) Glucose Level 144 mg/dL (74-106) H Calcium Level 8.1 mg/dL (8.6-10.2) L Phosphorus Level 2.2 mg/dL (2.5-4.8) L Magnesium Level 1.6 mg/dL (1.7-2.5) L Total Bilirubin 0.4 mg/dL (0.0-1.2) Aspartate Amino Transf (AST/SGOT) 32 U/L (5-40) Alanine Aminotransferase (ALT/SGPT) 9 U/L (3-33) Alkaline Phosphatase 265 U/L (35-104) H Total Protein 6.3 g/dL (6.6-8.7) L Albumin 3.0 g/dL (3.5-5.2) L Globulin 3.3 g/dL Albumin/Globulin Ratio 0.9 (1.0-2.7) L Arterial Blood pH 7.309 (7.350-7.450) Arterial Blood Partial Pressure CO2 51.0 mmHg (35.0-45.0) H Arterial Blood Partial Pressure O2 51.1 mmHg (75.0-100.0) L Arterial Blood HCO3 25.0 mmol/L (22.0-26.0) Arterial Blood Oxygen Saturation 85.5 % (92.0-98.0) L Arterial Blood Base Excess -1.4 Antonio Test Positive Current Medications Medications (Trade) Dose Ordered Sig/Reji Route PRN Reason Start Time Stop Time Status Last Admin Dose Admin Acetaminophen (Tylenol) 650 mg Q4H PRN ORAL fever 12/22/16 13:45 01/21/17 13:44 Albuterol/ Ipratropium (DuoNeb 0.5-3(2.5)mg/3ml) 3 ml Q4H PRN HHN Shortness of Breath 12/27/16 09:45 01/01/17 09:44 Dextrose/Sodium Chloride 1,000 ml @ 20 mls/hr Q24H IV 12/23/16 11:00 01/22/17 10:59 12/27/16 11:17 Epoetin José Miguel (Procrit (for ESRD on dialysis)) 7,000 units WED-WED-WED SUBQ 12/25/16 21:00 01/24/17 20:59 12/25/16 21:31 Lactulose (Cephulac) 20 gm DAILY GT 12/26/16 09:00 01/25/17 08:59 12/27/16 08:21 Lorazepam 2 mg 2 mg Q4H PRN IV For Anxiety 12/22/16 13:45 12/29/16 13:44 12/27/16 08:22 Morphine Sulfate (Morphine Sulfate) 4 mg Q4H PRN IVP PAIN 4-10 12/27/16 09:45 01/03/17 09:44 Nitroglycerin (Ntg) 0.4 mg Q5MIN X 3 DOSES PRN SL Prn Chest Pain 12/22/16 13:45 01/21/17 13:44 Norepinephrine Bitartrate 4 mg/ Dextrose 250 ml @ 0 mls/hr Q24H IV 12/23/16 01:00 01/22/17 00:59 12/26/16 01:00 Ondansetron HCl (Zofran) 4 mg Q6H PRN IVP Nausea & Vomiting 12/22/16 13:45 01/21/17 13:44 12/23/16 19:36 Pantoprazole/ Sodium Chloride (Protonix/Sodium Chloride) 250 ml @ 25 mls/hr Q10H IV 12/23/16 15:30 01/22/17 15:29 12/27/16 10:00 Polyethylene Glycol (Miralax) 17 gm DAILYPRN PRN GT Constipation 12/25/16 11:03 01/21/17 13:44 Propafenone HCl (Rythmol) 225 mg TID NG 12/23/16 21:00 01/22/17 20:59 12/27/16 12:26 Rifaximin (Xifaxan) 550 mg EVERY 12 HOURS GT 12/25/16 11:03 12/30/16 20:59 12/27/16 08:22 Vancomycin HCl (Vanco rx to dose) 1 ea DAILY PRN MISC . 12/24/16 13:00 01/23/17 12:59 DARLIN GRANADO Dec 27, 2016 12:31
--- NOTE | 2016-12-27 12:52 | Internal Med Progress Note ---
Subjective Date of Service: Dec 27, 2016 Physician Name LaurieDione Attending Physician Jes Bautista Current Medications Medications (Trade) Dose Ordered Sig/Reji Route PRN Reason Start Time Stop Time Status Last Admin Dose Admin Acetaminophen (Tylenol) 650 mg Q4H PRN ORAL fever 12/22/16 13:45 01/21/17 13:44 Albuterol/ Ipratropium (DuoNeb 0.5-3(2.5)mg/3ml) 3 ml Q4H PRN HHN Shortness of Breath 12/27/16 09:45 01/01/17 09:44 Dextrose/Sodium Chloride 1,000 ml @ 20 mls/hr Q24H IV 12/23/16 11:00 01/22/17 10:59 12/27/16 11:17 Epoetin José Miguel (Procrit (for ESRD on dialysis)) 7,000 units WED-WED-WED SUBQ 12/25/16 21:00 01/24/17 20:59 12/25/16 21:31 Lactulose (Cephulac) 20 gm DAILY GT 12/26/16 09:00 01/25/17 08:59 12/27/16 08:21 Lorazepam 2 mg 2 mg Q4H PRN IV For Anxiety 12/22/16 13:45 12/29/16 13:44 12/27/16 08:22 Morphine Sulfate (Morphine Sulfate) 4 mg Q4H PRN IVP PAIN 4-10 12/27/16 09:45 01/03/17 09:44 Nitroglycerin (Ntg) 0.4 mg Q5MIN X 3 DOSES PRN SL Prn Chest Pain 12/22/16 13:45 01/21/17 13:44 Norepinephrine Bitartrate 4 mg/ Dextrose 250 ml @ 0 mls/hr Q24H IV 12/23/16 01:00 01/22/17 00:59 12/26/16 01:00 Ondansetron HCl (Zofran) 4 mg Q6H PRN IVP Nausea & Vomiting 12/22/16 13:45 01/21/17 13:44 12/23/16 19:36 Pantoprazole/ Sodium Chloride (Protonix/Sodium Chloride) 250 ml @ 25 mls/hr Q10H IV 12/23/16 15:30 01/22/17 15:29 12/27/16 10:00 Polyethylene Glycol (Miralax) 17 gm DAILYPRN PRN GT Constipation 12/25/16 11:03 01/21/17 13:44 Propafenone HCl (Rythmol) 225 mg TID NG 12/23/16 21:00 01/22/17 20:59 12/27/16 12:26 Rifaximin (Xifaxan) 550 mg EVERY 12 HOURS GT 12/25/16 11:03 12/30/16 20:59 12/27/16 08:22 Allergies: Coded Allergies: No Known Allergies (Unverified , 12/22/16) ROS Limited/Unobtainable: Yes Subjective 61 YO F admitted with respiratory failure. Now probable sepsis with septic shock. Intubated and sedated. ICU. Cover for Int Med-Dr Vigil. Objective Last Vital Signs Date Time Temp Pulse Resp B/P Pulse Ox O2 Delivery O2 Flow Rate FiO2 12/27/16 12:26 102 12/27/16 10:44 14 50 12/27/16 09:14 122/80 100 Mechanical Ventilator 12/27/16 08:00 98.3 12/22/16 10:55 15.0 Laboratory Tests Test 12/27/16 04:00 12/27/16 08:42 White Blood Count 8.7 K/UL (4.8-10.8) Red Blood Count 2.76 M/UL (4.20-5.40) L Hemoglobin 8.6 G/DL (12.0-16.0) L Hematocrit 27.2 % (37.0-47.0) L Mean Corpuscular Volume 99 FL (80-99) Mean Corpuscular Hemoglobin 31.2 PG (27.0-31.0) H Mean Corpuscular Hemoglobin Concent 31.6 G/DL (32.0-36.0) L Red Cell Distribution Width 20.7 % (11.6-14.8) H Platelet Count 101 K/UL (150-450) L Mean Platelet Volume 10.2 FL (6.5-10.1) H Neutrophils (%) (Auto) 83.2 % (45.0-75.0) H Lymphocytes (%) (Auto) 1.6 % (20.0-45.0) L Monocytes (%) (Auto) 13.2 % (1.0-10.0) H Eosinophils (%) (Auto) 1.5 % (0.0-3.0) Basophils (%) (Auto) 0.5 % (0.0-2.0) Sodium Level 136 mEQ/L (135-145) Potassium Level 3.9 mEQ/L (3.4-4.9) Chloride Level 100 mEQ/L (98-107) Carbon Dioxide Level 26 mEQ/L (20-30) Anion Gap 10 (5-15) Blood Urea Nitrogen 17 mg/dL (7-23) Creatinine 1.7 mg/dL (0.5-0.9) H Estimat Glomerular Filtration Rate 30.4 mL/min (>60) Glucose Level 144 mg/dL (74-106) H Calcium Level 8.1 mg/dL (8.6-10.2) L Phosphorus Level 2.2 mg/dL (2.5-4.8) L Magnesium Level 1.6 mg/dL (1.7-2.5) L Total Bilirubin 0.4 mg/dL (0.0-1.2) Aspartate Amino Transf (AST/SGOT) 32 U/L (5-40) Alanine Aminotransferase (ALT/SGPT) 9 U/L (3-33) Alkaline Phosphatase 265 U/L (35-104) H Total Protein 6.3 g/dL (6.6-8.7) L Albumin 3.0 g/dL (3.5-5.2) L Globulin 3.3 g/dL Albumin/Globulin Ratio 0.9 (1.0-2.7) L Arterial Blood pH 7.309 (7.350-7.450) Arterial Blood Partial Pressure CO2 51.0 mmHg (35.0-45.0) H Arterial Blood Partial Pressure O2 51.1 mmHg (75.0-100.0) L Arterial Blood HCO3 25.0 mmol/L (22.0-26.0) Arterial Blood Oxygen Saturation 85.5 % (92.0-98.0) L Arterial Blood Base Excess -1.4 Antonio Test Positive Microbiology Date/Time Source Procedure Growth Status 12/25/16 14:40 Indwelling Cath Urine Culture - Preliminary NO GROWTH Resulted Intake and Output 12/26/16 12/27/16 19:00 07:00 Intake Total 1654.840 ml 1155.0 ml Output Total 1000 ml 0 ml Balance 654.840 ml 1155.0 ml Free Water 100 ml IV Total 669.840 ml 665.0 ml Tube Feeding 265 ml 440 ml Hemodialysis 500 ml Other 120 ml 50 ml Output Urine Total 0 ml 0 ml Hemodialysis UF 1000 ml # Bowel Movements 5 Objective General Appearance: mild distress, thin EENT: PERRL/EOMI, normal ENT inspection Neck: non-tender, normal alignment, supple Cardiovascular: normal peripheral pulses, normal rate, regular rhythm, no gallop/murmur, no JVD Respiratory/Chest: Mech Vent; respiratory distress, crackles/rales, rhonchi - bilaterally, expiratory wheezing Abdomen: normal bowel sounds, non tender, soft, no organomegaly, no mass 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 (3) HTN (hypertension) Assessment & Plan: Currently hypotensive. (4) Acute respiratory failure Assessment & Plan: Cont mech vent per pulmonary (5) CHF (congestive heart failure) (6) Anemia (7) Liver cirrhosis (8) Sepsis Assessment & Plan: Cont vanco per ID (9) Septic shock Assessment & Plan: Cont pressors. Status: not improved DIONE BULL Dec 27, 2016 12:52
--- NOTE | 2016-12-27 14:19 | Nephrology Progress Note ---
Assessment/Plan Assessment 1) ESRD 2) CHF 3) S?p resp failure on the vent 4) GAVE 5) Cirrhosis Plan: Will HD tomorrow Subjective Subjective She had HD yesterday, still on the vent, lethargic Objective Objective Last 24 Hour Vital Signs Date Time Temp Pulse Resp B/P Pulse Ox O2 Delivery O2 Flow Rate FiO2 12/27/16 13:04 83 20 97/77 100 Mechanical Ventilator 50 12/27/16 12:47 85 14 50 12/27/16 12:26 102 12/27/16 12:00 97.4 83 14 96/54 100 Mechanical Ventilator 50 12/27/16 12:00 83 12/27/16 12:00 50 12/27/16 11:00 83 14 91/56 100 Mechanical Ventilator 50 12/27/16 10:44 85 14 50 12/27/16 10:00 86 15 103/58 100 Mechanical Ventilator 50 12/27/16 09:14 92 22 122/80 100 Mechanical Ventilator 30 12/27/16 09:10 50 12/27/16 09:10 89 15 50 12/27/16 08:22 98 12/27/16 08:00 96 12/27/16 08:00 30 12/27/16 08:00 98.3 92 21 122/80 100 Mechanical Ventilator 30 12/27/16 07:00 98 21 109/54 100 Mechanical Ventilator 30 12/27/16 06:45 100 23 30 12/27/16 06:00 97 22 122/78 100 Mechanical Ventilator 30 12/27/16 05:00 97 22 111/58 100 Mechanical Ventilator 30 12/27/16 04:59 97 24 30 12/27/16 04:00 93 12/27/16 04:00 98.7 96 21 106/48 100 Mechanical Ventilator 30 12/27/16 04:00 30 12/27/16 03:05 94 22 30 12/27/16 03:00 95 20 132/65 100 Mechanical Ventilator 30 12/27/16 02:00 91 25 99/50 100 Mechanical Ventilator 30 12/27/16 01:00 104/61 12/27/16 01:00 88 20 94/47 100 Mechanical Ventilator 30 12/27/16 00:48 89 17 30 12/27/16 00:00 98.1 91 20 100/57 100 Mechanical Ventilator 30 12/27/16 00:00 93 2/19/17 00:00 30 2/18/17 23:00 94 25 104/47 100 Mechanical Ventilator 30 2/18/17 22:59 88 21 30 2/18/17 22:30 90 20 97/46 100 Mechanical Ventilator 30 2/18/17 22:00 89 24 102/51 100 Mechanical Ventilator 30 2/18/17 22:00 102/51 2/18/17 21:45 90 24 108/48 100 Mechanical Ventilator 30 2/18/17 21:30 88 20 98/55 100 Mechanical Ventilator 30 2/18/17 21:15 87 27 120/64 100 Mechanical Ventilator 30 2/18/17 21:00 113/61 2/18/17 21:00 83 22 110/64 100 Mechanical Ventilator 30 2/18/17 20:52 80 22 30 2/18/17 20:45 80 20 105/48 100 Mechanical Ventilator 30 2/18/17 20:30 79 16 91/59 100 Mechanical Ventilator 30 2/18/17 20:15 79 18 97/68 100 Mechanical Ventilator 30 2/18/17 20:04 99/51 2/18/17 20:00 30 2/18/17 20:00 80 2/18/17 20:00 98.2 80 16 99/51 100 Mechanical Ventilator 30 2/18/17 19:45 83 17 126/64 100 Mechanical Ventilator 30 2/18/17 19:30 84 19 89/53 100 Mechanical Ventilator 30 2/18/17 19:15 84 18 110/56 100 Mechanical Ventilator 30 2/18/17 19:00 79 14 90/57 100 Mechanical Ventilator 30 2/18/17 19:00 90/57 2/18/17 18:45 78 14 98/63 100 Mechanical Ventilator 30 2/18/17 18:43 76 14 30 2/18/17 18:30 76 14 87/57 100 Mechanical Ventilator 30 2/18/17 18:15 78 14 98/56 100 Mechanical Ventilator 30 2/18/17 18:12 78 2/18/17 18:00 115/62 2/18/17 18:00 80 17 115/62 100 Mechanical Ventilator 30 2/18/17 17:45 82 17 107/63 100 Mechanical Ventilator 30 2/18/17 17:42 97.5 86 18 113/57 100 2/18/17 17:30 82 100/61 2/18/17 17:30 84 18 100/61 100 Mechanical Ventilator 30 218/17 17:17 81 18 30 2/18/17 17:15 80 18 97/55 94 Mechanical Ventilator 30 218/17 17:15 82 18 102/56 94 Mechanical Ventilator 30 2/18/17 17:00 80 18 100/53 100 Mechanical Ventilator 30 218/17 17:00 80 18 100/53 100 2/18/17 17:00 102/48 2/18/17 16:45 83 101/52 2/18/17 16:30 83 98/56 2/18/17 16:15 87 94/50 2/18/17 16:00 30 218/17 16:00 86 107/47 2/18/17 16:00 107/47 2/18/17 16:00 98.0 85 19 107/47 100 Mechanical Ventilator 30 218/17 16:00 85 2/18/17 15:45 87 17 107/47 94 Mechanical Ventilator 30 218/17 15:45 87 101/56 218/17 15:30 88 111/71 218/17 15:30 87 18 111/64 96 Mechanical Ventilator 30 218/17 15:28 87 14 30 218/17 15:15 88 18 108/62 96 Mechanical Ventilator 30 218/17 15:15 90 106/68 2/18/17 15:00 89 20 108/63 96 Mechanical Ventilator 30 218/17 15:00 108/63 2/18/17 15:00 89 113/63 218/17 14:45 88 20 113/63 100 Mechanical Ventilator 30 218/17 14:45 89 113/61 218/17 14:30 83 108/52 218/17 14:30 85 16 108/52 100 Mechanical Ventilator 30 218/17 14:15 80 12 93/60 100 Mechanical Ventilator 30 218/17 14:15 79 93/60 Intake and Output 18/17 2 19:00 07:00 Intake Total 1654.840 ml 1155.0 ml Output Total 1000 ml 0 ml Balance 654.840 ml 1155.0 ml Free Water 100 ml IV Total 669.840 ml 665.0 ml Tube Feeding 265 ml 440 ml Hemodialysis 500 ml Other 120 ml 50 ml Output Urine Total 0 ml 0 ml Hemodialysis UF 1000 ml # Bowel Movements 5 Laboratory Tests 12/27/16 04:00: White Blood Count 8.7, Red Blood Count 2.76L, Hemoglobin 8.6L, Hematocrit 27.2L , Mean Corpuscular Volume 99, Mean Corpuscular Hemoglobin 31.2H, Mean Corpuscular Hemoglobin Concent 31.6L, Red Cell Distribution Width 20.7H, Platelet Count 101L, Mean Platelet Volume 10.2H, Neutrophils (%) (Auto) 83.2H, Lymphocytes (%) (Auto) 1.6L, Monocytes (%) (Auto) 13.2H, Eosinophils (%) (Auto) 1.5, Basophils (%) (Auto) 0.5, Sodium Level 136, Potassium Level 3.9, Chloride Level 100, Carbon Dioxide Level 26, Anion Gap 10, Blood Urea Nitrogen 17, Creatinine 1.7H, Estimat Glomerular Filtration Rate 30.4, Glucose Level 144H, Calcium Level 8.1L, Phosphorus Level 2.2L, Magnesium Level 1.6L, Total Bilirubin 0.4, Aspartate Amino Transf (AST/SGOT) 32, Alanine Aminotransferase ( ALT/SGPT) 9, Alkaline Phosphatase 265H, Total Protein 6.3L, Albumin 3.0L, Globulin 3.3, Albumin/Globulin Ratio 0.9L 12/27/16 08:42: Arterial Blood pH 7.309L, Arterial Blood Partial Pressure CO2 51.0H, Arterial Blood Partial Pressure O2 51.1L, Arterial Blood HCO3 25.0, Arterial Blood Oxygen Saturation 85.5L, Arterial Blood Base Excess -1.4, Antonio Test Positive Height (Feet): 4 Height (Inches): 9.00 Weight (Pounds): 75 General Appearance: WD/WN, no apparent distress EENT: PERRL/EOMI Neck: normal alignment, supple Cardiovascular: normal rate, JVD - high Respiratory/Chest: lungs clear, decreased breath sounds Abdomen: non tender, soft Neurologic: other - lethargic PILAR MENESES Dec 27, 2016 14:19
--- NOTE | 2016-12-27 16:39 | Cardiology Progress Note ---
Assessment/Plan Assessment/Plan during last 24 hours, no new cardiac arrhythmia noted. she was in sinus rhythm with PVC will monitor Subjective Subjective The patient is intubated she is not comminaicating, does not seem to udnerstand questions intubated, no changes Objective Last 24 Hour Vital Signs Date Time Temp Pulse Resp B/P Pulse Ox O2 Delivery O2 Flow Rate FiO2 12/27/16 15:00 80 18 117/44 100 Mechanical Ventilator 50 12/27/16 14:43 80 14 50 12/27/16 14:00 80 14 94/68 100 Mechanical Ventilator 50 12/27/16 13:04 83 20 97/77 100 Mechanical Ventilator 50 12/27/16 12:47 85 14 50 12/27/16 12:26 102 12/27/16 12:00 97.4 83 14 96/54 100 Mechanical Ventilator 50 12/27/16 12:00 83 12/27/16 12:00 50 12/27/16 11:00 83 14 91/56 100 Mechanical Ventilator 50 12/27/16 10:44 85 14 50 12/27/16 10:00 86 15 103/58 100 Mechanical Ventilator 50 12/27/16 09:14 92 22 122/80 100 Mechanical Ventilator 50 12/27/16 09:10 50 12/27/16 09:10 89 15 50 12/27/16 08:22 98 12/27/16 08:00 96 12/27/16 08:00 30 12/27/16 08:00 98.3 92 21 122/80 100 Mechanical Ventilator 30 12/27/16 07:00 98 21 109/54 100 Mechanical Ventilator 30 12/27/16 06:45 100 23 30 12/27/16 06:00 97 22 122/78 100 Mechanical Ventilator 30 12/27/16 05:00 97 22 111/58 100 Mechanical Ventilator 30 12/27/16 04:59 97 24 30 12/27/16 04:00 93 12/27/16 04:00 98.7 96 21 106/48 100 Mechanical Ventilator 30 12/27/16 04:00 30 12/27/16 03:05 94 22 30 12/27/16 03:00 95 20 132/65 100 Mechanical Ventilator 30 12/27/16 02:00 91 25 99/50 100 Mechanical Ventilator 30 12/27/16 01:00 104/61 2/19/17 01:00 88 20 94/47 100 Mechanical Ventilator 30 2/19/17 00:48 89 17 30 2/19/17 00:00 98.1 91 20 100/57 100 Mechanical Ventilator 30 2/19/17 00:00 93 2/19/17 00:00 30 2/18/17 23:00 94 25 104/47 100 Mechanical Ventilator 30 2/18/17 22:59 88 21 30 2/18/17 22:30 90 20 97/46 100 Mechanical Ventilator 30 2/18/17 22:00 89 24 102/51 100 Mechanical Ventilator 30 2/18/17 22:00 102/51 2/18/17 21:45 90 24 108/48 100 Mechanical Ventilator 30 2/18/17 21:30 88 20 98/55 100 Mechanical Ventilator 30 2/18/17 21:15 87 27 120/64 100 Mechanical Ventilator 30 2/18/17 21:00 113/61 2/18/17 21:00 83 22 110/64 100 Mechanical Ventilator 30 2/18/17 20:52 80 22 30 2/18/17 20:45 80 20 105/48 100 Mechanical Ventilator 30 2/18/17 20:30 79 16 91/59 100 Mechanical Ventilator 30 2/18/17 20:15 79 18 97/68 100 Mechanical Ventilator 30 2/18/17 20:04 99/51 2/18/17 20:00 30 2/18/17 20:00 80 2/18/17 20:00 98.2 80 16 99/51 100 Mechanical Ventilator 30 2/18/17 19:45 83 17 126/64 100 Mechanical Ventilator 30 2/18/17 19:30 84 19 89/53 100 Mechanical Ventilator 30 2/18/17 19:15 84 18 110/56 100 Mechanical Ventilator 30 2/18/17 19:00 79 14 90/57 100 Mechanical Ventilator 30 2/18/17 19:00 90/57 2/18/17 18:45 78 14 98/63 100 Mechanical Ventilator 30 2/18/17 18:43 76 14 30 2/18/17 18:30 76 14 87/57 100 Mechanical Ventilator 30 2/18/17 18:15 78 14 98/56 100 Mechanical Ventilator 30 2/18/17 18:12 78 2/18/17 18:00 115/62 2/18/17 18:00 80 17 115/62 100 Mechanical Ventilator 30 2/18/17 17:45 82 17 107/63 100 Mechanical Ventilator 30 12/26/16 17:42 97.5 86 18 113/57 100 12/26/16 17:30 82 100/61 12/26/16 17:30 84 18 100/61 100 Mechanical Ventilator 30 12/26/16 17:17 81 18 30 12/26/16 17:15 80 18 97/55 94 Mechanical Ventilator 30 12/26/16 17:15 82 18 102/56 94 Mechanical Ventilator 30 12/26/16 17:00 80 18 100/53 100 Mechanical Ventilator 30 12/26/16 17:00 80 18 100/53 100 12/26/16 17:00 102/48 12/26/16 16:45 83 101/52 EENT: PERRL/EOMI Neck: non-tender Rhythm: NSR, PVCs Cardiovascular: regular rhythm Respiratory/Chest: rhonchi - bilaterally, other - permacath in right subclavian vein Abdomen: soft Neurologic: other - not focused Intake and Output 12/26/16 12/27/16 19:00 07:00 Intake Total 1654.840 ml 1155.0 ml Output Total 1000 ml 0 ml Balance 654.840 ml 1155.0 ml Free Water 100 ml IV Total 669.840 ml 665.0 ml Tube Feeding 265 ml 440 ml Hemodialysis 500 ml Other 120 ml 50 ml Output Urine Total 0 ml 0 ml Hemodialysis UF 1000 ml # Bowel Movements 5 Laboratory Tests Test 12/27/16 04:00 12/27/16 08:42 White Blood Count 8.7 K/UL (4.8-10.8) Red Blood Count 2.76 M/UL (4.20-5.40) L Hemoglobin 8.6 G/DL (12.0-16.0) L Hematocrit 27.2 % (37.0-47.0) L Mean Corpuscular Volume 99 FL (80-99) Mean Corpuscular Hemoglobin 31.2 PG (27.0-31.0) H Mean Corpuscular Hemoglobin Concent 31.6 G/DL (32.0-36.0) L Red Cell Distribution Width 20.7 % (11.6-14.8) H Platelet Count 101 K/UL (150-450) L Mean Platelet Volume 10.2 FL (6.5-10.1) H Neutrophils (%) (Auto) 83.2 % (45.0-75.0) H Lymphocytes (%) (Auto) 1.6 % (20.0-45.0) L Monocytes (%) (Auto) 13.2 % (1.0-10.0) H Eosinophils (%) (Auto) 1.5 % (0.0-3.0) Basophils (%) (Auto) 0.5 % (0.0-2.0) Sodium Level 136 mEQ/L (135-145) Potassium Level 3.9 mEQ/L (3.4-4.9) Chloride Level 100 mEQ/L (98-107) Carbon Dioxide Level 26 mEQ/L (20-30) Anion Gap 10 (5-15) Blood Urea Nitrogen 17 mg/dL (7-23) Creatinine 1.7 mg/dL (0.5-0.9) H Estimat Glomerular Filtration Rate 30.4 mL/min (>60) Glucose Level 144 mg/dL (74-106) H Calcium Level 8.1 mg/dL (8.6-10.2) L Phosphorus Level 2.2 mg/dL (2.5-4.8) L Magnesium Level 1.6 mg/dL (1.7-2.5) L Total Bilirubin 0.4 mg/dL (0.0-1.2) Aspartate Amino Transf (AST/SGOT) 32 U/L (5-40) Alanine Aminotransferase (ALT/SGPT) 9 U/L (3-33) Alkaline Phosphatase 265 U/L (35-104) H Total Protein 6.3 g/dL (6.6-8.7) L Albumin 3.0 g/dL (3.5-5.2) L Globulin 3.3 g/dL Albumin/Globulin Ratio 0.9 (1.0-2.7) L Arterial Blood pH 7.309 (7.350-7.450) Arterial Blood Partial Pressure CO2 51.0 mmHg (35.0-45.0) H Arterial Blood Partial Pressure O2 51.1 mmHg (75.0-100.0) L Arterial Blood HCO3 25.0 mmol/L (22.0-26.0) Arterial Blood Oxygen Saturation 85.5 % (92.0-98.0) L Arterial Blood Base Excess -1.4 Antonio Test Positive Microbiology Date/Time Source Procedure Growth Status 12/25/16 14:40 Indwelling Cath Urine Culture - Preliminary NO GROWTH Resulted ROSSANA FOURNIER Dec 27, 2016 16:39
--- NOTE | 2016-12-27 16:40 | Pulmonolgy Critical Care Note ---
Critical Care - Asmt/Plan Assessment/Plan: ASSESSMENT hypovolemic shock acute respiratory failure requiring intubation probable sepsis probable HCAP ESRD, on HD hypothermia - resolved anemia CHF moderate pulmonary HTN moderate MR acute hepatic encephalopathy liver cirrhosis severe malnutrition GAVE ascites PLAN OF CARE ICU vent care , pulmonary toilet not ready for weaning yet ABG this am with respiratory acidosis and hypoxemia, back on AC mode CXR today with improved interstitial congestion, over 2 days check ABG and CXR in am HD as per nephro, monitor renal parameters, lytes, cardio follows off pressors, closely monitor BP, HR ECHO with preserve EF 65% and RVSP of 49, c/w moderate pulmonary HTN, + moderate MR monitor HH, on EPO, transfuse prn on Lactulose and Rifaximin, check ammonia level in am CT head no acute pathology abdominal US + ascites, no gallstones s/p paracentesis 12/25 - 1100 c abx, ID follows, all cx UTD negative strict aspiration precautions, GT feeding, monitor tolerance bowel regimen case discussed and evaluated by supervising physician Critical Care - Objective Last 24 Hour Vital Signs Date Time Temp Pulse Resp B/P Pulse Ox O2 Delivery O2 Flow Rate FiO2 12/27/16 15:00 80 18 117/44 100 Mechanical Ventilator 50 12/27/16 14:43 80 14 50 12/27/16 14:00 80 14 94/68 100 Mechanical Ventilator 50 12/27/16 13:04 83 20 97/77 100 Mechanical Ventilator 50 12/27/16 12:47 85 14 50 12/27/16 12:26 102 12/27/16 12:00 97.4 83 14 96/54 100 Mechanical Ventilator 50 12/27/16 12:00 83 12/27/16 12:00 50 12/27/16 11:00 83 14 91/56 100 Mechanical Ventilator 50 12/27/16 10:44 85 14 50 12/27/16 10:00 86 15 103/58 100 Mechanical Ventilator 50 12/27/16 09:14 92 22 122/80 100 Mechanical Ventilator 50 12/27/16 09:10 50 12/27/16 09:10 89 15 50 12/27/16 08:22 98 12/27/16 08:00 96 12/27/16 08:00 30 12/27/16 08:00 98.3 92 21 122/80 100 Mechanical Ventilator 30 12/27/16 07:00 98 21 109/54 100 Mechanical Ventilator 30 12/27/ 06:45 100 23 30 17 06:00 97 22 122/78 100 Mechanical Ventilator 30 12/27/16 05:00 97 22 111/58 100 Mechanical Ventilator 30 12/27/16 04:59 97 24 30 12/27/16 04:00 93 12/27/16 04:00 98.7 96 21 106/48 100 Mechanical Ventilator 30 12/27/16 04:00 30 12/27/16 03:05 94 22 30 12/27/16 03:00 95 20 132/65 100 Mechanical Ventilator 30 12/27/16 02:00 91 25 99/50 100 Mechanical Ventilator 30 12/27/16 01:00 104/61 2 01:00 88 20 94/47 100 Mechanical Ventilator 30 12/27/16 00:48 89 17 30 12/27/16 00:00 98.1 91 20 100/57 100 Mechanical Ventilator 30 12/27/16 00:00 93 12/27/16 00:00 30 12/26/16 23:00 94 25 104/47 100 Mechanical Ventilator 30 218/17 22:59 88 21 30 218/17 22:30 90 20 97/46 100 Mechanical Ventilator 30 12/26/17 22:00 89 24 102/51 100 Mechanical Ventilator 30 18/17 22:00 102/51 2/18/17 21:45 90 24 108/48 100 Mechanical Ventilator 30 218/17 21:30 88 20 98/55 100 Mechanical Ventilator 30 218/17 21:15 87 27 120/64 100 Mechanical Ventilator 30 218/17 21:00 113/61 2/18/17 21:00 83 22 110/64 100 Mechanical Ventilator 30 2/18/17 20:52 80 22 30 2/18/17 20:45 80 20 105/48 100 Mechanical Ventilator 30 2/18/17 20:30 79 16 91/59 100 Mechanical Ventilator 30 2/18/17 20:15 79 18 97/68 100 Mechanical Ventilator 30 2/18/17 20:04 99/51 2/18/17 20:00 30 2/18/17 20:00 80 2/18/17 20:00 98.2 80 16 99/51 100 Mechanical Ventilator 30 218/17 19:45 83 17 126/64 100 Mechanical Ventilator 30 18/17 19:30 84 19 89/53 100 Mechanical Ventilator 30 18/17 19:15 84 18 110/56 100 Mechanical Ventilator 30 218/17 19:00 79 14 90/57 100 Mechanical Ventilator 30 218/17 19:00 90/57 218/17 18:45 78 14 98/63 100 Mechanical Ventilator 30 18/17 18:43 76 14 30 218/17 18:30 76 14 87/57 100 Mechanical Ventilator 30 18/17 18:15 78 14 98/56 100 Mechanical Ventilator 30 18/17 18:12 78 218/17 18:00 115/62 218/17 18:00 80 17 115/62 100 Mechanical Ventilator 30 18/17 17:45 82 17 107/63 100 Mechanical Ventilator 30 18/17 17:42 97.5 86 18 113/57 100 18/17 17:30 82 100/61 218/17 17:30 84 18 100/61 100 Mechanical Ventilator 30 18/17 17:17 81 18 30 218/17 17:15 80 18 97/55 94 Mechanical Ventilator 30 18/17 17:15 82 18 102/56 94 Mechanical Ventilator 30 18/17 17:00 80 18 100/53 100 Mechanical Ventilator 30 18/17 17:00 80 18 100/53 100 218/17 17:00 102/48 218/17 16:45 83 101/52 218/17 16:30 83 98/56 Status: sedated Condition: critical HEENT: atraumatic, normocephalic, other - OP with ET in place, intact; NGT with TF in place Lungs: other - BS decreased at bases Heart: HR/BP stable Abdomen: soft, non-tender, active bowel sounds Extremities: no C/C/E Micro: Microbiology Date/Time Source Procedure Growth Status 12/25/16 14:40 Indwelling Cath Urine Culture - Preliminary NO GROWTH Resulted Accucheck: 55 Critical Care - Subjective ROS Limited/Unobtainable: Yes Interval Events: off Levophed BP stable ABG this am on SIMV not ready for weaning IV Access: central - R femoral, intact ; R subclavian HD catheter, intact FI02: 50 Vent Support Breath Rate: 14 Vent Support Mode: AC Vent Tidal Volume: 450 Sputum Amount: Scant PEEP: 5.0 PIP: 36 Tube Feeding Amount: 40 I&O: Intake and Output 12/26/16 12/27/16 19:00 07:00 Intake Total 1654.840 ml 1155.0 ml Output Total 1000 ml 0 ml Balance 654.840 ml 1155.0 ml Free Water 100 ml IV Total 669.840 ml 665.0 ml Tube Feeding 265 ml 440 ml Hemodialysis 500 ml Other 120 ml 50 ml Output Urine Total 0 ml 0 ml Hemodialysis UF 1000 ml # Bowel Movements 5 CXR: Improved interstitial congestion, over 2 days ET-Tube: 7.5 ET Position: 22 Js ([facility]),Eri PARTIDA Dec 27, 2016 16:40
--- NOTE | 2016-12-27 16:46 | General Progress Note ---
Assessment/Plan Problem List: (1) ESRD (end stage renal disease) on dialysis ICD Codes: N18.6 - End stage renal disease; Z99.2 - Dependence on renal dialysis SNOMED: 456085279 (2) HTN (hypertension) ICD Codes: I10 - Essential (primary) hypertension SNOMED: 53454756 (3) Encephalopathy ICD Codes: G93.40 - Encephalopathy, unspecified SNOMED: 57002172, 357916462 (4) Cirrhosis of liver ICD Codes: K74.60 - Unspecified cirrhosis of liver SNOMED: 95964248 (5) GAVE (gastric antral vascular ectasia) ICD Codes: K31.819 - Angiodysplasia of stomach and duodenum without bleeding SNOMED: 20062350 (6) Anemia ICD Codes: D64.9 - Anemia, unspecified SNOMED: 476166869 Assessment/Plan s/p 1600 paracentesis 2 days ago fu labs TF tolerated on ppi drip levophed started today poor prognosis Subjective ROS Limited/Unobtainable: No Allergies: Coded Allergies: No Known Allergies (Unverified , 12/22/16) Objective Last 24 Hour Vital Signs Date Time Temp Pulse Resp B/P Pulse Ox O2 Delivery O2 Flow Rate FiO2 12/27/16 15:00 80 18 117/44 100 Mechanical Ventilator 50 12/27/16 14:43 80 14 50 12/27/16 14:00 80 14 94/68 100 Mechanical Ventilator 50 12/27/16 13:04 83 20 97/77 100 Mechanical Ventilator 50 12/27/16 12:47 85 14 50 12/27/16 12:26 102 12/27/16 12:00 97.4 83 14 96/54 100 Mechanical Ventilator 50 12/27/16 12:00 83 12/27/16 12:00 50 12/27/16 11:00 83 14 91/56 100 Mechanical Ventilator 50 12/27/16 10:44 85 14 50 12/27/16 10:00 86 15 103/58 100 Mechanical Ventilator 50 12/27/16 09:14 92 22 122/80 100 Mechanical Ventilator 50 12/27/16 09:10 50 12/27/16 09:10 89 15 50 12/27/16 08:22 98 12/27/16 08:00 96 12/27/16 08:00 30 12/27/16 08:00 98.3 92 21 122/80 100 Mechanical Ventilator 30 12/27/16 07:00 98 21 109/54 100 Mechanical Ventilator 30 12/27/16 06:45 100 23 30 12/27/16 06:00 97 22 122/78 100 Mechanical Ventilator 30 12/27/16 05:00 97 22 111/58 100 Mechanical Ventilator 30 12/27/16 04:59 97 24 30 12/27/16 04:00 93 12/27/16 04:00 98.7 96 21 106/48 100 Mechanical Ventilator 30 12/27/16 04:00 30 12/27/16 03:05 94 22 30 12/27/16 03:00 95 20 132/65 100 Mechanical Ventilator 30 12/27/16 02:00 91 25 99/50 100 Mechanical Ventilator 30 12/27/16 01:00 104/61 12/27/16 01:00 88 20 94/47 100 Mechanical Ventilator 30 12/27/16 00:48 89 17 30 12/27/16 00:00 98.1 91 20 100/57 100 Mechanical Ventilator 30 12/27/16 00:00 93 12/27/16 00:00 30 18/17 23:00 94 25 104/47 100 Mechanical Ventilator 30 218/17 22:59 88 21 30 2/18/17 22:30 90 20 97/46 100 Mechanical Ventilator 30 218/17 22:00 89 24 102/51 100 Mechanical Ventilator 30 218/17 22:00 102/51 2/18/17 21:45 90 24 108/48 100 Mechanical Ventilator 30 218/17 21:30 88 20 98/55 100 Mechanical Ventilator 30 218/17 21:15 87 27 120/64 100 Mechanical Ventilator 30 2/18/17 21:00 113/61 2/18/17 21:00 83 22 110/64 100 Mechanical Ventilator 30 2/18/17 20:52 80 22 30 2/18/17 20:45 80 20 105/48 100 Mechanical Ventilator 30 2/18/17 20:30 79 16 91/59 100 Mechanical Ventilator 30 2/18/17 20:15 79 18 97/68 100 Mechanical Ventilator 30 2/18/17 20:04 99/51 2/18/17 20:00 30 2/18/17 20:00 80 2/18/17 20:00 98.2 80 16 99/51 100 Mechanical Ventilator 30 2/18/17 19:45 83 17 126/64 100 Mechanical Ventilator 30 18/17 19:30 84 19 89/53 100 Mechanical Ventilator 30 18/17 19:15 84 18 110/56 100 Mechanical Ventilator 30 18/17 19:00 79 14 90/57 100 Mechanical Ventilator 30 18/17 19:00 90/57 18/17 18:45 78 14 98/63 100 Mechanical Ventilator 30 18/17 18:43 76 14 30 18/17 18:30 76 14 87/57 100 Mechanical Ventilator 30 18/17 18:15 78 14 98/56 100 Mechanical Ventilator 30 18/17 18:12 78 18/17 18:00 115/62 18/17 18:00 80 17 115/62 100 Mechanical Ventilator 30 18/17 17:45 82 17 107/63 100 Mechanical Ventilator 30 18/17 17:42 97.5 86 18 113/57 100 1817 17:30 82 100/61 18/17 17:30 84 18 100/61 100 Mechanical Ventilator 30 18/17 17:17 81 18 30 18/17 17:15 80 18 97/55 94 Mechanical Ventilator 30 18/17 17:15 82 18 102/56 94 Mechanical Ventilator 30 1817 17:00 80 18 100/53 100 Mechanical Ventilator 30 1817 17:00 80 18 100/53 100 18/17 17:00 102/48 1817 16:45 83 101/52 Intake and Output 12/26/16 12/27/16 19:00 07:00 Intake Total 1654.840 ml 1155.0 ml Output Total 1000 ml 0 ml Balance 654.840 ml 1155.0 ml Free Water 100 ml IV Total 669.840 ml 665.0 ml Tube Feeding 265 ml 440 ml Hemodialysis 500 ml Other 120 ml 50 ml Output Urine Total 0 ml 0 ml Hemodialysis UF 1000 ml # Bowel Movements 5 Laboratory Tests 12/27/16 04:00: White Blood Count 8.7, Red Blood Count 2.76L, Hemoglobin 8.6L, Hematocrit 27.2L , Mean Corpuscular Volume 99, Mean Corpuscular Hemoglobin 31.2H, Mean Corpuscular Hemoglobin Concent 31.6L, Red Cell Distribution Width 20.7H, Platelet Count 101L, Mean Platelet Volume 10.2H, Neutrophils (%) (Auto) 83.2H, Lymphocytes (%) (Auto) 1.6L, Monocytes (%) (Auto) 13.2H, Eosinophils (%) (Auto) 1.5, Basophils (%) (Auto) 0.5, Sodium Level 136, Potassium Level 3.9, Chloride Level 100, Carbon Dioxide Level 26, Anion Gap 10, Blood Urea Nitrogen 17, Creatinine 1.7H, Estimat Glomerular Filtration Rate 30.4, Glucose Level 144H, Calcium Level 8.1L, Phosphorus Level 2.2L, Magnesium Level 1.6L, Total Bilirubin 0.4, Aspartate Amino Transf (AST/SGOT) 32, Alanine Aminotransferase ( ALT/SGPT) 9, Alkaline Phosphatase 265H, Total Protein 6.3L, Albumin 3.0L, Globulin 3.3, Albumin/Globulin Ratio 0.9L 12/27/16 08:42: Arterial Blood pH 7.309L, Arterial Blood Partial Pressure CO2 51.0H, Arterial Blood Partial Pressure O2 51.1L, Arterial Blood HCO3 25.0, Arterial Blood Oxygen Saturation 85.5L, Arterial Blood Base Excess -1.4, Antonio Test Positive Height (Feet): 4 Height (Inches): 9.00 Weight (Pounds): 75 General Appearance: lethargic EENT: normal ENT inspection Neck: supple Cardiovascular: tachycardia Respiratory/Chest: decreased breath sounds Abdomen: soft, hypoactive bowel sounds, distended Extremities: non-tender RADHA GROSSMAN Dec 27, 2016 16:46
[2016-12-27] MEDS ORDERED: Pantoprazole Inj ONE (18:59)
[2016-12-28] VITALS (24 sets, daily range): BP systolic 87–136; BP diastolic 38–74
[2016-12-28 04:38] LABS: BASOPHILS % (AUTO) 0.7 % (0.0-2.0); LYMPHOCYTES % (AUTO) 1.9 % (20.0-45.0); MEAN CORPUSCULAR HEMOGLOBIN 31.3 PG (27.0-31.0); MEAN CORPUSCULAR HGB CONC 31.5 G/DL (32.0-36.0); MEAN CORPUSCULAR VOLUME 100 FL (80-99); MEAN PLATELET VOLUME 9.6 FL (6.5-10.1); MONOCYTES % (AUTO) 13.8 % (1.0-10.0); NEUTROPHILS % (AUTO) 81.6 % (45.0-75.0); PLATELET COUNT 127 K/UL (150-450); RED BLOOD COUNT 2.59 M/UL (4.20-5.40); RED CELL DISTRIBUTION WIDTH 20.7 % (11.6-14.8); WHITE BLOOD COUNT 9.2 K/UL (4.8-10.8)
[2016-12-28 05:22] LABS: ALBUMIN/GLOBULIN RATIO 0.8 (1.0-2.7); CALCIUM 8.3 mg/dL (8.6-10.2); CREATININE 2.7 mg/dL (0.5-0.9); GLOMERULAR FILTRATION RATE 17.9 mL/min (>60); MAGNESIUM 1.6 mg/dL (1.7-2.5); PHOSPHORUS 2.7 mg/dL (2.5-4.8); POTASSIUM 3.5 mEQ/L (3.4-4.9)
[2016-12-28] MEDS: Pantoprazole 80 MG in NS 250 ML IV SCH (05:29)
--- NOTE | 2016-12-28 08:29 | Nephrology Progress Note ---
Assessment/Plan Problem List: (1) Hypovolemic shock (2) End-stage kidney disease (3) Acute respiratory failure (4) CHF (congestive heart failure) (5) Liver cirrhosis (6) Hypoalbuminemia (7) Severe malnutrition (8) GAVE (gastric antral vascular ectasia) (9) Diarrhea Plan try to wean off levophed, done , hd 12/28 watch bp closely Subjective Constitutional: Reports: weakness HEENT: Reports: no symptoms Genitourinary: Reports: no symptoms Neurologic/Psychiatric: Reports: no symptoms Subjective awake on vent Objective Objective Last 24 Hour Vital Signs Date Time Temp Pulse Resp B/P Pulse Ox O2 Delivery O2 Flow Rate FiO2 12/28/16 07:00 94 19 94/38 100 Mechanical Ventilator 50 12/28/16 06:00 94 19 100/50 100 Mechanical Ventilator 50 12/28/16 05:00 91 17 90/63 100 Mechanical Ventilator 50 12/28/16 04:59 91 19 50 12/28/16 04:00 91 12/28/16 04:00 50 12/28/16 04:00 98.1 93 19 112/47 100 Mechanical Ventilator 50 12/28/16 03:00 89 17 103/47 100 Mechanical Ventilator 50 12/28/16 02:59 89 20 50 12/28/16 02:00 89 20 88/41 100 Mechanical Ventilator 50 12/28/16 01:06 90 25 50 12/28/16 01:00 87 18 91/45 100 Mechanical Ventilator 50 12/28/16 01:00 116/66 12/28/16 00:00 88 12/28/16 00:00 97.9 89 22 91/42 100 Mechanical Ventilator 50 12/28/16 00:00 50 12/27/16 23:08 86 22 50 12/27/16 23:00 84 18 83/50 100 Mechanical Ventilator 50 12/27/16 22:00 84 22 90/51 100 Mechanical Ventilator 50 12/27/16 21:08 86 21 50 12/27/16 21:00 86 21 90/51 100 Mechanical Ventilator 50 12/27/16 20:00 50 12/27/16 20:00 90 12/27/16 20:00 97.6 90 21 94/48 100 Mechanical Ventilator 50 12/27/16 19:28 93 12/27/16 19:00 93 20 103/50 100 Mechanical Ventilator 50 12/27/16 18:48 90 23 50 12/27/16 18:00 89 19 118/57 96 Mechanical Ventilator 50 12/27/16 17:00 88 14 92/62 100 Mechanical Ventilator 50 12/27/16 16:46 80 14 50 12/27/16 16:00 97.9 81 14 75/43 100 Mechanical Ventilator 50 12/27/16 16:00 81 12/27/16 16:00 50 12/27/16 15:00 80 18 117/44 100 Mechanical Ventilator 50 12/27/16 14:43 80 14 50 12/27/16 14:00 80 14 94/68 100 Mechanical Ventilator 50 12/27/16 13:04 83 20 97/77 100 Mechanical Ventilator 50 12/27/16 12:47 85 14 50 12/27/16 12:26 102 12/27/16 12:00 97.4 83 14 96/54 100 Mechanical Ventilator 50 12/27/16 12:00 83 12/27/16 12:00 50 12/27/16 11:00 83 14 91/56 100 Mechanical Ventilator 50 12/27/16 10:44 85 14 50 12/27/16 10:00 86 15 103/58 100 Mechanical Ventilator 50 12/27/16 09:14 92 22 122/80 100 Mechanical Ventilator 50 12/27/16 09:10 50 12/27/16 09:10 89 15 50 Intake and Output 12/27/16 12/28/16 19:00 07:00 Intake Total 1010 ml 1063 ml Output Total 0 ml 0 ml Balance 1010 ml 1063 ml Free Water 40 ml IV Total 470 ml 553 ml Tube Feeding 480 ml 480 ml Other 20 ml 30 ml Output Urine Total 0 ml 0 ml # Bowel Movements 3 4 Laboratory Tests 12/27/16 08:42: Arterial Blood pH 7.309L, Arterial Blood Partial Pressure CO2 51.0H, Arterial Blood Partial Pressure O2 51.1L, Arterial Blood HCO3 25.0, Arterial Blood Oxygen Saturation 85.5L, Arterial Blood Base Excess -1.4, Antonio Test Positive 12/28/16 03:50: White Blood Count 9.2, Red Blood Count 2.59L, Hemoglobin 8.1L, Hematocrit 25.7L , Mean Corpuscular Volume 100H, Mean Corpuscular Hemoglobin 31.3H, Mean Corpuscular Hemoglobin Concent 31.5L, Red Cell Distribution Width 20.7H, Platelet Count 127L, Mean Platelet Volume 9.6, Neutrophils (%) (Auto) 81.6H, Lymphocytes (%) (Auto) 1.9L, Monocytes (%) (Auto) 13.8H, Eosinophils (%) (Auto) 2.0, Basophils (%) (Auto) 0.7, Sodium Level 134L, Potassium Level 3.5, Chloride Level 98, Carbon Dioxide Level 24, Anion Gap 12, Blood Urea Nitrogen 27H, Creatinine 2.7#H, Estimat Glomerular Filtration Rate 17.9, Glucose Level 127H, Calcium Level 8.3L, Phosphorus Level 2.7, Magnesium Level 1.6L, Total Bilirubin 0.3, Aspartate Amino Transf (AST/SGOT) 25, Alanine Aminotransferase (ALT/SGPT) 8 , Alkaline Phosphatase 226H, Ammonia 32, Total Protein 6.0L, Albumin 2.7L, Globulin 3.3, Albumin/Globulin Ratio 0.8L Height (Feet): 4 Height (Inches): 9.00 Weight (Pounds): 75 General Appearance: no apparent distress, alert, mild distress, thin Neck: non-tender Cardiovascular: normal rate, regular rhythm Respiratory/Chest: lungs clear Abdomen: non tender, soft Extremities: other - no edema 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
[2016-12-28] MEDS: Rifaximin 550mg tab GT SCH ×2 (09:17→21:55)
[2016-12-28] MEDS: Lactulose 20gm/30ml UDC GT SCH (09:18)
--- NOTE | 2016-12-28 10:35 | Internal Med Progress Note ---
Subjective Date of Service: Dec 28, 2016 Physician Name Dione Bull Attending Physician Jes Bautista Current Medications Medications (Trade) Dose Ordered Sig/Reji Route PRN Reason Start Time Stop Time Status Last Admin Dose Admin Acetaminophen (Tylenol) 650 mg Q4H PRN ORAL fever 12/22/16 13:45 01/21/17 13:44 Albumin Human (Albumisol) 100 ml @ 200 mls/hr PRN PRN IV sbp<90 during hd 12/28/16 14:30 01/27/17 14:29 Albuterol/ Ipratropium (DuoNeb 0.5-3(2.5)mg/3ml) 3 ml Q4H PRN HHN Shortness of Breath 12/27/16 09:45 01/01/17 09:44 Dextrose/Sodium Chloride 1,000 ml @ 20 mls/hr Q24H IV 12/23/16 11:00 01/22/17 10:59 12/27/16 11:17 Epoetin José Miguel (Procrit (for ESRD on dialysis)) 10,000 units WED-WED-WED SUBQ 12/28/16 21:00 01/27/17 20:59 Lactulose (Cephulac) 20 gm DAILY GT 12/26/16 09:00 01/25/17 08:59 12/28/16 09:18 Lorazepam 2 mg 2 mg Q4H PRN IV For Anxiety 12/22/16 13:45 12/29/16 13:44 12/27/16 08:22 Morphine Sulfate 4 mg 4 mg Q4H PRN IVP PAIN 4-10 12/27/16 09:45 01/03/17 09:44 Nitroglycerin (Ntg) 0.4 mg Q5MIN X 3 DOSES PRN SL Prn Chest Pain 12/22/16 13:45 01/21/17 13:44 Norepinephrine Bitartrate 4 mg/ Dextrose 250 ml @ 0 mls/hr Q24H IV 12/23/16 01:00 01/22/17 00:59 12/26/16 01:00 Ondansetron HCl (Zofran) 4 mg Q6H PRN IVP Nausea & Vomiting 12/22/16 13:45 01/21/17 13:44 12/23/16 19:36 Pantoprazole/ Sodium Chloride (Protonix/Sodium Chloride) 250 ml @ 25 mls/hr Q10H IV 12/23/16 15:30 01/22/17 15:29 12/28/16 05:29 Polyethylene Glycol (Miralax) 17 gm DAILYPRN PRN GT Constipation 12/25/16 11:03 01/21/17 13:44 Propafenone HCl (Rythmol) 225 mg TID NG 12/23/16 21:00 01/22/17 20:59 12/28/16 09:18 Rifaximin (Xifaxan) 550 mg EVERY 12 HOURS GT 12/25/16 11:03 12/30/16 20:59 12/28/16 09:17 Allergies: Coded Allergies: No Known Allergies (Unverified , 12/22/16) ROS Limited/Unobtainable: Yes Subjective 61 YO F admitted with respiratory failure. Now probable sepsis with septic shock. Intubated and sedated. ICU. Off pressors. Cover for Int Jamie-Dr Vigil. Objective Last Vital Signs Date Time Temp Pulse Resp B/P Pulse Ox O2 Delivery O2 Flow Rate FiO2 12/28/16 10:00 99 19 102/45 100 Mechanical Ventilator 50 12/28/16 08:00 97.3 12/22/16 10:55 15.0 Laboratory Tests Test 12/28/16 03:50 White Blood Count 9.2 K/UL (4.8-10.8) Red Blood Count 2.59 M/UL (4.20-5.40) L Hemoglobin 8.1 G/DL (12.0-16.0) L Hematocrit 25.7 % (37.0-47.0) L Mean Corpuscular Volume 100 FL (80-99) H Mean Corpuscular Hemoglobin 31.3 PG (27.0-31.0) H Mean Corpuscular Hemoglobin Concent 31.5 G/DL (32.0-36.0) L Red Cell Distribution Width 20.7 % (11.6-14.8) H Platelet Count 127 K/UL (150-450) L Mean Platelet Volume 9.6 FL (6.5-10.1) Neutrophils (%) (Auto) 81.6 % (45.0-75.0) H Lymphocytes (%) (Auto) 1.9 % (20.0-45.0) L Monocytes (%) (Auto) 13.8 % (1.0-10.0) H Eosinophils (%) (Auto) 2.0 % (0.0-3.0) Basophils (%) (Auto) 0.7 % (0.0-2.0) Sodium Level 134 mEQ/L (135-145) L Potassium Level 3.5 mEQ/L (3.4-4.9) Chloride Level 98 mEQ/L (98-107) Carbon Dioxide Level 24 mEQ/L (20-30) Anion Gap 12 (5-15) Blood Urea Nitrogen 27 mg/dL (7-23) H Creatinine 2.7 mg/dL (0.5-0.9) #H Estimat Glomerular Filtration Rate 17.9 mL/min (>60) Glucose Level 127 mg/dL (74-106) H Calcium Level 8.3 mg/dL (8.6-10.2) L Phosphorus Level 2.7 mg/dL (2.5-4.8) Magnesium Level 1.6 mg/dL (1.7-2.5) L Total Bilirubin 0.3 mg/dL (0.0-1.2) Aspartate Amino Transf (AST/SGOT) 25 U/L (5-40) Alanine Aminotransferase (ALT/SGPT) 8 U/L (3-33) Alkaline Phosphatase 226 U/L (35-104) H Ammonia 32 umol/L (11-51) Total Protein 6.0 g/dL (6.6-8.7) L Albumin 2.7 g/dL (3.5-5.2) L Globulin 3.3 g/dL Albumin/Globulin Ratio 0.8 (1.0-2.7) L Microbiology Date/Time Source Procedure Growth Status 12/25/16 14:40 Indwelling Cath Urine Culture - Preliminary NO GROWTH AFTER 24 HOURS Resulted Intake and Output 12/27/16 12/28/16 19:00 07:00 Intake Total 1010 ml 1063 ml Output Total 0 ml 0 ml Balance 1010 ml 1063 ml Free Water 40 ml IV Total 470 ml 553 ml Tube Feeding 480 ml 480 ml Other 20 ml 30 ml Output Urine Total 0 ml 0 ml # Bowel Movements 3 4 Objective General Appearance: mild distress, thin EENT: PERRL/EOMI, normal ENT inspection Neck: non-tender, normal alignment, supple Cardiovascular: normal peripheral pulses, normal rate, regular rhythm, no gallop/murmur, no JVD Respiratory/Chest: Mech Vent; respiratory distress, crackles/rales, rhonchi - bilaterally, expiratory wheezing Abdomen: normal bowel sounds, non tender, soft, no organomegaly, no mass 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 (3) HTN (hypertension) Assessment & Plan: Currently hypotensive. (4) Acute respiratory failure Assessment & Plan: Cont mech vent per pulmonary (5) CHF (congestive heart failure) (6) Anemia (7) Liver cirrhosis (8) Sepsis Assessment & Plan: Cont off antibiotics per ID (9) Septic shock Assessment & Plan: D/C pressors. Status: not improved DIONE BULL Dec 28, 2016 10:35
--- NOTE | 2016-12-28 10:49 | Diagnostic Imaging Report ---
Indications: Ascites Technique: Ultrasound used to localize optimal puncture site. Sterile prepping and draping right lower quadrant. Local anesthesia with 1% lidocaine. Under real-time ultrasound guidance, puncture peritoneal space using paracentesis needle. Stylet removed. Catheter placed to vacuum bottle suction. Total 1.6 liters of fluid aspirated. Patient tolerated procedure well, without immediate complication. Findings: Followup sonography demonstrates complete resolution of peritoneal fluid. Impression: Successful ultrasound-guided paracentesis, yielding 1.6 liters of yellow fluid
[2016-12-28 10:50] LABS: ABG ALLEN TEST POSITIVE; ABG PCO2 53.8 mmHg (35.0-45.0)
--- NOTE | 2016-12-28 10:51 | Diagnostic Imaging Report ---
Indication: DYSPNEA Technique: One view of the chest Comparison: 12/24/2016 Findings: Stable satisfactory positions of endotracheal and nasogastric tube. Right jugular tunneled dialysis catheter is again demonstrated. Interstitial disease at the left lung base appears similar to the previous study. Overall congestive changes may have improved slightly, although this could be an artifact of severe exposure on the prior study. There is minimal blunting of the right costophrenic angle. Impression: Possible slight improvement of interstitial congestive changes. Otherwise largely similar to previous day's exam, findings as noted
--- NOTE | 2016-12-28 10:53 | Diagnostic Imaging Report ---
Clinical history: Dyspnea. Technique: Portable AP chest radiograph was obtained. Comparison: 12/26/16. Findings: Endotracheal tube tip terminates 1.3 cm above the ramakrishna. There is no significant interval change in the interval, allowing for differences in technique and positioning. Impression: 1. Low lying endotracheal tube. Consider retraction by 2 cm. 2. Enteric tube, and right IJ tunneled hemodialysis catheter are in appropriate position. 3. Cardiomegaly with suspected mild interstitial edema and trace effusions, stable.
[2016-12-28] MEDS: Dextrose 10%/0.9% SOD CHL 1,000 ML IV SCH (11:00)
--- NOTE | 2016-12-28 11:14 | GI Progress Note ---
Assessment/Plan Problems: (1) End-stage kidney disease ICD Codes: N18.6 - End stage renal disease SNOMED: 86718160 (2) GAVE (gastric antral vascular ectasia) ICD Codes: K31.819 - Angiodysplasia of stomach and duodenum without bleeding SNOMED: 91882058 (3) Severe malnutrition ICD Codes: E43 - Unspecified severe protein-calorie malnutrition SNOMED: 22332948 (4) Hypoalbuminemia ICD Codes: E88.09 - Other disorders of plasma-protein metabolism, not elsewhere classified SNOMED: 771048109 (5) Anemia ICD Codes: D64.9 - Anemia, unspecified SNOMED: 504821139 (6) Liver cirrhosis ICD Codes: K74.60 - Unspecified cirrhosis of liver SNOMED: 89896278 Status: progressing, unchanged Status Narrative Discussed with Dr. Galarza. Assessment/Plan s/p EGD/colon at [facility] recently, see full report in chart. >> - No varices given history of cirrhosis. - GAVE appearance and did not show portal hypertensive gastropathy. - Findings included an active bleed in the focal area of the antrum which was treated. - Noted that the patient went into a CODE BLUE during the procedure. KUB >> negative abd U/S >> Moderate ascites. Mild gallbladder wall thickening. >> s/p 1600 paracentesis 2 days ago elevated ammonia OB stool positive Hep panel negative cdiff negative defer any GI procedures at this time monitor H&H, transfuse prn Protonix gtt OGT to goal rate per dietary lactulose + Xifaxan fu labs poor prognosis Subjective Subjective limited Objective Last 24 Hour Vital Signs Date Time Temp Pulse Resp B/P Pulse Ox O2 Delivery O2 Flow Rate FiO2 12/28/16 11:06 99 26 50 12/28/16 10:00 99 19 102/45 100 Mechanical Ventilator 50 12/28/16 09:20 96 16 50 12/28/16 09:18 98 12/28/16 09:00 98 19 107/43 100 Mechanical Ventilator 50 12/28/16 08:00 97.3 97 18 102/42 100 Mechanical Ventilator 50 12/28/16 08:00 94 12/28/16 08:00 50 12/28/16 07:00 94 19 94/38 100 Mechanical Ventilator 50 12/28/16 06:58 93 20 50 12/28/16 06:00 94 19 100/50 100 Mechanical Ventilator 50 12/28/16 05:00 91 17 90/63 100 Mechanical Ventilator 50 12/28/16 04:59 91 19 50 12/28/16 04:00 91 12/28/16 04:00 50 12/28/16 04:00 98.1 93 19 112/47 100 Mechanical Ventilator 50 12/28/16 03:00 89 17 103/47 100 Mechanical Ventilator 50 12/28/16 02:59 89 20 50 12/28/16 02:00 89 20 88/41 100 Mechanical Ventilator 50 12/28/16 01:06 90 25 50 12/28/16 01:00 87 18 91/45 100 Mechanical Ventilator 50 12/28/16 01:00 116/66 12/28/16 00:00 88 12/28/16 00:00 97.9 89 22 91/42 100 Mechanical Ventilator 50 12/28/16 00:00 50 12/27/16 23:08 86 22 50 12/27/16 23:00 84 18 83/50 100 Mechanical Ventilator 50 12/27/16 22:00 84 22 90/51 100 Mechanical Ventilator 50 12/27/16 21:08 86 21 50 12/27/16 21:00 86 21 90/51 100 Mechanical Ventilator 50 12/27/16 20:00 50 12/27/16 20:00 90 12/27/16 20:00 97.6 90 21 94/48 100 Mechanical Ventilator 50 12/27/16 19:28 93 12/27/16 19:00 93 20 103/50 100 Mechanical Ventilator 50 12/27/16 18:48 90 23 50 12/27/16 18:00 89 19 118/57 96 Mechanical Ventilator 50 12/27/16 17:00 88 14 92/62 100 Mechanical Ventilator 50 12/27/16 16:46 80 14 50 12/27/16 16:00 97.9 81 14 75/43 100 Mechanical Ventilator 50 12/27/16 16:00 81 12/27/16 16:00 50 12/27/16 15:00 80 18 117/44 100 Mechanical Ventilator 50 12/27/16 14:43 80 14 50 12/27/16 14:00 80 14 94/68 100 Mechanical Ventilator 50 12/27/16 13:04 83 20 97/77 100 Mechanical Ventilator 50 12/27/16 12:47 85 14 50 12/27/16 12:26 102 12/27/16 12:00 97.4 83 14 96/54 100 Mechanical Ventilator 50 12/27/16 12:00 83 12/27/16 12:00 50 Intake and Output 12/27/16 12/28/16 19:00 07:00 Intake Total 1010 ml 1063 ml Output Total 0 ml 0 ml Balance 1010 ml 1063 ml Free Water 40 ml IV Total 470 ml 553 ml Tube Feeding 480 ml 480 ml Other 20 ml 30 ml Output Urine Total 0 ml 0 ml # Bowel Movements 3 4 Laboratory Tests Test 12/28/16 03:50 12/28/16 10:45 White Blood Count 9.2 K/UL (4.8-10.8) Red Blood Count 2.59 M/UL (4.20-5.40) L Hemoglobin 8.1 G/DL (12.0-16.0) L Hematocrit 25.7 % (37.0-47.0) L Mean Corpuscular Volume 100 FL (80-99) H Mean Corpuscular Hemoglobin 31.3 PG (27.0-31.0) H Mean Corpuscular Hemoglobin Concent 31.5 G/DL (32.0-36.0) L Red Cell Distribution Width 20.7 % (11.6-14.8) H Platelet Count 127 K/UL (150-450) L Mean Platelet Volume 9.6 FL (6.5-10.1) Neutrophils (%) (Auto) 81.6 % (45.0-75.0) H Lymphocytes (%) (Auto) 1.9 % (20.0-45.0) L Monocytes (%) (Auto) 13.8 % (1.0-10.0) H Eosinophils (%) (Auto) 2.0 % (0.0-3.0) Basophils (%) (Auto) 0.7 % (0.0-2.0) Sodium Level 134 mEQ/L (135-145) L Potassium Level 3.5 mEQ/L (3.4-4.9) Chloride Level 98 mEQ/L (98-107) Carbon Dioxide Level 24 mEQ/L (20-30) Anion Gap 12 (5-15) Blood Urea Nitrogen 27 mg/dL (7-23) H Creatinine 2.7 mg/dL (0.5-0.9) #H Estimat Glomerular Filtration Rate 17.9 mL/min (>60) Glucose Level 127 mg/dL (74-106) H Calcium Level 8.3 mg/dL (8.6-10.2) L Phosphorus Level 2.7 mg/dL (2.5-4.8) Magnesium Level 1.6 mg/dL (1.7-2.5) L Total Bilirubin 0.3 mg/dL (0.0-1.2) Aspartate Amino Transf (AST/SGOT) 25 U/L (5-40) Alanine Aminotransferase (ALT/SGPT) 8 U/L (3-33) Alkaline Phosphatase 226 U/L (35-104) H Ammonia 32 umol/L (11-51) Total Protein 6.0 g/dL (6.6-8.7) L Albumin 2.7 g/dL (3.5-5.2) L Globulin 3.3 g/dL Albumin/Globulin Ratio 0.8 (1.0-2.7) L Arterial Blood pH 7.237 (7.350-7.450) Arterial Blood Partial Pressure CO2 53.8 mmHg (35.0-45.0) H Arterial Blood Partial Pressure O2 210.0 mmHg (75.0-100.0) H Arterial Blood HCO3 22.4 mmol/L (22.0-26.0) Arterial Blood Oxygen Saturation 99.4 % (92.0-98.0) H Arterial Blood Base Excess -5.0 Antonio Test Positive Height (Feet): 4 Height (Inches): 9.00 Weight (Pounds): 75 General Appearance: no apparent distress, alert Cardiovascular: normal rate Respiratory/Chest: other - intubated / mech vent Abdominal Exam: other - OGT Objective Procedure: US ABD Complete Indication: Abnormal liver function tests and renal function tests Impression: Moderate ascites, nonspecific as regards etiology Negative for gallstones. There is mild gallbladder wall thickening, suspect secondary to whatever process is causing ascites, but acute acalculous cholecystitis not completely excludable. Consider nuclear medicine hepatobiliary scan if there is high clinical suspicion for acute cholecystitis Bilateral echogenic atrophic kidneys, consistent with known history of chronic renal disease uSzy Middleton N.P. Dec 28, 2016 11:14
--- NOTE | 2016-12-28 11:21 | Pulmonolgy Critical Care Note ---
Critical Care - Asmt/Plan Problems: (1) Acute respiratory failure (2) Altered mental state (3) CKD (chronic kidney disease) (4) Hyperkalemia (5) Liver cirrhosis (6) Connective tissue disease (7) CHF (congestive heart failure) Respiratory: monitor respiratory rate, adjust FIO2, CXR Cardiac: continue to monitor HR/BP Renal: F/U I&O, check electrolytes Infectious Disease: check cultures, continue antibiotics Gastrointestinal: continue feedings/current rate, hold feedings Endocrine: check TSH, continue sliding scale insulin Hematologic: monitor H/H, transfuse if hgb<8.5 Neurologic: PRN Ativan, keep patient comfortable Affect: PRN ativan Prophylaxis: Protonix Notes Reviewed: research engineer, renal Discussed with: nurses, consultants, disability case managergolf course manager - Objective Last 24 Hour Vital Signs Date Time Temp Pulse Resp B/P Pulse Ox O2 Delivery O2 Flow Rate FiO2 12/28/16 11:06 99 26 50 12/28/16 10:00 99 19 102/45 100 Mechanical Ventilator 50 12/28/16 09:20 96 16 50 12/28/16 09:18 98 12/28/16 09:00 98 19 107/43 100 Mechanical Ventilator 50 12/28/16 08:00 97.3 97 18 102/42 100 Mechanical Ventilator 50 12/28/16 08:00 94 12/28/16 08:00 50 12/28/16 07:00 94 19 94/38 100 Mechanical Ventilator 50 12/28/16 06:58 93 20 50 12/28/16 06:00 94 19 100/50 100 Mechanical Ventilator 50 12/28/16 05:00 91 17 90/63 100 Mechanical Ventilator 50 12/28/16 04:59 91 19 50 12/28/16 04:00 91 12/28/16 04:00 50 12/28/16 04:00 98.1 93 19 112/47 100 Mechanical Ventilator 50 12/28/16 03:00 89 17 103/47 100 Mechanical Ventilator 50 12/28/16 02:59 89 20 50 12/28/16 02:00 89 20 88/41 100 Mechanical Ventilator 50 12/28/16 01:06 90 25 50 12/28/16 01:00 87 18 91/45 100 Mechanical Ventilator 50 12/28/16 01:00 116/66 12/28/16 00:00 88 12/28/16 00:00 97.9 89 22 91/42 100 Mechanical Ventilator 50 12/28/16 00:00 50 12/27/16 23:08 86 22 50 12/27/16 23:00 84 18 83/50 100 Mechanical Ventilator 50 12/27/16 22:00 84 22 90/51 100 Mechanical Ventilator 50 12/27/16 21:08 86 21 50 12/27/16 21:00 86 21 90/51 100 Mechanical Ventilator 50 12/27/16 20:00 50 12/27/16 20:00 90 12/27/16 20:00 97.6 90 21 94/48 100 Mechanical Ventilator 50 12/27/16 19:28 93 12/27/16 19:00 93 20 103/50 100 Mechanical Ventilator 50 12/27/16 18:48 90 23 50 12/27/16 18:00 89 19 118/57 96 Mechanical Ventilator 50 12/27/16 17:00 88 14 92/62 100 Mechanical Ventilator 50 12/27/16 16:46 80 14 50 12/27/16 16:00 97.9 81 14 75/43 100 Mechanical Ventilator 50 12/27/16 16:00 81 12/27/16 16:00 50 12/27/16 15:00 80 18 117/44 100 Mechanical Ventilator 50 12/27/16 14:43 80 14 50 12/27/16 14:00 80 14 94/68 100 Mechanical Ventilator 50 12/27/16 13:04 83 20 97/77 100 Mechanical Ventilator 50 12/27/16 12:47 85 14 50 12/27/16 12:26 102 12/27/16 12:00 97.4 83 14 96/54 100 Mechanical Ventilator 50 12/27/16 12:00 83 12/27/16 12:00 50 Status: awake Condition: critical HEENT: atraumatic Neck: full ROM Lungs: clear Heart: HR/BP stable, HR/BP unstable Abdomen: non-tender, active bowel sounds, feeding tube Extremities: edema Decubiti: location, stage Micro: Microbiology Date/Time Source Procedure Growth Status 12/25/16 14:40 Indwelling Cath Urine Culture - Preliminary NO GROWTH AFTER 24 HOURS Resulted Accucheck: 55 Critical Care - Subjective ROS Limited/Unobtainable: No ICU Day: 6 Intubation Day: 6 Condition: critical EKG Rhythm: Sinus Rhythm FI02: 50 Vent Support Breath Rate: 10 Vent Support Mode: CPAP Vent Tidal Volume: 450 Sputum Amount: Scant PEEP: 5.0 PIP: 40 Tube Feeding Amount: 40 I&O: Intake and Output 12/27/16 12/28/16 19:00 07:00 Intake Total 1010 ml 1063 ml Output Total 0 ml 0 ml Balance 1010 ml 1063 ml Free Water 40 ml IV Total 470 ml 553 ml Tube Feeding 480 ml 480 ml Other 20 ml 30 ml Output Urine Total 0 ml 0 ml # Bowel Movements 3 4 CXR: no change ET-Tube: 7.5 ET Position: 22 Labs: Laboratory Tests Test 12/28/16 03:50 12/28/16 10:45 White Blood Count 9.2 K/UL (4.8-10.8) Red Blood Count 2.59 M/UL (4.20-5.40) L Hemoglobin 8.1 G/DL (12.0-16.0) L Hematocrit 25.7 % (37.0-47.0) L Mean Corpuscular Volume 100 FL (80-99) H Mean Corpuscular Hemoglobin 31.3 PG (27.0-31.0) H Mean Corpuscular Hemoglobin Concent 31.5 G/DL (32.0-36.0) L Red Cell Distribution Width 20.7 % (11.6-14.8) H Platelet Count 127 K/UL (150-450) L Mean Platelet Volume 9.6 FL (6.5-10.1) Neutrophils (%) (Auto) 81.6 % (45.0-75.0) H Lymphocytes (%) (Auto) 1.9 % (20.0-45.0) L Monocytes (%) (Auto) 13.8 % (1.0-10.0) H Eosinophils (%) (Auto) 2.0 % (0.0-3.0) Basophils (%) (Auto) 0.7 % (0.0-2.0) Sodium Level 134 mEQ/L (135-145) L Potassium Level 3.5 mEQ/L (3.4-4.9) Chloride Level 98 mEQ/L (98-107) Carbon Dioxide Level 24 mEQ/L (20-30) Anion Gap 12 (5-15) Blood Urea Nitrogen 27 mg/dL (7-23) H Creatinine 2.7 mg/dL (0.5-0.9) #H Estimat Glomerular Filtration Rate 17.9 mL/min (>60) Glucose Level 127 mg/dL (74-106) H Calcium Level 8.3 mg/dL (8.6-10.2) L Phosphorus Level 2.7 mg/dL (2.5-4.8) Magnesium Level 1.6 mg/dL (1.7-2.5) L Total Bilirubin 0.3 mg/dL (0.0-1.2) Aspartate Amino Transf (AST/SGOT) 25 U/L (5-40) Alanine Aminotransferase (ALT/SGPT) 8 U/L (3-33) Alkaline Phosphatase 226 U/L (35-104) H Ammonia 32 umol/L (11-51) Total Protein 6.0 g/dL (6.6-8.7) L Albumin 2.7 g/dL (3.5-5.2) L Globulin 3.3 g/dL Albumin/Globulin Ratio 0.8 (1.0-2.7) L Arterial Blood pH 7.237 (7.350-7.450) Arterial Blood Partial Pressure CO2 53.8 mmHg (35.0-45.0) H Arterial Blood Partial Pressure O2 210.0 mmHg (75.0-100.0) H Arterial Blood HCO3 22.4 mmol/L (22.0-26.0) Arterial Blood Oxygen Saturation 99.4 % (92.0-98.0) H Arterial Blood Base Excess -5.0 Antonio Test Positive FRANCESCA FELTON Dec 28, 2016 11:21
--- NOTE | 2016-12-28 12:27 | Infectious Diseases Prog Note ---
Assessment/Plan Assessment/Plan ASSESSMENT: 61 y/o female with: // SP probable sepsis - cultures(-) // Negative C.difficile // Shock SP - off pressors // Leukopenia SP // Hypothermia SP // Acute encephalopathy / found down ?hepatic ( elevated NH4 ) r/o septic - improved - CT Head: No evidence of acute intracranial pathology. Bilateral cerebral periventricular and deepwhite matter low attenuation, nonspecific, likely chronic microvascular ischemic in nature. Atrophy // Acute VDRF - intubated 12/22, weaning // ?Cirrhosis / chronic liver disease with elevated LFTs, leukopenia, chronic macrocytic anemia, TCP, coagulopathy, hypoalbuminemia - US: pending // ESRD / HD with right chest TDC // FOBT(+) macrocytic anemia SP PRBCs - recent EGD: GAVE // Probable CHF exacerbation - CXR: evidence of congestive heart failure including pulmonary edema, small bilateral pleural effusions - TTE: EF 65%, grade I diastolic dysfunction, mild-mod TR, mod MR, pulmonary HTN // Elevated ESR // NH resident // NKDA // Full Code PLAN: - monitor pt off of ABX ( 12/27 SP IV vancomycin d# 5 / 5 ) ( 12/23 SP zosyn ) - monitor CBC, temperatures, re-culture if acute change - monitor BMP - monitor CXR - vent support, wean as tolerated - transfuse prn Subjective Allergies: Coded Allergies: No Known Allergies (Unverified , 12/22/16) Subjective remains afebrile, awake on vent Objective Vital Signs Last 24 Hour Vital Signs Date Time Temp Pulse Resp B/P Pulse Ox O2 Delivery O2 Flow Rate FiO2 12/28/16 11:06 99 26 50 12/28/16 10:00 99 19 102/45 100 Mechanical Ventilator 50 12/28/16 09:20 96 16 50 12/28/16 09:18 98 12/28/16 09:00 98 19 107/43 100 Mechanical Ventilator 50 12/28/16 08:00 97.3 97 18 102/42 100 Mechanical Ventilator 50 12/28/16 08:00 94 12/28/16 08:00 50 12/28/16 07:00 94 19 94/38 100 Mechanical Ventilator 50 12/28/16 06:58 93 20 50 12/28/16 06:00 94 19 100/50 100 Mechanical Ventilator 50 12/28/16 05:00 91 17 90/63 100 Mechanical Ventilator 50 12/28/16 04:59 91 19 50 12/28/16 04:00 91 12/28/16 04:00 50 12/28/16 04:00 98.1 93 19 112/47 100 Mechanical Ventilator 50 12/28/16 03:00 89 17 103/47 100 Mechanical Ventilator 50 12/28/16 02:59 89 20 50 12/28/16 02:00 89 20 88/41 100 Mechanical Ventilator 50 12/28/16 01:06 90 25 50 12/28/16 01:00 87 18 91/45 100 Mechanical Ventilator 50 12/28/16 01:00 116/66 12/28/16 00:00 88 12/28/16 00:00 97.9 89 22 91/42 100 Mechanical Ventilator 50 12/28/16 00:00 50 12/27/16 23:08 86 22 50 12/27/16 23:00 84 18 83/50 100 Mechanical Ventilator 50 12/27/16 22:00 84 22 90/51 100 Mechanical Ventilator 50 12/27/16 21:08 86 21 50 12/27/16 21:00 86 21 90/51 100 Mechanical Ventilator 50 12/27/16 20:00 50 12/27/16 20:00 90 12/27/16 20:00 97.6 90 21 94/48 100 Mechanical Ventilator 50 12/27/16 19:28 93 12/27/16 19:00 93 20 103/50 100 Mechanical Ventilator 50 12/27/16 18:48 90 23 50 12/27/16 18:00 89 19 118/57 96 Mechanical Ventilator 50 12/27/16 17:00 88 14 92/62 100 Mechanical Ventilator 50 12/27/16 16:46 80 14 50 12/27/16 16:00 97.9 81 14 75/43 100 Mechanical Ventilator 50 12/27/16 16:00 81 12/27/16 16:00 50 12/27/16 15:00 80 18 117/44 100 Mechanical Ventilator 50 12/27/16 14:43 80 14 50 12/27/16 14:00 80 14 94/68 100 Mechanical Ventilator 50 12/27/16 13:04 83 20 97/77 100 Mechanical Ventilator 50 12/27/16 12:47 85 14 50 Height (Feet): 4 Height (Inches): 9.00 Weight (Pounds): 75 General Appearance: other - intubated, awake Respiratory/Chest: decreased breath sounds Cardiovascular: normal rate, regular rhythm Abdomen: normal bowel sounds, soft, non tender, non distended Microbiology Date/Time Source Procedure Growth Status 12/25/16 14:40 Indwelling Cath Urine Culture - Preliminary NO GROWTH AFTER 24 HOURS Resulted Laboratory Tests Test 12/28/16 03:50 12/28/16 10:45 White Blood Count 9.2 K/UL (4.8-10.8) Red Blood Count 2.59 M/UL (4.20-5.40) L Hemoglobin 8.1 G/DL (12.0-16.0) L Hematocrit 25.7 % (37.0-47.0) L Mean Corpuscular Volume 100 FL (80-99) H Mean Corpuscular Hemoglobin 31.3 PG (27.0-31.0) H Mean Corpuscular Hemoglobin Concent 31.5 G/DL (32.0-36.0) L Red Cell Distribution Width 20.7 % (11.6-14.8) H Platelet Count 127 K/UL (150-450) L Mean Platelet Volume 9.6 FL (6.5-10.1) Neutrophils (%) (Auto) 81.6 % (45.0-75.0) H Lymphocytes (%) (Auto) 1.9 % (20.0-45.0) L Monocytes (%) (Auto) 13.8 % (1.0-10.0) H Eosinophils (%) (Auto) 2.0 % (0.0-3.0) Basophils (%) (Auto) 0.7 % (0.0-2.0) Sodium Level 134 mEQ/L (135-145) L Potassium Level 3.5 mEQ/L (3.4-4.9) Chloride Level 98 mEQ/L (98-107) Carbon Dioxide Level 24 mEQ/L (20-30) Anion Gap 12 (5-15) Blood Urea Nitrogen 27 mg/dL (7-23) H Creatinine 2.7 mg/dL (0.5-0.9) #H Estimat Glomerular Filtration Rate 17.9 mL/min (>60) Glucose Level 127 mg/dL (74-106) H Calcium Level 8.3 mg/dL (8.6-10.2) L Phosphorus Level 2.7 mg/dL (2.5-4.8) Magnesium Level 1.6 mg/dL (1.7-2.5) L Total Bilirubin 0.3 mg/dL (0.0-1.2) Aspartate Amino Transf (AST/SGOT) 25 U/L (5-40) Alanine Aminotransferase (ALT/SGPT) 8 U/L (3-33) Alkaline Phosphatase 226 U/L (35-104) H Ammonia 32 umol/L (11-51) Total Protein 6.0 g/dL (6.6-8.7) L Albumin 2.7 g/dL (3.5-5.2) L Globulin 3.3 g/dL Albumin/Globulin Ratio 0.8 (1.0-2.7) L Arterial Blood pH 7.237 (7.350-7.450) Arterial Blood Partial Pressure CO2 53.8 mmHg (35.0-45.0) H Arterial Blood Partial Pressure O2 210.0 mmHg (75.0-100.0) H Arterial Blood HCO3 22.4 mmol/L (22.0-26.0) Arterial Blood Oxygen Saturation 99.4 % (92.0-98.0) H Arterial Blood Base Excess -5.0 Antonio Test Positive Current Medications Medications (Trade) Dose Ordered Sig/Reji Route PRN Reason Start Time Stop Time Status Last Admin Dose Admin Acetaminophen (Tylenol) 650 mg Q4H PRN ORAL fever 12/22/16 13:45 01/21/17 13:44 Albumin Human (Albumisol) 100 ml @ 200 mls/hr PRN PRN IV sbp<90 during hd 12/28/16 14:30 01/27/17 14:29 Albuterol/ Ipratropium (DuoNeb 0.5-3(2.5)mg/3ml) 3 ml Q4H PRN HHN Shortness of Breath 12/27/16 09:45 01/01/17 09:44 Dextrose/Sodium Chloride 1,000 ml @ 20 mls/hr Q24H IV 12/23/16 11:00 01/22/17 10:59 12/27/16 11:17 Epoetin José Miguel (Procrit (for ESRD on dialysis)) 10,000 units WED-WED-WED SUBQ 12/28/16 21:00 01/27/17 20:59 Lactulose (Cephulac) 20 gm DAILY GT 12/26/16 09:00 01/25/17 08:59 12/28/16 09:18 Lorazepam 2 mg 2 mg Q4H PRN IV For Anxiety 12/22/16 13:45 12/29/16 13:44 12/27/16 08:22 Morphine Sulfate 4 mg 4 mg Q4H PRN IVP PAIN 4-10 12/27/16 09:45 01/03/17 09:44 Nitroglycerin (Ntg) 0.4 mg Q5MIN X 3 DOSES PRN SL Prn Chest Pain 12/22/16 13:45 01/21/17 13:44 Norepinephrine Bitartrate 4 mg/ Dextrose 250 ml @ 0 mls/hr Q24H IV 12/23/16 01:00 01/22/17 00:59 12/26/16 01:00 Ondansetron HCl (Zofran) 4 mg Q6H PRN IVP Nausea & Vomiting 12/22/16 13:45 01/21/17 13:44 12/23/16 19:36 Pantoprazole/ Sodium Chloride (Protonix/Sodium Chloride) 250 ml @ 25 mls/hr Q10H IV 12/23/16 15:30 01/22/17 15:29 12/28/16 05:29 Polyethylene Glycol (Miralax) 17 gm DAILYPRN PRN GT Constipation 12/25/16 11:03 01/21/17 13:44 Propafenone HCl (Rythmol) 225 mg TID NG 12/23/16 21:00 01/22/17 20:59 12/28/16 09:18 Rifaximin (Xifaxan) 550 mg EVERY 12 HOURS GT 12/25/16 11:03 12/30/16 20:59 12/28/16 09:17 DARLIN GRANADO Dec 28, 2016 12:27
[2016-12-28 12:33] LABS: ABG ALLEN TEST POSITIVE; ABG BASE EXCESS -4.8
--- NOTE | 2016-12-28 13:28 | Diagnostic Imaging Report ---
Indication: Dyspnea Comparison: 12/27/16 A single view chest radiograph was obtained. Findings: Tubes and lines are satisfactory and stable. Heart is enlarged but stable. Lungs are grossly clear.. The bones are osteopenic. Impression: No significant change
[2016-12-28] MEDS ORDERED: D5W 275ml ONE (17:34)
[2016-12-28] MEDS ORDERED: NS 275ml ONE (17:34)
[2016-12-28] MEDS: Pantoprazole Inj IVP SCH (18:00)
[2016-12-28] MEDS: Epogen (for ESRD on dialysis) SUBQ SCH (21:55)
[2016-12-29] VITALS (24 sets, daily range): BP systolic 92–148; BP diastolic 44–70
[2016-12-29 04:06] LABS: BASOPHILS % (AUTO) 0.5 % (0.0-2.0); EOSINOPHILS % (AUTO) 1.3 % (0.0-3.0); LYMPHOCYTES % (AUTO) 2.3 % (20.0-45.0); MEAN CORPUSCULAR HEMOGLOBIN 30.7 PG (27.0-31.0); MEAN CORPUSCULAR HGB CONC 30.8 G/DL (32.0-36.0); MEAN CORPUSCULAR VOLUME 100 FL (80-99); MEAN PLATELET VOLUME 9.7 FL (6.5-10.1); MONOCYTES % (AUTO) 11.2 % (1.0-10.0); NEUTROPHILS % (AUTO) 84.8 % (45.0-75.0); PLATELET COUNT 118 K/UL (150-450); RED BLOOD COUNT 2.59 M/UL (4.20-5.40); RED CELL DISTRIBUTION WIDTH 20.9 % (11.6-14.8); WHITE BLOOD COUNT 10.5 K/UL (4.8-10.8)
[2016-12-29 04:17] LABS: MAGNESIUM 1.6 mg/dL (1.7-2.5); PHOSPHORUS 1.6 mg/dL (2.5-4.8)
[2016-12-29 04:18] LABS: ALBUMIN/GLOBULIN RATIO 0.7 (1.0-2.7); CALCIUM 7.8 mg/dL (8.6-10.2); CREATININE 2.1 mg/dL (0.5-0.9); GLOMERULAR FILTRATION RATE 23.9 mL/min (>60); POTASSIUM 3.6 mEQ/L (3.4-4.9); TOTAL PROTEIN 5.8 g/dL (6.6-8.7)
[2016-12-29] MEDS: Rifaximin 550mg tab GT SCH ×2 (09:03→21:59)
[2016-12-29] MEDS: Lactulose 20gm/30ml UDC GT SCH (09:03)
[2016-12-29] MEDS: Pantoprazole Inj IVP SCH ×2 (09:03→18:43)
--- NOTE | 2016-12-29 09:51 | Pulmonolgy Critical Care Note ---
Critical Care - Asmt/Plan Problems: (1) Acute respiratory failure (2) Altered mental state (3) CKD (chronic kidney disease) (4) Hyperkalemia (5) Liver cirrhosis (6) Connective tissue disease (7) CHF (congestive heart failure) Respiratory: monitor respiratory rate, adjust FIO2, CXR, weaning trial - failed yesterday, other - will wean again Cardiac: continue to monitor HR/BP Renal: F/U I&O, keep IV fluid Infectious Disease: check cultures, continue antibiotics Gastrointestinal: continue feedings/current rate Endocrine: monitor blood sugar, check TSH, continue sliding scale insulin Hematologic: monitor H/H, transfuse if hgb<8.5 Neurologic: PRN Ativan, PRN Morphine, keep patient comfortable Affect: PRN ativan Prophylaxis: Protonix, Heparin Disposition: keep in ICU Notes Reviewed: crisis mental health therapist, cardio, renal Discussed with: nurses, consultants, nurse case managementcomputer security manager - Objective Last 24 Hour Vital Signs Date Time Temp Pulse Resp B/P Pulse Ox O2 Delivery O2 Flow Rate FiO2 12/29/16 09:17 96 10 30 12/29/16 09:04 94 12/29/16 08:00 97.8 93 15 97/46 100 Mechanical Ventilator 30 12/29/16 08:00 30 12/29/16 07:23 95 15 30 12/29/16 07:00 94 20 101/48 100 Mechanical Ventilator 30 12/29/16 06:00 93 20 106/47 100 Mechanical Ventilator 30 12/29/16 05:10 97 21 30 12/29/16 05:00 94 20 104/48 100 Mechanical Ventilator 30 12/29/16 04:00 98.0 90 20 96/44 100 Mechanical Ventilator 30 12/29/16 04:00 93 12/29/16 04:00 30 12/29/16 03:56 92 15 30 12/29/16 03:30 94 25 30 12/29/16 03:00 90 20 93/46 100 Mechanical Ventilator 30 12/29/16 02:00 92 20 94/47 100 Mechanical Ventilator 30 12/29/16 01:30 90 22 30 12/29/16 01:00 93 20 96/50 100 Mechanical Ventilator 30 12/29/16 00:00 97.6 83 19 108/56 100 Mechanical Ventilator 30 12/29/16 00:00 30 2/21/17 00:00 89 12/28/16 23:30 90 21 30 12/28/16 23:08 30 12/28/16 23:00 91 19 107/47 100 Mechanical Ventilator 30 12/28/16 22:00 97 20 93/40 100 Mechanical Ventilator 40 12/28/16 21:30 91 16 30 12/28/16 21:00 92 20 90/46 100 Mechanical Ventilator 40 12/28/16 20:59 40 12/28/16 20:00 98.1 90 19 87/49 100 Mechanical Ventilator 50 12/28/16 20:00 98 12/28/16 20:00 50 12/28/16 19:30 92 17 40 12/28/16 19:00 93 19 103/60 100 Mechanical Ventilator 50 12/28/16 18:03 98 20 136/74 100 Mechanical Ventilator 50 12/28/16 18:00 106 12/28/16 17:20 95 22 50 12/28/16 17:00 97.2 99 21 114/60 100 Mechanical Ventilator 50 12/28/16 16:00 50 12/28/16 16:00 99 21 108/53 100 Mechanical Ventilator 50 12/28/16 16:00 97 12/28/16 15:49 98 20 50 12/28/16 15:04 Mechanical Ventilator 12/28/16 15:00 97 22 103/50 100 Mechanical Ventilator 50 12/28/16 14:00 95 16 104/50 100 Mechanical Ventilator 50 12/28/16 13:00 101 19 113/62 100 Mechanical Ventilator 50 12/28/16 13:00 50 12/28/16 12:38 102 24 50 12/28/16 12:34 Room Air 12/28/16 12:00 96.5 102 21 114/56 100 Mechanical Ventilator 50 12/28/16 12:00 102 12/28/16 11:06 99 26 50 12/28/16 11:00 98 17 108/48 100 Mechanical Ventilator 50 12/28/16 11:00 50 12/28/16 10:00 99 19 102/45 100 Mechanical Ventilator 50 Status: awake Condition: critical, improving HEENT: atraumatic Neck: full ROM Lungs: clear Heart: HR/BP stable Abdomen: soft, non-tender, active bowel sounds Extremities: no C/C/E, edema Accucheck: 55 Critical Care - Subjective ROS Limited/Unobtainable: No ICU Day: comfortable, awake Condition: critical EKG Rhythm: Sinus Rhythm FI02: 30 Vent Support Breath Rate: 10 Vent Support Mode: IMV/SIMV Vent Tidal Volume: 450 Sputum Amount: Moderate PEEP: 5.0 PIP: 49 Tube Feeding Amount: 25 I&O: Intake and Output 12/28/16 12/29/16 19:00 07:00 Intake Total 905 ml 740 ml Output Total 1000 ml Balance -95 ml 740 ml Free Water 150 ml 150 ml IV Total 370 ml 240 ml Tube Feeding 285 ml 300 ml Other 100 ml 50 ml Output Urine Total 0 ml Hemodialysis UF 1000 ml # Bowel Movements 3 2 CXR: no acute infiltrate ET-Tube: 7.5 ET Position: 22 Labs: Laboratory Tests Test 12/28/16 10:45 12/28/16 12:20 12/29/16 03:50 Arterial Blood pH 7.237 (7.350-7.450) 7.179 (7.350-7.450) Arterial Blood Partial Pressure CO2 53.8 mmHg (35.0-45.0) H 68.0 mmHg (35.0-45.0) *H Arterial Blood Partial Pressure O2 210.0 mmHg (75.0-100.0) H 89.5 mmHg (75.0-100.0) Arterial Blood HCO3 22.4 mmol/L (22.0-26.0) 24.8 mmol/L (22.0-26.0) Arterial Blood Oxygen Saturation 99.4 % (92.0-98.0) H 96.3 % (92.0-98.0) Arterial Blood Base Excess -5.0 -4.8 Antonio Test Positive Positive White Blood Count 10.5 K/UL (4.8-10.8) Red Blood Count 2.59 M/UL (4.20-5.40) L Hemoglobin 8.0 G/DL (12.0-16.0) L Hematocrit 25.9 % (37.0-47.0) L Mean Corpuscular Volume 100 FL (80-99) H Mean Corpuscular Hemoglobin 30.7 PG (27.0-31.0) Mean Corpuscular Hemoglobin Concent 30.8 G/DL (32.0-36.0) L Red Cell Distribution Width 20.9 % (11.6-14.8) H Platelet Count 118 K/UL (150-450) L Mean Platelet Volume 9.7 FL (6.5-10.1) Neutrophils (%) (Auto) 84.8 % (45.0-75.0) H Lymphocytes (%) (Auto) 2.3 % (20.0-45.0) L Monocytes (%) (Auto) 11.2 % (1.0-10.0) H Eosinophils (%) (Auto) 1.3 % (0.0-3.0) Basophils (%) (Auto) 0.5 % (0.0-2.0) Sodium Level 134 mEQ/L (135-145) L Potassium Level 3.6 mEQ/L (3.4-4.9) Chloride Level 95 mEQ/L (98-107) L Carbon Dioxide Level 27 mEQ/L (20-30) Anion Gap 12 (5-15) Blood Urea Nitrogen 21 mg/dL (7-23) Creatinine 2.1 mg/dL (0.5-0.9) H Estimat Glomerular Filtration Rate 23.9 mL/min (>60) Glucose Level 127 mg/dL (74-106) H Calcium Level 7.8 mg/dL (8.6-10.2) L Phosphorus Level 1.6 mg/dL (2.5-4.8) L Magnesium Level 1.6 mg/dL (1.7-2.5) L Total Bilirubin 0.3 mg/dL (0.0-1.2) Aspartate Amino Transf (AST/SGOT) 23 U/L (5-40) Alanine Aminotransferase (ALT/SGPT) 7 U/L (3-33) Alkaline Phosphatase 199 U/L (35-104) H Total Protein 5.8 g/dL (6.6-8.7) L Albumin 2.5 g/dL (3.5-5.2) L Globulin 3.3 g/dL Albumin/Globulin Ratio 0.7 (1.0-2.7) L FRANCESCA FELTON Dec 29, 2016 09:51
[2016-12-29] MEDS: Neutraphos-K pkt GT SCH ×2 (11:06→18:43)
--- NOTE | 2016-12-29 11:43 | Diagnostic Imaging Report ---
Indication: DYSPNEA Technique: One view of the chest Comparison: 12/28/2016 Findings: Stable satisfactory positions of endotracheal tube, nasogastric tube, right jugular temporary dialysis catheter. There is minimal interstitial prominence, appearing similar to the previous days exam. There is slight blunting of the costophrenic angles, likely indicating a small amount of pleural fluid. Findings are overall unchanged Impression: Unchanged, over one day, findings as above.
[2016-12-29 11:59] LABS: ABG ALLEN TEST POSITIVE; ABG BASE EXCESS 2.9; ABG PCO2 54.9 mmHg (35.0-45.0)
--- NOTE | 2016-12-29 12:49 | Nephrology Progress Note ---
Assessment/Plan Problem List: (1) Hypovolemic shock (2) End-stage kidney disease (3) Acute respiratory failure (4) CHF (congestive heart failure) (5) Liver cirrhosis (6) Hypoalbuminemia (7) Severe malnutrition (8) GAVE (gastric antral vascular ectasia) (9) Diarrhea Plan try to wean off levophed, done , hd 12/28 stable watch bp closely, increase tube feeding, stop iv fluids, next hd 12/30 Subjective Constitutional: Reports: weakness HEENT: Reports: no symptoms Genitourinary: Reports: no symptoms Neurologic/Psychiatric: Reports: no symptoms Subjective awake on vent Objective Objective Last 24 Hour Vital Signs Date Time Temp Pulse Resp B/P Pulse Ox O2 Delivery O2 Flow Rate FiO2 12/29/16 12:00 97.8 92 16 110/61 100 Mechanical Ventilator 30 12/29/16 11:06 109 24 30 12/29/16 11:00 97 21 133/66 100 Mechanical Ventilator 30 12/29/16 10:00 105 17 148/65 100 Mechanical Ventilator 12/29/16 09:30 30 12/29/16 09:17 96 10 30 12/29/16 09:04 94 12/29/16 09:00 94 17 92/49 100 Mechanical Ventilator 30 12/29/16 08:00 94 12/29/16 08:00 97.8 93 15 97/46 100 Mechanical Ventilator 30 12/29/16 08:00 30 12/29/16 07:23 95 15 30 12/29/16 07:00 94 20 101/48 100 Mechanical Ventilator 30 12/29/16 06:00 93 20 106/47 100 Mechanical Ventilator 30 12/29/16 05:10 97 21 30 12/29/16 05:00 94 20 104/48 100 Mechanical Ventilator 30 12/29/16 04:00 98.0 90 20 96/44 100 Mechanical Ventilator 30 12/29/16 04:00 93 12/29/16 04:00 30 12/29/16 03:56 92 15 30 12/29/16 03:30 94 25 30 12/29/16 03:00 90 20 93/46 100 Mechanical Ventilator 30 12/29/16 02:00 92 20 94/47 100 Mechanical Ventilator 30 12/29/16 01:30 90 22 30 12/29/16 01:00 93 20 96/50 100 Mechanical Ventilator 30 12/29/16 00:00 97.6 83 19 108/56 100 Mechanical Ventilator 30 12/29/16 00:00 30 12/29/16 00:00 89 12/28/16 23:30 90 21 30 12/28/16 23:08 30 12/28/16 23:00 91 19 107/47 100 Mechanical Ventilator 30 12/28/16 22:00 97 20 93/40 100 Mechanical Ventilator 40 12/28/16 21:30 91 16 30 12/28/16 21:00 92 20 90/46 100 Mechanical Ventilator 40 12/28/16 20:59 40 12/28/16 20:00 98.1 90 19 87/49 100 Mechanical Ventilator 50 12/28/16 20:00 98 12/28/16 20:00 50 12/28/16 19:30 92 17 40 12/28/16 19:00 93 19 103/60 100 Mechanical Ventilator 50 12/28/16 18:03 98 20 136/74 100 Mechanical Ventilator 50 12/28/16 18:00 106 12/28/16 17:20 95 22 50 12/28/16 17:00 97.2 99 21 114/60 100 Mechanical Ventilator 50 12/28/16 16:00 50 12/28/16 16:00 99 21 108/53 100 Mechanical Ventilator 50 12/28/16 16:00 97 12/28/16 15:49 98 20 50 12/28/16 15:04 Mechanical Ventilator 12/28/16 15:00 97 22 103/50 100 Mechanical Ventilator 50 12/28/16 14:00 95 16 104/50 100 Mechanical Ventilator 50 12/28/16 13:00 101 19 113/62 100 Mechanical Ventilator 50 12/28/16 13:00 50 Intake and Output 12/28/16 12/29/16 19:00 07:00 Intake Total 905 ml 740 ml Output Total 1000 ml Balance -95 ml 740 ml Free Water 150 ml 150 ml IV Total 370 ml 240 ml Tube Feeding 285 ml 300 ml Other 100 ml 50 ml Output Urine Total 0 ml Hemodialysis UF 1000 ml # Bowel Movements 3 2 Laboratory Tests 12/29/16 03:50: White Blood Count 10.5, Red Blood Count 2.59L, Hemoglobin 8.0L, Hematocrit 25.9L , Mean Corpuscular Volume 100H, Mean Corpuscular Hemoglobin 30.7, Mean Corpuscular Hemoglobin Concent 30.8L, Red Cell Distribution Width 20.9H, Platelet Count 118L, Mean Platelet Volume 9.7, Neutrophils (%) (Auto) 84.8H, Lymphocytes (%) (Auto) 2.3L, Monocytes (%) (Auto) 11.2H, Eosinophils (%) (Auto) 1.3, Basophils (%) (Auto) 0.5, Sodium Level 134L, Potassium Level 3.6, Chloride Level 95L, Carbon Dioxide Level 27, Anion Gap 12, Blood Urea Nitrogen 21, Creatinine 2.1H, Estimat Glomerular Filtration Rate 23.9, Glucose Level 127H, Calcium Level 7.8L, Phosphorus Level 1.6L, Magnesium Level 1.6L, Total Bilirubin 0.3, Aspartate Amino Transf (AST/SGOT) 23, Alanine Aminotransferase ( ALT/SGPT) 7, Alkaline Phosphatase 199H, Total Protein 5.8L, Albumin 2.5L, Globulin 3.3, Albumin/Globulin Ratio 0.7L 12/29/16 11:50: Arterial Blood pH 7.345L, Arterial Blood Partial Pressure CO2 54.9H, Arterial Blood Partial Pressure O2 117.9H, Arterial Blood HCO3 29.3H, Arterial Blood Oxygen Saturation 98.4H, Arterial Blood Base Excess 2.9, Antonio Test Positive Height (Feet): 4 Height (Inches): 9.00 Weight (Pounds): 75 General Appearance: thin EENT: normal ENT inspection Neck: non-tender, normal alignment Cardiovascular: normal rate, regular rhythm Respiratory/Chest: lungs clear, decreased breath sounds Abdomen: non tender Extremities: other - no edema Neurologic: sign artist II-XII grossly normal PERLITA HOOD Dec 29, 2016 12:49
--- NOTE | 2016-12-29 13:05 | GI Progress Note ---
Assessment/Plan Problems: (1) End-stage kidney disease ICD Codes: N18.6 - End stage renal disease SNOMED: 78684633 (2) GAVE (gastric antral vascular ectasia) ICD Codes: K31.819 - Angiodysplasia of stomach and duodenum without bleeding SNOMED: 74590868 (3) Severe malnutrition ICD Codes: E43 - Unspecified severe protein-calorie malnutrition SNOMED: 66493870 (4) Hypoalbuminemia ICD Codes: E88.09 - Other disorders of plasma-protein metabolism, not elsewhere classified SNOMED: 316878236 (5) Anemia ICD Codes: D64.9 - Anemia, unspecified SNOMED: 079053810 (6) Liver cirrhosis ICD Codes: K74.60 - Unspecified cirrhosis of liver SNOMED: 58037862 Status: unchanged Status Narrative Discussed with Dr. Galarza. Assessment/Plan s/p EGD/colon at [facility] recently, see full report in chart. >> - No varices given history of cirrhosis. - GAVE appearance and did not show portal hypertensive gastropathy. - Findings included an active bleed in the focal area of the antrum which was treated. - Noted that the patient went into a CODE BLUE during the procedure. KUB >> negative abd U/S >> Moderate ascites. Mild gallbladder wall thickening. >> s/p 1600 paracentesis 2 days ago elevated ammonia OB stool positive Hep panel negative cdiff negative defer any GI procedures at this time monitor H&H, transfuse prn Protonix BID OGT to goal rate per dietary lactulose + Xifaxan fu labs poor prognosis Subjective Subjective limited Objective Last 24 Hour Vital Signs Date Time Temp Pulse Resp B/P Pulse Ox O2 Delivery O2 Flow Rate FiO2 12/29/16 12:00 97.8 92 16 110/61 100 Mechanical Ventilator 30 12/29/16 11:06 109 24 30 12/29/16 11:00 97 21 133/66 100 Mechanical Ventilator 30 12/29/16 10:00 105 17 148/65 100 Mechanical Ventilator 30 12/29/16 09:30 30 12/29/16 09:17 96 10 30 12/29/16 09:04 94 12/29/16 09:00 94 17 92/49 100 Mechanical Ventilator 30 12/29/16 08:00 94 12/29/16 08:00 97.8 93 15 97/46 100 Mechanical Ventilator 30 12/29/16 08:00 30 12/29/16 07:23 95 15 30 12/29/16 07:00 94 20 101/48 100 Mechanical Ventilator 30 12/29/16 06:00 93 20 106/47 100 Mechanical Ventilator 30 12/29/16 05:10 97 21 30 12/29/16 05:00 94 20 104/48 100 Mechanical Ventilator 30 12/29/16 04:00 98.0 90 20 96/44 100 Mechanical Ventilator 30 12/29/16 04:00 93 12/29/16 04:00 30 12/29/16 03:56 92 15 30 12/29/16 03:30 94 25 30 12/29/16 03:00 90 20 93/46 100 Mechanical Ventilator 30 12/29/16 02:00 92 20 94/47 100 Mechanical Ventilator 30 12/29/16 01:30 90 22 30 12/29/16 01:00 93 20 96/50 100 Mechanical Ventilator 30 12/29/16 00:00 97.6 83 19 108/56 100 Mechanical Ventilator 30 12/29/16 00:00 30 12/29/16 00:00 89 12/28/16 23:30 90 21 30 12/28/16 23:08 30 12/28/16 23:00 91 19 107/47 100 Mechanical Ventilator 30 12/28/16 22:00 97 20 93/40 100 Mechanical Ventilator 40 12/28/16 21:30 91 16 30 12/28/16 21:00 92 20 90/46 100 Mechanical Ventilator 40 12/28/16 20:59 40 12/28/16 20:00 98.1 90 19 87/49 100 Mechanical Ventilator 50 12/28/16 20:00 98 12/28/ 20:00 50 12/28/16 19:30 92 17 40 12/28/16 19:00 93 19 103/60 100 Mechanical Ventilator 50 12/28/16 18:03 98 20 136/74 100 Mechanical Ventilator 50 12/28/16 18:00 106 12/28/16 17:20 95 22 50 12/28/16 17:00 97.2 99 21 114/60 100 Mechanical Ventilator 50 12/28/17 16:00 50 12/28/16 16:00 99 21 108/53 100 Mechanical Ventilator 50 12/28/16 16:00 97 12/28/16 15:49 98 20 50 12/28/16 15:04 Mechanical Ventilator 12/28/16 15:00 97 22 103/50 100 Mechanical Ventilator 50 12/28/16 14:00 95 16 104/50 100 Mechanical Ventilator 50 Intake and Output 12/28/16 12/29/16 19:00 07:00 Intake Total 905 ml 740 ml Output Total 1000 ml Balance -95 ml 740 ml Free Water 150 ml 150 ml IV Total 370 ml 240 ml Tube Feeding 285 ml 300 ml Other 100 ml 50 ml Output Urine Total 0 ml Hemodialysis UF 1000 ml # Bowel Movements 3 2 Laboratory Tests Test 12/29/16 03:50 12/29/16 11:50 White Blood Count 10.5 K/UL (4.8-10.8) Red Blood Count 2.59 M/UL (4.20-5.40) L Hemoglobin 8.0 G/DL (12.0-16.0) L Hematocrit 25.9 % (37.0-47.0) L Mean Corpuscular Volume 100 FL (80-99) H Mean Corpuscular Hemoglobin 30.7 PG (27.0-31.0) Mean Corpuscular Hemoglobin Concent 30.8 G/DL (32.0-36.0) L Red Cell Distribution Width 20.9 % (11.6-14.8) H Platelet Count 118 K/UL (150-450) L Mean Platelet Volume 9.7 FL (6.5-10.1) Neutrophils (%) (Auto) 84.8 % (45.0-75.0) H Lymphocytes (%) (Auto) 2.3 % (20.0-45.0) L Monocytes (%) (Auto) 11.2 % (1.0-10.0) H Eosinophils (%) (Auto) 1.3 % (0.0-3.0) Basophils (%) (Auto) 0.5 % (0.0-2.0) Sodium Level 134 mEQ/L (135-145) L Potassium Level 3.6 mEQ/L (3.4-4.9) Chloride Level 95 mEQ/L (98-107) L Carbon Dioxide Level 27 mEQ/L (20-30) Anion Gap 12 (5-15) Blood Urea Nitrogen 21 mg/dL (7-23) Creatinine 2.1 mg/dL (0.5-0.9) H Estimat Glomerular Filtration Rate 23.9 mL/min (>60) Glucose Level 127 mg/dL (74-106) H Calcium Level 7.8 mg/dL (8.6-10.2) L Phosphorus Level 1.6 mg/dL (2.5-4.8) L Magnesium Level 1.6 mg/dL (1.7-2.5) L Total Bilirubin 0.3 mg/dL (0.0-1.2) Aspartate Amino Transf (AST/SGOT) 23 U/L (5-40) Alanine Aminotransferase (ALT/SGPT) 7 U/L (3-33) Alkaline Phosphatase 199 U/L (35-104) H Total Protein 5.8 g/dL (6.6-8.7) L Albumin 2.5 g/dL (3.5-5.2) L Globulin 3.3 g/dL Albumin/Globulin Ratio 0.7 (1.0-2.7) L Arterial Blood pH 7.345 (7.350-7.450) Arterial Blood Partial Pressure CO2 54.9 mmHg (35.0-45.0) H Arterial Blood Partial Pressure O2 117.9 mmHg (75.0-100.0) H Arterial Blood HCO3 29.3 mmol/L (22.0-26.0) H Arterial Blood Oxygen Saturation 98.4 % (92.0-98.0) H Arterial Blood Base Excess 2.9 Antonio Test Positive Height (Feet): 4 Height (Inches): 9.00 Weight (Pounds): 75 General Appearance: no apparent distress, alert, thin Cardiovascular: normal rate Respiratory/Chest: normal breath sounds, no respiratory distress, other - mech vent Abdominal Exam: other - OGT Objective Procedure: US ABD Complete Indication: Abnormal liver function tests and renal function tests Impression: Moderate ascites, nonspecific as regards etiology Negative for gallstones. There is mild gallbladder wall thickening, suspect secondary to whatever process is causing ascites, but acute acalculous cholecystitis not completely excludable. Consider nuclear medicine hepatobiliary scan if there is high clinical suspicion for acute cholecystitis Bilateral echogenic atrophic kidneys, consistent with known history of chronic renal disease Suzy Middleton N.P. Dec 29, 2016 13:05
--- NOTE | 2016-12-29 13:46 | Infectious Diseases Prog Note ---
Assessment/Plan Assessment/Plan ASSESSMENT: 61 y/o female with: // SP probable sepsis - cultures(-) // Negative C.difficile // Shock SP - off pressors // Leukopenia SP // Hypothermia SP // Acute encephalopathy / found down ?hepatic ( elevated NH4 ) r/o septic - improved - CT Head: No evidence of acute intracranial pathology. Bilateral cerebral periventricular and deepwhite matter low attenuation, nonspecific, likely chronic microvascular ischemic in nature. Atrophy // Acute VDRF - intubated 12/22, weaning // ?Cirrhosis / chronic liver disease with elevated LFTs, leukopenia, chronic macrocytic anemia, TCP, coagulopathy, hypoalbuminemia - US: pending // ESRD / HD with right chest TDC // FOBT(+) macrocytic anemia SP PRBCs - recent EGD: GAVE // Probable CHF exacerbation - CXR: evidence of congestive heart failure including pulmonary edema, small bilateral pleural effusions - TTE: EF 65%, grade I diastolic dysfunction, mild-mod TR, mod MR, pulmonary HTN // Elevated ESR // NH resident // NKDA // Full Code PLAN: - monitor pt off of ABX ( 12/27 SP IV vancomycin d# 5 / 5 ) ( 12/23 SP zosyn ) - monitor CBC, temperatures, re-culture if acute change - monitor BMP - monitor CXR - vent support, wean as tolerated - transfuse prn Subjective Allergies: Coded Allergies: No Known Allergies (Unverified , 12/22/16) Subjective remains afebrile, awake on vent Objective Vital Signs Last 24 Hour Vital Signs Date Time Temp Pulse Resp B/P Pulse Ox O2 Delivery O2 Flow Rate FiO2 12/29/16 13:23 93 20 30 12/29/16 12:00 97.8 92 16 110/61 100 Mechanical Ventilator 30 12/29/16 11:06 109 24 30 12/29/16 11:00 97 21 133/66 100 Mechanical Ventilator 30 12/29/16 10:00 105 17 148/65 100 Mechanical Ventilator 30 12/29/16 09:30 30 12/29/16 09:17 96 10 30 12/29/16 09:04 94 12/29/16 09:00 94 17 92/49 100 Mechanical Ventilator 30 12/29/16 08:00 94 12/29/16 08:00 97.8 93 15 97/46 100 Mechanical Ventilator 30 12/29/16 08:00 30 12/29/16 07:23 95 15 30 12/29/16 07:00 94 20 101/48 100 Mechanical Ventilator 30 12/29/16 06:00 93 20 106/47 100 Mechanical Ventilator 30 12/29/16 05:10 97 21 30 12/29/16 05:00 94 20 104/48 100 Mechanical Ventilator 30 12/29/16 04:00 98.0 90 20 96/44 100 Mechanical Ventilator 30 12/29/16 04:00 93 12/29/16 04:00 30 12/29/16 03:56 92 15 30 12/29/16 03:30 94 25 30 12/29/16 03:00 90 20 93/46 100 Mechanical Ventilator 30 12/29/16 02:00 92 20 94/47 100 Mechanical Ventilator 30 12/29/16 01:30 90 22 30 12/29/16 01:00 93 20 96/50 100 Mechanical Ventilator 30 12/29/16 00:00 97.6 83 19 108/56 100 Mechanical Ventilator 30 12/29/16 00:00 30 12/29/16 00:00 89 12/28/16 23:30 90 21 30 12/28/16 23:08 30 12/28/16 23:00 91 19 107/47 100 Mechanical Ventilator 30 12/28/16 22:00 97 20 93/40 100 Mechanical Ventilator 40 12/28/16 21:30 91 16 30 12/28/16 21:00 92 20 90/46 100 Mechanical Ventilator 40 12/28/16 20:59 40 12/28/16 20:00 98.1 90 19 87/49 100 Mechanical Ventilator 50 12/28/16 20:00 98 12/28/16 20:00 50 12/28/16 19:30 92 17 40 12/28/16 19:00 93 19 103/60 100 Mechanical Ventilator 50 12/28/16 18:03 98 20 136/74 100 Mechanical Ventilator 50 12/28/16 18:00 106 12/28/16 17:20 95 22 50 12/28/16 17:00 97.2 99 21 114/60 100 Mechanical Ventilator 50 12/28/17 16:00 50 12/28/16 16:00 99 21 108/53 100 Mechanical Ventilator 50 12/28/16 16:00 97 12/28/16 15:49 98 20 50 2/20/17 15:04 Mechanical Ventilator 12/28/16 15:00 97 22 103/50 100 Mechanical Ventilator 50 12/28/16 14:00 95 16 104/50 100 Mechanical Ventilator 50 Height (Feet): 4 Height (Inches): 9.00 Weight (Pounds): 75 General Appearance: other - intubated, awake Respiratory/Chest: decreased breath sounds Cardiovascular: normal rate, regular rhythm Abdomen: normal bowel sounds, soft, non tender, non distended Laboratory Tests Test 12/29/16 03:50 12/29/16 11:50 White Blood Count 10.5 K/UL (4.8-10.8) Red Blood Count 2.59 M/UL (4.20-5.40) L Hemoglobin 8.0 G/DL (12.0-16.0) L Hematocrit 25.9 % (37.0-47.0) L Mean Corpuscular Volume 100 FL (80-99) H Mean Corpuscular Hemoglobin 30.7 PG (27.0-31.0) Mean Corpuscular Hemoglobin Concent 30.8 G/DL (32.0-36.0) L Red Cell Distribution Width 20.9 % (11.6-14.8) H Platelet Count 118 K/UL (150-450) L Mean Platelet Volume 9.7 FL (6.5-10.1) Neutrophils (%) (Auto) 84.8 % (45.0-75.0) H Lymphocytes (%) (Auto) 2.3 % (20.0-45.0) L Monocytes (%) (Auto) 11.2 % (1.0-10.0) H Eosinophils (%) (Auto) 1.3 % (0.0-3.0) Basophils (%) (Auto) 0.5 % (0.0-2.0) Sodium Level 134 mEQ/L (135-145) L Potassium Level 3.6 mEQ/L (3.4-4.9) Chloride Level 95 mEQ/L (98-107) L Carbon Dioxide Level 27 mEQ/L (20-30) Anion Gap 12 (5-15) Blood Urea Nitrogen 21 mg/dL (7-23) Creatinine 2.1 mg/dL (0.5-0.9) H Estimat Glomerular Filtration Rate 23.9 mL/min (>60) Glucose Level 127 mg/dL (74-106) H Calcium Level 7.8 mg/dL (8.6-10.2) L Phosphorus Level 1.6 mg/dL (2.5-4.8) L Magnesium Level 1.6 mg/dL (1.7-2.5) L Total Bilirubin 0.3 mg/dL (0.0-1.2) Aspartate Amino Transf (AST/SGOT) 23 U/L (5-40) Alanine Aminotransferase (ALT/SGPT) 7 U/L (3-33) Alkaline Phosphatase 199 U/L (35-104) H Total Protein 5.8 g/dL (6.6-8.7) L Albumin 2.5 g/dL (3.5-5.2) L Globulin 3.3 g/dL Albumin/Globulin Ratio 0.7 (1.0-2.7) L Arterial Blood pH 7.345 (7.350-7.450) Arterial Blood Partial Pressure CO2 54.9 mmHg (35.0-45.0) H Arterial Blood Partial Pressure O2 117.9 mmHg (75.0-100.0) H Arterial Blood HCO3 29.3 mmol/L (22.0-26.0) H Arterial Blood Oxygen Saturation 98.4 % (92.0-98.0) H Arterial Blood Base Excess 2.9 Antonio Test Positive Current Medications Medications (Trade) Dose Ordered Sig/Reji Route PRN Reason Start Time Stop Time Status Last Admin Dose Admin Acetaminophen (Tylenol) 650 mg Q4H PRN ORAL fever 12/22/16 13:45 01/21/17 13:44 Albumin Human (Albumisol) 100 ml @ 200 mls/hr PRN PRN IV sbp<90 during hd 12/30/16 06:00 12/30/16 23:59 Albuterol/ Ipratropium (DuoNeb 0.5-3(2.5)mg/3ml) 3 ml Q4H PRN HHN Shortness of Breath 12/27/16 09:45 01/01/17 09:44 Epoetin José Miguel (Procrit (for ESRD on dialysis)) 10,000 units WED-WED-WED SUBQ 12/28/16 21:00 01/27/17 20:59 12/28/16 21:55 Heparin Sodium (Porcine) (Heparin Sod 1000 units/ml 10ml) 2,000 unit ONCE ONCE IV 12/30/16 06:00 12/30/16 06:01 Lactulose (Cephulac) 20 gm DAILY GT 12/26/16 09:00 01/25/17 08:59 12/29/16 09:03 Morphine Sulfate (Morphine Sulfate) 4 mg Q4H PRN IVP PAIN 4-10 12/27/16 09:45 01/03/17 09:44 Nitroglycerin 0.4 mg 0.4 mg Q5MIN X 3 DOSES PRN SL Prn Chest Pain 12/22/16 13:45 01/21/17 13:44 Norepinephrine Bitartrate/ Dextrose (Levophed/D5W) 250 ml @ 0 mls/hr Q24H IV 12/23/16 01:00 01/22/17 00:59 12/26/16 01:00 Ondansetron HCl (Zofran) 4 mg Q6H PRN IVP Nausea & Vomiting 12/22/16 13:45 01/21/17 13:44 12/23/16 19:36 Pantoprazole (Protonix) 40 mg BID IVP 12/28/16 18:00 01/27/17 17:59 12/29/16 09:03 Polyethylene Glycol (Miralax) 17 gm DAILYPRN PRN GT Constipation 12/25/16 11:03 01/21/17 13:44 Potassium Phos/ Sodium Phos 1 pkt 1 pkt BID GT 12/29/16 10:00 12/30/16 18:01 12/29/16 11:06 Propafenone HCl (Rythmol) 225 mg TID NG 12/23/16 21:00 01/22/17 20:59 12/29/16 09:04 Rifaximin (Xifaxan) 550 mg EVERY 12 HOURS GT 12/25/16 11:03 12/30/16 20:59 12/29/16 09:03 DARLIN GRANADO Dec 29, 2016 13:46
--- NOTE | 2016-12-29 14:08 | Diagnostic Imaging Report ---
Indication: Dyspnea Comparison: 12/25/2016 A single view chest radiograph was obtained. Findings: Endotracheal tube tip is projected over the ramakrishna. This should be pulled up slightly. The heart is enlarged but stable. There is suspected mild left basal atelectasis. NG tube and right jugular permacath are again noted in good position. Impression: Endotracheal tube is low-lying and should be pulled up slightly. No change otherwise
--- NOTE | 2016-12-29 15:15 | Internal Med Progress Note ---
Subjective Date of Service: Dec 29, 2016 Physician Name LaurieDione Attending Physician Jes Bautista Current Medications Medications (Trade) Dose Ordered Sig/Reji Route PRN Reason Start Time Stop Time Status Last Admin Dose Admin Acetaminophen (Tylenol) 650 mg Q4H PRN ORAL fever 12/22/16 13:45 01/21/17 13:44 Albumin Human (Albumisol) 100 ml @ 200 mls/hr PRN PRN IV sbp<90 during hd 12/30/16 06:00 12/30/16 23:59 Albuterol/ Ipratropium (DuoNeb 0.5-3(2.5)mg/3ml) 3 ml Q4H PRN HHN Shortness of Breath 12/27/16 09:45 01/01/17 09:44 Epoetin José Miguel (Procrit (for ESRD on dialysis)) 10,000 units WED-WED-WED SUBQ 12/28/16 21:00 01/27/17 20:59 12/28/16 21:55 Heparin Sodium (Porcine) (Heparin Sod 1000 units/ml 10ml) 2,000 unit ONCE ONCE IV 12/30/16 06:00 12/30/16 06:01 Lactulose (Cephulac) 20 gm DAILY GT 12/26/16 09:00 01/25/17 08:59 12/29/16 09:03 Morphine Sulfate (Morphine Sulfate) 4 mg Q4H PRN IVP PAIN 4-10 12/27/16 09:45 01/03/17 09:44 Nitroglycerin 0.4 mg 0.4 mg Q5MIN X 3 DOSES PRN SL Prn Chest Pain 12/22/16 13:45 01/21/17 13:44 Norepinephrine Bitartrate/ Dextrose (Levophed/D5W) 250 ml @ 0 mls/hr Q24H IV 12/23/16 01:00 01/22/17 00:59 12/26/16 01:00 Ondansetron HCl (Zofran) 4 mg Q6H PRN IVP Nausea & Vomiting 12/22/16 13:45 01/21/17 13:44 12/23/16 19:36 Pantoprazole (Protonix) 40 mg BID IVP 12/28/16 18:00 01/27/17 17:59 12/29/16 09:03 Polyethylene Glycol (Miralax) 17 gm DAILYPRN PRN GT Constipation 12/25/16 11:03 01/21/17 13:44 Potassium Phos/ Sodium Phos 1 pkt 1 pkt BID GT 12/29/16 10:00 12/30/16 18:01 12/29/16 11:06 Propafenone HCl (Rythmol) 225 mg TID NG 12/23/16 21:00 01/22/17 20:59 12/29/16 13:59 Rifaximin (Xifaxan) 550 mg EVERY 12 HOURS GT 12/25/16 11:03 01/03/17 11:02 12/29/16 09:03 Allergies: Coded Allergies: No Known Allergies (Unverified , 12/22/16) ROS Limited/Unobtainable: Yes Subjective 61 YO F admitted with respiratory failure. Now probable sepsis with septic shock. Intubated and sedated. ICU. Off pressors. Cover for Int Jamie-Dr Vigil. Objective Last Vital Signs Date Time Temp Pulse Resp B/P Pulse Ox O2 Delivery O2 Flow Rate FiO2 12/29/16 15:00 90 22 127/70 100 Mechanical Ventilator 30 12/29/16 12:00 97.8 12/22/16 10:55 15.0 Laboratory Tests Test 12/29/16 03:50 12/29/16 11:50 White Blood Count 10.5 K/UL (4.8-10.8) Red Blood Count 2.59 M/UL (4.20-5.40) L Hemoglobin 8.0 G/DL (12.0-16.0) L Hematocrit 25.9 % (37.0-47.0) L Mean Corpuscular Volume 100 FL (80-99) H Mean Corpuscular Hemoglobin 30.7 PG (27.0-31.0) Mean Corpuscular Hemoglobin Concent 30.8 G/DL (32.0-36.0) L Red Cell Distribution Width 20.9 % (11.6-14.8) H Platelet Count 118 K/UL (150-450) L Mean Platelet Volume 9.7 FL (6.5-10.1) Neutrophils (%) (Auto) 84.8 % (45.0-75.0) H Lymphocytes (%) (Auto) 2.3 % (20.0-45.0) L Monocytes (%) (Auto) 11.2 % (1.0-10.0) H Eosinophils (%) (Auto) 1.3 % (0.0-3.0) Basophils (%) (Auto) 0.5 % (0.0-2.0) Sodium Level 134 mEQ/L (135-145) L Potassium Level 3.6 mEQ/L (3.4-4.9) Chloride Level 95 mEQ/L (98-107) L Carbon Dioxide Level 27 mEQ/L (20-30) Anion Gap 12 (5-15) Blood Urea Nitrogen 21 mg/dL (7-23) Creatinine 2.1 mg/dL (0.5-0.9) H Estimat Glomerular Filtration Rate 23.9 mL/min (>60) Glucose Level 127 mg/dL (74-106) H Calcium Level 7.8 mg/dL (8.6-10.2) L Phosphorus Level 1.6 mg/dL (2.5-4.8) L Magnesium Level 1.6 mg/dL (1.7-2.5) L Total Bilirubin 0.3 mg/dL (0.0-1.2) Aspartate Amino Transf (AST/SGOT) 23 U/L (5-40) Alanine Aminotransferase (ALT/SGPT) 7 U/L (3-33) Alkaline Phosphatase 199 U/L (35-104) H Total Protein 5.8 g/dL (6.6-8.7) L Albumin 2.5 g/dL (3.5-5.2) L Globulin 3.3 g/dL Albumin/Globulin Ratio 0.7 (1.0-2.7) L Arterial Blood pH 7.345 (7.350-7.450) Arterial Blood Partial Pressure CO2 54.9 mmHg (35.0-45.0) H Arterial Blood Partial Pressure O2 117.9 mmHg (75.0-100.0) H Arterial Blood HCO3 29.3 mmol/L (22.0-26.0) H Arterial Blood Oxygen Saturation 98.4 % (92.0-98.0) H Arterial Blood Base Excess 2.9 Antonio Test Positive Intake and Output 12/28/16 12/29/16 19:00 07:00 Intake Total 905 ml 740 ml Output Total 1000 ml Balance -95 ml 740 ml Free Water 150 ml 150 ml IV Total 370 ml 240 ml Tube Feeding 285 ml 300 ml Other 100 ml 50 ml Output Urine Total 0 ml Hemodialysis UF 1000 ml # Bowel Movements 3 2 Objective General Appearance: mild distress, thin EENT: PERRL/EOMI, normal ENT inspection Neck: non-tender, normal alignment, supple Cardiovascular: normal peripheral pulses, normal rate, regular rhythm, no gallop/murmur, no JVD Respiratory/Chest: Mech Vent; respiratory distress, crackles/rales, rhonchi - bilaterally, expiratory wheezing Abdomen: normal bowel sounds, non tender, soft, no organomegaly, no mass Neurologic: automatic vulcanizing lead operator II-XII grossly normal Skin: normal pigmentation, warm/dry Assessment/Plan Problem List: (1) Encephalopathy (2) ESRD (end stage renal disease) on dialysis Assessment & Plan: See nephrology note. (3) HTN (hypertension) Assessment & Plan: Currently hypotensive. (4) Acute respiratory failure Assessment & Plan: Cont mech vent per pulmonary (5) CHF (congestive heart failure) (6) Anemia (7) Liver cirrhosis (8) Sepsis Assessment & Plan: Cont off antibiotics per ID (9) Septic shock Assessment & Plan: D/C pressors. Status: not improved DIONE BULL Dec 29, 2016 15:15
--- NOTE | 2016-12-29 17:15 | Cardiology Progress Note ---
Assessment/Plan Assessment/Plan ams hypotension hs of mod to sever MR paf hs of avb with pvc cirrhosis , esrd on dialyusis mgus htn scleroderma hs of [place] o gave continue on rhtymol for now watch on tele for afib recurrence or for av block wean off vent iv abx dialysis tomorrow lv function has been preserved tele sinus Subjective Cardiovascular: Denies: chest pain, lightheadedness Respiratory: Denies: shortness of breath Gastrointestinal/Abdominal: Denies: abdominal pain Objective Last 24 Hour Vital Signs Date Time Temp Pulse Resp B/P Pulse Ox O2 Delivery O2 Flow Rate FiO2 12/29/16 17:00 91 18 116/62 100 Mechanical Ventilator 30 12/29/16 16:00 97.6 92 18 111/58 100 Mechanical Ventilator 30 12/29/16 16:00 90 12/29/16 16:00 30 12/29/16 15:20 89 25 30 12/29/16 15:00 90 22 127/70 100 Mechanical Ventilator 30 12/29/16 14:00 94 18 122/59 100 Mechanical Ventilator 30 12/29/16 13:59 93 12/29/16 13:23 93 20 30 12/29/16 13:00 95 20 119/64 100 Mechanical Ventilator 30 12/29/16 12:00 96 12/29/16 12:00 97.8 92 16 110/61 100 Mechanical Ventilator 30 12/29/16 12:00 30 12/29/16 11:06 109 24 30 12/29/16 11:00 97 21 133/66 100 Mechanical Ventilator 30 12/29/16 10:00 105 17 148/65 100 Mechanical Ventilator 30 12/29/16 09:30 30 12/29/16 09:17 96 10 30 12/29/16 09:04 94 12/29/16 09:00 94 17 92/49 100 Mechanical Ventilator 30 12/29/16 08:00 94 12/29/16 08:00 97.8 93 15 97/46 100 Mechanical Ventilator 30 12/29/16 08:00 30 12/29/16 07:23 95 15 30 12/29/16 07:00 94 20 101/48 100 Mechanical Ventilator 30 12/29/16 06:00 93 20 106/47 100 Mechanical Ventilator 30 12/29/16 05:10 97 21 30 12/29/16 05:00 94 20 104/48 100 Mechanical Ventilator 30 12/29/16 04:00 98.0 90 20 96/44 100 Mechanical Ventilator 30 12/29/16 04:00 93 12/29/16 04:00 30 12/29/16 03:56 92 15 30 12/29/16 03:30 94 25 30 12/29/16 03:00 90 20 93/46 100 Mechanical Ventilator 30 12/29/16 02:00 92 20 94/47 100 Mechanical Ventilator 30 12/29/16 01:30 90 22 30 12/29/16 01:00 93 20 96/50 100 Mechanical Ventilator 30 12/29/16 00:00 97.6 83 19 108/56 100 Mechanical Ventilator 30 12/29/16 00:00 30 12/29/16 00:00 89 12/28/16 23:30 90 21 30 12/28/16 23:08 30 12/28/16 23:00 91 19 107/47 100 Mechanical Ventilator 30 12/28/16 22:00 97 20 93/40 100 Mechanical Ventilator 40 12/28/16 21:30 91 16 30 12/28/16 21:00 92 20 90/46 100 Mechanical Ventilator 40 12/28/16 20:59 40 12/28/16 20:00 98.1 90 19 87/49 100 Mechanical Ventilator 50 12/28/16 20:00 98 12/28/16 20:00 50 12/28/16 19:30 92 17 40 12/28/16 19:00 93 19 103/60 100 Mechanical Ventilator 50 12/28/16 18:03 98 20 136/74 100 Mechanical Ventilator 50 12/28/16 18:00 106 12/28/16 17:20 95 22 50 General Appearance: no apparent distress, alert, on vent Neck: no JVD Cardiovascular: normal rate, regular rhythm Respiratory/Chest: lungs clear, normal breath sounds Abdomen: normal bowel sounds, non tender, soft Extremities: no swelling Intake and Output 12/28/16 12/29/16 19:00 07:00 Intake Total 905 ml 740 ml Output Total 1000 ml Balance -95 ml 740 ml Free Water 150 ml 150 ml IV Total 370 ml 240 ml Tube Feeding 285 ml 300 ml Other 100 ml 50 ml Output Urine Total 0 ml Hemodialysis UF 1000 ml # Bowel Movements 3 2 Laboratory Tests Test 12/29/16 03:50 12/29/16 11:50 White Blood Count 10.5 K/UL (4.8-10.8) Red Blood Count 2.59 M/UL (4.20-5.40) L Hemoglobin 8.0 G/DL (12.0-16.0) L Hematocrit 25.9 % (37.0-47.0) L Mean Corpuscular Volume 100 FL (80-99) H Mean Corpuscular Hemoglobin 30.7 PG (27.0-31.0) Mean Corpuscular Hemoglobin Concent 30.8 G/DL (32.0-36.0) L Red Cell Distribution Width 20.9 % (11.6-14.8) H Platelet Count 118 K/UL (150-450) L Mean Platelet Volume 9.7 FL (6.5-10.1) Neutrophils (%) (Auto) 84.8 % (45.0-75.0) H Lymphocytes (%) (Auto) 2.3 % (20.0-45.0) L Monocytes (%) (Auto) 11.2 % (1.0-10.0) H Eosinophils (%) (Auto) 1.3 % (0.0-3.0) Basophils (%) (Auto) 0.5 % (0.0-2.0) Sodium Level 134 mEQ/L (135-145) L Potassium Level 3.6 mEQ/L (3.4-4.9) Chloride Level 95 mEQ/L (98-107) L Carbon Dioxide Level 27 mEQ/L (20-30) Anion Gap 12 (5-15) Blood Urea Nitrogen 21 mg/dL (7-23) Creatinine 2.1 mg/dL (0.5-0.9) H Estimat Glomerular Filtration Rate 23.9 mL/min (>60) Glucose Level 127 mg/dL (74-106) H Calcium Level 7.8 mg/dL (8.6-10.2) L Phosphorus Level 1.6 mg/dL (2.5-4.8) L Magnesium Level 1.6 mg/dL (1.7-2.5) L Total Bilirubin 0.3 mg/dL (0.0-1.2) Aspartate Amino Transf (AST/SGOT) 23 U/L (5-40) Alanine Aminotransferase (ALT/SGPT) 7 U/L (3-33) Alkaline Phosphatase 199 U/L (35-104) H Total Protein 5.8 g/dL (6.6-8.7) L Albumin 2.5 g/dL (3.5-5.2) L Globulin 3.3 g/dL Albumin/Globulin Ratio 0.7 (1.0-2.7) L Arterial Blood pH 7.345 (7.350-7.450) Arterial Blood Partial Pressure CO2 54.9 mmHg (35.0-45.0) H Arterial Blood Partial Pressure O2 117.9 mmHg (75.0-100.0) H Arterial Blood HCO3 29.3 mmol/L (22.0-26.0) H Arterial Blood Oxygen Saturation 98.4 % (92.0-98.0) H Arterial Blood Base Excess 2.9 Antonio Test Positive CHRISTIN JIMENEZ Dec 29, 2016 17:15
[2016-12-30] VITALS (37 sets, daily range): BP systolic 80–193; BP diastolic 33–83
[2016-12-30 05:43] LABS: BASOPHILS % (AUTO) 0.4 % (0.0-2.0); EOSINOPHILS % (AUTO) 2.2 % (0.0-3.0); LYMPHOCYTES % (AUTO) 2.5 % (20.0-45.0); MEAN CORPUSCULAR HEMOGLOBIN 31.1 PG (27.0-31.0); MEAN CORPUSCULAR HGB CONC 30.8 G/DL (32.0-36.0); MEAN CORPUSCULAR VOLUME 101 FL (80-99); MEAN PLATELET VOLUME 9.7 FL (6.5-10.1); MONOCYTES % (AUTO) 10.9 % (1.0-10.0); PLATELET COUNT 171 K/UL (150-450); RED BLOOD COUNT 2.62 M/UL (4.20-5.40); RED CELL DISTRIBUTION WIDTH 20.6 % (11.6-14.8); WHITE BLOOD COUNT 11.1 K/UL (4.8-10.8)
[2016-12-30] MEDS ORDERED: Heparin Sod 1000 units/ml 10ml IV ONE (06:00)
[2016-12-30 06:06] LABS: ALBUMIN/GLOBULIN RATIO 0.6 (1.0-2.7); CALCIUM 8.5 mg/dL (8.6-10.2); CREATININE 2.8 mg/dL (0.5-0.9); GLOMERULAR FILTRATION RATE 17.1 mL/min (>60); MAGNESIUM 1.7 mg/dL (1.7-2.5); PHOSPHORUS 3.5 mg/dL (2.5-4.8); POTASSIUM 3.7 mEQ/L (3.4-4.9); TOTAL PROTEIN 6.1 g/dL (6.6-8.7)
[2016-12-30] MEDS: Neutraphos-K pkt GT SCH ×2 (08:51→17:51)
[2016-12-30] MEDS: Lactulose 20gm/30ml UDC GT SCH (08:51)
[2016-12-30] MEDS: Rifaximin 550mg tab GT SCH ×2 (08:51→20:34)
[2016-12-30] MEDS: Pantoprazole Inj IVP SCH ×2 (08:51→17:52)
[2016-12-30 09:45] LABS: ABG PCO2 55.6 mmHg (35.0-45.0)
[2016-12-30 09:46] LABS: ABG ALLEN TEST POSITIVE; ABG BASE EXCESS 0.8
--- NOTE | 2016-12-30 10:29 | Diagnostic Imaging Report ---
Indication: Dyspnea Comparison: 12/29/16 A single view chest radiograph was obtained. Findings: Tubes and lines are stable. Mild cardiomegaly is noted and stable. Lungs are essentially clear. Impression: No significant exchange trouble shooter the last day
--- NOTE | 2016-12-30 10:46 | Pulmonolgy Critical Care Note ---
Critical Care - Asmt/Plan Problems: (1) Acute respiratory failure (2) Altered mental state (3) CKD (chronic kidney disease) (4) Hyperkalemia (5) Liver cirrhosis (6) Connective tissue disease (7) CHF (congestive heart failure) Respiratory: monitor respiratory rate, adjust FIO2, CXR, other - keep failing CPAP trial, will need trahceostomy if fails again Cardiac: continue to monitor HR/BP Renal: F/U I&O, check electrolytes Gastrointestinal: continue feedings/current rate Endocrine: monitor blood sugar, continue sliding scale insulin Hematologic: monitor H/H, transfuse if hgb<8.5 Neurologic: PRN Ativan, keep patient comfortable Time Spent (Minutes): 40 Notes Reviewed: renal, ID Discussed with: nurses, consultants, complex case managermanager stars - Objective Last 24 Hour Vital Signs Date Time Temp Pulse Resp B/P Pulse Ox O2 Delivery O2 Flow Rate FiO2 12/30/16 10:00 88 14 94/50 100 Mechanical Ventilator 30 12/30/16 09:50 88 14 30 12/30/16 09:00 89 16 101/50 100 Mechanical Ventilator 50 12/30/16 08:51 90 12/30/16 08:00 97.3 90 14 107/61 100 Mechanical Ventilator 50 12/30/16 08:00 50 12/30/16 08:00 93 12/30/16 07:00 89 14 100/48 100 Mechanical Ventilator 50 12/30/16 06:42 88 14 30 12/30/16 06:00 89 14 97/50 100 Mechanical Ventilator 50 12/30/16 05:08 93 14 30 12/30/16 05:00 88 14 101/51 100 Mechanical Ventilator 50 12/30/16 04:00 90 12/30/16 04:00 98.1 91 14 94/43 100 Mechanical Ventilator 50 12/30/16 04:00 50 12/30/16 03:24 91 14 30 12/30/16 03:00 90 26 109/49 100 Mechanical Ventilator 50 12/30/16 02:00 105 26 148/72 100 Mechanical Ventilator 30 12/30/16 01:18 95 19 30 12/30/16 01:00 95 17 97/72 100 Mechanical Ventilator 30 12/30/16 01:00 117/56 12/30/16 00:00 30 12/30/16 00:00 97.9 99 20 129/80 100 Mechanical Ventilator 30 12/30/16 00:00 99 12/29/16 23:28 93 16 30 12/29/16 23:00 93 19 116/61 100 Mechanical Ventilator 30 12/29/16 22:00 91 21 105/55 100 Mechanical Ventilator 30 12/29/16 21:30 88 28 30 12/29/16 21:00 98.0 90 20 97/54 100 Mechanical Ventilator 30 12/29/16 20:00 90 12/29/16 20:00 90 16 102/51 100 Mechanical Ventilator 30 12/29/16 20:00 30 12/29/16 19:17 92 20 30 12/29/16 19:00 94 22 114/55 100 Mechanical Ventilator 30 12/29/16 18:43 94 12/29/16 18:00 92 20 113/60 100 Mechanical Ventilator 30 12/29/16 17:20 87 18 30 12/29/16 17:00 91 18 116/62 100 Mechanical Ventilator 30 12/29/16 16:00 97.6 92 18 111/58 100 Mechanical Ventilator 30 12/29/16 16:00 90 12/29/16 16:00 30 12/29/16 15:20 89 25 30 12/29/16 15:00 90 22 127/70 100 Mechanical Ventilator 30 12/29/16 14:00 94 18 122/59 100 Mechanical Ventilator 30 12/29/16 13:59 93 12/29/16 13:23 93 20 30 12/29/16 13:00 95 20 119/64 100 Mechanical Ventilator 30 12/29/16 12:00 96 12/29/16 12:00 97.8 92 16 110/61 100 Mechanical Ventilator 30 12/29/16 12:00 30 12/29/16 11:06 109 24 30 12/29/16 11:00 97 21 133/66 100 Mechanical Ventilator 30 Status: awake Condition: critical, grave HEENT: atraumatic Neck: full ROM Lungs: chest wall tender Heart: HR/BP stable, regular Abdomen: soft, non-tender, feeding tube Extremities: edema Decubiti: stage Accucheck: 55 Critical Care - Subjective ROS Limited/Unobtainable: No ICU Day: 7 Intubation Day: 7 Condition: critical EKG Rhythm: Sinus Rhythm FI02: 30 Vent Support Breath Rate: 14 Vent Support Mode: AC Vent Tidal Volume: 450 Sputum Amount: Moderate PEEP: 5.0 PIP: 46 Tube Feeding Amount: 35 I&O: Intake and Output 12/29/16 12/30/16 19:00 07:00 Intake Total 690 ml 490 ml Balance 690 ml 490 ml Free Water 300 ml 70 ml Tube Feeding 390 ml 420 ml # Bowel Movements 9 7 CXR: no change ET-Tube: 7.5 ET Position: 22 Labs: Laboratory Tests Test 12/29/16 11:50 12/30/16 04:00 12/30/16 04:20 Arterial Blood pH 7.345 (7.350-7.450) 7.310 (7.350-7.450) Arterial Blood Partial Pressure CO2 54.9 mmHg (35.0-45.0) H 55.6 mmHg (35.0-45.0) *H Arterial Blood Partial Pressure O2 117.9 mmHg (75.0-100.0) H 223.6 mmHg (75.0-100.0) H Arterial Blood HCO3 29.3 mmol/L (22.0-26.0) H 27.6 mmol/L (22.0-26.0) H Arterial Blood Oxygen Saturation 98.4 % (92.0-98.0) H 99.2 % (92.0-98.0) H Arterial Blood Base Excess 2.9 0.8 Antonio Test Positive Positive White Blood Count 11.1 K/UL (4.8-10.8) H Red Blood Count 2.62 M/UL (4.20-5.40) L Hemoglobin 8.1 G/DL (12.0-16.0) L Hematocrit 26.4 % (37.0-47.0) L Mean Corpuscular Volume 101 FL (80-99) H Mean Corpuscular Hemoglobin 31.1 PG (27.0-31.0) H Mean Corpuscular Hemoglobin Concent 30.8 G/DL (32.0-36.0) L Red Cell Distribution Width 20.6 % (11.6-14.8) H Platelet Count 171 K/UL (150-450) Mean Platelet Volume 9.7 FL (6.5-10.1) Neutrophils (%) (Auto) 84.0 % (45.0-75.0) H Lymphocytes (%) (Auto) 2.5 % (20.0-45.0) L Monocytes (%) (Auto) 10.9 % (1.0-10.0) H Eosinophils (%) (Auto) 2.2 % (0.0-3.0) Basophils (%) (Auto) 0.4 % (0.0-2.0) Sodium Level 137 mEQ/L (135-145) Potassium Level 3.7 mEQ/L (3.4-4.9) Chloride Level 99 mEQ/L (98-107) Carbon Dioxide Level 27 mEQ/L (20-30) Anion Gap 11 (5-15) Blood Urea Nitrogen 35 mg/dL (7-23) H Creatinine 2.8 mg/dL (0.5-0.9) H Estimat Glomerular Filtration Rate 17.1 mL/min (>60) Glucose Level 129 mg/dL (74-106) H Calcium Level 8.5 mg/dL (8.6-10.2) L Phosphorus Level 3.5 mg/dL (2.5-4.8) Magnesium Level 1.7 mg/dL (1.7-2.5) Total Bilirubin 0.3 mg/dL (0.0-1.2) Aspartate Amino Transf (AST/SGOT) 22 U/L (5-40) Alanine Aminotransferase (ALT/SGPT) 7 U/L (3-33) Alkaline Phosphatase 222 U/L (35-104) H Total Protein 6.1 g/dL (6.6-8.7) L Albumin 2.5 g/dL (3.5-5.2) L Globulin 3.6 g/dL Albumin/Globulin Ratio 0.6 (1.0-2.7) L FRANCESCA FELTON Dec 30, 2016 10:46
--- NOTE | 2016-12-30 11:29 | GI Progress Note ---
Assessment/Plan Problems: (1) End-stage kidney disease ICD Codes: N18.6 - End stage renal disease SNOMED: 59539312 (2) GAVE (gastric antral vascular ectasia) ICD Codes: K31.819 - Angiodysplasia of stomach and duodenum without bleeding SNOMED: 38219082 (3) Severe malnutrition ICD Codes: E43 - Unspecified severe protein-calorie malnutrition SNOMED: 57037146 (4) Hypoalbuminemia ICD Codes: E88.09 - Other disorders of plasma-protein metabolism, not elsewhere classified SNOMED: 589890943 (5) Anemia ICD Codes: D64.9 - Anemia, unspecified SNOMED: 257160115 (6) Liver cirrhosis ICD Codes: K74.60 - Unspecified cirrhosis of liver SNOMED: 93425528 Status: unchanged Status Narrative Discussed with Dr. Galarza. Assessment/Plan s/p EGD/colon at [facility] recently, see full report in chart. >> - No varices given history of cirrhosis. - GAVE appearance and did not show portal hypertensive gastropathy. - Findings included an active bleed in the focal area of the antrum which was treated. - Noted that the patient went into a CODE BLUE during the procedure. KUB >> negative abd U/S >> Moderate ascites. Mild gallbladder wall thickening. >> s/p 1600 paracentesis 2 days ago elevated ammonia OB stool positive Hep panel negative cdiff negative defer any GI procedures at this time pt scheduled to be trached monitor H&H, transfuse prn ppi BID OGT to goal rate per dietary, consider PEG lactulose + Xifaxan fu labs poor prognosis Subjective Subjective limited Objective Last 24 Hour Vital Signs Date Time Temp Pulse Resp B/P Pulse Ox O2 Delivery O2 Flow Rate FiO2 12/30/16 11:00 87 14 80/50 100 Mechanical Ventilator 30 12/30/16 10:46 87 17 30 12/30/16 10:00 88 14 94/50 100 Mechanical Ventilator 30 12/30/16 09:50 88 14 30 12/30/16 09:00 89 16 101/50 100 Mechanical Ventilator 50 12/30/16 08:51 90 12/30/16 08:00 97.3 90 14 107/61 100 Mechanical Ventilator 50 12/30/16 08:00 50 12/30/16 08:00 93 12/30/16 07:00 89 14 100/48 100 Mechanical Ventilator 50 12/30/16 06:42 88 14 30 12/30/16 06:00 89 14 97/50 100 Mechanical Ventilator 50 12/30/16 05:08 93 14 30 12/30/16 05:00 88 14 101/51 100 Mechanical Ventilator 50 12/30/16 04:00 90 12/30/16 04:00 98.1 91 14 94/43 100 Mechanical Ventilator 50 12/30/16 04:00 50 12/30/16 03:24 91 14 30 12/30/16 03:00 90 26 109/49 100 Mechanical Ventilator 50 12/30/16 02:00 105 26 148/72 100 Mechanical Ventilator 30 12/30/16 01:18 95 19 30 12/30/16 01:00 95 17 97/72 100 Mechanical Ventilator 30 12/30/16 01:00 117/56 12/30/16 00:00 30 12/30/16 00:00 97.9 99 20 129/80 100 Mechanical Ventilator 30 12/30/16 00:00 99 12/29/16 23:28 93 16 30 12/29/16 23:00 93 19 116/61 100 Mechanical Ventilator 30 12/29/16 22:00 91 21 105/55 100 Mechanical Ventilator 30 12/29/16 21:30 88 28 30 12/29/16 21:00 98.0 90 20 97/54 100 Mechanical Ventilator 30 12/29/16 20:00 90 12/29/16 20:00 90 16 102/51 100 Mechanical Ventilator 30 12/29/16 20:00 30 12/29/16 19:17 92 20 30 12/29/16 19:00 94 22 114/55 100 Mechanical Ventilator 30 12/29/16 18:43 94 12/29/16 18:00 92 20 113/60 100 Mechanical Ventilator 30 12/29/16 17:20 87 18 30 12/29/16 17:00 91 18 116/62 100 Mechanical Ventilator 30 12/29/16 16:00 97.6 92 18 111/58 100 Mechanical Ventilator 30 12/29/16 16:00 90 12/29/16 16:00 30 12/29/16 15:20 89 25 30 12/29/16 15:00 90 22 127/70 100 Mechanical Ventilator 30 12/29/16 14:00 94 18 122/59 100 Mechanical Ventilator 30 12/29/16 13:59 93 12/29/16 13:23 93 20 30 12/29/16 13:00 95 20 119/64 100 Mechanical Ventilator 30 12/29/16 12:00 96 12/29/16 12:00 97.8 92 16 110/61 100 Mechanical Ventilator 30 12/29/16 12:00 30 Intake and Output 12/29/16 12/30/16 19:00 07:00 Intake Total 690 ml 490 ml Balance 690 ml 490 ml Free Water 300 ml 70 ml Tube Feeding 390 ml 420 ml # Bowel Movements 9 7 Laboratory Tests Test 12/29/16 11:50 12/30/16 04:00 12/30/16 04:20 Arterial Blood pH 7.345 (7.350-7.450) 7.310 (7.350-7.450) Arterial Blood Partial Pressure CO2 54.9 mmHg (35.0-45.0) H 55.6 mmHg (35.0-45.0) *H Arterial Blood Partial Pressure O2 117.9 mmHg (75.0-100.0) H 223.6 mmHg (75.0-100.0) H Arterial Blood HCO3 29.3 mmol/L (22.0-26.0) H 27.6 mmol/L (22.0-26.0) H Arterial Blood Oxygen Saturation 98.4 % (92.0-98.0) H 99.2 % (92.0-98.0) H Arterial Blood Base Excess 2.9 0.8 Antonio Test Positive Positive White Blood Count 11.1 K/UL (4.8-10.8) H Red Blood Count 2.62 M/UL (4.20-5.40) L Hemoglobin 8.1 G/DL (12.0-16.0) L Hematocrit 26.4 % (37.0-47.0) L Mean Corpuscular Volume 101 FL (80-99) H Mean Corpuscular Hemoglobin 31.1 PG (27.0-31.0) H Mean Corpuscular Hemoglobin Concent 30.8 G/DL (32.0-36.0) L Red Cell Distribution Width 20.6 % (11.6-14.8) H Platelet Count 171 K/UL (150-450) Mean Platelet Volume 9.7 FL (6.5-10.1) Neutrophils (%) (Auto) 84.0 % (45.0-75.0) H Lymphocytes (%) (Auto) 2.5 % (20.0-45.0) L Monocytes (%) (Auto) 10.9 % (1.0-10.0) H Eosinophils (%) (Auto) 2.2 % (0.0-3.0) Basophils (%) (Auto) 0.4 % (0.0-2.0) Sodium Level 137 mEQ/L (135-145) Potassium Level 3.7 mEQ/L (3.4-4.9) Chloride Level 99 mEQ/L (98-107) Carbon Dioxide Level 27 mEQ/L (20-30) Anion Gap 11 (5-15) Blood Urea Nitrogen 35 mg/dL (7-23) H Creatinine 2.8 mg/dL (0.5-0.9) H Estimat Glomerular Filtration Rate 17.1 mL/min (>60) Glucose Level 129 mg/dL (74-106) H Calcium Level 8.5 mg/dL (8.6-10.2) L Phosphorus Level 3.5 mg/dL (2.5-4.8) Magnesium Level 1.7 mg/dL (1.7-2.5) Total Bilirubin 0.3 mg/dL (0.0-1.2) Aspartate Amino Transf (AST/SGOT) 22 U/L (5-40) Alanine Aminotransferase (ALT/SGPT) 7 U/L (3-33) Alkaline Phosphatase 222 U/L (35-104) H Total Protein 6.1 g/dL (6.6-8.7) L Albumin 2.5 g/dL (3.5-5.2) L Globulin 3.6 g/dL Albumin/Globulin Ratio 0.6 (1.0-2.7) L Height (Feet): 4 Height (Inches): 9.00 Weight (Pounds): 75 General Appearance: no apparent distress, alert Cardiovascular: normal rate Respiratory/Chest: other - mech vent Abdominal Exam: normal bowel sounds, non tender, soft Objective Procedure: US ABD Complete Indication: Abnormal liver function tests and renal function tests Impression: Moderate ascites, nonspecific as regards etiology Negative for gallstones. There is mild gallbladder wall thickening, suspect secondary to whatever process is causing ascites, but acute acalculous cholecystitis not completely excludable. Consider nuclear medicine hepatobiliary scan if there is high clinical suspicion for acute cholecystitis Bilateral echogenic atrophic kidneys, consistent with known history of chronic renal disease Suzy Middleton N.P. Dec 30, 2016 11:29
--- NOTE | 2016-12-30 13:31 | Infectious Diseases Prog Note ---
Assessment/Plan Assessment/Plan ASSESSMENT: 61 y/o female with: // SP probable sepsis - cultures(-) // Negative C.difficile // Shock SP - off pressors // Leukopenia SP // Hypothermia SP // Acute encephalopathy / found down ?hepatic ( elevated NH4 ) r/o septic - improved - CT Head: No evidence of acute intracranial pathology. Bilateral cerebral periventricular and deepwhite matter low attenuation, nonspecific, likely chronic microvascular ischemic in nature. Atrophy // Acute VDRF - intubated 12/22, failing weaning - CXR 12/30: Lungs are essentially clear. // ?Cirrhosis / chronic liver disease with elevated LFTs, leukopenia, chronic macrocytic anemia, TCP, coagulopathy, hypoalbuminemia - US: pending // ESRD / HD with right chest TDC // FOBT(+) macrocytic anemia SP PRBCs - recent EGD: GAVE // Probable CHF exacerbation - CXR: evidence of congestive heart failure including pulmonary edema, small bilateral pleural effusions - TTE: EF 65%, grade I diastolic dysfunction, mild-mod TR, mod MR, pulmonary HTN // Elevated ESR // NH resident // NKDA // Full Code PLAN: - monitor pt off of ABX ( 12/27 SP IV vancomycin d# 5 / 5 ) ( 12/23 SP zosyn ) - monitor CBC, temperatures, re-culture if febrile or worsening leukocytosis - monitor BMP - monitor CXR - vent support, wean as tolerated - transfuse prn Subjective Allergies: Coded Allergies: No Known Allergies (Unverified , 12/22/16) Subjective remains afebrile, awake on vent failing weaning Objective Vital Signs Last 24 Hour Vital Signs Date Time Temp Pulse Resp B/P Pulse Ox O2 Delivery O2 Flow Rate FiO2 12/30/16 13:01 92 12/30/16 13:00 91 15 108/51 100 Mechanical Ventilator 30 12/30/16 12:43 92 18 30 12/30/16 12:00 30 12/30/16 12:00 97.9 92 17 83/47 100 Mechanical Ventilator 50 12/30/16 12:00 89 12/30/16 11:00 87 14 80/50 100 Mechanical Ventilator 30 12/30/16 10:46 87 17 30 12/30/16 10:00 88 14 94/50 100 Mechanical Ventilator 30 12/30/16 09:50 88 14 30 12/30/16 09:00 89 16 101/50 100 Mechanical Ventilator 50 12/30/16 08:51 90 12/30/16 08:00 97.3 90 14 107/61 100 Mechanical Ventilator 50 12/30/16 08:00 50 12/30/16 08:00 93 12/30/16 07:00 89 14 100/48 100 Mechanical Ventilator 50 12/30/16 06:42 88 14 30 12/30/16 06:00 89 14 97/50 100 Mechanical Ventilator 50 12/30/16 05:08 93 14 30 12/30/16 05:00 88 14 101/51 100 Mechanical Ventilator 50 12/30/16 04:00 90 12/30/16 04:00 98.1 91 14 94/43 100 Mechanical Ventilator 50 12/30/16 04:00 50 12/30/16 03:24 91 14 30 12/30/16 03:00 90 26 109/49 100 Mechanical Ventilator 50 12/30/16 02:00 105 26 148/72 100 Mechanical Ventilator 30 12/30/16 01:18 95 19 30 12/30/16 01:00 95 17 97/72 100 Mechanical Ventilator 30 12/30/16 01:00 117/56 12/30/16 00:00 30 12/30/16 00:00 97.9 99 20 129/80 100 Mechanical Ventilator 30 12/30/16 00:00 99 12/29/16 23:28 93 16 30 12/29/16 23:00 93 19 116/61 100 Mechanical Ventilator 30 12/29/16 22:00 91 21 105/55 100 Mechanical Ventilator 30 12/29/16 21:30 88 28 30 12/29/16 21:00 98.0 90 20 97/54 100 Mechanical Ventilator 30 12/29/16 20:00 90 12/29/16 20:00 90 16 102/51 100 Mechanical Ventilator 30 12/29/16 20:00 30 12/29/16 19:17 92 20 30 12/29/16 19:00 94 22 114/55 100 Mechanical Ventilator 30 12/29/16 18:43 94 12/29/16 18:00 92 20 113/60 100 Mechanical Ventilator 30 12/29/16 17:20 87 18 30 12/29/16 17:00 91 18 116/62 100 Mechanical Ventilator 30 12/29/16 16:00 97.6 92 18 111/58 100 Mechanical Ventilator 30 12/29/16 16:00 90 12/29/16 16:00 30 12/29/16 15:20 89 25 30 12/29/16 15:00 90 22 127/70 100 Mechanical Ventilator 30 12/29/16 14:00 94 18 122/59 100 Mechanical Ventilator 30 12/29/16 13:59 93 Height (Feet): 4 Height (Inches): 9.00 Weight (Pounds): 75 General Appearance: other - awake on vent Respiratory/Chest: decreased breath sounds Cardiovascular: normal rate, regular rhythm Abdomen: normal bowel sounds, soft, non tender, non distended Laboratory Tests Test 12/30/16 04:00 12/30/16 04:20 Arterial Blood pH 7.310 (7.350-7.450) Arterial Blood Partial Pressure CO2 55.6 mmHg (35.0-45.0) *H Arterial Blood Partial Pressure O2 223.6 mmHg (75.0-100.0) H Arterial Blood HCO3 27.6 mmol/L (22.0-26.0) H Arterial Blood Oxygen Saturation 99.2 % (92.0-98.0) H Arterial Blood Base Excess 0.8 Antonio Test Positive White Blood Count 11.1 K/UL (4.8-10.8) H Red Blood Count 2.62 M/UL (4.20-5.40) L Hemoglobin 8.1 G/DL (12.0-16.0) L Hematocrit 26.4 % (37.0-47.0) L Mean Corpuscular Volume 101 FL (80-99) H Mean Corpuscular Hemoglobin 31.1 PG (27.0-31.0) H Mean Corpuscular Hemoglobin Concent 30.8 G/DL (32.0-36.0) L Red Cell Distribution Width 20.6 % (11.6-14.8) H Platelet Count 171 K/UL (150-450) Mean Platelet Volume 9.7 FL (6.5-10.1) Neutrophils (%) (Auto) 84.0 % (45.0-75.0) H Lymphocytes (%) (Auto) 2.5 % (20.0-45.0) L Monocytes (%) (Auto) 10.9 % (1.0-10.0) H Eosinophils (%) (Auto) 2.2 % (0.0-3.0) Basophils (%) (Auto) 0.4 % (0.0-2.0) Sodium Level 137 mEQ/L (135-145) Potassium Level 3.7 mEQ/L (3.4-4.9) Chloride Level 99 mEQ/L (98-107) Carbon Dioxide Level 27 mEQ/L (20-30) Anion Gap 11 (5-15) Blood Urea Nitrogen 35 mg/dL (7-23) H Creatinine 2.8 mg/dL (0.5-0.9) H Estimat Glomerular Filtration Rate 17.1 mL/min (>60) Glucose Level 129 mg/dL (74-106) H Calcium Level 8.5 mg/dL (8.6-10.2) L Phosphorus Level 3.5 mg/dL (2.5-4.8) Magnesium Level 1.7 mg/dL (1.7-2.5) Total Bilirubin 0.3 mg/dL (0.0-1.2) Aspartate Amino Transf (AST/SGOT) 22 U/L (5-40) Alanine Aminotransferase (ALT/SGPT) 7 U/L (3-33) Alkaline Phosphatase 222 U/L (35-104) H Total Protein 6.1 g/dL (6.6-8.7) L Albumin 2.5 g/dL (3.5-5.2) L Globulin 3.6 g/dL Albumin/Globulin Ratio 0.6 (1.0-2.7) L Current Medications Medications (Trade) Dose Ordered Sig/Reji Route PRN Reason Start Time Stop Time Status Last Admin Dose Admin Acetaminophen (Tylenol) 650 mg Q4H PRN ORAL fever 12/22/16 13:45 01/21/17 13:44 Albumin Human (Albumisol) 100 ml @ 200 mls/hr PRN PRN IV sbp<90 during hd 12/30/16 06:00 12/30/16 23:59 Albuterol/ Ipratropium (DuoNeb 0.5-3(2.5)mg/3ml) 3 ml Q4H PRN HHN Shortness of Breath 12/27/16 09:45 01/01/17 09:44 Epoetin José Miguel (Procrit (for ESRD on dialysis)) 10,000 units WED-WED-WED SUBQ 12/28/16 21:00 01/27/17 20:59 12/28/16 21:55 Morphine Sulfate (Morphine Sulfate) 4 mg Q4H PRN IVP PAIN 4-10 12/27/16 09:45 01/03/17 09:44 Nitroglycerin 0.4 mg 0.4 mg Q5MIN X 3 DOSES PRN SL Prn Chest Pain 12/22/16 13:45 01/21/17 13:44 Norepinephrine Bitartrate/ Dextrose (Levophed/D5W) 250 ml @ 0 mls/hr Q24H IV 12/23/16 01:00 01/22/17 00:59 12/26/16 01:00 Ondansetron HCl (Zofran) 4 mg Q6H PRN IVP Nausea & Vomiting 12/22/16 13:45 01/21/17 13:44 12/23/16 19:36 Pantoprazole (Protonix) 40 mg BID IVP 12/28/16 18:00 01/27/17 17:59 12/30/16 08:51 Polyethylene Glycol (Miralax) 17 gm DAILYPRN PRN GT Constipation 12/25/16 11:03 01/21/17 13:44 Potassium Phos/ Sodium Phos 1 pkt 1 pkt BID GT 12/29/16 10:00 12/30/16 18:01 12/30/16 08:51 Propafenone HCl (Rythmol) 225 mg TID NG 12/23/16 21:00 01/22/17 20:59 12/30/16 13:01 Rifaximin (Xifaxan) 550 mg EVERY 12 HOURS GT 12/25/16 11:03 01/03/17 11:02 12/30/16 08:51 DARLIN GRANADO Dec 30, 2016 13:31
--- NOTE | 2016-12-30 14:59 | Nephrology Progress Note ---
Assessment/Plan Problem List: (1) Hypovolemic shock (2) End-stage kidney disease (3) Acute respiratory failure (4) CHF (congestive heart failure) (5) Liver cirrhosis (6) Hypoalbuminemia (7) Severe malnutrition (8) GAVE (gastric antral vascular ectasia) (9) Diarrhea Plan try to wean off levophed, done , seen on hd 12/30 stable watch bp closely, increase tube feeding, stop iv fluids, next hd 12/10\4 Subjective Constitutional: Reports: weakness HEENT: Reports: no symptoms Genitourinary: Reports: no symptoms Neurologic/Psychiatric: Reports: weakness Subjective awake on vent Objective Objective Last 24 Hour Vital Signs Date Time Temp Pulse Resp B/P Pulse Ox O2 Delivery O2 Flow Rate FiO2 12/30/16 14:00 118 20 115/52 100 Mechanical Ventilator 30 12/30/16 13:01 92 12/30/16 13:00 91 15 108/51 100 Mechanical Ventilator 30 12/30/16 12:43 92 18 30 12/30/16 12:00 30 12/30/16 12:00 97.9 92 17 83/47 100 Mechanical Ventilator 50 12/30/16 12:00 89 12/30/16 11:00 87 14 80/50 100 Mechanical Ventilator 30 12/30/16 10:46 87 17 30 12/30/16 10:00 88 14 94/50 100 Mechanical Ventilator 30 12/30/16 09:50 88 14 30 12/30/16 09:00 89 16 101/50 100 Mechanical Ventilator 50 12/30/16 08:51 90 12/30/16 08:00 97.3 90 14 107/61 100 Mechanical Ventilator 50 12/30/16 08:00 50 12/30/16 08:00 93 12/30/16 07:00 89 14 100/48 100 Mechanical Ventilator 50 12/30/16 06:42 88 14 30 12/30/16 06:00 89 14 97/50 100 Mechanical Ventilator 50 12/30/16 05:08 93 14 30 12/30/16 05:00 88 14 101/51 100 Mechanical Ventilator 50 12/30/16 04:00 90 12/30/16 04:00 98.1 91 14 94/43 100 Mechanical Ventilator 50 12/30/16 04:00 50 12/30/16 03:24 91 14 30 12/30/16 03:00 90 26 109/49 100 Mechanical Ventilator 50 12/30/16 02:00 105 26 148/72 100 Mechanical Ventilator 30 12/30/16 01:18 95 19 30 12/30/16 01:00 95 17 97/72 100 Mechanical Ventilator 30 12/30/16 01:00 117/56 12/30/16 00:00 30 12/30/16 00:00 97.9 99 20 129/80 100 Mechanical Ventilator 30 12/30/16 00:00 99 12/29/16 23:28 93 16 30 12/29/16 23:00 93 19 116/61 100 Mechanical Ventilator 30 12/29/16 22:00 91 21 105/55 100 Mechanical Ventilator 30 12/29/16 21:30 88 28 30 12/29/16 21:00 98.0 90 20 97/54 100 Mechanical Ventilator 30 12/29/16 20:00 90 12/29/16 20:00 90 16 102/51 100 Mechanical Ventilator 30 12/29/16 20:00 30 12/29/16 19:17 92 20 30 12/29/16 19:00 94 22 114/55 100 Mechanical Ventilator 30 12/29/16 18:43 94 12/29/16 18:00 92 20 113/60 100 Mechanical Ventilator 30 12/29/16 17:20 87 18 30 12/29/16 17:00 91 18 116/62 100 Mechanical Ventilator 30 12/29/16 16:00 97.6 92 18 111/58 100 Mechanical Ventilator 30 12/29/16 16:00 90 12/29/16 16:00 30 12/29/16 15:20 89 25 30 12/29/16 15:00 90 22 127/70 100 Mechanical Ventilator 30 Intake and Output 12/29/16 12/30/16 19:00 07:00 Intake Total 690 ml 490 ml Balance 690 ml 490 ml Free Water 300 ml 70 ml Tube Feeding 390 ml 420 ml # Bowel Movements 9 7 Laboratory Tests 12/30/16 04:00: Arterial Blood pH 7.310L, Arterial Blood Partial Pressure CO2 55.6*H, Arterial Blood Partial Pressure O2 223.6H, Arterial Blood HCO3 27.6H, Arterial Blood Oxygen Saturation 99.2H, Arterial Blood Base Excess 0.8, Antonio Test Positive 12/30/16 04:20: White Blood Count 11.1H, Red Blood Count 2.62L, Hemoglobin 8.1L, Hematocrit 26.4L, Mean Corpuscular Volume 101H, Mean Corpuscular Hemoglobin 31.1H, Mean Corpuscular Hemoglobin Concent 30.8L, Red Cell Distribution Width 20.6H, Platelet Count 171, Mean Platelet Volume 9.7, Neutrophils (%) (Auto) 84.0H, Lymphocytes (%) (Auto) 2.5L, Monocytes (%) (Auto) 10.9H, Eosinophils (%) (Auto) 2.2, Basophils (%) (Auto) 0.4, Sodium Level 137, Potassium Level 3.7, Chloride Level 99, Carbon Dioxide Level 27, Anion Gap 11, Blood Urea Nitrogen 35H, Creatinine 2.8H, Estimat Glomerular Filtration Rate 17.1, Glucose Level 129H, Calcium Level 8.5L, Phosphorus Level 3.5, Magnesium Level 1.7, Total Bilirubin 0.3, Aspartate Amino Transf (AST/SGOT) 22, Alanine Aminotransferase (ALT/SGPT) 7 , Alkaline Phosphatase 222H, Total Protein 6.1L, Albumin 2.5L, Globulin 3.6, Albumin/Globulin Ratio 0.6L Height (Feet): 4 Height (Inches): 9.00 Weight (Pounds): 75 General Appearance: no apparent distress, alert EENT: PERRL/EOMI Neck: normal alignment Cardiovascular: normal rate, regular rhythm Respiratory/Chest: lungs clear Abdomen: non tender, soft Extremities: moderate edema PERLITA HOOD Dec 30, 2016 14:59
[2016-12-30] MEDS ORDERED: NS 275ml ONE (16:05)
--- NOTE | 2016-12-30 18:56 | Internal Med Progress Note ---
Subjective Date of Service: Dec 30, 2016 Physician Name Dione Bull Attending Physician Jes Bautista Current Medications Medications (Trade) Dose Ordered Sig/Reji Route PRN Reason Start Time Stop Time Status Last Admin Dose Admin Acetaminophen (Tylenol) 650 mg Q4H PRN ORAL fever 12/22/16 13:45 01/21/17 13:44 Albumin Human (Albumisol) 100 ml @ 200 mls/hr PRN PRN IV sbp<90 during hd 12/30/16 06:00 12/30/16 23:59 12/30/16 14:28 Albuterol/ Ipratropium (DuoNeb 0.5-3(2.5)mg/3ml) 3 ml Q4H PRN HHN Shortness of Breath 12/27/16 09:45 01/01/17 09:44 Epoetin José Miguel (Procrit (for ESRD on dialysis)) 10,000 units WED-WED-WED SUBQ 12/28/16 21:00 01/27/17 20:59 12/28/16 21:55 Morphine Sulfate (Morphine Sulfate) 4 mg Q4H PRN IVP PAIN 4-10 12/27/16 09:45 01/03/17 09:44 Nitroglycerin 0.4 mg 0.4 mg Q5MIN X 3 DOSES PRN SL Prn Chest Pain 12/22/16 13:45 01/21/17 13:44 Norepinephrine Bitartrate/ Dextrose (Levophed/D5W) 250 ml @ 0 mls/hr Q24H IV 12/23/16 01:00 01/22/17 00:59 12/26/16 01:00 Ondansetron HCl (Zofran) 4 mg Q6H PRN IVP Nausea & Vomiting 12/22/16 13:45 01/21/17 13:44 12/23/16 19:36 Pantoprazole 40 mg 40 mg BID IVP 12/28/16 18:00 01/27/17 17:59 12/30/16 17:52 Polyethylene Glycol (Miralax) 17 gm DAILYPRN PRN GT Constipation 12/25/16 11:03 01/21/17 13:44 Propafenone HCl (Rythmol) 225 mg TID NG 12/23/16 21:00 01/22/17 20:59 12/30/16 17:52 Rifaximin (Xifaxan) 550 mg EVERY 12 HOURS GT 12/25/16 11:03 01/03/17 11:02 12/30/16 08:51 Allergies: Coded Allergies: No Known Allergies (Unverified , 12/22/16) ROS Limited/Unobtainable: Yes Subjective 61 YO F admitted with respiratory failure. Now probable sepsis with septic shock. Intubated and sedated. ICU. Off pressors. Failed CPAP trial. Cover for Int Jamie-Dr Vigil. Objective Last Vital Signs Date Time Temp Pulse Resp B/P Pulse Ox O2 Delivery O2 Flow Rate FiO2 12/30/16 18:00 89 18 106/58 100 Mechanical Ventilator 30 12/30/16 17:00 95.6 12/22/16 10:55 15.0 Laboratory Tests Test 12/30/16 04:00 12/30/16 04:20 Arterial Blood pH 7.310 (7.350-7.450) Arterial Blood Partial Pressure CO2 55.6 mmHg (35.0-45.0) *H Arterial Blood Partial Pressure O2 223.6 mmHg (75.0-100.0) H Arterial Blood HCO3 27.6 mmol/L (22.0-26.0) H Arterial Blood Oxygen Saturation 99.2 % (92.0-98.0) H Arterial Blood Base Excess 0.8 Antonio Test Positive White Blood Count 11.1 K/UL (4.8-10.8) H Red Blood Count 2.62 M/UL (4.20-5.40) L Hemoglobin 8.1 G/DL (12.0-16.0) L Hematocrit 26.4 % (37.0-47.0) L Mean Corpuscular Volume 101 FL (80-99) H Mean Corpuscular Hemoglobin 31.1 PG (27.0-31.0) H Mean Corpuscular Hemoglobin Concent 30.8 G/DL (32.0-36.0) L Red Cell Distribution Width 20.6 % (11.6-14.8) H Platelet Count 171 K/UL (150-450) Mean Platelet Volume 9.7 FL (6.5-10.1) Neutrophils (%) (Auto) 84.0 % (45.0-75.0) H Lymphocytes (%) (Auto) 2.5 % (20.0-45.0) L Monocytes (%) (Auto) 10.9 % (1.0-10.0) H Eosinophils (%) (Auto) 2.2 % (0.0-3.0) Basophils (%) (Auto) 0.4 % (0.0-2.0) Sodium Level 137 mEQ/L (135-145) Potassium Level 3.7 mEQ/L (3.4-4.9) Chloride Level 99 mEQ/L (98-107) Carbon Dioxide Level 27 mEQ/L (20-30) Anion Gap 11 (5-15) Blood Urea Nitrogen 35 mg/dL (7-23) H Creatinine 2.8 mg/dL (0.5-0.9) H Estimat Glomerular Filtration Rate 17.1 mL/min (>60) Glucose Level 129 mg/dL (74-106) H Calcium Level 8.5 mg/dL (8.6-10.2) L Phosphorus Level 3.5 mg/dL (2.5-4.8) Magnesium Level 1.7 mg/dL (1.7-2.5) Total Bilirubin 0.3 mg/dL (0.0-1.2) Aspartate Amino Transf (AST/SGOT) 22 U/L (5-40) Alanine Aminotransferase (ALT/SGPT) 7 U/L (3-33) Alkaline Phosphatase 222 U/L (35-104) H Total Protein 6.1 g/dL (6.6-8.7) L Albumin 2.5 g/dL (3.5-5.2) L Globulin 3.6 g/dL Albumin/Globulin Ratio 0.6 (1.0-2.7) L Intake and Output 12/29/16 12/30/16 19:00 07:00 Intake Total 690 ml 490 ml Balance 690 ml 490 ml Free Water 300 ml 70 ml Tube Feeding 390 ml 420 ml # Bowel Movements 9 7 Objective General Appearance: mild distress, thin EENT: PERRL/EOMI, normal ENT inspection Neck: non-tender, normal alignment, supple Cardiovascular: normal peripheral pulses, normal rate, regular rhythm, no gallop/murmur, no JVD Respiratory/Chest: Mech Vent; respiratory distress, crackles/rales, rhonchi - bilaterally, expiratory wheezing Abdomen: normal bowel sounds, non tender, soft, no organomegaly, no mass 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 (3) HTN (hypertension) Assessment & Plan: Currently hypotensive. (4) Acute respiratory failure Assessment & Plan: Failed CPAP; Cont mech vent per pulmonary. May require tracheostomy (5) CHF (congestive heart failure) (6) Anemia (7) Liver cirrhosis (8) Sepsis Assessment & Plan: Cont off antibiotics per ID (9) Septic shock Assessment & Plan: D/C pressors. Status: not improved DIONE BULL Dec 30, 2016 18:56
[2016-12-30] MEDS: Epogen (for ESRD on dialysis) SUBQ SCH (20:38)
--- NOTE | 2016-12-30 21:42 | Cardiology Progress Note ---
Assessment/Plan Assessment/Plan ams hypotension hs of mod to sever MR paf hs of avb with pvc cirrhosis , esrd on dialyusis mgus htn scleroderma hs of [place] o gave continue on rhtymol for now watch on tele for afib recurrence or for av block wean off vent iv abx dialysisas indicated lv function has been preserved tele sinus Subjective Cardiovascular: Denies: chest pain, lightheadedness, palpitations Respiratory: Denies: shortness of breath Gastrointestinal/Abdominal: Denies: abdominal pain Genitourinary: Denies: burning Objective Last 24 Hour Vital Signs Date Time Temp Pulse Resp B/P Pulse Ox O2 Delivery O2 Flow Rate FiO2 12/30/16 21:00 87 18 99/65 100 Mechanical Ventilator 30 12/30/16 20:57 80 16 30 12/30/16 20:00 97.1 82 18 82/49 100 Mechanical Ventilator 30 12/30/16 20:00 30 12/30/16 19:30 83 14 30 12/30/16 19:00 96.5 85 18 88/42 100 Mechanical Ventilator 30 12/30/16 18:00 89 18 106/58 100 Mechanical Ventilator 30 12/30/16 17:52 89 12/30/16 17:00 95.6 87 97/55 12/30/16 17:00 90 18 85/45 100 Mechanical Ventilator 30 12/30/16 16:46 91 18 30 12/30/16 16:45 88 89/50 12/30/16 16:30 88 94/49 12/30/16 16:15 89 95/50 12/30/16 16:00 91 90/45 12/30/16 16:00 95 12/30/16 16:00 97.0 90 18 90/45 100 Mechanical Ventilator 30 12/30/16 16:00 30 12/30/16 15:45 94 105/52 12/30/16 15:30 94 89/33 12/30/16 15:15 98 87/34 12/30/16 15:00 95 18 93/39 100 Mechanical Ventilator 30 12/30/16 15:00 95 93/39 12/30/16 14:45 102 111/53 12/30/16 14:44 90 16 30 12/30/16 14:30 108 134/54 12/30/16 14:15 119 178/70 12/30/16 14:00 104 193/83 2/22/17 14:00 118 20 115/52 100 Mechanical Ventilator 30 12/30/16 13:45 100 115/52 12/30/16 13:30 96.9 90 14 92/47 100 Mechanical Ventilator 12/30/16 13:01 92 12/30/16 13:00 91 15 108/51 100 Mechanical Ventilator 30 12/30/16 12:43 92 18 30 12/30/16 12:00 30 12/30/16 12:00 97.9 92 17 83/47 100 Mechanical Ventilator 50 12/30/16 12:00 89 12/30/16 11:00 87 14 80/50 100 Mechanical Ventilator 30 12/30/16 10:46 87 17 30 12/30/16 10:00 88 14 94/50 100 Mechanical Ventilator 30 12/30/16 09:50 88 14 30 12/30/16 09:00 89 16 101/50 100 Mechanical Ventilator 50 12/30/16 08:51 90 12/30/16 08:00 97.3 90 14 107/61 100 Mechanical Ventilator 50 12/30/16 08:00 50 12/30/16 08:00 93 12/30/16 07:00 89 14 100/48 100 Mechanical Ventilator 50 12/30/16 06:42 88 14 30 12/30/16 06:00 89 14 97/50 100 Mechanical Ventilator 50 12/30/16 05:08 93 14 30 12/30/16 05:00 88 14 101/51 100 Mechanical Ventilator 50 12/30/16 04:00 90 12/30/16 04:00 98.1 91 14 94/43 100 Mechanical Ventilator 50 12/30/16 04:00 50 12/30/16 03:24 91 14 30 12/30/16 03:00 90 26 109/49 100 Mechanical Ventilator 50 12/30/16 02:00 105 26 148/72 100 Mechanical Ventilator 30 12/30/16 01:18 95 19 30 12/30/16 01:00 95 17 97/72 100 Mechanical Ventilator 30 12/30/16 01:00 117/56 12/30/16 00:00 30 12/30/16 00:00 97.9 99 20 129/80 100 Mechanical Ventilator 30 12/30/16 00:00 99 12/29/16 23:28 93 16 30 2/21/17 23:00 93 19 116/61 100 Mechanical Ventilator 30 12/29/16 22:00 91 21 105/55 100 Mechanical Ventilator 30 General Appearance: no apparent distress, alert, on vent Neck: supple Cardiovascular: normal peripheral pulses, normal rate, regular rhythm Respiratory/Chest: expiratory wheezing - few Abdomen: non tender, soft Extremities: no swelling Intake and Output 12/29/16 12/30/16 19:00 07:00 Intake Total 690 ml 490 ml Balance 690 ml 490 ml Free Water 300 ml 70 ml Tube Feeding 390 ml 420 ml # Bowel Movements 9 7 Laboratory Tests Test 12/30/16 04:00 12/30/16 04:20 Arterial Blood pH 7.310 (7.350-7.450) Arterial Blood Partial Pressure CO2 55.6 mmHg (35.0-45.0) *H Arterial Blood Partial Pressure O2 223.6 mmHg (75.0-100.0) H Arterial Blood HCO3 27.6 mmol/L (22.0-26.0) H Arterial Blood Oxygen Saturation 99.2 % (92.0-98.0) H Arterial Blood Base Excess 0.8 Antonio Test Positive White Blood Count 11.1 K/UL (4.8-10.8) H Red Blood Count 2.62 M/UL (4.20-5.40) L Hemoglobin 8.1 G/DL (12.0-16.0) L Hematocrit 26.4 % (37.0-47.0) L Mean Corpuscular Volume 101 FL (80-99) H Mean Corpuscular Hemoglobin 31.1 PG (27.0-31.0) H Mean Corpuscular Hemoglobin Concent 30.8 G/DL (32.0-36.0) L Red Cell Distribution Width 20.6 % (11.6-14.8) H Platelet Count 171 K/UL (150-450) Mean Platelet Volume 9.7 FL (6.5-10.1) Neutrophils (%) (Auto) 84.0 % (45.0-75.0) H Lymphocytes (%) (Auto) 2.5 % (20.0-45.0) L Monocytes (%) (Auto) 10.9 % (1.0-10.0) H Eosinophils (%) (Auto) 2.2 % (0.0-3.0) Basophils (%) (Auto) 0.4 % (0.0-2.0) Sodium Level 137 mEQ/L (135-145) Potassium Level 3.7 mEQ/L (3.4-4.9) Chloride Level 99 mEQ/L (98-107) Carbon Dioxide Level 27 mEQ/L (20-30) Anion Gap 11 (5-15) Blood Urea Nitrogen 35 mg/dL (7-23) H Creatinine 2.8 mg/dL (0.5-0.9) H Estimat Glomerular Filtration Rate 17.1 mL/min (>60) Glucose Level 129 mg/dL (74-106) H Calcium Level 8.5 mg/dL (8.6-10.2) L Phosphorus Level 3.5 mg/dL (2.5-4.8) Magnesium Level 1.7 mg/dL (1.7-2.5) Total Bilirubin 0.3 mg/dL (0.0-1.2) Aspartate Amino Transf (AST/SGOT) 22 U/L (5-40) Alanine Aminotransferase (ALT/SGPT) 7 U/L (3-33) Alkaline Phosphatase 222 U/L (35-104) H Total Protein 6.1 g/dL (6.6-8.7) L Albumin 2.5 g/dL (3.5-5.2) L Globulin 3.6 g/dL Albumin/Globulin Ratio 0.6 (1.0-2.7) L CHRISTIN JIMENEZ Dec 30, 2016 21:42
[2016-12-31] VITALS (44 sets, daily range): BP systolic 74–140; BP diastolic 46–96
[2016-12-31] MEDS ORDERED: Levophed 4mg/4mL Inj IV ONE (00:27)
[2016-12-31 05:27] LABS: MEAN CORPUSCULAR HEMOGLOBIN 31.5 PG (27.0-31.0); MEAN CORPUSCULAR HGB CONC 31.7 G/DL (32.0-36.0); MEAN CORPUSCULAR VOLUME 99 FL (80-99); MEAN PLATELET VOLUME 8.8 FL (6.5-10.1); PLATELET COUNT 162 K/UL (150-450); RED BLOOD COUNT 2.52 M/UL (4.20-5.40); RED CELL DISTRIBUTION WIDTH 20.3 % (11.6-14.8); WHITE BLOOD COUNT 9.5 K/UL (4.8-10.8)
[2016-12-31 06:04] LABS: ALBUMIN/GLOBULIN RATIO 0.9 (1.0-2.7); CREATININE 2.3 mg/dL (0.5-0.9); GLOMERULAR FILTRATION RATE 21.5 mL/min (>60); MAGNESIUM 1.6 mg/dL (1.7-2.5); PHOSPHORUS 2.9 mg/dL (2.5-4.8); TOTAL PROTEIN 6.5 g/dL (6.6-8.7)
[2016-12-31 07:01] LABS: ANISOCYTOSIS 2+; BAND NEUTROPHILS % (MANUAL) 0 % (0-8); BASOPHILS % (MANUAL) 0 % (0-2); EOSINOPHILS % (MANUAL) 4 % (0-3); HYPOCHROMASIA 3+; LYMPHOCYTES % (MANUAL) 4 % (20-45); NEUTROPHILS % (MANUAL) 82 % (45-75); PLATELET ESTIMATE ADEQUATE; PLATELET MORPHOLOGY NORMAL; TOTAL CELLS COUNTED 100
[2016-12-31 07:35] LABS: ABG BASE EXCESS 2.3; ABG PCO2 45.2 mmHg (35.0-45.0)
[2016-12-31] MEDS: Pantoprazole Inj IVP SCH ×2 (08:36→18:05)
[2016-12-31] MEDS: Rifaximin 550mg tab GT SCH ×2 (08:36→20:42)
--- NOTE | 2016-12-31 10:08 | Wound Care Consultation ---
Wound Assessment Wound Assessment : Wound Number: #1 Wound Present on Admission: Yes New Wound: No Status Change of Wound: No Wound Location Body Site Modif: mid Wound Location Body Site: sacral Wound Type: pressure ulcer Vishnu Test: Does not Vishnu Pressure Ulcer Stage: deep tissue injury - suspected Wound Thickness: Full Thickness Wound Length: 1.5 Wound Width: 1.0 Wound Depth: utd Percent of Wound Deltana/Red: 50 Percent of Wound Purple/Maroon: 50 Wound Drainage Amount: None Wound Drainage Odor: None/Absent Tissue Surrounding Wound: Intact Wound General Appearance: Reddened Wound Comment #1 Sacral SDTI remains intact current treatment remains effective at this time, No further deterioration noted. Recommendation -Local wound care as ordered. -Turn and reposition. -Keep clean and dry. -Optimize nutrition. -Low air loss overlay mattress. -Heel Protectors. -Offload affective site. -Assess and notify MD if any change in condition is noted. BETTINA STEPHENSON Dec 31, 2016 10:08
--- NOTE | 2016-12-31 10:16 | Pulmonolgy Critical Care Note ---
Critical Care - Asmt/Plan Problems: (1) Acute respiratory failure (2) Altered mental state (3) CKD (chronic kidney disease) (4) Hyperkalemia (5) Liver cirrhosis (6) Connective tissue disease (7) CHF (congestive heart failure) Respiratory: monitor respiratory rate, adjust FIO2, CXR Cardiac: continue pressors, other - was on levophed last night for a few hours. Renal: F/U I&O, keep IV fluid, check electrolytes Infectious Disease: check cultures, continue antibiotics Gastrointestinal: continue feedings/current rate Endocrine: monitor blood sugar, continue sliding scale insulin Hematologic: monitor H/H, transfuse if hgb<8.5 Neurologic: PRN Ativan, PRN Morphine Affect: PRN ativan Prophylaxis: Protonix, Heparin Notes Reviewed: motor vehicle license clerk, renal Discussed with: nurses, consultants, hospice case managertechnical publications manager - Objective Last 24 Hour Vital Signs Date Time Temp Pulse Resp B/P Pulse Ox O2 Delivery O2 Flow Rate FiO2 12/31/16 10:00 90 14 118/57 100 Mechanical Ventilator 30 12/31/16 09:00 93 16 99/61 100 Mechanical Ventilator 30 12/31/16 08:48 97 17 30 12/31/16 08:36 92 12/31/16 08:32 86 16 30 12/31/16 08:00 89 12/31/16 08:00 97.3 91 17 91/54 100 Mechanical Ventilator 30 12/31/16 08:00 91/54 12/31/16 08:00 30 12/31/16 07:45 89 16 90/48 100 Mechanical Ventilator 30 12/31/16 07:30 91 15 93/47 100 Mechanical Ventilator 30 12/31/16 07:15 90 16 104/80 100 Mechanical Ventilator 30 12/31/16 07:00 89 15 111/63 100 Mechanical Ventilator 30 12/31/16 06:48 83/47 12/31/16 06:00 89 16 100/54 100 Mechanical Ventilator 30 12/31/16 05:45 91 16 140/74 100 Mechanical Ventilator 30 12/31/16 05:30 91 15 103/57 100 Mechanical Ventilator 30 12/31/16 05:15 91 20 90/49 100 Mechanical Ventilator 30 12/31/16 05:08 95 14 30 12/31/16 05:00 90 20 101/55 100 Mechanical Ventilator 30 12/31/16 04:45 91 20 106/49 100 Mechanical Ventilator 30 12/31/16 04:30 91 20 95/46 100 Mechanical Ventilator 30 12/31/16 04:15 92 20 98/52 100 Mechanical Ventilator 30 12/31/16 04:00 97.4 89 20 115/58 100 Mechanical Ventilator 30 12/31/16 04:00 30 12/31/16 04:00 89 12/31/16 03:45 89 20 114/57 100 Mechanical Ventilator 30 12/31/16 03:30 91 20 108/57 100 Mechanical Ventilator 30 12/31/16 03:15 94 20 94/51 100 Mechanical Ventilator 30 12/31/16 03:06 93 15 30 12/31/16 03:00 92 17 103/58 100 Mechanical Ventilator 30 12/31/16 02:45 94 17 108/88 100 Mechanical Ventilator 30 12/31/16 02:30 94 15 99/51 100 Mechanical Ventilator 30 12/31/16 02:15 90 14 100/60 100 Mechanical Ventilator 30 12/31/16 02:00 89 14 97/53 100 Mechanical Ventilator 30 12/31/16 01:45 90 15 102/58 100 Mechanical Ventilator 30 12/31/16 01:30 91 14 111/58 100 Mechanical Ventilator 30 12/31/16 01:19 88 14 30 12/31/16 01:15 91 15 117/65 100 Mechanical Ventilator 30 12/31/16 01:00 88 15 117/65 100 Mechanical Ventilator 30 12/31/16 00:45 90 14 100/51 100 Mechanical Ventilator 30 12/31/16 00:38 74/57 12/31/16 00:30 91 15 74/57 100 Mechanical Ventilator 30 12/31/16 00:00 30 12/31/16 00:00 90 12/31/16 00:00 97.9 90 14 85/48 100 Mechanical Ventilator 30 12/30/16 23:25 93 14 30 12/30/16 23:00 95 15 112/49 100 Mechanical Ventilator 30 12/30/16 22:00 86 18 99/55 100 Mechanical Ventilator 30 12/30/16 21:00 87 18 99/65 100 Mechanical Ventilator 30 12/30/16 20:57 80 16 30 12/30/16 20:00 84 12/30/16 20:00 97.1 82 18 82/49 100 Mechanical Ventilator 30 12/30/16 20:00 30 12/30/16 19:30 83 14 30 12/30/16 19:00 96.5 85 18 88/42 100 Mechanical Ventilator 30 12/30/16 18:00 89 18 106/58 100 Mechanical Ventilator 30 12/30/16 17:52 89 12/30/16 17:00 95.6 87 97/55 12/30/16 17:00 90 18 85/45 100 Mechanical Ventilator 30 12/30/16 16:46 91 18 30 12/30/16 16:45 88 89/50 12/30/16 16:30 88 94/49 12/30/16 16:15 89 95/50 12/30/16 16:00 91 90/45 12/30/16 16:00 95 12/30/16 16:00 97.0 90 18 90/45 100 Mechanical Ventilator 30 12/30/16 16:00 30 12/30/16 15:45 94 105/52 12/30/16 15:30 94 89/33 12/30/16 15:15 98 87/34 12/30/16 15:00 95 18 93/39 100 Mechanical Ventilator 30 12/30/16 15:00 95 93/39 12/30/16 14:45 102 111/53 12/30/16 14:44 90 16 30 12/30/16 14:30 108 134/54 12/30/16 14:15 119 178/70 12/30/16 14:00 104 193/83 12/30/16 14:00 118 20 115/52 100 Mechanical Ventilator 12/30/16 13:45 100 115/52 12/30/16 13:30 96.9 90 14 92/47 100 Mechanical Ventilator 12/30/16 13:01 92 12/30/16 13:00 91 15 108/51 100 Mechanical Ventilator 30 12/30/16 12:43 92 18 30 12/30/16 12:00 30 12/30/16 12:00 97.9 92 17 83/47 100 Mechanical Ventilator 50 12/30/16 12:00 89 12/30/16 11:00 87 14 80/50 100 Mechanical Ventilator 30 12/30/16 10:46 87 17 30 Status: awake Condition: critical HEENT: atraumatic Neck: full ROM Lungs: chest wall tender Heart: HR/BP stable Abdomen: soft, non-tender Extremities: no C/C/E Decubiti: location Accucheck: 55 Critical Care - Subjective ROS Limited/Unobtainable: No ICU Day: 9 Intubation Day: 9 Condition: critical EKG Rhythm: Sinus Rhythm FI02: 30 Vent Support Breath Rate: 14 Vent Support Mode: AC Vent Tidal Volume: 450 Sputum Amount: Small PEEP: 5.0 PIP: 54 Tube Feeding Amount: 35 I&O: Intake and Output 12/30/16 12/31/16 19:00 07:00 Intake Total 1010 ml 413.75 ml Output Total 1500 ml Balance -490 ml 413.75 ml Free Water 50 ml IV Total 48.75 ml Tube Feeding 350 ml 315 ml Hemodialysis 500 ml Other 110 ml 50 ml Output Urine Total 0 ml Hemodialysis UF 1500 ml # Bowel Movements 5 7 CXR: no change ET-Tube: 7.5 ET Position: 23 Labs: Laboratory Tests Test 12/31/16 04:15 12/31/16 07:11 White Blood Count 9.5 K/UL (4.8-10.8) Red Blood Count 2.52 M/UL (4.20-5.40) L Hemoglobin 7.9 G/DL (12.0-16.0) L Hematocrit 25.0 % (37.0-47.0) L Mean Corpuscular Volume 99 FL (80-99) Mean Corpuscular Hemoglobin 31.5 PG (27.0-31.0) H Mean Corpuscular Hemoglobin Concent 31.7 G/DL (32.0-36.0) L Red Cell Distribution Width 20.3 % (11.6-14.8) H Platelet Count 162 K/UL (150-450) Mean Platelet Volume 8.8 FL (6.5-10.1) Neutrophils (%) (Auto) % (45.0-75.0) Lymphocytes (%) (Auto) % (20.0-45.0) Monocytes (%) (Auto) % (1.0-10.0) Eosinophils (%) (Auto) % (0.0-3.0) Basophils (%) (Auto) % (0.0-2.0) Differential Total Cells Counted 100 Neutrophils % (Manual) 82 % (45-75) H Lymphocytes % (Manual) 4 % (20-45) L Monocytes % (Manual) 10 % (1-10) Eosinophils % (Manual) 4 % (0-3) H Basophils % (Manual) 0 % (0-2) Band Neutrophils 0 % (0-8) Platelet Estimate Adequate Platelet Morphology Normal Hypochromasia 3+ Anisocytosis 2+ Sodium Level 131 mEQ/L (135-145) L Potassium Level 4.0 mEQ/L (3.4-4.9) Chloride Level 93 mEQ/L (98-107) L Carbon Dioxide Level 28 mEQ/L (20-30) Anion Gap 10 (5-15) Blood Urea Nitrogen 28 mg/dL (7-23) H Creatinine 2.3 mg/dL (0.5-0.9) H Estimat Glomerular Filtration Rate 21.5 mL/min (>60) Glucose Level 119 mg/dL (74-106) H Calcium Level 9.0 mg/dL (8.6-10.2) Phosphorus Level 2.9 mg/dL (2.5-4.8) Magnesium Level 1.6 mg/dL (1.7-2.5) L Total Bilirubin 0.4 mg/dL (0.0-1.2) Aspartate Amino Transf (AST/SGOT) 20 U/L (5-40) Alanine Aminotransferase (ALT/SGPT) 6 U/L (3-33) Alkaline Phosphatase 211 U/L (35-104) H Total Protein 6.5 g/dL (6.6-8.7) L Albumin 3.1 g/dL (3.5-5.2) L Globulin 3.4 g/dL Albumin/Globulin Ratio 0.9 (1.0-2.7) L Arterial Blood pH 7.400 (7.350-7.450) Arterial Blood Partial Pressure CO2 45.2 mmHg (35.0-45.0) H Arterial Blood Partial Pressure O2 119.1 mmHg (75.0-100.0) H Arterial Blood HCO3 27.4 mmol/L (22.0-26.0) H Arterial Blood Oxygen Saturation 99.0 % (92.0-98.0) H Arterial Blood Base Excess 2.3 Antonio Test FRANCESCA FELTON Dec 31, 2016 10:16
--- NOTE | 2016-12-31 11:00 | GI Progress Note ---
Assessment/Plan Problems: (1) End-stage kidney disease ICD Codes: N18.6 - End stage renal disease SNOMED: 21626195 (2) GAVE (gastric antral vascular ectasia) ICD Codes: K31.819 - Angiodysplasia of stomach and duodenum without bleeding SNOMED: 90146708 (3) Severe malnutrition ICD Codes: E43 - Unspecified severe protein-calorie malnutrition SNOMED: 83270258 (4) Hypoalbuminemia ICD Codes: E88.09 - Other disorders of plasma-protein metabolism, not elsewhere classified SNOMED: 200806348 (5) Anemia ICD Codes: D64.9 - Anemia, unspecified SNOMED: 932927373 (6) Liver cirrhosis ICD Codes: K74.60 - Unspecified cirrhosis of liver SNOMED: 79449195 Status: unchanged Status Narrative Discussed with Dr. Galarza. Assessment/Plan s/p EGD/colon at [facility] recently, see full report in chart. >> - No varices given history of cirrhosis. - GAVE appearance and did not show portal hypertensive gastropathy. - Findings included an active bleed in the focal area of the antrum which was treated. - Noted that the patient went into a CODE BLUE during the procedure. KUB >> negative abd U/S >> Moderate ascites. Mild gallbladder wall thickening. >> s/p 1600 paracentesis 2 days ago elevated ammonia OB stool positive Hep panel negative cdiff negative defer any GI procedures at this time pt scheduled to be trached >> refused by family monitor H&H, transfuse prn ppi BID OGT to goal rate per dietary, consider PEG dc lactulose, cont Xifaxan fu labs poor prognosis Subjective Subjective limited Objective Last 24 Hour Vital Signs Date Time Temp Pulse Resp B/P Pulse Ox O2 Delivery O2 Flow Rate FiO2 12/31/16 10:35 97 18 30 12/31/16 10:00 90 14 118/57 100 Mechanical Ventilator 30 12/31/16 09:00 93 16 99/61 100 Mechanical Ventilator 30 12/31/16 08:48 97 17 30 12/31/16 08:36 92 12/31/16 08:32 86 16 30 12/31/16 08:00 89 12/31/16 08:00 97.3 91 17 91/54 100 Mechanical Ventilator 30 12/31/16 08:00 91/54 12/31/16 08:00 30 12/31/16 07:45 89 16 90/48 100 Mechanical Ventilator 30 12/31/16 07:30 91 15 93/47 100 Mechanical Ventilator 30 12/31/16 07:15 90 16 104/80 100 Mechanical Ventilator 30 12/31/16 07:00 89 15 111/63 100 Mechanical Ventilator 30 12/31/16 06:48 83/47 12/31/16 06:00 89 16 100/54 100 Mechanical Ventilator 30 12/31/16 05:45 91 16 140/74 100 Mechanical Ventilator 30 12/31/16 05:30 91 15 103/57 100 Mechanical Ventilator 30 12/31/16 05:15 91 20 90/49 100 Mechanical Ventilator 30 12/31/16 05:08 95 14 30 12/31/16 05:00 90 20 101/55 100 Mechanical Ventilator 30 12/31/16 04:45 91 20 106/49 100 Mechanical Ventilator 30 12/31/16 04:30 91 20 95/46 100 Mechanical Ventilator 30 12/31/16 04:15 92 20 98/52 100 Mechanical Ventilator 30 12/31/16 04:00 97.4 89 20 115/58 100 Mechanical Ventilator 30 12/31/16 04:00 30 12/31/16 04:00 89 12/31/16 03:45 89 20 114/57 100 Mechanical Ventilator 30 12/31/16 03:30 91 20 108/57 100 Mechanical Ventilator 30 12/31/16 03:15 94 20 94/51 100 Mechanical Ventilator 30 12/31/16 03:06 93 15 30 12/31/16 03:00 92 17 103/58 100 Mechanical Ventilator 30 12/31/16 02:45 94 17 108/88 100 Mechanical Ventilator 30 12/31/16 02:30 94 15 99/51 100 Mechanical Ventilator 30 12/31/16 02:15 90 14 100/60 100 Mechanical Ventilator 30 12/31/16 02:00 89 14 97/53 100 Mechanical Ventilator 30 12/31/16 01:45 90 15 102/58 100 Mechanical Ventilator 30 12/31/16 01:30 91 14 111/58 100 Mechanical Ventilator 30 12/31/16 01:19 88 14 30 12/31/16 01:15 91 15 117/65 100 Mechanical Ventilator 30 12/31/16 01:00 88 15 117/65 100 Mechanical Ventilator 30 12/31/16 00:45 90 14 100/51 100 Mechanical Ventilator 30 12/31/16 00:38 74/57 12/31/16 00:30 91 15 74/57 100 Mechanical Ventilator 30 12/31/16 00:00 30 12/31/16 00:00 90 12/31/16 00:00 97.9 90 14 85/48 100 Mechanical Ventilator 30 12/30/16 23:25 93 14 30 12/30/16 23:00 95 15 112/49 100 Mechanical Ventilator 30 12/30/16 22:00 86 18 99/55 100 Mechanical Ventilator 30 12/30/16 21:00 87 18 99/65 100 Mechanical Ventilator 30 12/30/16 20:57 80 16 30 12/30/16 20:00 84 12/30/16 20:00 97.1 82 18 82/49 100 Mechanical Ventilator 30 12/30/16 20:00 30 12/30/16 19:30 83 14 30 12/30/16 19:00 96.5 85 18 88/42 100 Mechanical Ventilator 30 12/30/16 18:00 89 18 106/58 100 Mechanical Ventilator 30 12/30/16 17:52 89 12/30/16 17:00 95.6 87 97/55 12/30/16 17:00 90 18 85/45 100 Mechanical Ventilator 30 12/30/16 16:46 91 18 30 12/30/16 16:45 88 89/50 12/30/16 16:30 88 94/49 12/30/16 16:15 89 95/50 12/30/16 16:00 91 90/45 12/30/16 16:00 95 12/30/16 16:00 97.0 90 18 90/45 100 Mechanical Ventilator 30 12/30/16 16:00 30 12/30/16 15:45 94 105/52 12/30/16 15:30 94 89/33 12/30/16 15:15 98 87/34 12/30/16 15:00 95 18 93/39 100 Mechanical Ventilator 30 12/30/16 15:00 95 93/39 12/30/16 14:45 102 111/53 12/30/16 14:44 90 16 30 12/30/16 14:30 108 134/54 12/30/16 14:15 119 178/70 12/30/16 14:00 104 193/83 12/30/16 14:00 118 20 115/52 100 Mechanical Ventilator 30 12/30/16 13:45 100 115/52 12/30/16 13:30 96.9 90 14 92/47 100 Mechanical Ventilator 12/30/16 13:01 92 12/30/16 13:00 91 15 108/51 100 Mechanical Ventilator 30 12/30/16 12:43 92 18 30 12/30/16 12:00 30 12/30/16 12:00 97.9 92 17 83/47 100 Mechanical Ventilator 50 12/30/16 12:00 89 12/30/16 11:00 87 14 80/50 100 Mechanical Ventilator 30 Intake and Output 12/30/16 12/31/16 19:00 07:00 Intake Total 1010 ml 413.75 ml Output Total 1500 ml Balance -490 ml 413.75 ml Free Water 50 ml IV Total 48.75 ml Tube Feeding 350 ml 315 ml Hemodialysis 500 ml Other 110 ml 50 ml Output Urine Total 0 ml Hemodialysis UF 1500 ml # Bowel Movements 5 7 Laboratory Tests Test 12/31/16 04:15 12/31/16 07:11 White Blood Count 9.5 K/UL (4.8-10.8) Red Blood Count 2.52 M/UL (4.20-5.40) L Hemoglobin 7.9 G/DL (12.0-16.0) L Hematocrit 25.0 % (37.0-47.0) L Mean Corpuscular Volume 99 FL (80-99) Mean Corpuscular Hemoglobin 31.5 PG (27.0-31.0) H Mean Corpuscular Hemoglobin Concent 31.7 G/DL (32.0-36.0) L Red Cell Distribution Width 20.3 % (11.6-14.8) H Platelet Count 162 K/UL (150-450) Mean Platelet Volume 8.8 FL (6.5-10.1) Neutrophils (%) (Auto) % (45.0-75.0) Lymphocytes (%) (Auto) % (20.0-45.0) Monocytes (%) (Auto) % (1.0-10.0) Eosinophils (%) (Auto) % (0.0-3.0) Basophils (%) (Auto) % (0.0-2.0) Differential Total Cells Counted 100 Neutrophils % (Manual) 82 % (45-75) H Lymphocytes % (Manual) 4 % (20-45) L Monocytes % (Manual) 10 % (1-10) Eosinophils % (Manual) 4 % (0-3) H Basophils % (Manual) 0 % (0-2) Band Neutrophils 0 % (0-8) Platelet Estimate Adequate Platelet Morphology Normal Hypochromasia 3+ Anisocytosis 2+ Sodium Level 131 mEQ/L (135-145) L Potassium Level 4.0 mEQ/L (3.4-4.9) Chloride Level 93 mEQ/L (98-107) L Carbon Dioxide Level 28 mEQ/L (20-30) Anion Gap 10 (5-15) Blood Urea Nitrogen 28 mg/dL (7-23) H Creatinine 2.3 mg/dL (0.5-0.9) H Estimat Glomerular Filtration Rate 21.5 mL/min (>60) Glucose Level 119 mg/dL (74-106) H Calcium Level 9.0 mg/dL (8.6-10.2) Phosphorus Level 2.9 mg/dL (2.5-4.8) Magnesium Level 1.6 mg/dL (1.7-2.5) L Total Bilirubin 0.4 mg/dL (0.0-1.2) Aspartate Amino Transf (AST/SGOT) 20 U/L (5-40) Alanine Aminotransferase (ALT/SGPT) 6 U/L (3-33) Alkaline Phosphatase 211 U/L (35-104) H Total Protein 6.5 g/dL (6.6-8.7) L Albumin 3.1 g/dL (3.5-5.2) L Globulin 3.4 g/dL Albumin/Globulin Ratio 0.9 (1.0-2.7) L Arterial Blood pH 7.400 (7.350-7.450) Arterial Blood Partial Pressure CO2 45.2 mmHg (35.0-45.0) H Arterial Blood Partial Pressure O2 119.1 mmHg (75.0-100.0) H Arterial Blood HCO3 27.4 mmol/L (22.0-26.0) H Arterial Blood Oxygen Saturation 99.0 % (92.0-98.0) H Arterial Blood Base Excess 2.3 Antonio Test Height (Feet): 4 Height (Inches): 9.00 Weight (Pounds): 75 General Appearance: no apparent distress, alert, thin Cardiovascular: normal rate Respiratory/Chest: other - mech vent Abdominal Exam: normal bowel sounds, non tender, soft Objective Procedure: US ABD Complete Indication: Abnormal liver function tests and renal function tests Impression: Moderate ascites, nonspecific as regards etiology Negative for gallstones. There is mild gallbladder wall thickening, suspect secondary to whatever process is causing ascites, but acute acalculous cholecystitis not completely excludable. Consider nuclear medicine hepatobiliary scan if there is high clinical suspicion for acute cholecystitis Bilateral echogenic atrophic kidneys, consistent with known history of chronic renal disease Suzy Middleton N.P. Dec 31, 2016 11:00
--- NOTE | 2016-12-31 11:10 | Diagnostic Imaging Report ---
Indication: DYSPNEA Technique: One view of the chest Comparison: 12/30/2016 Findings: Consolidation and atelectatic changes at the left lung base persists and appears similar to the previous study. Minimal blunting of left costophrenic angle persists. Prominent bronchovascular markings in the right perihilar region persists and are unchanged. Tube and line positions are unchanged. Left axillary surgical clips are again noted Impression: Unchanged, over one day, findings as above.
--- NOTE | 2016-12-31 12:11 | Diagnostic Imaging Report ---
APPROVED REPORT CPT Code: 99508 Present Symptoms Shortness of breath BILATERAL: Imaging reveals a patent deep venous system bilaterally. There is no evidence of thrombus within the femoral, popliteal or tibial segments. The greater saphenous veins are also within normal limits. Doppler indicates normal spontaneous flow within these segments.
--- NOTE | 2016-12-31 13:36 | Infectious Diseases Prog Note ---
Assessment/Plan Assessment/Plan ASSESSMENT: 61 y/o female with: // SP probable sepsis - cultures(-) // Negative C.difficile // Hypotension - back on low dose pressors // Leukopenia SP // Hypothermia SP // Acute encephalopathy / found down ?hepatic ( elevated NH4 ) r/o septic - improved - CT Head: No evidence of acute intracranial pathology. Bilateral cerebral periventricular and deepwhite matter low attenuation, nonspecific, likely chronic microvascular ischemic in nature. Atrophy // Acute VDRF - intubated 12/22, failing weaning - CXR 12/30: Lungs are essentially clear. // ?Cirrhosis / chronic liver disease with elevated LFTs, leukopenia, chronic macrocytic anemia, TCP, coagulopathy, hypoalbuminemia - US: pending // ESRD / HD with right chest TDC // FOBT(+) macrocytic anemia SP PRBCs - recent EGD: GAVE // Probable CHF exacerbation - CXR: evidence of congestive heart failure including pulmonary edema, small bilateral pleural effusions - TTE: EF 65%, grade I diastolic dysfunction, mild-mod TR, mod MR, pulmonary HTN // Elevated ESR // NH resident // NKDA // Full Code PLAN: - monitor pt off of ABX ( 12/27 SP IV vancomycin d# 5 / 5 ) ( 12/23 SP zosyn ) - monitor CBC, temperatures, re-culture if febrile or worsening leukocytosis - monitor BMP - monitor CXR - vent support, wean as tolerated - transfuse prn - pressors prn Subjective Allergies: Coded Allergies: No Known Allergies (Unverified , 12/22/16) Subjective remains afebrile, awake on vent failing weaning Objective Vital Signs Last 24 Hour Vital Signs Date Time Temp Pulse Resp B/P Pulse Ox O2 Delivery O2 Flow Rate FiO2 12/31/16 13:00 86 16 116/96 100 Mechanical Ventilator 30 12/31/16 12:31 90 19 30 12/31/16 12:15 89 12/31/16 12:00 91 12/31/16 12:00 30 12/31/16 12:00 97.5 96 15 107/74 100 Mechanical Ventilator 30 12/31/16 11:00 90 14 111/64 100 Mechanical Ventilator 30 12/31/16 10:35 97 18 30 12/31/16 10:00 90 14 118/57 100 Mechanical Ventilator 30 12/31/16 09:00 93 16 99/61 100 Mechanical Ventilator 30 12/31/16 08:48 97 17 30 12/31/16 08:36 92 12/31/16 08:32 86 16 30 12/31/16 08:00 89 12/31/16 08:00 97.3 91 17 91/54 100 Mechanical Ventilator 30 12/31/16 08:00 91/54 12/31/16 08:00 30 12/31/16 07:45 89 16 90/48 100 Mechanical Ventilator 30 12/31/16 07:30 91 15 93/47 100 Mechanical Ventilator 30 12/31/16 07:15 90 16 104/80 100 Mechanical Ventilator 30 12/31/16 07:00 89 15 111/63 100 Mechanical Ventilator 30 12/31/16 06:48 83/47 12/31/16 06:00 89 16 100/54 100 Mechanical Ventilator 30 12/31/16 05:45 91 16 140/74 100 Mechanical Ventilator 30 12/31/16 05:30 91 15 103/57 100 Mechanical Ventilator 30 12/31/16 05:15 91 20 90/49 100 Mechanical Ventilator 30 12/31/16 05:08 95 14 30 12/31/16 05:00 90 20 101/55 100 Mechanical Ventilator 30 12/31/16 04:45 91 20 106/49 100 Mechanical Ventilator 30 12/31/16 04:30 91 20 95/46 100 Mechanical Ventilator 30 12/31/16 04:15 92 20 98/52 100 Mechanical Ventilator 30 12/31/16 04:00 97.4 89 20 115/58 100 Mechanical Ventilator 30 12/31/16 04:00 30 12/31/16 04:00 89 12/31/16 03:45 89 20 114/57 100 Mechanical Ventilator 30 12/31/16 03:30 91 20 108/57 100 Mechanical Ventilator 30 12/31/16 03:15 94 20 94/51 100 Mechanical Ventilator 30 12/31/16 03:06 93 15 30 12/31/16 03:00 92 17 103/58 100 Mechanical Ventilator 30 12/31/16 02:45 94 17 108/88 100 Mechanical Ventilator 30 12/31/16 02:30 94 15 99/51 100 Mechanical Ventilator 30 12/31/16 02:15 90 14 100/60 100 Mechanical Ventilator 30 12/31/16 02:00 89 14 97/53 100 Mechanical Ventilator 30 12/31/16 01:45 90 15 102/58 100 Mechanical Ventilator 30 12/31/16 01:30 91 14 111/58 100 Mechanical Ventilator 30 12/31/16 01:19 88 14 30 12/31/16 01:15 91 15 117/65 100 Mechanical Ventilator 30 12/31/16 01:00 88 15 117/65 100 Mechanical Ventilator 30 12/31/16 00:45 90 14 100/51 100 Mechanical Ventilator 30 12/31/16 00:38 74/57 12/31/16 00:30 91 15 74/57 100 Mechanical Ventilator 30 12/31/16 00:00 30 12/31/16 00:00 90 12/31/16 00:00 97.9 90 14 85/48 100 Mechanical Ventilator 30 12/30/16 23:25 93 14 30 12/30/16 23:00 95 15 112/49 100 Mechanical Ventilator 30 12/30/16 22:00 86 18 99/55 100 Mechanical Ventilator 30 12/30/16 21:00 87 18 99/65 100 Mechanical Ventilator 30 12/30/16 20:57 80 16 30 12/30/16 20:00 84 12/30/16 20:00 97.1 82 18 82/49 100 Mechanical Ventilator 30 12/30/16 20:00 30 12/30/16 19:30 83 14 30 12/30/16 19:00 96.5 85 18 88/42 100 Mechanical Ventilator 30 12/30/16 18:00 89 18 106/58 100 Mechanical Ventilator 30 12/30/16 17:52 89 12/30/16 17:00 95.6 87 97/55 12/30/16 17:00 90 18 85/45 100 Mechanical Ventilator 30 12/30/16 16:46 91 18 30 12/30/16 16:45 88 89/50 12/30/16 16:30 88 94/49 12/30/16 16:15 89 95/50 12/30/16 16:00 91 90/45 12/30/16 16:00 95 12/30/16 16:00 97.0 90 18 90/45 100 Mechanical Ventilator 30 12/30/16 16:00 30 12/30/16 15:45 94 105/52 12/30/16 15:30 94 89/33 12/30/16 15:15 98 87/34 12/30/16 15:00 95 18 93/39 100 Mechanical Ventilator 30 12/30/16 15:00 95 93/39 12/30/16 14:45 102 111/53 12/30/16 14:44 90 16 30 12/30/16 14:30 108 134/54 12/30/16 14:15 119 178/70 12/30/16 14:00 104 193/83 12/30/16 14:00 118 20 115/52 100 Mechanical Ventilator 30 12/30/16 13:45 100 115/52 Height (Feet): 4 Height (Inches): 9.00 Weight (Pounds): 75 General Appearance: other - intubated, awake Respiratory/Chest: decreased breath sounds Cardiovascular: normal rate, regular rhythm Abdomen: normal bowel sounds, soft, non tender, non distended Laboratory Tests Test 12/31/16 04:15 12/31/16 07:11 White Blood Count 9.5 K/UL (4.8-10.8) Red Blood Count 2.52 M/UL (4.20-5.40) L Hemoglobin 7.9 G/DL (12.0-16.0) L Hematocrit 25.0 % (37.0-47.0) L Mean Corpuscular Volume 99 FL (80-99) Mean Corpuscular Hemoglobin 31.5 PG (27.0-31.0) H Mean Corpuscular Hemoglobin Concent 31.7 G/DL (32.0-36.0) L Red Cell Distribution Width 20.3 % (11.6-14.8) H Platelet Count 162 K/UL (150-450) Mean Platelet Volume 8.8 FL (6.5-10.1) Neutrophils (%) (Auto) % (45.0-75.0) Lymphocytes (%) (Auto) % (20.0-45.0) Monocytes (%) (Auto) % (1.0-10.0) Eosinophils (%) (Auto) % (0.0-3.0) Basophils (%) (Auto) % (0.0-2.0) Differential Total Cells Counted 100 Neutrophils % (Manual) 82 % (45-75) H Lymphocytes % (Manual) 4 % (20-45) L Monocytes % (Manual) 10 % (1-10) Eosinophils % (Manual) 4 % (0-3) H Basophils % (Manual) 0 % (0-2) Band Neutrophils 0 % (0-8) Platelet Estimate Adequate Platelet Morphology Normal Hypochromasia 3+ Anisocytosis 2+ Sodium Level 131 mEQ/L (135-145) L Potassium Level 4.0 mEQ/L (3.4-4.9) Chloride Level 93 mEQ/L (98-107) L Carbon Dioxide Level 28 mEQ/L (20-30) Anion Gap 10 (5-15) Blood Urea Nitrogen 28 mg/dL (7-23) H Creatinine 2.3 mg/dL (0.5-0.9) H Estimat Glomerular Filtration Rate 21.5 mL/min (>60) Glucose Level 119 mg/dL (74-106) H Calcium Level 9.0 mg/dL (8.6-10.2) Phosphorus Level 2.9 mg/dL (2.5-4.8) Magnesium Level 1.6 mg/dL (1.7-2.5) L Total Bilirubin 0.4 mg/dL (0.0-1.2) Aspartate Amino Transf (AST/SGOT) 20 U/L (5-40) Alanine Aminotransferase (ALT/SGPT) 6 U/L (3-33) Alkaline Phosphatase 211 U/L (35-104) H Total Protein 6.5 g/dL (6.6-8.7) L Albumin 3.1 g/dL (3.5-5.2) L Globulin 3.4 g/dL Albumin/Globulin Ratio 0.9 (1.0-2.7) L Arterial Blood pH 7.400 (7.350-7.450) Arterial Blood Partial Pressure CO2 45.2 mmHg (35.0-45.0) H Arterial Blood Partial Pressure O2 119.1 mmHg (75.0-100.0) H Arterial Blood HCO3 27.4 mmol/L (22.0-26.0) H Arterial Blood Oxygen Saturation 99.0 % (92.0-98.0) H Arterial Blood Base Excess 2.3 Antonio Test Current Medications Medications (Trade) Dose Ordered Sig/Reji Route PRN Reason Start Time Stop Time Status Last Admin Dose Admin Acetaminophen (Tylenol) 650 mg Q4H PRN ORAL fever 12/22/16 13:45 01/21/17 13:44 Albuterol/ Ipratropium (DuoNeb 0.5-3(2.5)mg/3ml) 3 ml Q4H PRN HHN Shortness of Breath 12/27/16 09:45 01/01/17 09:44 Epoetin José Miguel (Procrit (for ESRD on dialysis)) 10,000 units WED-WED-WED SUBQ 12/28/16 21:00 01/27/17 20:59 12/30/16 20:38 Magnesium Sulfate (Magnesium Sulfate 1gm/100ml) 100 ml @ 100 mls/hr Q1H IVPB 12/31/16 12:00 12/31/16 13:59 12/31/16 12:15 Morphine Sulfate (Morphine Sulfate) 4 mg Q4H PRN IVP PAIN 4-10 12/27/16 09:45 01/03/17 09:44 Nitroglycerin 0.4 mg 0.4 mg Q5MIN X 3 DOSES PRN SL Prn Chest Pain 12/22/16 13:45 01/21/17 13:44 Norepinephrine Bitartrate/ Dextrose (Levophed/D5W) 250 ml @ 0 mls/hr Q24H IV 12/23/16 01:00 01/22/17 00:59 12/31/16 00:38 Ondansetron HCl (Zofran) 4 mg Q6H PRN IVP Nausea & Vomiting 12/22/16 13:45 01/21/17 13:44 12/30/16 23:02 Pantoprazole 40 mg 40 mg BID IVP 12/28/16 18:00 01/27/17 17:59 12/31/16 08:36 Polyethylene Glycol (Miralax) 17 gm DAILYPRN PRN GT Constipation 12/25/16 11:03 01/21/17 13:44 Propafenone HCl (Rythmol) 225 mg TID NG 12/23/16 21:00 01/22/17 20:59 12/31/16 12:15 Rifaximin (Xifaxan) 550 mg EVERY 12 HOURS GT 12/25/16 11:03 01/03/17 11:02 12/31/16 08:36 DARLIN GRANADO Dec 31, 2016 13:36
--- NOTE | 2016-12-31 13:37 | Nephrology Progress Note ---
Assessment/Plan Problem List: (1) Hypovolemic shock (2) End-stage kidney disease (3) Acute respiratory failure (4) CHF (congestive heart failure) (5) Liver cirrhosis (6) Hypoalbuminemia (7) Severe malnutrition (8) GAVE (gastric antral vascular ectasia) (9) Diarrhea (10) Anemia in chronic kidney disease Plan try to wean off levophed, done , seen on hd 12/30 stable watch bp closely, adjust tube feeding, stop iv fluids, next hd 12/10\4,epogen for anemia Subjective Constitutional: Reports: weakness Genitourinary: Reports: no symptoms Neurologic/Psychiatric: Reports: no symptoms Subjective awake on vent Objective Objective Last 24 Hour Vital Signs Date Time Temp Pulse Resp B/P Pulse Ox O2 Delivery O2 Flow Rate FiO2 12/31/16 13:00 86 16 116/96 100 Mechanical Ventilator 30 12/31/16 12:31 90 19 30 12/31/16 12:15 89 12/31/16 12:00 91 12/31/16 12:00 30 12/31/16 12:00 97.5 96 15 107/74 100 Mechanical Ventilator 30 12/31/16 11:00 90 14 111/64 100 Mechanical Ventilator 30 12/31/16 10:35 97 18 30 12/31/16 10:00 90 14 118/57 100 Mechanical Ventilator 30 12/31/16 09:00 93 16 99/61 100 Mechanical Ventilator 30 12/31/16 08:48 97 17 30 12/31/16 08:36 92 12/31/16 08:32 86 16 30 12/31/16 08:00 89 12/31/16 08:00 97.3 91 17 91/54 100 Mechanical Ventilator 30 12/31/16 08:00 91/54 12/31/16 08:00 30 12/31/16 07:45 89 16 90/48 100 Mechanical Ventilator 30 12/31/16 07:30 91 15 93/47 100 Mechanical Ventilator 30 12/31/16 07:15 90 16 104/80 100 Mechanical Ventilator 30 12/31/16 07:00 89 15 111/63 100 Mechanical Ventilator 30 12/31/16 06:48 83/47 12/31/16 06:00 89 16 100/54 100 Mechanical Ventilator 30 12/31/16 05:45 91 16 140/74 100 Mechanical Ventilator 30 12/31/16 05:30 91 15 103/57 100 Mechanical Ventilator 30 12/31/16 05:15 91 20 90/49 100 Mechanical Ventilator 30 12/31/16 05:08 95 14 30 12/31/16 05:00 90 20 101/55 100 Mechanical Ventilator 30 12/31/16 04:45 91 20 106/49 100 Mechanical Ventilator 30 12/31/16 04:30 91 20 95/46 100 Mechanical Ventilator 30 12/31/16 04:15 92 20 98/52 100 Mechanical Ventilator 30 12/31/16 04:00 97.4 89 20 115/58 100 Mechanical Ventilator 30 12/31/16 04:00 30 12/31/16 04:00 89 12/31/16 03:45 89 20 114/57 100 Mechanical Ventilator 30 12/31/16 03:30 91 20 108/57 100 Mechanical Ventilator 30 12/31/16 03:15 94 20 94/51 100 Mechanical Ventilator 30 12/31/16 03:06 93 15 30 12/31/16 03:00 92 17 103/58 100 Mechanical Ventilator 30 12/31/16 02:45 94 17 108/88 100 Mechanical Ventilator 30 12/31/16 02:30 94 15 99/51 100 Mechanical Ventilator 30 12/31/16 02:15 90 14 100/60 100 Mechanical Ventilator 30 12/31/16 02:00 89 14 97/53 100 Mechanical Ventilator 30 12/31/16 01:45 90 15 102/58 100 Mechanical Ventilator 30 12/31/16 01:30 91 14 111/58 100 Mechanical Ventilator 30 12/31/16 01:19 88 14 30 12/31/16 01:15 91 15 117/65 100 Mechanical Ventilator 30 12/31/16 01:00 88 15 117/65 100 Mechanical Ventilator 30 12/31/16 00:45 90 14 100/51 100 Mechanical Ventilator 30 12/31/16 00:38 74/57 12/31/16 00:30 91 15 74/57 100 Mechanical Ventilator 30 12/31/16 00:00 30 12/31/16 00:00 90 12/31/16 00:00 97.9 90 14 85/48 100 Mechanical Ventilator 30 12/30/16 23:25 93 14 30 12/30/16 23:00 95 15 112/49 100 Mechanical Ventilator 30 12/30/16 22:00 86 18 99/55 100 Mechanical Ventilator 30 12/30/16 21:00 87 18 99/65 100 Mechanical Ventilator 30 12/30/16 20:57 80 16 30 12/30/16 20:00 84 12/30/16 20:00 97.1 82 18 82/49 100 Mechanical Ventilator 30 12/30/16 20:00 30 12/30/16 19:30 83 14 30 12/30/16 19:00 96.5 85 18 88/42 100 Mechanical Ventilator 30 12/30/16 18:00 89 18 106/58 100 Mechanical Ventilator 30 12/30/16 17:52 89 12/30/16 17:00 95.6 87 97/55 12/30/16 17:00 90 18 85/45 100 Mechanical Ventilator 30 12/30/16 16:46 91 18 30 12/30/16 16:45 88 89/50 12/30/16 16:30 88 94/49 12/30/16 16:15 89 95/50 12/30/16 16:00 91 90/45 12/30/16 16:00 95 12/30/16 16:00 97.0 90 18 90/45 100 Mechanical Ventilator 30 12/30/16 16:00 30 12/30/16 15:45 94 105/52 12/30/16 15:30 94 89/33 12/30/16 15:15 98 87/34 12/30/16 15:00 95 18 93/39 100 Mechanical Ventilator 30 12/30/16 15:00 95 93/39 12/30/16 14:45 102 111/53 12/30/16 14:44 90 16 30 12/30/16 14:30 108 134/54 12/30/16 14:15 119 178/70 12/30/16 14:00 104 193/83 12/30/16 14:00 118 20 115/52 100 Mechanical Ventilator 30 12/30/16 13:45 100 115/52 Intake and Output 12/30/16 12/31/16 19:00 07:00 Intake Total 1010 ml 413.75 ml Output Total 1500 ml Balance -490 ml 413.75 ml Free Water 50 ml IV Total 48.75 ml Tube Feeding 350 ml 315 ml Hemodialysis 500 ml Other 110 ml 50 ml Output Urine Total 0 ml Hemodialysis UF 1500 ml # Bowel Movements 5 7 Laboratory Tests 12/31/16 04:15: White Blood Count 9.5, Red Blood Count 2.52L, Hemoglobin 7.9L, Hematocrit 25.0L , Mean Corpuscular Volume 99, Mean Corpuscular Hemoglobin 31.5H, Mean Corpuscular Hemoglobin Concent 31.7L, Red Cell Distribution Width 20.3H, Platelet Count 162, Mean Platelet Volume 8.8, Neutrophils (%) (Auto) , Lymphocytes (%) (Auto) , Monocytes (%) (Auto) , Eosinophils (%) (Auto) , Basophils (%) (Auto) , Differential Total Cells Counted 100, Neutrophils % ( Manual) 82H, Lymphocytes % (Manual) 4L, Monocytes % (Manual) 10, Eosinophils % ( Manual) 4H, Basophils % (Manual) 0, Band Neutrophils 0, Platelet Estimate Adequate, Platelet Morphology Normal, Hypochromasia 3+, Anisocytosis 2+, Sodium Level 131L, Potassium Level 4.0, Chloride Level 93L, Carbon Dioxide Level 28, Anion Gap 10, Blood Urea Nitrogen 28H, Creatinine 2.3H, Estimat Glomerular Filtration Rate 21.5, Glucose Level 119H, Calcium Level 9.0, Phosphorus Level 2.9, Magnesium Level 1.6L, Total Bilirubin 0.4, Aspartate Amino Transf (AST/SGOT ) 20, Alanine Aminotransferase (ALT/SGPT) 6, Alkaline Phosphatase 211H, Total Protein 6.5L, Albumin 3.1L, Globulin 3.4, Albumin/Globulin Ratio 0.9L 12/31/16 07:11: Arterial Blood pH 7.400, Arterial Blood Partial Pressure CO2 45.2H, Arterial Blood Partial Pressure O2 119.1H, Arterial Blood HCO3 27.4H, Arterial Blood Oxygen Saturation 99.0H, Arterial Blood Base Excess 2.3, Antonio Test Height (Feet): 4 Height (Inches): 9.00 Weight (Pounds): 75 General Appearance: no apparent distress, thin EENT: normal ENT inspection Neck: non-tender, normal alignment Cardiovascular: regular rhythm Respiratory/Chest: decreased breath sounds Abdomen: non tender, soft Extremities: trace edema 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
--- NOTE | 2016-12-31 16:29 | Internal Med Progress Note ---
Subjective Date of Service: Dec 31, 2016 Physician Name LaurieDione Attending Physician Jes Bautista Current Medications Medications (Trade) Dose Ordered Sig/Reji Route PRN Reason Start Time Stop Time Status Last Admin Dose Admin Acetaminophen (Tylenol) 650 mg Q4H PRN ORAL fever 12/22/16 13:45 01/21/17 13:44 Albumin Human (Albumisol) 100 ml @ 200 mls/hr PRN PRN IV sbp<90 during hd 01/01/17 06:00 01/31/17 05:59 Albuterol/ Ipratropium (DuoNeb 0.5-3(2.5)mg/3ml) 3 ml Q4H PRN HHN Shortness of Breath 12/27/16 09:45 01/01/17 09:44 Epoetin José Miguel (Procrit (for ESRD on dialysis)) 10,000 units WED-WED-WED SUBQ 12/28/16 21:00 01/27/17 20:59 12/30/16 20:38 Heparin Sodium (Porcine) (Heparin Sod 1000 units/ml 10ml) 2,000 unit ONCE ONCE IV 01/01/17 06:00 01/01/17 06:01 Morphine Sulfate (Morphine Sulfate) 4 mg Q4H PRN IVP PAIN 4-10 12/27/16 09:45 01/03/17 09:44 Nitroglycerin 0.4 mg 0.4 mg Q5MIN X 3 DOSES PRN SL Prn Chest Pain 12/22/16 13:45 01/21/17 13:44 Norepinephrine Bitartrate/ Dextrose (Levophed/D5W) 250 ml @ 0 mls/hr Q24H IV 12/23/16 01:00 01/22/17 00:59 12/31/16 00:38 Ondansetron HCl (Zofran) 4 mg Q6H PRN IVP Nausea & Vomiting 12/22/16 13:45 01/21/17 13:44 12/30/16 23:02 Pantoprazole 40 mg 40 mg BID IVP 12/28/16 18:00 01/27/17 17:59 12/31/16 08:36 Polyethylene Glycol (Miralax) 17 gm DAILYPRN PRN GT Constipation 12/25/16 11:03 01/21/17 13:44 Propafenone HCl (Rythmol) 225 mg TID NG 12/23/16 21:00 01/22/17 20:59 12/31/16 12:15 Rifaximin (Xifaxan) 550 mg EVERY 12 HOURS GT 12/25/16 11:03 01/03/17 11:02 12/31/16 08:36 Allergies: Coded Allergies: No Known Allergies (Unverified , 12/22/16) ROS Limited/Unobtainable: Yes Subjective 61 YO F admitted with respiratory failure. Now sepsis. Intubated and sedated. ICU. On pressors. Failed CPAP trial. Cover for Int Jamie-Dr Vigil. Objective Last Vital Signs Date Time Temp Pulse Resp B/P Pulse Ox O2 Delivery O2 Flow Rate FiO2 12/31/16 15:01 94 20 30 12/31/16 15:00 128/69 100 Mechanical Ventilator 12/31/16 12:00 97.5 12/22/16 10:55 15.0 Laboratory Tests Test 12/31/16 04:15 12/31/16 07:11 White Blood Count 9.5 K/UL (4.8-10.8) Red Blood Count 2.52 M/UL (4.20-5.40) L Hemoglobin 7.9 G/DL (12.0-16.0) L Hematocrit 25.0 % (37.0-47.0) L Mean Corpuscular Volume 99 FL (80-99) Mean Corpuscular Hemoglobin 31.5 PG (27.0-31.0) H Mean Corpuscular Hemoglobin Concent 31.7 G/DL (32.0-36.0) L Red Cell Distribution Width 20.3 % (11.6-14.8) H Platelet Count 162 K/UL (150-450) Mean Platelet Volume 8.8 FL (6.5-10.1) Neutrophils (%) (Auto) % (45.0-75.0) Lymphocytes (%) (Auto) % (20.0-45.0) Monocytes (%) (Auto) % (1.0-10.0) Eosinophils (%) (Auto) % (0.0-3.0) Basophils (%) (Auto) % (0.0-2.0) Differential Total Cells Counted 100 Neutrophils % (Manual) 82 % (45-75) H Lymphocytes % (Manual) 4 % (20-45) L Monocytes % (Manual) 10 % (1-10) Eosinophils % (Manual) 4 % (0-3) H Basophils % (Manual) 0 % (0-2) Band Neutrophils 0 % (0-8) Platelet Estimate Adequate Platelet Morphology Normal Hypochromasia 3+ Anisocytosis 2+ Sodium Level 131 mEQ/L (135-145) L Potassium Level 4.0 mEQ/L (3.4-4.9) Chloride Level 93 mEQ/L (98-107) L Carbon Dioxide Level 28 mEQ/L (20-30) Anion Gap 10 (5-15) Blood Urea Nitrogen 28 mg/dL (7-23) H Creatinine 2.3 mg/dL (0.5-0.9) H Estimat Glomerular Filtration Rate 21.5 mL/min (>60) Glucose Level 119 mg/dL (74-106) H Calcium Level 9.0 mg/dL (8.6-10.2) Phosphorus Level 2.9 mg/dL (2.5-4.8) Magnesium Level 1.6 mg/dL (1.7-2.5) L Total Bilirubin 0.4 mg/dL (0.0-1.2) Aspartate Amino Transf (AST/SGOT) 20 U/L (5-40) Alanine Aminotransferase (ALT/SGPT) 6 U/L (3-33) Alkaline Phosphatase 211 U/L (35-104) H Total Protein 6.5 g/dL (6.6-8.7) L Albumin 3.1 g/dL (3.5-5.2) L Globulin 3.4 g/dL Albumin/Globulin Ratio 0.9 (1.0-2.7) L Arterial Blood pH 7.400 (7.350-7.450) Arterial Blood Partial Pressure CO2 45.2 mmHg (35.0-45.0) H Arterial Blood Partial Pressure O2 119.1 mmHg (75.0-100.0) H Arterial Blood HCO3 27.4 mmol/L (22.0-26.0) H Arterial Blood Oxygen Saturation 99.0 % (92.0-98.0) H Arterial Blood Base Excess 2.3 Antonio Test Intake and Output 12/30/16 12/31/16 19:00 07:00 Intake Total 1010 ml 413.75 ml Output Total 1500 ml Balance -490 ml 413.75 ml Free Water 50 ml IV Total 48.75 ml Tube Feeding 350 ml 315 ml Hemodialysis 500 ml Other 110 ml 50 ml Output Urine Total 0 ml Hemodialysis UF 1500 ml # Bowel Movements 5 7 Objective General Appearance: mild distress, thin EENT: PERRL/EOMI, normal ENT inspection Neck: non-tender, normal alignment, supple Cardiovascular: normal peripheral pulses, normal rate, regular rhythm, no gallop/murmur, no JVD Respiratory/Chest: Mech Vent; respiratory distress, crackles/rales, rhonchi - bilaterally, expiratory wheezing Abdomen: normal bowel sounds, non tender, soft, no organomegaly, no mass 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 (3) HTN (hypertension) Assessment & Plan: Currently hypotensive. (4) Acute respiratory failure Assessment & Plan: Failed CPAP; Cont mech vent per pulmonary. May require tracheostomy (5) CHF (congestive heart failure) (6) Anemia (7) Liver cirrhosis (8) Sepsis Assessment & Plan: Cont off antibiotics per ID (9) Septic shock Assessment & Plan: Continue pressors. Status: not improved DIONE BULL Dec 31, 2016 16:28
[2017-01-01] VITALS (35 sets, daily range): BP systolic 91–139; BP diastolic 43–83
[2017-01-01 05:10] LABS: MEAN CORPUSCULAR HEMOGLOBIN 31.1 PG (27.0-31.0); MEAN CORPUSCULAR HGB CONC 31.4 G/DL (32.0-36.0); MEAN CORPUSCULAR VOLUME 99 FL (80-99); MEAN PLATELET VOLUME 9.1 FL (6.5-10.1); PLATELET COUNT 193 K/UL (150-450); RED CELL DISTRIBUTION WIDTH 20.1 % (11.6-14.8); WHITE BLOOD COUNT 9.3 K/UL (4.8-10.8)
[2017-01-01 05:32] LABS: ALBUMIN/GLOBULIN RATIO 0.8 (1.0-2.7); CALCIUM 8.7 mg/dL (8.6-10.2); CREATININE 3.1 mg/dL (0.5-0.9); GLOMERULAR FILTRATION RATE 15.2 mL/min (>60); MAGNESIUM 2.5 mg/dL (1.7-2.5); PHOSPHORUS 2.6 mg/dL (2.5-4.8); POTASSIUM 3.9 mEQ/L (3.4-4.9); TOTAL PROTEIN 6.4 g/dL (6.6-8.7)
[2017-01-01] MEDS ORDERED: Heparin Sod 1000 units/ml 10ml IV ONE (06:00)
[2017-01-01] MEDS: Rifaximin 550mg tab GT SCH ×2 (09:46→20:57)
[2017-01-01] MEDS: Pantoprazole Inj IVP SCH ×2 (09:47→17:33)
[2017-01-01 10:21] LABS: ABG BASE EXCESS 3.1; ABG PCO2 41.2 mmHg (35.0-45.0)
[2017-01-01 10:22] LABS: ABG ALLEN TEST POSITIVE
--- NOTE | 2017-01-01 10:47 | Pulmonolgy Critical Care Note ---
Critical Care - Asmt/Plan Problems: (1) Acute respiratory failure (2) Altered mental state (3) CKD (chronic kidney disease) (4) Hyperkalemia (5) Liver cirrhosis (6) Connective tissue disease (7) CHF (congestive heart failure) Respiratory: monitor respiratory rate, adjust FIO2, CXR Cardiac: continue to monitor HR/BP Renal: F/U I&O, keep IV fluid Infectious Disease: check cultures, continue antibiotics Gastrointestinal: continue feedings/current rate, hold feedings Endocrine: monitor blood sugar, check TSH, check HgA1C, continue sliding scale insulin Hematologic: monitor H/H, transfuse if hgb<8.5 Neurologic: PRN Ativan, keep patient comfortable Affect: PRN ativan Prophylaxis: Heparin Notes Reviewed: cleaner, cardio, renal Discussed with: nurses, consultants, vocational case managerhealthcare project manager - Objective Last 24 Hour Vital Signs Date Time Temp Pulse Resp B/P Pulse Ox O2 Delivery O2 Flow Rate FiO2 01/01/17 10:00 94 17 108/62 97 Mechanical Ventilator 30 01/01/17 09:47 92 01/01/17 09:15 98.3 96 105/71 01/01/17 09:15 96 14 30 01/01/17 09:00 93 98/54 01/01/17 08:45 94 96/51 01/01/17 08:30 94 105/47 01/01/17 08:15 97 111/52 01/01/17 08:00 30 01/01/17 08:00 94 01/01/17 08:00 94 113/55 01/01/17 07:45 96 101/58 01/01/17 07:30 93 99/54 01/01/17 07:15 95 121/62 01/01/17 07:15 98 14 30 01/01/17 07:00 97 119/66 01/01/17 07:00 94 15 132/62 97 Mechanical Ventilator 30 01/01/17 06:45 95 125/73 01/01/17 06:30 92 118/73 01/01/17 06:15 92 123/64 01/01/17 06:00 92 117/59 01/01/17 06:00 93 15 117/59 100 Mechanical Ventilator 30 01/01/17 05:45 97.6 91 14 118/72 01/01/17 05:27 92 16 30 01/01/17 05:00 92 14 106/63 99 Mechanical Ventilator 30 01/01/17 04:00 95 01/01/17 04:00 98.1 94 14 119/65 99 Mechanical Ventilator 30 01/01/17 04:00 30 01/01/17 03:27 96 17 30 01/01/17 03:00 95 16 127/75 96 Mechanical Ventilator 30 01/01/17 02:00 95 16 107/56 100 Mechanical Ventilator 30 01/01/17 01:11 93 16 30 01/01/17 01:00 106/54 01/01/17 01:00 94 18 102/55 100 Mechanical Ventilator 30 01/01/17 00:00 90 01/01/17 00:00 99.0 90 16 91/43 100 Mechanical Ventilator 30 01/01/17 00:00 30 12/31/16 23:26 91 16 30 12/31/16 23:00 79 18 106/63 100 Mechanical Ventilator 30 12/31/16 22:00 75 16 101/65 100 Mechanical Ventilator 30 12/31/16 21:16 83 14 30 12/31/16 21:00 83 16 97/56 100 Mechanical Ventilator 30 12/31/16 20:00 87 12/31/16 20:00 97.2 86 16 84/51 100 Mechanical Ventilator 30 12/31/16 19:21 30 12/31/16 19:14 92 16 30 12/31/16 19:00 95 20 106/66 100 Mechanical Ventilator 30 12/31/16 18:05 91 12/31/16 18:00 97 17 94/61 100 Mechanical Ventilator 30 12/31/16 17:00 92 18 95/48 100 Mechanical Ventilator 30 12/31/16 16:57 91 19 30 12/31/16 16:00 97.1 91 16 99/49 100 Mechanical Ventilator 30 12/31/16 16:00 30 12/31/16 16:00 94 12/31/16 15:01 94 20 30 12/31/16 15:00 92 21 128/69 100 Mechanical Ventilator 30 12/31/16 14:00 88 18 109/67 100 Mechanical Ventilator 30 12/31/16 13:00 86 16 116/96 100 Mechanical Ventilator 30 12/31/16 12:31 90 19 30 12/31/16 12:15 89 12/31/16 12:00 91 12/31/16 12:00 30 12/31/16 12:00 97.5 96 15 107/74 100 Mechanical Ventilator 30 12/31/16 11:00 90 14 111/64 100 Mechanical Ventilator 30 Status: awake, sedated Condition: critical, improving HEENT: atraumatic Neck: full ROM Lungs: clear Heart: HR/BP stable, regular Abdomen: soft, non-tender, feeding tube Extremities: edema Decubiti: location Accucheck: 55 Critical Care - Subjective ICU Day: 10 Intubation Day: 10 Condition: critical EKG Rhythm: Sinus Rhythm FI02: 30 Vent Support Breath Rate: 14 Vent Support Mode: AC Vent Tidal Volume: 450 Sputum Amount: Small PEEP: 5.0 PIP: 43 Tube Feeding Amount: 25 I&O: Intake and Output 12/31/16 01/01/17 19:00 07:00 Intake Total 630 ml 305 ml Balance 630 ml 305 ml Free Water 30 ml IV Total 100 ml Tube Feeding 360 ml 275 ml Other 140 ml 30 ml # Bowel Movements 6 1 CXR: no change, ET in good position ET-Tube: 7.5 ET Position: 23 Labs: Laboratory Tests Test 01/01/17 04:00 01/01/17 10:15 White Blood Count 9.3 K/UL (4.8-10.8) Red Blood Count 2.40 M/UL (4.20-5.40) L Hemoglobin 7.5 G/DL (12.0-16.0) L Hematocrit 23.8 % (37.0-47.0) L Mean Corpuscular Volume 99 FL (80-99) Mean Corpuscular Hemoglobin 31.1 PG (27.0-31.0) H Mean Corpuscular Hemoglobin Concent 31.4 G/DL (32.0-36.0) L Red Cell Distribution Width 20.1 % (11.6-14.8) H Platelet Count 193 K/UL (150-450) Mean Platelet Volume 9.1 FL (6.5-10.1) Neutrophils (%) (Auto) % (45.0-75.0) Lymphocytes (%) (Auto) % (20.0-45.0) Monocytes (%) (Auto) % (1.0-10.0) Eosinophils (%) (Auto) % (0.0-3.0) Basophils (%) (Auto) % (0.0-2.0) Sodium Level 128 mEQ/L (135-145) L Potassium Level 3.9 mEQ/L (3.4-4.9) Chloride Level 87 mEQ/L (98-107) L Carbon Dioxide Level 27 mEQ/L (20-30) Anion Gap 14 (5-15) Blood Urea Nitrogen 43 mg/dL (7-23) H Creatinine 3.1 mg/dL (0.5-0.9) H Estimat Glomerular Filtration Rate 15.2 mL/min (>60) Glucose Level 99 mg/dL (74-106) Calcium Level 8.7 mg/dL (8.6-10.2) Phosphorus Level 2.6 mg/dL (2.5-4.8) Magnesium Level 2.5 mg/dL (1.7-2.5) Total Bilirubin 0.3 mg/dL (0.0-1.2) Aspartate Amino Transf (AST/SGOT) 17 U/L (5-40) Alanine Aminotransferase (ALT/SGPT) 6 U/L (3-33) Alkaline Phosphatase 211 U/L (35-104) H Total Protein 6.4 g/dL (6.6-8.7) L Albumin 3.0 g/dL (3.5-5.2) L Globulin 3.4 g/dL Albumin/Globulin Ratio 0.8 (1.0-2.7) L Arterial Blood pH 7.442 (7.350-7.450) Arterial Blood Partial Pressure CO2 41.2 mmHg (35.0-45.0) Arterial Blood Partial Pressure O2 116.1 mmHg (75.0-100.0) H Arterial Blood HCO3 27.5 mmol/L (22.0-26.0) H Arterial Blood Oxygen Saturation 98.5 % (92.0-98.0) H Arterial Blood Base Excess 3.1 Antonio Test Positive FRANCESCA FELTON Jan 01, 2017 10:47
--- NOTE | 2017-01-01 11:06 | Diagnostic Imaging Report ---
Indication: DYSPNEA Technique: One view of the chest Comparison: 12/31/2016 Findings: Stable satisfactory position of endotracheal tube, nasogastric tube, right jugular tunneled dialysis catheter. Atelectasis and likely pleural fluid at the left lung base persists, unchanged. There is trace right pleural fluid, including some fluid in the minor fissure. The heart size is upper limits of normal. Surgical clips are seen in the left arm. Findings are overall unchanged Impression: Unchanged, over one day, findings as above.
--- NOTE | 2017-01-01 11:39 | GI Progress Note ---
Assessment/Plan Problems: (1) End-stage kidney disease ICD Codes: N18.6 - End stage renal disease SNOMED: 24325685 (2) GAVE (gastric antral vascular ectasia) ICD Codes: K31.819 - Angiodysplasia of stomach and duodenum without bleeding SNOMED: 08849262 (3) Severe malnutrition ICD Codes: E43 - Unspecified severe protein-calorie malnutrition SNOMED: 24112570 (4) Hypoalbuminemia ICD Codes: E88.09 - Other disorders of plasma-protein metabolism, not elsewhere classified SNOMED: 188920143 (5) Anemia ICD Codes: D64.9 - Anemia, unspecified SNOMED: 360719726 (6) Liver cirrhosis ICD Codes: K74.60 - Unspecified cirrhosis of liver SNOMED: 00196632 Status: stable Status Narrative Discussed with Dr. Galarza. Assessment/Plan s/p EGD/colon at [facility] recently, see full report in chart. >> - No varices given history of cirrhosis. - GAVE appearance and did not show portal hypertensive gastropathy. - Findings included an active bleed in the focal area of the antrum which was treated. - Noted that the patient went into a CODE BLUE during the procedure. KUB >> negative abd U/S >> Moderate ascites. Mild gallbladder wall thickening. >> s/p 1600 paracentesis 2 days ago elevated ammonia OB stool positive Hep panel negative cdiff negative defer any GI procedures at this time pt scheduled to be trached >> refused by family monitor H&H, transfuse prn ppi BID OGT to goal rate per dietary, consider PEG dc lactulose, cont Xifaxan fu labs poor prognosis Subjective Subjective limited Objective Last 24 Hour Vital Signs Date Time Temp Pulse Resp B/P Pulse Ox O2 Delivery O2 Flow Rate FiO2 01/01/17 11:10 88 14 30 01/01/17 11:00 89 17 106/54 100 Mechanical Ventilator 30 01/01/17 10:00 94 17 108/62 97 Mechanical Ventilator 30 01/01/17 09:47 92 01/01/17 09:15 98.3 96 105/71 01/01/17 09:15 96 14 30 01/01/17 09:00 93 98/54 01/01/17 08:45 94 96/51 01/01/17 08:30 94 105/47 01/01/17 08:15 97 111/52 01/01/17 08:00 30 01/01/17 08:00 94 01/01/17 08:00 94 113/55 01/01/17 07:45 96 101/58 01/01/17 07:30 93 99/54 01/01/17 07:15 95 121/62 01/01/17 07:15 98 14 30 01/01/17 07:00 97 119/66 01/01/17 07:00 94 15 132/62 97 Mechanical Ventilator 30 01/01/17 06:45 95 125/73 01/01/17 06:30 92 118/73 01/01/17 06:15 92 123/64 01/01/17 06:00 92 117/59 01/01/17 06:00 93 15 117/59 100 Mechanical Ventilator 30 01/01/17 05:45 97.6 91 14 118/72 01/01/17 05:27 92 16 30 01/01/17 05:00 92 14 106/63 99 Mechanical Ventilator 30 01/01/17 04:00 95 01/01/17 04:00 98.1 94 14 119/65 99 Mechanical Ventilator 30 01/01/17 04:00 30 01/01/17 03:27 96 17 30 01/01/17 03:00 95 16 127/75 96 Mechanical Ventilator 30 01/01/17 02:00 95 16 107/56 100 Mechanical Ventilator 30 01/01/17 01:11 93 16 30 01/01/17 01:00 106/54 01/01/17 01:00 94 18 102/55 100 Mechanical Ventilator 30 01/01/17 00:00 90 01/01/17 00:00 99.0 90 16 91/43 100 Mechanical Ventilator 30 01/01/17 00:00 30 12/31/16 23:26 91 16 30 12/31/16 23:00 79 18 106/63 100 Mechanical Ventilator 30 12/31/16 22:00 75 16 101/65 100 Mechanical Ventilator 30 12/31/16 21:16 83 14 30 12/31/16 21:00 83 16 97/56 100 Mechanical Ventilator 30 12/31/16 20:00 87 12/31/16 20:00 97.2 86 16 84/51 100 Mechanical Ventilator 30 12/31/16 19:21 30 12/31/16 19:14 92 16 30 12/31/16 19:00 95 20 106/66 100 Mechanical Ventilator 30 12/31/16 18:05 91 12/31/16 18:00 97 17 94/61 100 Mechanical Ventilator 30 12/31/16 17:00 92 18 95/48 100 Mechanical Ventilator 30 12/31/16 16:57 91 19 30 12/31/16 16:00 97.1 91 16 99/49 100 Mechanical Ventilator 30 12/31/16 16:00 30 12/31/16 16:00 94 12/31/16 15:01 94 20 30 12/31/16 15:00 92 21 128/69 100 Mechanical Ventilator 30 12/31/16 14:00 88 18 109/67 100 Mechanical Ventilator 30 12/31/16 13:00 86 16 116/96 100 Mechanical Ventilator 30 12/31/16 12:31 90 19 30 12/31/16 12:15 89 12/31/16 12:00 91 12/31/16 12:00 30 12/31/16 12:00 97.5 96 15 107/74 100 Mechanical Ventilator 30 Intake and Output 12/31/16 01/01/17 19:00 07:00 Intake Total 630 ml 305 ml Balance 630 ml 305 ml Free Water 30 ml IV Total 100 ml Tube Feeding 360 ml 275 ml Other 140 ml 30 ml # Bowel Movements 6 1 Laboratory Tests Test 01/01/17 04:00 01/01/17 10:15 White Blood Count 9.3 K/UL (4.8-10.8) Red Blood Count 2.40 M/UL (4.20-5.40) L Hemoglobin 7.5 G/DL (12.0-16.0) L Hematocrit 23.8 % (37.0-47.0) L Mean Corpuscular Volume 99 FL (80-99) Mean Corpuscular Hemoglobin 31.1 PG (27.0-31.0) H Mean Corpuscular Hemoglobin Concent 31.4 G/DL (32.0-36.0) L Red Cell Distribution Width 20.1 % (11.6-14.8) H Platelet Count 193 K/UL (150-450) Mean Platelet Volume 9.1 FL (6.5-10.1) Neutrophils (%) (Auto) % (45.0-75.0) Lymphocytes (%) (Auto) % (20.0-45.0) Monocytes (%) (Auto) % (1.0-10.0) Eosinophils (%) (Auto) % (0.0-3.0) Basophils (%) (Auto) % (0.0-2.0) Sodium Level 128 mEQ/L (135-145) L Potassium Level 3.9 mEQ/L (3.4-4.9) Chloride Level 87 mEQ/L (98-107) L Carbon Dioxide Level 27 mEQ/L (20-30) Anion Gap 14 (5-15) Blood Urea Nitrogen 43 mg/dL (7-23) H Creatinine 3.1 mg/dL (0.5-0.9) H Estimat Glomerular Filtration Rate 15.2 mL/min (>60) Glucose Level 99 mg/dL (74-106) Calcium Level 8.7 mg/dL (8.6-10.2) Phosphorus Level 2.6 mg/dL (2.5-4.8) Magnesium Level 2.5 mg/dL (1.7-2.5) Total Bilirubin 0.3 mg/dL (0.0-1.2) Aspartate Amino Transf (AST/SGOT) 17 U/L (5-40) Alanine Aminotransferase (ALT/SGPT) 6 U/L (3-33) Alkaline Phosphatase 211 U/L (35-104) H Total Protein 6.4 g/dL (6.6-8.7) L Albumin 3.0 g/dL (3.5-5.2) L Globulin 3.4 g/dL Albumin/Globulin Ratio 0.8 (1.0-2.7) L Arterial Blood pH 7.442 (7.350-7.450) Arterial Blood Partial Pressure CO2 41.2 mmHg (35.0-45.0) Arterial Blood Partial Pressure O2 116.1 mmHg (75.0-100.0) H Arterial Blood HCO3 27.5 mmol/L (22.0-26.0) H Arterial Blood Oxygen Saturation 98.5 % (92.0-98.0) H Arterial Blood Base Excess 3.1 Antonio Test Positive Height (Feet): 4 Height (Inches): 9.00 Weight (Pounds): 75 General Appearance: no apparent distress Cardiovascular: normal rate Respiratory/Chest: normal breath sounds, no respiratory distress Abdominal Exam: other - OGT Objective Procedure: US ABD Complete Indication: Abnormal liver function tests and renal function tests Impression: Moderate ascites, nonspecific as regards etiology Negative for gallstones. There is mild gallbladder wall thickening, suspect secondary to whatever process is causing ascites, but acute acalculous cholecystitis not completely excludable. Consider nuclear medicine hepatobiliary scan if there is high clinical suspicion for acute cholecystitis Bilateral echogenic atrophic kidneys, consistent with known history of chronic renal disease Suzy Middleton N.P. Jan 01, 2017 11:39
--- NOTE | 2017-01-01 11:48 | Infectious Diseases Prog Note ---
Assessment/Plan Assessment/Plan ASSESSMENT: 61 y/o female with: // SP probable sepsis - cultures(-) // Negative C.difficile // Hypotension - back on low dose pressors // Leukopenia SP // Hypothermia SP // Acute encephalopathy / found down ?hepatic ( elevated NH4 ) r/o septic - improved - CT Head: No evidence of acute intracranial pathology. Bilateral cerebral periventricular and deepwhite matter low attenuation, nonspecific, likely chronic microvascular ischemic in nature. Atrophy // Acute VDRF - intubated 12/22, failing weaning - CXR 12/30: Lungs are essentially clear. // ?Cirrhosis / chronic liver disease with elevated LFTs, leukopenia, chronic macrocytic anemia, TCP, coagulopathy, hypoalbuminemia - US: pending // ESRD / HD with right chest TDC // FOBT(+) macrocytic anemia SP PRBCs - recent EGD: GAVE // Probable CHF exacerbation - CXR: evidence of congestive heart failure including pulmonary edema, small bilateral pleural effusions - TTE: EF 65%, grade I diastolic dysfunction, mild-mod TR, mod MR, pulmonary HTN // Elevated ESR // [facility] resident // NKDA // Full Code PLAN: - monitor pt off of ABX ( 12/27 SP IV vancomycin d# 5 / 5 ) ( 12/23 SP zosyn ) - monitor CBC, temperatures, re-culture if febrile or worsening leukocytosis - monitor BMP - monitor CXR - vent support, wean as tolerated - transfuse prn - pressors prn Subjective Allergies: Coded Allergies: No Known Allergies (Unverified , 12/22/16) Subjective remains afebrile, awake on vent failing weaning Objective Vital Signs Last 24 Hour Vital Signs Date Time Temp Pulse Resp B/P Pulse Ox O2 Delivery O2 Flow Rate FiO2 01/01/17 11:10 88 14 30 01/01/17 11:00 89 17 106/54 100 Mechanical Ventilator 30 01/01/17 10:00 94 17 108/62 97 Mechanical Ventilator 30 01/01/17 09:47 92 01/01/17 09:15 98.3 96 105/71 01/01/17 09:15 96 14 30 01/01/17 09:00 93 98/54 01/01/17 08:45 94 96/51 01/01/17 08:30 94 105/47 01/01/17 08:15 97 111/52 2/24/17 08:00 30 01/01/17 08:00 94 01/01/17 08:00 94 113/55 01/01/17 07:45 96 101/58 01/01/17 07:30 93 99/54 01/01/17 07:15 95 121/62 01/01/17 07:15 98 14 30 01/01/17 07:00 97 119/66 01/01/17 07:00 94 15 132/62 97 Mechanical Ventilator 30 01/01/17 06:45 95 125/73 01/01/17 06:30 92 118/73 01/01/17 06:15 92 123/64 01/01/17 06:00 92 117/59 01/01/17 06:00 93 15 117/59 100 Mechanical Ventilator 30 01/01/17 05:45 97.6 91 14 118/72 01/01/17 05:27 92 16 30 01/01/17 05:00 92 14 106/63 99 Mechanical Ventilator 30 01/01/17 04:00 95 01/01/17 04:00 98.1 94 14 119/65 99 Mechanical Ventilator 30 01/01/17 04:00 30 01/01/17 03:27 96 17 30 01/01/17 03:00 95 16 127/75 96 Mechanical Ventilator 30 01/01/17 02:00 95 16 107/56 100 Mechanical Ventilator 30 01/01/17 01:11 93 16 30 01/01/17 01:00 106/54 01/01/17 01:00 94 18 102/55 100 Mechanical Ventilator 30 01/01/17 00:00 90 01/01/17 00:00 99.0 90 16 91/43 100 Mechanical Ventilator 30 01/01/17 00:00 30 12/31/16 23:26 91 16 30 12/31/16 23:00 79 18 106/63 100 Mechanical Ventilator 30 12/31/16 22:00 75 16 101/65 100 Mechanical Ventilator 30 12/31/16 21:16 83 14 30 12/31/16 21:00 83 16 97/56 100 Mechanical Ventilator 30 12/31/16 20:00 87 12/31/16 20:00 97.2 86 16 84/51 100 Mechanical Ventilator 30 12/31/16 19:21 30 12/31/16 19:14 92 16 30 12/31/16 19:00 95 20 106/66 100 Mechanical Ventilator 30 12/31/16 18:05 91 12/31/16 18:00 97 17 94/61 100 Mechanical Ventilator 30 12/31/16 17:00 92 18 95/48 100 Mechanical Ventilator 30 12/31/16 16:57 91 19 30 12/31/16 16:00 97.1 91 16 99/49 100 Mechanical Ventilator 30 12/31/16 16:00 30 12/31/16 16:00 94 12/31/16 15:01 94 20 30 12/31/16 15:00 92 21 128/69 100 Mechanical Ventilator 30 12/31/16 14:00 88 18 109/67 100 Mechanical Ventilator 30 12/31/16 13:00 86 16 116/96 100 Mechanical Ventilator 30 12/31/16 12:31 90 19 30 12/31/16 12:15 89 12/31/16 12:00 91 12/31/16 12:00 30 12/31/16 12:00 97.5 96 15 107/74 100 Mechanical Ventilator 30 Height (Feet): 4 Height (Inches): 9.00 Weight (Pounds): 75 General Appearance: other - intubated Respiratory/Chest: decreased breath sounds Cardiovascular: normal rate, regular rhythm Abdomen: normal bowel sounds, soft, non tender, non distended Laboratory Tests Test 01/01/17 04:00 01/01/17 10:15 White Blood Count 9.3 K/UL (4.8-10.8) Red Blood Count 2.40 M/UL (4.20-5.40) L Hemoglobin 7.5 G/DL (12.0-16.0) L Hematocrit 23.8 % (37.0-47.0) L Mean Corpuscular Volume 99 FL (80-99) Mean Corpuscular Hemoglobin 31.1 PG (27.0-31.0) H Mean Corpuscular Hemoglobin Concent 31.4 G/DL (32.0-36.0) L Red Cell Distribution Width 20.1 % (11.6-14.8) H Platelet Count 193 K/UL (150-450) Mean Platelet Volume 9.1 FL (6.5-10.1) Neutrophils (%) (Auto) % (45.0-75.0) Lymphocytes (%) (Auto) % (20.0-45.0) Monocytes (%) (Auto) % (1.0-10.0) Eosinophils (%) (Auto) % (0.0-3.0) Basophils (%) (Auto) % (0.0-2.0) Sodium Level 128 mEQ/L (135-145) L Potassium Level 3.9 mEQ/L (3.4-4.9) Chloride Level 87 mEQ/L (98-107) L Carbon Dioxide Level 27 mEQ/L (20-30) Anion Gap 14 (5-15) Blood Urea Nitrogen 43 mg/dL (7-23) H Creatinine 3.1 mg/dL (0.5-0.9) H Estimat Glomerular Filtration Rate 15.2 mL/min (>60) Glucose Level 99 mg/dL (74-106) Calcium Level 8.7 mg/dL (8.6-10.2) Phosphorus Level 2.6 mg/dL (2.5-4.8) Magnesium Level 2.5 mg/dL (1.7-2.5) Total Bilirubin 0.3 mg/dL (0.0-1.2) Aspartate Amino Transf (AST/SGOT) 17 U/L (5-40) Alanine Aminotransferase (ALT/SGPT) 6 U/L (3-33) Alkaline Phosphatase 211 U/L (35-104) H Total Protein 6.4 g/dL (6.6-8.7) L Albumin 3.0 g/dL (3.5-5.2) L Globulin 3.4 g/dL Albumin/Globulin Ratio 0.8 (1.0-2.7) L Arterial Blood pH 7.442 (7.350-7.450) Arterial Blood Partial Pressure CO2 41.2 mmHg (35.0-45.0) Arterial Blood Partial Pressure O2 116.1 mmHg (75.0-100.0) H Arterial Blood HCO3 27.5 mmol/L (22.0-26.0) H Arterial Blood Oxygen Saturation 98.5 % (92.0-98.0) H Arterial Blood Base Excess 3.1 Antonio Test Positive Current Medications Medications (Trade) Dose Ordered Sig/Reji Route PRN Reason Start Time Stop Time Status Last Admin Dose Admin Acetaminophen (Tylenol) 650 mg Q4H PRN ORAL fever 12/22/16 13:45 01/21/17 13:44 Albumin Human (Albumisol) 100 ml @ 200 mls/hr PRN PRN IV sbp<90 during hd 01/01/17 06:00 01/31/17 05:59 Epoetin José Miguel (Procrit (for ESRD on dialysis)) 10,000 units WED-WED-WED SUBQ 12/28/16 21:00 01/27/17 20:59 12/30/16 20:38 Mirtazapine (Remeron) 7.5 mg BEDTIME ORAL 01/01/17 00:30 01/31/17 00:29 01/01/17 00:32 Morphine Sulfate (Morphine Sulfate) 4 mg Q4H PRN IVP PAIN 4-10 12/27/16 09:45 01/03/17 09:44 Nitroglycerin 0.4 mg 0.4 mg Q5MIN X 3 DOSES PRN SL Prn Chest Pain 12/22/16 13:45 01/21/17 13:44 Norepinephrine Bitartrate/ Dextrose (Levophed/D5W) 250 ml @ 0 mls/hr Q24H IV 12/23/16 01:00 01/22/17 00:59 12/31/16 00:38 Ondansetron HCl (Zofran) 4 mg Q6H PRN IVP Nausea & Vomiting 12/22/16 13:45 01/21/17 13:44 12/30/16 23:02 Pantoprazole 40 mg 40 mg BID IVP 12/28/16 18:00 01/27/17 17:59 01/01/17 09:47 Polyethylene Glycol (Miralax) 17 gm DAILYPRN PRN GT Constipation 12/25/16 11:03 01/21/17 13:44 Propafenone HCl (Rythmol) 225 mg TID NG 12/23/16 21:00 01/22/17 20:59 01/01/17 09:47 Rifaximin (Xifaxan) 550 mg EVERY 12 HOURS GT 12/25/16 11:03 01/03/17 11:02 01/01/17 09:46 DARLIN GRANADO Jan 01, 2017 11:48
--- NOTE | 2017-01-01 13:03 | Nephrology Progress Note ---
Assessment/Plan Problem List: (1) Hypovolemic shock (2) End-stage kidney disease (3) Acute respiratory failure (4) CHF (congestive heart failure) (5) Liver cirrhosis (6) Hypoalbuminemia (7) Severe malnutrition (8) GAVE (gastric antral vascular ectasia) (9) Diarrhea (10) Anemia in chronic kidney disease Plan try to wean off levophed, done , seen on hd 01/01 stable watch bp closely, adjust tube feeding, stop iv fluids, needs epogen anemia Subjective Constitutional: Reports: weakness HEENT: Reports: no symptoms Genitourinary: Reports: no symptoms Neurologic/Psychiatric: Reports: no symptoms Subjective awake on vent Objective Objective Last 24 Hour Vital Signs Date Time Temp Pulse Resp B/P Pulse Ox O2 Delivery O2 Flow Rate FiO2 01/01/17 12:50 95 01/01/17 12:00 98.9 97 15 93/55 100 Mechanical Ventilator 30 01/01/17 12:00 30 01/01/17 12:00 95 01/01/17 11:10 88 14 30 01/01/17 11:00 89 17 106/54 100 Mechanical Ventilator 30 01/01/17 10:00 94 17 108/62 97 Mechanical Ventilator 30 01/01/17 09:47 92 01/01/17 09:15 98.3 96 105/71 01/01/17 09:15 96 14 30 01/01/17 09:00 93 98/54 01/01/17 08:45 94 96/51 01/01/17 08:30 94 105/47 01/01/17 08:15 97 111/52 01/01/17 08:00 30 01/01/17 08:00 94 01/01/17 08:00 94 113/55 01/01/17 07:45 96 101/58 01/01/17 07:30 93 99/54 01/01/17 07:15 95 121/62 01/01/17 07:15 98 14 30 01/01/17 07:00 97 119/66 01/01/17 07:00 94 15 132/62 97 Mechanical Ventilator 30 01/01/17 06:45 95 125/73 01/01/17 06:30 92 118/73 01/01/17 06:15 92 123/64 01/01/17 06:00 92 117/59 01/01/17 06:00 93 15 117/59 100 Mechanical Ventilator 30 01/01/17 05:45 97.6 91 14 118/72 01/01/17 05:27 92 16 30 01/01/17 05:00 92 14 106/63 99 Mechanical Ventilator 30 01/01/17 04:00 95 01/01/17 04:00 98.1 94 14 119/65 99 Mechanical Ventilator 30 01/01/17 04:00 30 01/01/17 03:27 96 17 30 01/01/17 03:00 95 16 127/75 96 Mechanical Ventilator 30 01/01/17 02:00 95 16 107/56 100 Mechanical Ventilator 30 01/01/17 01:11 93 16 30 01/01/17 01:00 106/54 01/01/17 01:00 94 18 102/55 100 Mechanical Ventilator 30 01/01/17 00:00 90 01/01/17 00:00 99.0 90 16 91/43 100 Mechanical Ventilator 30 01/01/17 00:00 30 12/31/16 23:26 91 16 30 12/31/16 23:00 79 18 106/63 100 Mechanical Ventilator 30 12/31/16 22:00 75 16 101/65 100 Mechanical Ventilator 30 12/31/16 21:16 83 14 30 12/31/16 21:00 83 16 97/56 100 Mechanical Ventilator 30 12/31/16 20:00 87 12/31/16 20:00 97.2 86 16 84/51 100 Mechanical Ventilator 30 12/31/16 19:21 30 12/31/16 19:14 92 16 30 12/31/16 19:00 95 20 106/66 100 Mechanical Ventilator 30 12/31/16 18:05 91 12/31/16 18:00 97 17 94/61 100 Mechanical Ventilator 30 12/31/16 17:00 92 18 95/48 100 Mechanical Ventilator 30 12/31/16 16:57 91 19 30 12/31/16 16:00 97.1 91 16 99/49 100 Mechanical Ventilator 30 12/31/16 16:00 30 12/31/16 16:00 94 12/31/16 15:01 94 20 30 12/31/16 15:00 92 21 128/69 100 Mechanical Ventilator 30 12/31/16 14:00 88 18 109/67 100 Mechanical Ventilator 30 Intake and Output 12/31/16 01/01/17 19:00 07:00 Intake Total 630 ml 305 ml Balance 630 ml 305 ml Free Water 30 ml IV Total 100 ml Tube Feeding 360 ml 275 ml Other 140 ml 30 ml # Bowel Movements 6 1 Laboratory Tests 01/01/17 04:00: White Blood Count 9.3, Red Blood Count 2.40L, Hemoglobin 7.5L, Hematocrit 23.8L , Mean Corpuscular Volume 99, Mean Corpuscular Hemoglobin 31.1H, Mean Corpuscular Hemoglobin Concent 31.4L, Red Cell Distribution Width 20.1H, Platelet Count 193, Mean Platelet Volume 9.1, Neutrophils (%) (Auto) , Lymphocytes (%) (Auto) , Monocytes (%) (Auto) , Eosinophils (%) (Auto) , Basophils (%) (Auto) , Sodium Level 128L, Potassium Level 3.9, Chloride Level 87L, Carbon Dioxide Level 27, Anion Gap 14, Blood Urea Nitrogen 43H, Creatinine 3.1H, Estimat Glomerular Filtration Rate 15.2, Glucose Level 99, Calcium Level 8.7, Phosphorus Level 2.6, Magnesium Level 2.5, Total Bilirubin 0.3, Aspartate Amino Transf (AST/SGOT) 17, Alanine Aminotransferase (ALT/SGPT) 6, Alkaline Phosphatase 211H, Total Protein 6.4L, Albumin 3.0L, Globulin 3.4, Albumin/ Globulin Ratio 0.8L 01/01/17 10:15: Arterial Blood pH 7.442, Arterial Blood Partial Pressure CO2 41.2, Arterial Blood Partial Pressure O2 116.1H, Arterial Blood HCO3 27.5H, Arterial Blood Oxygen Saturation 98.5H, Arterial Blood Base Excess 3.1, Antonio Test Positive Height (Feet): 4 Height (Inches): 9.00 Weight (Pounds): 75 General Appearance: alert, mild distress EENT: PERRL/EOMI Neck: non-tender Cardiovascular: regular rhythm Respiratory/Chest: lungs clear, decreased breath sounds, accessory muscle use Abdomen: soft, other - mild ascites Extremities: trace edema Neurologic: laster hand II-XII grossly normal PERLITA HOOD Jan 01, 2017 13:03
[2017-01-01] MEDS: ORAJEL 20% ORO PRN ×2 (14:48→16:56)
--- NOTE | 2017-01-01 18:15 | Internal Med Progress Note ---
Subjective Date of Service: Jan 01, 2017 Physician Name Dione Bull Attending Physician Jes Bautista Current Medications Medications (Trade) Dose Ordered Sig/Reji Route PRN Reason Start Time Stop Time Status Last Admin Dose Admin Acetaminophen (Tylenol) 650 mg Q4H PRN ORAL fever 12/22/16 13:45 01/21/17 13:44 Albumin Human (Albumisol) 100 ml @ 200 mls/hr PRN PRN IV sbp<90 during hd 01/01/17 06:00 01/31/17 05:59 Benzocaine (Orajel) 1 applic NEEDED PRN GAMA For Pain 01/01/17 11:45 01/31/17 11:44 01/01/17 16:56 Epoetin José Miguel (Procrit (for ESRD on dialysis)) 10,000 units WED-WED-WED SUBQ 12/28/16 21:00 01/27/17 20:59 12/30/16 20:38 Mirtazapine (Remeron) 7.5 mg BEDTIME ORAL 01/01/17 00:30 01/31/17 00:29 01/01/17 00:32 Morphine Sulfate (Morphine Sulfate) 4 mg Q4H PRN IVP PAIN 4-10 12/27/16 09:45 01/03/17 09:44 Nitroglycerin 0.4 mg 0.4 mg Q5MIN X 3 DOSES PRN SL Prn Chest Pain 12/22/16 13:45 01/21/17 13:44 Norepinephrine Bitartrate/ Dextrose (Levophed/D5W) 250 ml @ 0 mls/hr Q24H IV 12/23/16 01:00 01/22/17 00:59 12/31/16 00:38 Ondansetron HCl (Zofran) 4 mg Q6H PRN IVP Nausea & Vomiting 12/22/16 13:45 01/21/17 13:44 12/30/16 23:02 Pantoprazole 40 mg 40 mg BID IVP 12/28/16 18:00 01/27/17 17:59 01/01/17 17:33 Polyethylene Glycol (Miralax) 17 gm DAILYPRN PRN GT Constipation 12/25/16 11:03 01/21/17 13:44 Propafenone HCl (Rythmol) 225 mg TID NG 12/23/16 21:00 01/22/17 20:59 01/01/17 17:34 Rifaximin (Xifaxan) 550 mg EVERY 12 HOURS GT 12/25/16 11:03 01/03/17 11:02 01/01/17 09:46 Allergies: Coded Allergies: No Known Allergies (Unverified , 12/22/16) ROS Limited/Unobtainable: Yes Subjective 61 YO F admitted with respiratory failure. Now sepsis. Intubated and sedated. ICU. On pressors. Failed CPAP trial. Cover for Int Jamie-Dr Vigil. Objective Last Vital Signs Date Time Temp Pulse Resp B/P Pulse Ox O2 Delivery O2 Flow Rate FiO2 01/01/17 17:34 97 01/01/17 17:15 15 30 01/01/17 17:00 139/82 100 Mechanical Ventilator 01/01/17 16:00 98.3 Laboratory Tests Test 01/01/17 04:00 01/01/17 10:15 White Blood Count 9.3 K/UL (4.8-10.8) Red Blood Count 2.40 M/UL (4.20-5.40) L Hemoglobin 7.5 G/DL (12.0-16.0) L Hematocrit 23.8 % (37.0-47.0) L Mean Corpuscular Volume 99 FL (80-99) Mean Corpuscular Hemoglobin 31.1 PG (27.0-31.0) H Mean Corpuscular Hemoglobin Concent 31.4 G/DL (32.0-36.0) L Red Cell Distribution Width 20.1 % (11.6-14.8) H Platelet Count 193 K/UL (150-450) Mean Platelet Volume 9.1 FL (6.5-10.1) Neutrophils (%) (Auto) % (45.0-75.0) Lymphocytes (%) (Auto) % (20.0-45.0) Monocytes (%) (Auto) % (1.0-10.0) Eosinophils (%) (Auto) % (0.0-3.0) Basophils (%) (Auto) % (0.0-2.0) Sodium Level 128 mEQ/L (135-145) L Potassium Level 3.9 mEQ/L (3.4-4.9) Chloride Level 87 mEQ/L (98-107) L Carbon Dioxide Level 27 mEQ/L (20-30) Anion Gap 14 (5-15) Blood Urea Nitrogen 43 mg/dL (7-23) H Creatinine 3.1 mg/dL (0.5-0.9) H Estimat Glomerular Filtration Rate 15.2 mL/min (>60) Glucose Level 99 mg/dL (74-106) Calcium Level 8.7 mg/dL (8.6-10.2) Phosphorus Level 2.6 mg/dL (2.5-4.8) Magnesium Level 2.5 mg/dL (1.7-2.5) Total Bilirubin 0.3 mg/dL (0.0-1.2) Aspartate Amino Transf (AST/SGOT) 17 U/L (5-40) Alanine Aminotransferase (ALT/SGPT) 6 U/L (3-33) Alkaline Phosphatase 211 U/L (35-104) H Total Protein 6.4 g/dL (6.6-8.7) L Albumin 3.0 g/dL (3.5-5.2) L Globulin 3.4 g/dL Albumin/Globulin Ratio 0.8 (1.0-2.7) L Arterial Blood pH 7.442 (7.350-7.450) Arterial Blood Partial Pressure CO2 41.2 mmHg (35.0-45.0) Arterial Blood Partial Pressure O2 116.1 mmHg (75.0-100.0) H Arterial Blood HCO3 27.5 mmol/L (22.0-26.0) H Arterial Blood Oxygen Saturation 98.5 % (92.0-98.0) H Arterial Blood Base Excess 3.1 Antonio Test Positive Microbiology Date/Time Source Procedure Growth Status 12/31/16 18:20 Stool Clostridium difficile Toxin Assay - Final Complete Intake and Output 12/31/16 01/01/17 19:00 07:00 Intake Total 630 ml 305 ml Balance 630 ml 305 ml Free Water 30 ml IV Total 100 ml Tube Feeding 360 ml 275 ml Other 140 ml 30 ml # Bowel Movements 6 1 Objective General Appearance: mild distress, thin EENT: PERRL/EOMI, normal ENT inspection Neck: non-tender, normal alignment, supple Cardiovascular: normal peripheral pulses, normal rate, regular rhythm, no gallop/murmur, no JVD Respiratory/Chest: Mech Vent; respiratory distress, crackles/rales, rhonchi - bilaterally, expiratory wheezing Abdomen: normal bowel sounds, non tender, soft, no organomegaly, no mass 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 (3) HTN (hypertension) Assessment & Plan: Currently hypotensive. (4) Acute respiratory failure Assessment & Plan: Failed CPAP; Cont mech vent per pulmonary. May require tracheostomy (5) CHF (congestive heart failure) (6) Anemia (7) Liver cirrhosis (8) Sepsis Assessment & Plan: Cont off antibiotics per ID (9) Septic shock Assessment & Plan: Continue pressors. (10) Hyponatremia Status: not improved DIONE BULL Jan 01, 2017 18:15
[2017-01-01] MEDS: Epogen (for ESRD on dialysis) SUBQ SCH (21:58)
[2017-01-02] VITALS (24 sets, daily range): BP systolic 78–135; BP diastolic 45–110
[2017-01-02] MEDS: ORAJEL 20% ORO PRN (00:37)
[2017-01-02 05:13] LABS: BASOPHILS % (AUTO) 1.9 % (0.0-2.0); EOSINOPHILS % (AUTO) 1.8 % (0.0-3.0); LYMPHOCYTES % (AUTO) 5.2 % (20.0-45.0); MEAN CORPUSCULAR HEMOGLOBIN 30.8 PG (27.0-31.0); MEAN CORPUSCULAR VOLUME 93 FL (80-99); MEAN PLATELET VOLUME 7.9 FL (6.5-10.1); MONOCYTES % (AUTO) 13.7 % (1.0-10.0); NEUTROPHILS % (AUTO) 77.3 % (45.0-75.0); PLATELET COUNT 174 K/UL (150-450); RED BLOOD COUNT 2.84 M/UL (4.20-5.40); RED CELL DISTRIBUTION WIDTH 19.8 % (11.6-14.8); WHITE BLOOD COUNT 8.1 K/UL (4.8-10.8)
[2017-01-02 05:42] LABS: ALBUMIN/GLOBULIN RATIO 0.8 (1.0-2.7); CALCIUM 8.6 mg/dL (8.6-10.2); CREATININE 2.3 mg/dL (0.5-0.9); GLOMERULAR FILTRATION RATE 21.5 mL/min (>60); MAGNESIUM 1.9 mg/dL (1.7-2.5); PHOSPHORUS 2.1 mg/dL (2.5-4.8); POTASSIUM 3.9 mEQ/L (3.4-4.9); TOTAL PROTEIN 6.4 g/dL (6.6-8.7)
[2017-01-02 07:47] LABS: ABG ALLEN TEST POSITIVE; ABG BASE EXCESS 0.7; ABG PCO2 40.1 mmHg (35.0-45.0)
[2017-01-02] MEDS: Rifaximin 550mg tab GT SCH ×2 (09:11→21:06)
[2017-01-02] MEDS: Pantoprazole Inj IVP SCH ×2 (09:11→18:02)
--- NOTE | 2017-01-02 09:12 | Pulmonolgy Critical Care Note ---
Critical Care - Asmt/Plan Problems: (1) Acute respiratory failure (2) Altered mental state (3) CKD (chronic kidney disease) (4) Hyperkalemia (5) Liver cirrhosis (6) Connective tissue disease (7) CHF (congestive heart failure) Respiratory: monitor respiratory rate, adjust FIO2 Cardiac: continue to monitor HR/BP Renal: F/U I&O, keep IV fluid, check electrolytes Infectious Disease: check cultures, continue antibiotics Gastrointestinal: continue feedings/current rate Endocrine: monitor blood sugar, check TSH, continue sliding scale insulin Hematologic: monitor H/H, transfuse if hgb<8.5 Neurologic: PRN Morphine, keep patient comfortable Affect: PRN ativan Notes Reviewed: engineering technologist, cardio, renal Discussed with: nurses, director of casework servicescomputer operations manager - Objective Last 24 Hour Vital Signs Date Time Temp Pulse Resp B/P Pulse Ox O2 Delivery O2 Flow Rate FiO2 01/02/17 07:15 95 14 30 01/02/17 07:00 97.9 96 20 110/71 100 Mechanical Ventilator 30 01/02/17 06:00 98 19 119/69 99 Mechanical Ventilator 30 01/02/17 05:00 94 19 110/67 100 Mechanical Ventilator 30 01/02/17 04:39 95 14 30 01/02/17 04:00 93 01/02/17 04:00 30 01/02/17 04:00 98.1 94 19 100/67 100 Mechanical Ventilator 30 01/02/17 03:00 92 15 93/45 100 Mechanical Ventilator 30 01/02/17 02:57 92 14 30 01/02/17 02:00 95 18 124/85 100 Mechanical Ventilator 30 01/02/17 01:12 93 14 30 01/02/17 01:00 100/58 01/02/17 01:00 94 15 100/58 100 Mechanical Ventilator 30 01/02/17 00:00 30 01/02/17 00:00 98.4 97 16 91/52 100 Mechanical Ventilator 30 01/02/17 00:00 99 01/01/17 23:09 95 14 30 01/01/17 23:00 96 16 98/63 100 Mechanical Ventilator 30 01/01/17 22:00 92 16 111/68 100 Mechanical Ventilator 30 01/01/17 21:02 93 14 30 01/01/17 21:00 98 18 102/83 100 Mechanical Ventilator 30 01/01/17 20:00 94 2/24/17 20:00 30 01/01/17 20:00 97.9 93 16 113/63 100 Mechanical Ventilator 30 01/01/17 19:03 94 14 30 01/01/17 19:00 90 18 106/68 100 Mechanical Ventilator 30 01/01/17 18:00 96 16 131/75 100 Mechanical Ventilator 30 01/01/17 17:34 97 01/01/17 17:15 97 15 30 01/01/17 17:00 99 17 139/82 100 Mechanical Ventilator 30 01/01/17 16:00 98.3 98 16 121/65 100 Mechanical Ventilator 30 01/01/17 16:00 30 01/01/17 16:00 95 01/01/17 15:05 94 14 30 01/01/17 15:00 91 17 109/61 100 Mechanical Ventilator 30 01/01/17 14:00 95 14 117/78 100 Mechanical Ventilator 30 01/01/17 13:14 96 14 30 01/01/17 13:00 95 14 117/78 100 Mechanical Ventilator 30 01/01/17 12:50 95 01/01/17 12:00 98.9 97 15 93/55 100 Mechanical Ventilator 30 01/01/17 12:00 98.9 95 17 93/55 100 Mechanical Ventilator 30 01/01/17 12:00 30 01/01/17 12:00 95 01/01/17 11:10 88 14 30 01/01/17 11:00 89 17 106/54 100 Mechanical Ventilator 30 01/01/17 10:00 94 17 108/62 97 Mechanical Ventilator 30 01/01/17 09:47 92 01/01/17 09:15 98.3 96 105/71 01/01/17 09:15 96 14 30 Status: awake Condition: critical HEENT: atraumatic Neck: full ROM Lungs: clear Heart: HR/BP stable Abdomen: soft, non-tender, active bowel sounds Extremities: no C/C/E, edema Decubiti: location Micro: Microbiology Date/Time Source Procedure Growth Status 12/31/16 18:20 Stool Clostridium difficile Toxin Assay - Final Complete Accucheck: 55 Critical Care - Subjective ROS Limited/Unobtainable: Yes ICU Day: 11 Intubation Day: 11 Interval Events: awake, looks comfortable EKG Rhythm: Sinus Rhythm FI02: 30 Vent Support Breath Rate: 14 Vent Support Mode: AC Vent Tidal Volume: 450 Sputum Amount: Small PEEP: 5.0 PIP: 52 Tube Feeding Amount: 25 I&O: Intake and Output 01/01/17 01/02/17 19:00 07:00 Intake Total 685 ml 180 ml Output Total 1300 ml Balance -615 ml 180 ml Free Water 30 ml Tube Feeding 225 ml 150 ml Hemodialysis 300 ml Other 130 ml 30 ml Hemodialysis UF 1300 ml # Bowel Movements 1 2 CXR: no change ET-Tube: 7.5 ET Position: 23 Labs: Laboratory Tests Test 01/01/17 10:15 01/02/17 05:00 01/02/17 07:38 Arterial Blood pH 7.442 (7.350-7.450) 7.417 (7.350-7.450) Arterial Blood Partial Pressure CO2 41.2 mmHg (35.0-45.0) 40.1 mmHg (35.0-45.0) Arterial Blood Partial Pressure O2 116.1 mmHg (75.0-100.0) H 131.7 mmHg (75.0-100.0) H Arterial Blood HCO3 27.5 mmol/L (22.0-26.0) H 25.3 mmol/L (22.0-26.0) Arterial Blood Oxygen Saturation 98.5 % (92.0-98.0) H 97.8 % (92.0-98.0) Arterial Blood Base Excess 3.1 0.7 Antonio Test Positive Positive White Blood Count 8.1 K/UL (4.8-10.8) Red Blood Count 2.84 M/UL (4.20-5.40) L Hemoglobin 8.7 G/DL (12.0-16.0) L Hematocrit 26.5 % (37.0-47.0) L Mean Corpuscular Volume 93 FL (80-99) Mean Corpuscular Hemoglobin 30.8 PG (27.0-31.0) Mean Corpuscular Hemoglobin Concent 33.0 G/DL (32.0-36.0) Red Cell Distribution Width 19.8 % (11.6-14.8) H Platelet Count 174 K/UL (150-450) Mean Platelet Volume 7.9 FL (6.5-10.1) Neutrophils (%) (Auto) 77.3 % (45.0-75.0) H Lymphocytes (%) (Auto) 5.2 % (20.0-45.0) L Monocytes (%) (Auto) 13.7 % (1.0-10.0) H Eosinophils (%) (Auto) 1.8 % (0.0-3.0) Basophils (%) (Auto) 1.9 % (0.0-2.0) Sodium Level 136 mEQ/L (135-145) Potassium Level 3.9 mEQ/L (3.4-4.9) Chloride Level 97 mEQ/L (98-107) L Carbon Dioxide Level 26 mEQ/L (20-30) Anion Gap 13 (5-15) Blood Urea Nitrogen 27 mg/dL (7-23) H Creatinine 2.3 mg/dL (0.5-0.9) H Estimat Glomerular Filtration Rate 21.5 mL/min (>60) Glucose Level 78 mg/dL (74-106) Calcium Level 8.6 mg/dL (8.6-10.2) Phosphorus Level 2.1 mg/dL (2.5-4.8) L Magnesium Level 1.9 mg/dL (1.7-2.5) Total Bilirubin 0.7 mg/dL (0.0-1.2) Aspartate Amino Transf (AST/SGOT) 19 U/L (5-40) Alanine Aminotransferase (ALT/SGPT) 6 U/L (3-33) Alkaline Phosphatase 195 U/L (35-104) H Total Protein 6.4 g/dL (6.6-8.7) L Albumin 2.9 g/dL (3.5-5.2) L Globulin 3.5 g/dL Albumin/Globulin Ratio 0.8 (1.0-2.7) L FRANCESCA FELTON Jan 02, 2017 09:12
--- NOTE | 2017-01-02 10:39 | Nephrology Progress Note ---
Assessment/Plan Problem List: (1) Hypovolemic shock (2) End-stage kidney disease (3) Acute respiratory failure (4) CHF (congestive heart failure) (5) Liver cirrhosis (6) Hypoalbuminemia (7) Severe malnutrition (8) GAVE (gastric antral vascular ectasia) (9) Diarrhea (10) Anemia in chronic kidney disease Plan try to wean off levophed, done , seen on hd 01/01 stable watch bp closely, adjust tube feeding, stop iv fluids, needs epogen anemia, remains ventilator dependent Subjective Constitutional: Reports: weakness HEENT: Reports: no symptoms Genitourinary: Reports: no symptoms Neurologic/Psychiatric: Reports: no symptoms Subjective awake on vent Objective Objective Last 24 Hour Vital Signs Date Time Temp Pulse Resp B/P Pulse Ox O2 Delivery O2 Flow Rate FiO2 01/02/17 10:21 106 01/02/17 10:00 94 14 83/60 100 Mechanical Ventilator 30 01/02/17 09:11 94 01/02/17 09:10 98 14 30 01/02/17 09:00 92 27 103/62 99 Mechanical Ventilator 30 01/02/17 08:00 98 18 132/71 99 Mechanical Ventilator 30 01/02/17 08:00 30 01/02/17 07:15 95 14 30 01/02/17 07:00 97.9 96 20 110/71 100 Mechanical Ventilator 30 01/02/17 06:00 98 19 119/69 99 Mechanical Ventilator 30 01/02/17 05:00 94 19 110/67 100 Mechanical Ventilator 30 01/02/17 04:39 95 14 30 01/02/17 04:00 93 01/02/17 04:00 30 01/02/17 04:00 98.1 94 19 100/67 100 Mechanical Ventilator 30 01/02/17 03:00 92 15 93/45 100 Mechanical Ventilator 30 01/02/17 02:57 92 14 30 01/02/17 02:00 95 18 124/85 100 Mechanical Ventilator 30 01/02/17 01:12 93 14 30 01/02/17 01:00 100/58 01/02/17 01:00 94 15 100/58 100 Mechanical Ventilator 30 01/02/17 00:00 30 01/02/17 00:00 98.4 97 16 91/52 100 Mechanical Ventilator 30 01/02/17 00:00 99 01/01/17 23:09 95 14 30 01/01/17 23:00 96 16 98/63 100 Mechanical Ventilator 30 01/01/17 22:00 92 16 111/68 100 Mechanical Ventilator 30 01/01/17 21:02 93 14 30 01/01/17 21:00 98 18 102/83 100 Mechanical Ventilator 30 01/01/17 20:00 94 01/01/17 20:00 30 01/01/17 20:00 97.9 93 16 113/63 100 Mechanical Ventilator 30 01/01/17 19:03 94 14 30 01/01/17 19:00 90 18 106/68 100 Mechanical Ventilator 30 01/01/17 18:00 96 16 131/75 100 Mechanical Ventilator 30 01/01/17 17:34 97 01/01/17 17:15 97 15 30 01/01/17 17:00 99 17 139/82 100 Mechanical Ventilator 30 01/01/17 16:00 98.3 98 16 121/65 100 Mechanical Ventilator 30 01/01/17 16:00 30 01/01/17 16:00 95 01/01/17 15:05 94 14 30 01/01/17 15:00 91 17 109/61 100 Mechanical Ventilator 30 01/01/17 14:00 95 14 117/78 100 Mechanical Ventilator 30 01/01/17 13:14 96 14 30 01/01/17 13:00 95 14 117/78 100 Mechanical Ventilator 30 01/01/17 12:50 95 01/01/17 12:00 98.9 97 15 93/55 100 Mechanical Ventilator 30 01/01/17 12:00 98.9 95 17 93/55 100 Mechanical Ventilator 30 01/01/17 12:00 30 01/01/17 12:00 95 01/01/17 11:10 88 14 30 01/01/17 11:00 89 17 106/54 100 Mechanical Ventilator 30 Intake and Output 01/01/17 01/02/17 19:00 07:00 Intake Total 685 ml 180 ml Output Total 1300 ml Balance -615 ml 180 ml Free Water 30 ml Tube Feeding 225 ml 150 ml Hemodialysis 300 ml Other 130 ml 30 ml Hemodialysis UF 1300 ml # Bowel Movements 1 2 Laboratory Tests 01/02/17 05:00: White Blood Count 8.1, Red Blood Count 2.84L, Hemoglobin 8.7L, Hematocrit 26.5L , Mean Corpuscular Volume 93, Mean Corpuscular Hemoglobin 30.8, Mean Corpuscular Hemoglobin Concent 33.0, Red Cell Distribution Width 19.8H, Platelet Count 174, Mean Platelet Volume 7.9, Neutrophils (%) (Auto) 77.3H, Lymphocytes (%) (Auto) 5.2L, Monocytes (%) (Auto) 13.7H, Eosinophils (%) (Auto) 1.8, Basophils (%) (Auto) 1.9, Sodium Level 136, Potassium Level 3.9, Chloride Level 97L, Carbon Dioxide Level 26, Anion Gap 13, Blood Urea Nitrogen 27H, Creatinine 2.3H, Estimat Glomerular Filtration Rate 21.5, Glucose Level 78, Calcium Level 8.6, Phosphorus Level 2.1L, Magnesium Level 1.9, Total Bilirubin 0.7, Aspartate Amino Transf (AST/SGOT) 19, Alanine Aminotransferase (ALT/SGPT) 6 , Alkaline Phosphatase 195H, Total Protein 6.4L, Albumin 2.9L, Globulin 3.5, Albumin/Globulin Ratio 0.8L 01/02/17 07:38: Arterial Blood pH 7.417, Arterial Blood Partial Pressure CO2 40.1, Arterial Blood Partial Pressure O2 131.7H, Arterial Blood HCO3 25.3, Arterial Blood Oxygen Saturation 97.8, Arterial Blood Base Excess 0.7, Antonio Test Positive Height (Feet): 4 Height (Inches): 9.00 Weight (Pounds): 75 General Appearance: mild distress, thin EENT: normal ENT inspection Neck: normal alignment Cardiovascular: regular rhythm Respiratory/Chest: decreased breath sounds Abdomen: non tender, other - soft ascites Extremities: trace edema 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
--- NOTE | 2017-01-02 11:30 | Cardiology Progress Note ---
Assessment/Plan Assessment/Plan ams hypotension hs of mod to sever MR paf hs of avb with pvc cirrhosis , esrd on dialyusis mgus htn scleroderma hs of [place] o gave continue on rhtymol for now watch on tele for afib recurrence or for av block has been fainling weaning attempts iv abx dialysisas indicated lv function has been preserved tele sinus has a friction rub on exam today will check ekg Subjective Cardiovascular: Denies: chest pain, lightheadedness, palpitations Respiratory: Reports: shortness of breath Gastrointestinal/Abdominal: Denies: abdominal pain Genitourinary: Denies: burning Objective Last 24 Hour Vital Signs Date Time Temp Pulse Resp B/P Pulse Ox O2 Delivery O2 Flow Rate FiO2 01/02/17 11:00 89 22 128/110 100 Mechanical Ventilator 30 01/02/17 10:21 106 01/02/17 10:00 94 14 83/60 100 Mechanical Ventilator 30 01/02/17 09:11 94 01/02/17 09:10 98 14 30 01/02/17 09:00 92 27 103/62 99 Mechanical Ventilator 30 01/02/17 08:00 98 18 132/71 99 Mechanical Ventilator 30 01/02/17 08:00 30 01/02/17 07:15 95 14 30 01/02/17 07:00 97.9 96 20 110/71 100 Mechanical Ventilator 30 01/02/17 06:00 98 19 119/69 99 Mechanical Ventilator 30 01/02/17 05:00 94 19 110/67 100 Mechanical Ventilator 30 01/02/17 04:39 95 14 30 01/02/17 04:00 93 01/02/17 04:00 30 01/02/17 04:00 98.1 94 19 100/67 100 Mechanical Ventilator 30 01/02/17 03:00 92 15 93/45 100 Mechanical Ventilator 30 01/02/17 02:57 92 14 30 01/02/17 02:00 95 18 124/85 100 Mechanical Ventilator 30 01/02/17 01:12 93 14 30 01/02/17 01:00 100/58 01/02/17 01:00 94 15 100/58 100 Mechanical Ventilator 30 01/02/17 00:00 30 01/02/17 00:00 98.4 97 16 91/52 100 Mechanical Ventilator 30 01/02/17 00:00 99 01/01/17 23:09 95 14 30 01/01/17 23:00 96 16 98/63 100 Mechanical Ventilator 30 01/01/17 22:00 92 16 111/68 100 Mechanical Ventilator 30 01/01/17 21:02 93 14 30 01/01/17 21:00 98 18 102/83 100 Mechanical Ventilator 30 01/01/17 20:00 94 01/01/17 20:00 30 01/01/17 20:00 97.9 93 16 113/63 100 Mechanical Ventilator 30 01/01/17 19:03 94 14 30 01/01/17 19:00 90 18 106/68 100 Mechanical Ventilator 30 01/01/17 18:00 96 16 131/75 100 Mechanical Ventilator 30 01/01/17 17:34 97 01/01/17 17:15 97 15 30 01/01/17 17:00 99 17 139/82 100 Mechanical Ventilator 30 01/01/17 16:00 98.3 98 16 121/65 100 Mechanical Ventilator 30 01/01/17 16:00 30 01/01/17 16:00 95 01/01/17 15:05 94 14 30 01/01/17 15:00 91 17 109/61 100 Mechanical Ventilator 30 01/01/17 14:00 95 14 117/78 100 Mechanical Ventilator 30 01/01/17 13:14 96 14 30 01/01/17 13:00 95 14 117/78 100 Mechanical Ventilator 30 01/01/17 12:50 95 01/01/17 12:00 98.9 97 15 93/55 100 Mechanical Ventilator 30 01/01/17 12:00 98.9 95 17 93/55 100 Mechanical Ventilator 30 01/01/17 12:00 30 01/01/17 12:00 95 General Appearance: on vent Neck: no JVD Cardiovascular: normal rate, regular rhythm, friction rub Respiratory/Chest: lungs clear Abdomen: normal bowel sounds, non tender, soft Extremities: no swelling Intake and Output 01/01/17 01/02/17 19:00 07:00 Intake Total 685 ml 180 ml Output Total 1300 ml Balance -615 ml 180 ml Free Water 30 ml Tube Feeding 225 ml 150 ml Hemodialysis 300 ml Other 130 ml 30 ml Hemodialysis UF 1300 ml # Bowel Movements 1 2 Laboratory Tests Test 01/02/17 05:00 01/02/17 07:38 White Blood Count 8.1 K/UL (4.8-10.8) Red Blood Count 2.84 M/UL (4.20-5.40) L Hemoglobin 8.7 G/DL (12.0-16.0) L Hematocrit 26.5 % (37.0-47.0) L Mean Corpuscular Volume 93 FL (80-99) Mean Corpuscular Hemoglobin 30.8 PG (27.0-31.0) Mean Corpuscular Hemoglobin Concent 33.0 G/DL (32.0-36.0) Red Cell Distribution Width 19.8 % (11.6-14.8) H Platelet Count 174 K/UL (150-450) Mean Platelet Volume 7.9 FL (6.5-10.1) Neutrophils (%) (Auto) 77.3 % (45.0-75.0) H Lymphocytes (%) (Auto) 5.2 % (20.0-45.0) L Monocytes (%) (Auto) 13.7 % (1.0-10.0) H Eosinophils (%) (Auto) 1.8 % (0.0-3.0) Basophils (%) (Auto) 1.9 % (0.0-2.0) Sodium Level 136 mEQ/L (135-145) Potassium Level 3.9 mEQ/L (3.4-4.9) Chloride Level 97 mEQ/L (98-107) L Carbon Dioxide Level 26 mEQ/L (20-30) Anion Gap 13 (5-15) Blood Urea Nitrogen 27 mg/dL (7-23) H Creatinine 2.3 mg/dL (0.5-0.9) H Estimat Glomerular Filtration Rate 21.5 mL/min (>60) Glucose Level 78 mg/dL (74-106) Calcium Level 8.6 mg/dL (8.6-10.2) Phosphorus Level 2.1 mg/dL (2.5-4.8) L Magnesium Level 1.9 mg/dL (1.7-2.5) Total Bilirubin 0.7 mg/dL (0.0-1.2) Aspartate Amino Transf (AST/SGOT) 19 U/L (5-40) Alanine Aminotransferase (ALT/SGPT) 6 U/L (3-33) Alkaline Phosphatase 195 U/L (35-104) H Total Protein 6.4 g/dL (6.6-8.7) L Albumin 2.9 g/dL (3.5-5.2) L Globulin 3.5 g/dL Albumin/Globulin Ratio 0.8 (1.0-2.7) L Arterial Blood pH 7.417 (7.350-7.450) Arterial Blood Partial Pressure CO2 40.1 mmHg (35.0-45.0) Arterial Blood Partial Pressure O2 131.7 mmHg (75.0-100.0) H Arterial Blood HCO3 25.3 mmol/L (22.0-26.0) Arterial Blood Oxygen Saturation 97.8 % (92.0-98.0) Arterial Blood Base Excess 0.7 Antonio Test Positive Microbiology Date/Time Source Procedure Growth Status 12/31/16 18:20 Stool Clostridium difficile Toxin Assay - Final Complete CHRISTIN JIMENEZ Jan 02, 2017 11:30
--- NOTE | 2017-01-02 14:18 | General Progress Note ---
Assessment/Plan Assessment/Plan Assessment/Plan (1) End-stage kidney disease ICD Codes: N18.6 - End stage renal disease SNOMED: 22285046 (2) GAVE (gastric antral vascular ectasia)/Gastritis ICD Codes: K31.819 - Angiodysplasia of stomach and duodenum without bleeding SNOMED: 62860381 (3) Severe malnutrition ICD Codes: E43 - Unspecified severe protein-calorie malnutrition SNOMED: 12632492 (4) Hypoalbuminemia ICD Codes: E88.09 - Other disorders of plasma-protein metabolism, not elsewhere classified SNOMED: 292293751 (5) Anemia ICD Codes: D64.9 - Anemia, unspecified SNOMED: 426761985 (6) Liver cirrhosis ICD Codes: K74.60 - Unspecified cirrhosis of liver SNOMED: 23753571 Status: stable Assessment/Plan s/p EGD/colon at [facility] recently, see full report in chart. >> - No varices given history of cirrhosis. - GAVE appearance and did not show portal hypertensive gastropathy. - Findings included an active bleed in the focal area of the antrum which was treated. - Noted that the patient went into a CODE BLUE during the procedure. KUB >> negative abd U/S >> Moderate ascites. Mild gallbladder wall thickening. >> s/p 1600 paracentesis 2 days ago elevated ammonia --> Xifaxan OB stool positive continue Tube feeds Subjective Allergies: Coded Allergies: No Known Allergies (Unverified , 12/22/16) Subjective seen in ICU sleepy but arousable tolerating TF d/w RN Objective Last 24 Hour Vital Signs Date Time Temp Pulse Resp B/P Pulse Ox O2 Delivery O2 Flow Rate FiO2 01/02/17 14:00 89 21 96/67 100 Mechanical Ventilator 30 01/02/17 13:06 86 14 30 01/02/17 13:00 85 16 82/45 100 Mechanical Ventilator 30 01/02/17 12:53 85 01/02/17 12:00 30 01/02/17 12:00 97.6 89 21 110/64 96 Mechanical Ventilator 30 01/02/17 12:00 95 01/02/17 11:10 98 14 30 01/02/17 11:00 89 22 128/110 100 Mechanical Ventilator 30 01/02/17 10:21 106 01/02/17 10:00 94 14 83/60 100 Mechanical Ventilator 30 01/02/17 09:11 94 01/02/17 09:10 98 14 30 01/02/17 09:00 92 27 103/62 99 Mechanical Ventilator 30 01/02/17 08:00 98 18 132/71 99 Mechanical Ventilator 30 01/02/17 08:00 30 01/02/17 07:15 95 14 30 01/02/17 07:00 97.9 96 20 110/71 100 Mechanical Ventilator 30 01/02/17 06:00 98 19 119/69 99 Mechanical Ventilator 30 01/02/17 05:00 94 19 110/67 100 Mechanical Ventilator 30 01/02/17 04:39 95 14 30 01/02/17 04:00 93 01/02/17 04:00 30 01/02/17 04:00 98.1 94 19 100/67 100 Mechanical Ventilator 30 01/02/17 03:00 92 15 93/45 100 Mechanical Ventilator 30 01/02/17 02:57 92 14 30 01/02/17 02:00 95 18 124/85 100 Mechanical Ventilator 30 01/02/17 01:12 93 14 30 01/02/17 01:00 100/58 01/02/17 01:00 94 15 100/58 100 Mechanical Ventilator 30 01/02/17 00:00 30 01/02/17 00:00 98.4 97 16 91/52 100 Mechanical Ventilator 30 01/02/17 00:00 99 01/01/17 23:09 95 14 30 01/01/17 23:00 96 16 98/63 100 Mechanical Ventilator 30 01/01/17 22:00 92 16 111/68 100 Mechanical Ventilator 30 01/01/17 21:02 93 14 30 01/01/17 21:00 98 18 102/83 100 Mechanical Ventilator 30 01/01/17 20:00 94 01/01/17 20:00 30 01/01/17 20:00 97.9 93 16 113/63 100 Mechanical Ventilator 30 01/01/17 19:03 94 14 30 01/01/17 19:00 90 18 106/68 100 Mechanical Ventilator 30 01/01/17 18:00 96 16 131/75 100 Mechanical Ventilator 30 01/01/17 17:34 97 01/01/17 17:15 97 15 30 01/01/17 17:00 99 17 139/82 100 Mechanical Ventilator 30 01/01/17 16:00 98.3 98 16 121/65 100 Mechanical Ventilator 30 01/01/17 16:00 30 01/01/17 16:00 95 01/01/17 15:05 94 14 30 01/01/17 15:00 91 17 109/61 100 Mechanical Ventilator 30 Intake and Output 01/01/17 01/02/17 19:00 07:00 Intake Total 685 ml 180 ml Output Total 1300 ml Balance -615 ml 180 ml Free Water 30 ml Tube Feeding 225 ml 150 ml Hemodialysis 300 ml Other 130 ml 30 ml Hemodialysis UF 1300 ml # Bowel Movements 1 2 Laboratory Tests 01/02/17 05:00: White Blood Count 8.1, Red Blood Count 2.84L, Hemoglobin 8.7L, Hematocrit 26.5L , Mean Corpuscular Volume 93, Mean Corpuscular Hemoglobin 30.8, Mean Corpuscular Hemoglobin Concent 33.0, Red Cell Distribution Width 19.8H, Platelet Count 174, Mean Platelet Volume 7.9, Neutrophils (%) (Auto) 77.3H, Lymphocytes (%) (Auto) 5.2L, Monocytes (%) (Auto) 13.7H, Eosinophils (%) (Auto) 1.8, Basophils (%) (Auto) 1.9, Sodium Level 136, Potassium Level 3.9, Chloride Level 97L, Carbon Dioxide Level 26, Anion Gap 13, Blood Urea Nitrogen 27H, Creatinine 2.3H, Estimat Glomerular Filtration Rate 21.5, Glucose Level 78, Calcium Level 8.6, Phosphorus Level 2.1L, Magnesium Level 1.9, Total Bilirubin 0.7, Aspartate Amino Transf (AST/SGOT) 19, Alanine Aminotransferase (ALT/SGPT) 6 , Alkaline Phosphatase 195H, Total Protein 6.4L, Albumin 2.9L, Globulin 3.5, Albumin/Globulin Ratio 0.8L 01/02/17 07:38: Arterial Blood pH 7.417, Arterial Blood Partial Pressure CO2 40.1, Arterial Blood Partial Pressure O2 131.7H, Arterial Blood HCO3 25.3, Arterial Blood Oxygen Saturation 97.8, Arterial Blood Base Excess 0.7, Antonio Test Positive Height (Feet): 4 Height (Inches): 9.00 Weight (Pounds): 75 Objective Woman NCAT supple CTA RRR abd distended firm no edema JOHN CHOPRA Jan 02, 2017 14:18
[2017-01-02] MEDS ORDERED: Tubing IV Blood Pump IV ONE (17:22)
[2017-01-02] MEDS ORDERED: D5W 275ml ONE (17:22)
[2017-01-02] MEDS ORDERED: Sterile Water Irrig 1000ml IRRIG ONE (17:22)
[2017-01-02] MEDS ORDERED: NS 275ml ONE (17:22)
--- NOTE | 2017-01-02 18:10 | Internal Med Progress Note ---
Subjective Date of Service: Jan 02, 2017 Physician Name Dione Bull Attending Physician Jes Bautista Current Medications Medications (Trade) Dose Ordered Sig/Reji Route PRN Reason Start Time Stop Time Status Last Admin Dose Admin Acetaminophen (Tylenol) 650 mg Q4H PRN ORAL fever 12/22/16 13:45 01/21/17 13:44 Albumin Human (Albumisol) 100 ml @ 200 mls/hr PRN PRN IV sbp<90 during hd 01/01/17 06:00 01/31/17 05:59 Benzocaine (Orajel) 1 applic NEEDED PRN GAMA For Pain 01/01/17 11:45 01/31/17 11:44 01/02/17 00:37 Epoetin José Miguel (Procrit (for ESRD on dialysis)) 10,000 units WED-WED-WED SUBQ 12/28/16 21:00 01/27/17 20:59 01/01/17 21:58 Mirtazapine (Remeron) 7.5 mg BEDTIME ORAL 01/01/17 00:30 01/31/17 00:29 01/01/17 20:57 Morphine Sulfate (Morphine Sulfate) 4 mg Q4H PRN IVP PAIN 4-10 12/27/16 09:45 01/03/17 09:44 Nitroglycerin 0.4 mg 0.4 mg Q5MIN X 3 DOSES PRN SL Prn Chest Pain 12/22/16 13:45 01/21/17 13:44 Norepinephrine Bitartrate/ Dextrose (Levophed/D5W) 250 ml @ 0 mls/hr Q24H IV 12/23/16 01:00 01/22/17 00:59 12/31/16 00:38 Ondansetron HCl (Zofran) 4 mg Q6H PRN IVP Nausea & Vomiting 12/22/16 13:45 01/21/17 13:44 12/30/16 23:02 Pantoprazole 40 mg 40 mg BID IVP 12/28/16 18:00 01/27/17 17:59 01/02/17 18:02 Polyethylene Glycol (Miralax) 17 gm DAILYPRN PRN GT Constipation 12/25/16 11:03 01/21/17 13:44 Propafenone HCl (Rythmol) 225 mg TID NG 12/23/16 21:00 01/22/17 20:59 01/02/17 18:03 Rifaximin (Xifaxan) 550 mg EVERY 12 HOURS GT 12/25/16 11:03 01/03/17 11:02 01/02/17 09:11 Allergies: Coded Allergies: No Known Allergies (Unverified , 12/22/16) ROS Limited/Unobtainable: Yes Subjective 61 YO F admitted with respiratory failure. Now sepsis. Intubated and sedated. ICU. On pressors. Failed CPAP trial. Cover for Int Jamie-Dr Vigil. Objective Last Vital Signs Date Time Temp Pulse Resp B/P Pulse Ox O2 Delivery O2 Flow Rate FiO2 01/02/17 18:03 92 01/02/17 18:00 19 118/70 100 Mechanical Ventilator 30 01/02/17 12:00 97.6 Laboratory Tests Test 01/02/17 05:00 01/02/17 07:38 White Blood Count 8.1 K/UL (4.8-10.8) Red Blood Count 2.84 M/UL (4.20-5.40) L Hemoglobin 8.7 G/DL (12.0-16.0) L Hematocrit 26.5 % (37.0-47.0) L Mean Corpuscular Volume 93 FL (80-99) Mean Corpuscular Hemoglobin 30.8 PG (27.0-31.0) Mean Corpuscular Hemoglobin Concent 33.0 G/DL (32.0-36.0) Red Cell Distribution Width 19.8 % (11.6-14.8) H Platelet Count 174 K/UL (150-450) Mean Platelet Volume 7.9 FL (6.5-10.1) Neutrophils (%) (Auto) 77.3 % (45.0-75.0) H Lymphocytes (%) (Auto) 5.2 % (20.0-45.0) L Monocytes (%) (Auto) 13.7 % (1.0-10.0) H Eosinophils (%) (Auto) 1.8 % (0.0-3.0) Basophils (%) (Auto) 1.9 % (0.0-2.0) Sodium Level 136 mEQ/L (135-145) Potassium Level 3.9 mEQ/L (3.4-4.9) Chloride Level 97 mEQ/L (98-107) L Carbon Dioxide Level 26 mEQ/L (20-30) Anion Gap 13 (5-15) Blood Urea Nitrogen 27 mg/dL (7-23) H Creatinine 2.3 mg/dL (0.5-0.9) H Estimat Glomerular Filtration Rate 21.5 mL/min (>60) Glucose Level 78 mg/dL (74-106) Calcium Level 8.6 mg/dL (8.6-10.2) Phosphorus Level 2.1 mg/dL (2.5-4.8) L Magnesium Level 1.9 mg/dL (1.7-2.5) Total Bilirubin 0.7 mg/dL (0.0-1.2) Aspartate Amino Transf (AST/SGOT) 19 U/L (5-40) Alanine Aminotransferase (ALT/SGPT) 6 U/L (3-33) Alkaline Phosphatase 195 U/L (35-104) H Total Protein 6.4 g/dL (6.6-8.7) L Albumin 2.9 g/dL (3.5-5.2) L Globulin 3.5 g/dL Albumin/Globulin Ratio 0.8 (1.0-2.7) L Arterial Blood pH 7.417 (7.350-7.450) Arterial Blood Partial Pressure CO2 40.1 mmHg (35.0-45.0) Arterial Blood Partial Pressure O2 131.7 mmHg (75.0-100.0) H Arterial Blood HCO3 25.3 mmol/L (22.0-26.0) Arterial Blood Oxygen Saturation 97.8 % (92.0-98.0) Arterial Blood Base Excess 0.7 Antonio Test Positive Microbiology Date/Time Source Procedure Growth Status 12/31/16 18:20 Stool Clostridium difficile Toxin Assay - Final Complete Intake and Output 01/01/17 01/02/17 19:00 07:00 Intake Total 685 ml 180 ml Output Total 1300 ml Balance -615 ml 180 ml Free Water 30 ml Tube Feeding 225 ml 150 ml Hemodialysis 300 ml Other 130 ml 30 ml Hemodialysis UF 1300 ml # Bowel Movements 1 2 Objective General Appearance: mild distress, thin EENT: PERRL/EOMI, normal ENT inspection Neck: non-tender, normal alignment, supple Cardiovascular: normal peripheral pulses, normal rate, regular rhythm, no gallop/murmur, no JVD Respiratory/Chest: Mech Vent; respiratory distress, crackles/rales, rhonchi - bilaterally, expiratory wheezing Abdomen: normal bowel sounds, non tender, soft, no organomegaly, no mass Neurologic: founder and ceo II-XII grossly normal Skin: normal pigmentation, warm/dry Assessment/Plan Problem List: (1) Encephalopathy (2) ESRD (end stage renal disease) on dialysis Assessment & Plan: Next hemodialysis 01/01/17-See nephrology note. (3) HTN (hypertension) Assessment & Plan: Currently hypotensive. (4) Acute respiratory failure Assessment & Plan: Failed CPAP; Cont mech vent per pulmonary. May require tracheostomy (5) CHF (congestive heart failure) (6) Anemia (7) Liver cirrhosis (8) Sepsis Assessment & Plan: Cont off antibiotics per ID (9) Septic shock Assessment & Plan: Continue pressors. (10) Hyponatremia Status: not improved DIONE BULL Jan 02, 2017 18:10
[2017-01-03] VITALS (24 sets, daily range): BP systolic 90–153; BP diastolic 50–95
[2017-01-03 05:07] LABS: BASOPHILS % (AUTO) 1.7 % (0.0-2.0); EOSINOPHILS % (AUTO) 3.1 % (0.0-3.0); LYMPHOCYTES % (AUTO) 4.4 % (20.0-45.0); MEAN CORPUSCULAR HEMOGLOBIN 31.3 PG (27.0-31.0); MEAN CORPUSCULAR HGB CONC 33.3 G/DL (32.0-36.0); MEAN CORPUSCULAR VOLUME 94 FL (80-99); MEAN PLATELET VOLUME 7.3 FL (6.5-10.1); MONOCYTES % (AUTO) 11.9 % (1.0-10.0); NEUTROPHILS % (AUTO) 78.9 % (45.0-75.0); PLATELET COUNT 211 K/UL (150-450); RED BLOOD COUNT 2.81 M/UL (4.20-5.40); RED CELL DISTRIBUTION WIDTH 19.7 % (11.6-14.8); WHITE BLOOD COUNT 8.9 K/UL (4.8-10.8)
[2017-01-03 05:44] LABS: ALBUMIN/GLOBULIN RATIO 0.7 (1.0-2.7); CALCIUM 8.7 mg/dL (8.6-10.2); CREATININE 3.1 mg/dL (0.5-0.9); GLOMERULAR FILTRATION RATE 15.2 mL/min (>60); MAGNESIUM 2.1 mg/dL (1.7-2.5); PHOSPHORUS 2.7 mg/dL (2.5-4.8)
--- NOTE | 2017-01-03 08:04 | Infectious Diseases Prog Note ---
Assessment/Plan Assessment/Plan ASSESSMENT: 61 y/o female with: // SP probable sepsis - cultures(-) // Negative C.difficile // Hypotension - off pressors // Leukopenia SP // Hypothermia SP // Acute encephalopathy / found down ?hepatic ( elevated NH4 ) r/o septic - improved - CT Head: No evidence of acute intracranial pathology. Bilateral cerebral periventricular and deepwhite matter low attenuation, nonspecific, likely chronic microvascular ischemic in nature. Atrophy // Acute VDRF - intubated 12/22, failing weaning - CXR 12/30: Lungs are essentially clear. // ?Cirrhosis / chronic liver disease with elevated LFTs, leukopenia, chronic macrocytic anemia, TCP, coagulopathy, hypoalbuminemia - US: pending // ESRD / HD with right chest TDC // FOBT(+) macrocytic anemia SP PRBCs - recent EGD: GAVE // Probable CHF exacerbation - CXR: evidence of congestive heart failure including pulmonary edema, small bilateral pleural effusions - TTE: EF 65%, grade I diastolic dysfunction, mild-mod TR, mod MR, pulmonary HTN // Elevated ESR // NH resident // NKDA // Full Code PLAN: - monitor pt off of ABX ( 12/27 SP IV vancomycin d# 5 / 5 ) ( 12/23 SP zosyn ) - monitor CBC, temperatures, re-culture if febrile or worsening leukocytosis - monitor BMP - monitor CXR - vent support, wean as tolerated - transfuse prn - pressors prn Subjective Allergies: Coded Allergies: No Known Allergies (Unverified , 12/22/16) Subjective remains afebrile, awake on vent failing weaning Objective Vital Signs Last 24 Hour Vital Signs Date Time Temp Pulse Resp B/P Pulse Ox O2 Delivery O2 Flow Rate FiO2 01/03/17 07:02 96 16 30 01/03/17 06:00 95 16 146/85 100 Mechanical Ventilator 30 01/03/17 05:00 99 19 114/64 100 Mechanical Ventilator 30 01/03/17 04:57 94 14 30 01/03/17 04:00 30 01/03/17 04:00 96.8 89 17 114/64 100 Mechanical Ventilator 30 01/03/17 04:00 89 01/03/17 03:00 96 17 122/71 100 Mechanical Ventilator 30 01/03/17 02:45 95 15 30 01/03/17 02:00 94 14 122/71 100 Mechanical Ventilator 30 01/03/17 01:15 93 17 30 01/03/17 01:00 93 17 90/50 100 Mechanical Ventilator 30 01/03/17 01:00 90/50 01/03/17 00:00 98.0 105 24 153/80 100 Mechanical Ventilator 30 01/03/17 00:00 105 01/03/17 00:00 30 01/02/17 23:06 97 16 30 01/02/17 23:00 95 15 104/56 100 Mechanical Ventilator 30 01/02/17 22:00 94 16 122/68 100 Mechanical Ventilator 30 01/02/17 21:03 93 17 30 01/02/17 21:00 90 19 117/69 100 Mechanical Ventilator 30 01/02/17 20:00 91 01/02/17 20:00 98.0 90 17 113/70 100 Mechanical Ventilator 30 01/02/17 20:00 30 01/02/17 19:00 90 21 119/83 99 Mechanical Ventilator 30 01/02/17 18:41 89 14 30 01/02/17 18:03 92 01/02/17 18:00 92 19 118/70 100 Mechanical Ventilator 30 01/02/17 17:10 90 14 30 01/02/17 17:00 93 27 121/77 100 Mechanical Ventilator 30 01/02/17 16:00 91 14 135/74 100 Mechanical Ventilator 30 01/02/17 16:00 30 01/02/17 16:00 101 01/02/17 15:10 91 14 30 01/02/17 15:00 86 23 78/50 100 Mechanical Ventilator 30 01/02/17 14:00 89 21 96/67 100 Mechanical Ventilator 30 01/02/17 13:06 86 14 30 01/02/17 13:00 85 16 82/45 100 Mechanical Ventilator 30 01/02/17 12:53 85 01/02/17 12:00 30 01/02/17 12:00 97.6 89 21 110/64 96 Mechanical Ventilator 30 01/02/17 12:00 95 01/02/17 11:10 98 14 30 01/02/17 11:00 89 22 128/110 100 Mechanical Ventilator 30 01/02/17 10:21 106 01/02/17 10:00 94 14 83/60 100 Mechanical Ventilator 30 01/02/17 09:11 94 01/02/17 09:10 98 14 30 01/02/17 09:00 92 27 103/62 99 Mechanical Ventilator 30 Height (Feet): 4 Height (Inches): 9.00 Weight (Pounds): 75 General Appearance: other - intubated, awake Respiratory/Chest: decreased breath sounds Cardiovascular: normal rate, regular rhythm Abdomen: normal bowel sounds, soft, non tender, non distended Microbiology Date/Time Source Procedure Growth Status 12/31/16 18:20 Stool Clostridium difficile Toxin Assay - Final Complete Laboratory Tests Test 01/03/17 04:58 White Blood Count 8.9 K/UL (4.8-10.8) Red Blood Count 2.81 M/UL (4.20-5.40) L Hemoglobin 8.8 G/DL (12.0-16.0) L Hematocrit 26.4 % (37.0-47.0) L Mean Corpuscular Volume 94 FL (80-99) Mean Corpuscular Hemoglobin 31.3 PG (27.0-31.0) H Mean Corpuscular Hemoglobin Concent 33.3 G/DL (32.0-36.0) Red Cell Distribution Width 19.7 % (11.6-14.8) H Platelet Count 211 K/UL (150-450) Mean Platelet Volume 7.3 FL (6.5-10.1) Neutrophils (%) (Auto) 78.9 % (45.0-75.0) H Lymphocytes (%) (Auto) 4.4 % (20.0-45.0) L Monocytes (%) (Auto) 11.9 % (1.0-10.0) H Eosinophils (%) (Auto) 3.1 % (0.0-3.0) H Basophils (%) (Auto) 1.7 % (0.0-2.0) Sodium Level 133 mEQ/L (135-145) L Potassium Level 4.0 mEQ/L (3.4-4.9) Chloride Level 94 mEQ/L (98-107) L Carbon Dioxide Level 25 mEQ/L (20-30) Anion Gap 14 (5-15) Blood Urea Nitrogen 44 mg/dL (7-23) H Creatinine 3.1 mg/dL (0.5-0.9) H Estimat Glomerular Filtration Rate 15.2 mL/min (>60) Glucose Level 106 mg/dL (74-106) Calcium Level 8.7 mg/dL (8.6-10.2) Phosphorus Level 2.7 mg/dL (2.5-4.8) Magnesium Level 2.1 mg/dL (1.7-2.5) Total Bilirubin 0.3 mg/dL (0.0-1.2) Aspartate Amino Transf (AST/SGOT) 19 U/L (5-40) Alanine Aminotransferase (ALT/SGPT) 5 U/L (3-33) Alkaline Phosphatase 209 U/L (35-104) H Total Protein 6.0 g/dL (6.6-8.7) L Albumin 2.6 g/dL (3.5-5.2) L Globulin 3.4 g/dL Albumin/Globulin Ratio 0.7 (1.0-2.7) L Current Medications Medications (Trade) Dose Ordered Sig/Reji Route PRN Reason Start Time Stop Time Status Last Admin Dose Admin Acetaminophen (Tylenol) 650 mg Q4H PRN ORAL fever 12/22/16 13:45 01/21/17 13:44 Albumin Human (Albumisol) 100 ml @ 200 mls/hr PRN PRN IV sbp<90 during hd 01/01/17 06:00 01/31/17 05:59 Benzocaine (Orajel) 1 applic NEEDED PRN GAMA For Pain 01/01/17 11:45 01/31/17 11:44 01/02/17 00:37 Epoetin José Miguel (Procrit (for ESRD on dialysis)) 10,000 units WED-WED-WED SUBQ 12/28/16 21:00 01/27/17 20:59 01/01/17 21:58 Mirtazapine (Remeron) 7.5 mg BEDTIME ORAL 01/01/17 00:30 01/31/17 00:29 01/02/17 21:06 Morphine Sulfate (Morphine Sulfate) 4 mg Q4H PRN IVP PAIN 4-10 12/27/16 09:45 01/03/17 09:44 Nitroglycerin 0.4 mg 0.4 mg Q5MIN X 3 DOSES PRN SL Prn Chest Pain 12/22/16 13:45 01/21/17 13:44 Norepinephrine Bitartrate/ Dextrose (Levophed/D5W) 250 ml @ 0 mls/hr Q24H IV 12/23/16 01:00 01/22/17 00:59 12/31/16 00:38 Ondansetron HCl (Zofran) 4 mg Q6H PRN IVP Nausea & Vomiting 12/22/16 13:45 01/21/17 13:44 12/30/16 23:02 Pantoprazole 40 mg 40 mg BID IVP 12/28/16 18:00 01/27/17 17:59 01/02/17 18:02 Polyethylene Glycol (Miralax) 17 gm DAILYPRN PRN GT Constipation 12/25/16 11:03 01/21/17 13:44 Propafenone HCl (Rythmol) 225 mg TID NG 12/23/16 21:00 01/22/17 20:59 01/02/17 18:03 Rifaximin (Xifaxan) 550 mg EVERY 12 HOURS GT 12/25/16 11:03 01/03/17 11:02 01/02/17 21:06 DARLIN GRANADO Jan 03, 2017 08:04
[2017-01-03] MEDS: Rifaximin 550mg tab GT SCH (08:39)
[2017-01-03] MEDS: Pantoprazole Inj IVP SCH ×2 (08:39→19:09)
[2017-01-03 08:42] LABS: ABG BASE EXCESS 0.8; ABG PCO2 41.9 mmHg (35.0-45.0)
[2017-01-03 08:43] LABS: ABG ALLEN TEST POSITIVE
--- NOTE | 2017-01-03 10:10 | General Progress Note ---
Assessment/Plan Assessment/Plan Assessment/Plan (1) End-stage kidney disease ICD Codes: N18.6 - End stage renal disease SNOMED: 17381787 (2) GAVE (gastric antral vascular ectasia)/Gastritis ICD Codes: K31.819 - Angiodysplasia of stomach and duodenum without bleeding SNOMED: 10287747 (3) Severe malnutrition ICD Codes: E43 - Unspecified severe protein-calorie malnutrition SNOMED: 05787955 (4) Hypoalbuminemia ICD Codes: E88.09 - Other disorders of plasma-protein metabolism, not elsewhere classified SNOMED: 758153158 (5) Anemia ICD Codes: D64.9 - Anemia, unspecified SNOMED: 794963551 (6) Liver cirrhosis ICD Codes: K74.60 - Unspecified cirrhosis of liver SNOMED: 09830909 Status: stable Assessment/Plan s/p EGD/colon at [facility] recently, see full report in chart. >> - No varices given history of cirrhosis. - GAVE appearance and did not show portal hypertensive gastropathy. - Findings included an active bleed in the focal area of the antrum which was treated. - Noted that the patient went into a CODE BLUE during the procedure. KUB >> negative abd U/S >> Moderate ascites. Mild gallbladder wall thickening. >> s/p 1600 paracentesis 2 days ago elevated ammonia --> Xifaxan OB stool positive continue Tube feeds Subjective Allergies: Coded Allergies: No Known Allergies (Unverified , 12/22/16) Subjective seen in ICU arousable tolerating TF d/w RN Objective Last 24 Hour Vital Signs Date Time Temp Pulse Resp B/P Pulse Ox O2 Delivery O2 Flow Rate FiO2 01/03/17 09:33 90 14 30 01/03/17 08:39 97 01/03/17 08:00 95 01/03/17 08:00 30 01/03/17 08:00 97.0 94 16 126/70 98 Mechanical Ventilator 30 01/03/17 07:02 96 16 30 01/03/17 07:00 93 18 134/79 100 Mechanical Ventilator 30 01/03/17 06:00 95 16 146/85 100 Mechanical Ventilator 30 01/03/17 05:00 99 19 114/64 100 Mechanical Ventilator 30 01/03/17 04:57 94 14 30 01/03/17 04:00 30 01/03/17 04:00 96.8 89 17 114/64 100 Mechanical Ventilator 30 01/03/17 04:00 89 01/03/17 03:00 96 17 122/71 100 Mechanical Ventilator 30 01/03/17 02:45 95 15 30 01/03/17 02:00 94 14 122/71 100 Mechanical Ventilator 30 01/03/17 01:15 93 17 30 01/03/17 01:00 93 17 90/50 100 Mechanical Ventilator 30 01/03/17 01:00 90/50 01/03/17 00:00 98.0 105 24 153/80 100 Mechanical Ventilator 30 01/03/17 00:00 105 01/03/17 00:00 30 01/02/17 23:06 97 16 30 01/02/17 23:00 95 15 104/56 100 Mechanical Ventilator 30 01/02/17 22:00 94 16 122/68 100 Mechanical Ventilator 30 01/02/17 21:03 93 17 30 01/02/17 21:00 90 19 117/69 100 Mechanical Ventilator 30 01/02/17 20:00 91 01/02/17 20:00 98.0 90 17 113/70 100 Mechanical Ventilator 30 01/02/17 20:00 30 01/02/17 19:00 90 21 119/83 99 Mechanical Ventilator 30 01/02/17 18:41 89 14 30 01/02/17 18:03 92 01/02/17 18:00 92 19 118/70 100 Mechanical Ventilator 30 01/02/17 17:10 90 14 30 01/02/17 17:00 93 27 121/77 100 Mechanical Ventilator 30 01/02/17 16:00 91 14 135/74 100 Mechanical Ventilator 30 01/02/17 16:00 30 01/02/17 16:00 101 01/02/17 15:10 91 14 30 01/02/17 15:00 86 23 78/50 100 Mechanical Ventilator 30 01/02/17 14:00 89 21 96/67 100 Mechanical Ventilator 30 01/02/17 13:06 86 14 30 01/02/17 13:00 85 16 82/45 100 Mechanical Ventilator 30 01/02/17 12:53 85 01/02/17 12:00 30 01/02/17 12:00 97.6 89 21 110/64 96 Mechanical Ventilator 30 01/02/17 12:00 95 01/02/17 11:10 98 14 30 01/02/17 11:00 89 22 128/110 100 Mechanical Ventilator 30 01/02/17 10:21 106 Intake and Output 01/02/17 01/03/17 19:00 07:00 Intake Total 440 ml 360 ml Output Total 0 ml 0 ml Balance 440 ml 360 ml Tube Feeding 300 ml 300 ml Other 140 ml 60 ml Output Urine Total 0 ml 0 ml # Bowel Movements 3 Laboratory Tests 01/03/17 04:58: White Blood Count 8.9, Red Blood Count 2.81L, Hemoglobin 8.8L, Hematocrit 26.4L , Mean Corpuscular Volume 94, Mean Corpuscular Hemoglobin 31.3H, Mean Corpuscular Hemoglobin Concent 33.3, Red Cell Distribution Width 19.7H, Platelet Count 211, Mean Platelet Volume 7.3, Neutrophils (%) (Auto) 78.9H, Lymphocytes (%) (Auto) 4.4L, Monocytes (%) (Auto) 11.9H, Eosinophils (%) (Auto) 3.1H, Basophils (%) (Auto) 1.7, Sodium Level 133L, Potassium Level 4.0, Chloride Level 94L, Carbon Dioxide Level 25, Anion Gap 14, Blood Urea Nitrogen 44H, Creatinine 3.1H, Estimat Glomerular Filtration Rate 15.2, Glucose Level 106 , Calcium Level 8.7, Phosphorus Level 2.7, Magnesium Level 2.1, Total Bilirubin 0.3, Aspartate Amino Transf (AST/SGOT) 19, Alanine Aminotransferase (ALT/SGPT) 5 , Alkaline Phosphatase 209H, Total Protein 6.0L, Albumin 2.6L, Globulin 3.4, Albumin/Globulin Ratio 0.7L 01/03/17 08:33: Arterial Blood pH 7.404, Arterial Blood Partial Pressure CO2 41.9, Arterial Blood Partial Pressure O2 121.3H, Arterial Blood HCO3 25.6, Arterial Blood Oxygen Saturation 98.4H, Arterial Blood Base Excess 0.8, Antonio Test Positive Height (Feet): 4 Height (Inches): 9.00 Weight (Pounds): 75 Objective Woman NCAT supple CTA RRR abd distended firm no edema JOHN CHOPRA Jan 03, 2017 10:10
--- NOTE | 2017-01-03 10:21 | Pulmonolgy Critical Care Note ---
Critical Care - Asmt/Plan Problems: (1) Acute respiratory failure (2) Altered mental state (3) CKD (chronic kidney disease) (4) Hyperkalemia (5) Liver cirrhosis (6) Connective tissue disease (7) CHF (congestive heart failure) Respiratory: monitor respiratory rate, adjust FIO2, CXR, other - not weaning, family refusing trach Cardiac: continue to monitor HR/BP Renal: F/U I&O, check electrolytes Infectious Disease: check cultures Gastrointestinal: continue feedings/current rate, hold feedings Endocrine: monitor blood sugar, check HgA1C, continue sliding scale insulin Hematologic: monitor H/H, transfuse if hgb<8.5 Neurologic: PRN Morphine, keep patient comfortable Affect: PRN ativan Prophylaxis: Protonix, Heparin Disposition: keep in ICU Notes Reviewed: operations advisor, cardio, renal Discussed with: nurses, consultants, employment evaluator/case managerclinical laboratory manager - Objective Last 24 Hour Vital Signs Date Time Temp Pulse Resp B/P Pulse Ox O2 Delivery O2 Flow Rate FiO2 01/03/17 10:00 87 18 90/62 100 Mechanical Ventilator 30 01/03/17 09:33 90 14 30 01/03/17 09:00 89 18 119/66 100 Mechanical Ventilator 30 01/03/17 08:39 97 01/03/17 08:00 95 01/03/17 08:00 30 01/03/17 08:00 97.0 94 16 126/70 98 Mechanical Ventilator 30 01/03/17 07:02 96 16 30 01/03/17 07:00 93 18 134/79 100 Mechanical Ventilator 30 01/03/17 06:00 95 16 146/85 100 Mechanical Ventilator 30 01/03/17 05:00 99 19 114/64 100 Mechanical Ventilator 30 01/03/17 04:57 94 14 30 01/03/17 04:00 30 01/03/17 04:00 96.8 89 17 114/64 100 Mechanical Ventilator 30 01/03/17 04:00 89 01/03/17 03:00 96 17 122/71 100 Mechanical Ventilator 30 01/03/17 02:45 95 15 30 01/03/17 02:00 94 14 122/71 100 Mechanical Ventilator 30 01/03/17 01:15 93 17 30 01/03/17 01:00 93 17 90/50 100 Mechanical Ventilator 30 01/03/17 01:00 90/50 01/03/17 00:00 98.0 105 24 153/80 100 Mechanical Ventilator 30 01/03/17 00:00 105 01/03/17 00:00 30 01/02/17 23:06 97 16 30 01/02/17 23:00 95 15 104/56 100 Mechanical Ventilator 30 01/02/17 22:00 94 16 122/68 100 Mechanical Ventilator 30 01/02/17 21:03 93 17 30 01/02/17 21:00 90 19 117/69 100 Mechanical Ventilator 30 01/02/17 20:00 91 01/02/17 20:00 98.0 90 17 113/70 100 Mechanical Ventilator 30 01/02/17 20:00 30 01/02/17 19:00 90 21 119/83 99 Mechanical Ventilator 30 01/02/17 18:41 89 14 30 01/02/17 18:03 92 01/02/17 18:00 92 19 118/70 100 Mechanical Ventilator 30 01/02/17 17:10 90 14 30 01/02/17 17:00 93 27 121/77 100 Mechanical Ventilator 30 01/02/17 16:00 91 14 135/74 100 Mechanical Ventilator 30 01/02/17 16:00 30 01/02/17 16:00 101 01/02/17 15:10 91 14 30 01/02/17 15:00 86 23 78/50 100 Mechanical Ventilator 30 01/02/17 14:00 89 21 96/67 100 Mechanical Ventilator 30 01/02/17 13:06 86 14 30 01/02/17 13:00 85 16 82/45 100 Mechanical Ventilator 30 01/02/17 12:53 85 01/02/17 12:00 30 01/02/17 12:00 97.6 89 21 110/64 96 Mechanical Ventilator 30 01/02/17 12:00 95 01/02/17 11:10 98 14 30 01/02/17 11:00 89 22 128/110 100 Mechanical Ventilator 30 01/02/17 10:21 106 Status: awake Condition: critical HEENT: atraumatic, normocephalic Neck: full ROM Heart: HR/BP stable, regular Abdomen: soft, active bowel sounds Extremities: no C/C/E, edema Micro: Microbiology Date/Time Source Procedure Growth Status 12/31/16 18:20 Stool Clostridium difficile Toxin Assay - Final Complete Accucheck: 55 Critical Care - Subjective ROS Limited/Unobtainable: Yes - 12 ICU Day: 12 Intubation Day: 12 Condition: critical EKG Rhythm: Sinus Rhythm FI02: 30 Vent Support Breath Rate: 14 Vent Support Mode: AC Vent Tidal Volume: 450 Sputum Amount: Small PEEP: 5.0 PIP: 49 Secretions: small Tube Feeding Amount: 25 I&O: Intake and Output 01/02/17 01/03/17 19:00 07:00 Intake Total 440 ml 360 ml Output Total 0 ml 0 ml Balance 440 ml 360 ml Tube Feeding 300 ml 300 ml Other 140 ml 60 ml Output Urine Total 0 ml 0 ml # Bowel Movements 3 CXR: no change ET-Tube: 7.5 ET Position: 23 Labs: Laboratory Tests Test 01/03/17 04:58 01/03/17 08:33 White Blood Count 8.9 K/UL (4.8-10.8) Red Blood Count 2.81 M/UL (4.20-5.40) L Hemoglobin 8.8 G/DL (12.0-16.0) L Hematocrit 26.4 % (37.0-47.0) L Mean Corpuscular Volume 94 FL (80-99) Mean Corpuscular Hemoglobin 31.3 PG (27.0-31.0) H Mean Corpuscular Hemoglobin Concent 33.3 G/DL (32.0-36.0) Red Cell Distribution Width 19.7 % (11.6-14.8) H Platelet Count 211 K/UL (150-450) Mean Platelet Volume 7.3 FL (6.5-10.1) Neutrophils (%) (Auto) 78.9 % (45.0-75.0) H Lymphocytes (%) (Auto) 4.4 % (20.0-45.0) L Monocytes (%) (Auto) 11.9 % (1.0-10.0) H Eosinophils (%) (Auto) 3.1 % (0.0-3.0) H Basophils (%) (Auto) 1.7 % (0.0-2.0) Sodium Level 133 mEQ/L (135-145) L Potassium Level 4.0 mEQ/L (3.4-4.9) Chloride Level 94 mEQ/L (98-107) L Carbon Dioxide Level 25 mEQ/L (20-30) Anion Gap 14 (5-15) Blood Urea Nitrogen 44 mg/dL (7-23) H Creatinine 3.1 mg/dL (0.5-0.9) H Estimat Glomerular Filtration Rate 15.2 mL/min (>60) Glucose Level 106 mg/dL (74-106) Calcium Level 8.7 mg/dL (8.6-10.2) Phosphorus Level 2.7 mg/dL (2.5-4.8) Magnesium Level 2.1 mg/dL (1.7-2.5) Total Bilirubin 0.3 mg/dL (0.0-1.2) Aspartate Amino Transf (AST/SGOT) 19 U/L (5-40) Alanine Aminotransferase (ALT/SGPT) 5 U/L (3-33) Alkaline Phosphatase 209 U/L (35-104) H Total Protein 6.0 g/dL (6.6-8.7) L Albumin 2.6 g/dL (3.5-5.2) L Globulin 3.4 g/dL Albumin/Globulin Ratio 0.7 (1.0-2.7) L Arterial Blood pH 7.404 (7.350-7.450) Arterial Blood Partial Pressure CO2 41.9 mmHg (35.0-45.0) Arterial Blood Partial Pressure O2 121.3 mmHg (75.0-100.0) H Arterial Blood HCO3 25.6 mmol/L (22.0-26.0) Arterial Blood Oxygen Saturation 98.4 % (92.0-98.0) H Arterial Blood Base Excess 0.8 Antonio Test Positive FRANCESCA FELTON Jan 03, 2017 10:21
--- NOTE | 2017-01-03 10:31 | Nephrology Progress Note ---
Assessment/Plan Problem List: (1) Hypovolemic shock (2) End-stage kidney disease (3) Acute respiratory failure (4) CHF (congestive heart failure) (5) Liver cirrhosis (6) Hypoalbuminemia (7) Severe malnutrition (8) GAVE (gastric antral vascular ectasia) (9) Diarrhea (10) Anemia in chronic kidney disease Plan try to wean off levophed, done , seen on hd 01/01 stable watch bp closely, adjust tube feeding, stop iv fluids, needs epogen anemia, remains ventilator dependent hd 01/04 Subjective Constitutional: Reports: weakness HEENT: Reports: no symptoms Genitourinary: Reports: no symptoms Neurologic/Psychiatric: Reports: no symptoms Subjective awake on vent Objective Objective Last 24 Hour Vital Signs Date Time Temp Pulse Resp B/P Pulse Ox O2 Delivery O2 Flow Rate FiO2 01/03/17 10:00 87 18 90/62 100 Mechanical Ventilator 30 01/03/17 09:33 90 14 30 01/03/17 09:00 89 18 119/66 100 Mechanical Ventilator 30 01/03/17 08:39 97 01/03/17 08:00 95 01/03/17 08:00 30 01/03/17 08:00 97.0 94 16 126/70 98 Mechanical Ventilator 30 01/03/17 07:02 96 16 30 01/03/17 07:00 93 18 134/79 100 Mechanical Ventilator 30 01/03/17 06:00 95 16 146/85 100 Mechanical Ventilator 30 01/03/17 05:00 99 19 114/64 100 Mechanical Ventilator 30 01/03/17 04:57 94 14 30 01/03/17 04:00 30 01/03/17 04:00 96.8 89 17 114/64 100 Mechanical Ventilator 30 01/03/17 04:00 89 01/03/17 03:00 96 17 122/71 100 Mechanical Ventilator 30 01/03/17 02:45 95 15 30 01/03/17 02:00 94 14 122/71 100 Mechanical Ventilator 30 01/03/17 01:15 93 17 30 01/03/17 01:00 93 17 90/50 100 Mechanical Ventilator 30 01/03/17 01:00 90/50 01/03/17 00:00 98.0 105 24 153/80 100 Mechanical Ventilator 30 01/03/17 00:00 105 01/03/17 00:00 30 01/02/17 23:06 97 16 30 01/02/17 23:00 95 15 104/56 100 Mechanical Ventilator 30 01/02/17 22:00 94 16 122/68 100 Mechanical Ventilator 30 01/02/17 21:03 93 17 30 01/02/17 21:00 90 19 117/69 100 Mechanical Ventilator 30 01/02/17 20:00 91 01/02/17 20:00 98.0 90 17 113/70 100 Mechanical Ventilator 30 01/02/17 20:00 30 01/02/17 19:00 90 21 119/83 99 Mechanical Ventilator 30 01/02/17 18:41 89 14 30 01/02/17 18:03 92 01/02/17 18:00 92 19 118/70 100 Mechanical Ventilator 30 01/02/17 17:10 90 14 30 01/02/17 17:00 93 27 121/77 100 Mechanical Ventilator 30 01/02/17 16:00 91 14 135/74 100 Mechanical Ventilator 30 01/02/17 16:00 30 01/02/17 16:00 101 01/02/17 15:10 91 14 30 01/02/17 15:00 86 23 78/50 100 Mechanical Ventilator 30 01/02/17 14:00 89 21 96/67 100 Mechanical Ventilator 30 01/02/17 13:06 86 14 30 01/02/17 13:00 85 16 82/45 100 Mechanical Ventilator 30 01/02/17 12:53 85 01/02/17 12:00 30 01/02/17 12:00 97.6 89 21 110/64 96 Mechanical Ventilator 30 01/02/17 12:00 95 01/02/17 11:10 98 14 30 01/02/17 11:00 89 22 128/110 100 Mechanical Ventilator 30 Intake and Output 01/02/17 01/03/17 19:00 07:00 Intake Total 440 ml 360 ml Output Total 0 ml 0 ml Balance 440 ml 360 ml Tube Feeding 300 ml 300 ml Other 140 ml 60 ml Output Urine Total 0 ml 0 ml # Bowel Movements 3 Laboratory Tests 01/03/17 04:58: White Blood Count 8.9, Red Blood Count 2.81L, Hemoglobin 8.8L, Hematocrit 26.4L , Mean Corpuscular Volume 94, Mean Corpuscular Hemoglobin 31.3H, Mean Corpuscular Hemoglobin Concent 33.3, Red Cell Distribution Width 19.7H, Platelet Count 211, Mean Platelet Volume 7.3, Neutrophils (%) (Auto) 78.9H, Lymphocytes (%) (Auto) 4.4L, Monocytes (%) (Auto) 11.9H, Eosinophils (%) (Auto) 3.1H, Basophils (%) (Auto) 1.7, Sodium Level 133L, Potassium Level 4.0, Chloride Level 94L, Carbon Dioxide Level 25, Anion Gap 14, Blood Urea Nitrogen 44H, Creatinine 3.1H, Estimat Glomerular Filtration Rate 15.2, Glucose Level 106 , Calcium Level 8.7, Phosphorus Level 2.7, Magnesium Level 2.1, Total Bilirubin 0.3, Aspartate Amino Transf (AST/SGOT) 19, Alanine Aminotransferase (ALT/SGPT) 5 , Alkaline Phosphatase 209H, Total Protein 6.0L, Albumin 2.6L, Globulin 3.4, Albumin/Globulin Ratio 0.7L 01/03/17 08:33: Arterial Blood pH 7.404, Arterial Blood Partial Pressure CO2 41.9, Arterial Blood Partial Pressure O2 121.3H, Arterial Blood HCO3 25.6, Arterial Blood Oxygen Saturation 98.4H, Arterial Blood Base Excess 0.8, Antonio Test Positive Height (Feet): 4 Height (Inches): 9.00 Weight (Pounds): 75 General Appearance: no apparent distress, alert EENT: normal ENT inspection Neck: normal alignment Cardiovascular: regular rhythm Respiratory/Chest: lungs clear, decreased breath sounds Abdomen: non tender, other - soft ascites Extremities: other - no edema Neurologic: senior software engineer analytics II-XII grossly normal PERLITA HOOD Jan 03, 2017 10:31
--- NOTE | 2017-01-03 10:35 | Diagnostic Imaging Report ---
Indication: Dyspnea Comparison: 01/02/17 A single view chest radiograph was obtained. Findings: There is mild left basal atelectasis present. Borderline cardiomegaly is currently noted. Pulmonary vascularity has improved since the previous day. Tubes and lines remain in satisfactory. Impression: Resolved pulmonary vascular congestion, previously very mild.
--- NOTE | 2017-01-03 13:50 | Internal Med Progress Note ---
Subjective Date of Service: Jan 03, 2017 Physician Name LaurieDione Attending Physician Jes Bautista Current Medications Medications (Trade) Dose Ordered Sig/Reji Route PRN Reason Start Time Stop Time Status Last Admin Dose Admin Acetaminophen (Tylenol) 650 mg Q4H PRN ORAL fever 12/22/16 13:45 01/21/17 13:44 Albumin Human (Albumisol) 100 ml @ 200 mls/hr PRN PRN IV sbp<90 during hd 01/01/17 06:00 01/31/17 05:59 Albumin Human (Albumisol) 100 ml @ 200 mls/hr PRN PRN IV sbp<90 during hd 01/04/17 06:00 01/05/17 05:59 Benzocaine 1 applic 1 applic NEEDED PRN GAMA For Pain 01/01/17 11:45 01/31/17 11:44 01/02/17 00:37 Epoetin José Miguel (Procrit (for ESRD on dialysis)) 10,000 units WED-WED-WED SUBQ 12/28/16 21:00 01/27/17 20:59 01/01/17 21:58 Heparin Sodium (Porcine) (Heparin Sod 1000 units/ml 10ml) 2,000 unit ONCE PRN IV FOR HD 01/04/17 06:00 01/04/17 22:00 Mirtazapine (Remeron) 7.5 mg BEDTIME ORAL 01/01/17 00:30 01/31/17 00:29 01/02/17 21:06 Nitroglycerin 0.4 mg 0.4 mg Q5MIN X 3 DOSES PRN SL Prn Chest Pain 12/22/16 13:45 01/21/17 13:44 Norepinephrine Bitartrate/ Dextrose (Levophed/D5W) 250 ml @ 0 mls/hr Q24H IV 12/23/16 01:00 01/22/17 00:59 12/31/16 00:38 Ondansetron HCl (Zofran) 4 mg Q6H PRN IVP Nausea & Vomiting 12/22/16 13:45 01/21/17 13:44 12/30/16 23:02 Pantoprazole 40 mg 40 mg BID IVP 12/28/16 18:00 01/27/17 17:59 01/03/17 08:39 Polyethylene Glycol (Miralax) 17 gm DAILYPRN PRN GT Constipation 12/25/16 11:03 01/21/17 13:44 Propafenone HCl (Rythmol) 225 mg TID NG 12/23/16 21:00 01/22/17 20:59 01/03/17 12:59 Sodium Chloride 1,000 ml @ 500 mls/hr Q2H PRN IVLG sbp<90 during hd 01/04/17 11:00 02/03/17 10:59 Allergies: Coded Allergies: No Known Allergies (Unverified , 12/22/16) ROS Limited/Unobtainable: Yes Subjective 61 YO F admitted with respiratory failure. Now sepsis. Intubated and sedated. ICU. On pressors. Failed CPAP trial. Cover for Int Jamie-Dr Vigil. Objective Last Vital Signs Date Time Temp Pulse Resp B/P Pulse Ox O2 Delivery O2 Flow Rate FiO2 01/03/17 13:26 89 14 30 01/03/17 13:00 109/67 100 Mechanical Ventilator 01/03/17 12:00 97.2 Laboratory Tests Test 01/03/17 04:58 01/03/17 08:33 White Blood Count 8.9 K/UL (4.8-10.8) Red Blood Count 2.81 M/UL (4.20-5.40) L Hemoglobin 8.8 G/DL (12.0-16.0) L Hematocrit 26.4 % (37.0-47.0) L Mean Corpuscular Volume 94 FL (80-99) Mean Corpuscular Hemoglobin 31.3 PG (27.0-31.0) H Mean Corpuscular Hemoglobin Concent 33.3 G/DL (32.0-36.0) Red Cell Distribution Width 19.7 % (11.6-14.8) H Platelet Count 211 K/UL (150-450) Mean Platelet Volume 7.3 FL (6.5-10.1) Neutrophils (%) (Auto) 78.9 % (45.0-75.0) H Lymphocytes (%) (Auto) 4.4 % (20.0-45.0) L Monocytes (%) (Auto) 11.9 % (1.0-10.0) H Eosinophils (%) (Auto) 3.1 % (0.0-3.0) H Basophils (%) (Auto) 1.7 % (0.0-2.0) Sodium Level 133 mEQ/L (135-145) L Potassium Level 4.0 mEQ/L (3.4-4.9) Chloride Level 94 mEQ/L (98-107) L Carbon Dioxide Level 25 mEQ/L (20-30) Anion Gap 14 (5-15) Blood Urea Nitrogen 44 mg/dL (7-23) H Creatinine 3.1 mg/dL (0.5-0.9) H Estimat Glomerular Filtration Rate 15.2 mL/min (>60) Glucose Level 106 mg/dL (74-106) Calcium Level 8.7 mg/dL (8.6-10.2) Phosphorus Level 2.7 mg/dL (2.5-4.8) Magnesium Level 2.1 mg/dL (1.7-2.5) Total Bilirubin 0.3 mg/dL (0.0-1.2) Aspartate Amino Transf (AST/SGOT) 19 U/L (5-40) Alanine Aminotransferase (ALT/SGPT) 5 U/L (3-33) Alkaline Phosphatase 209 U/L (35-104) H Total Protein 6.0 g/dL (6.6-8.7) L Albumin 2.6 g/dL (3.5-5.2) L Globulin 3.4 g/dL Albumin/Globulin Ratio 0.7 (1.0-2.7) L Arterial Blood pH 7.404 (7.350-7.450) Arterial Blood Partial Pressure CO2 41.9 mmHg (35.0-45.0) Arterial Blood Partial Pressure O2 121.3 mmHg (75.0-100.0) H Arterial Blood HCO3 25.6 mmol/L (22.0-26.0) Arterial Blood Oxygen Saturation 98.4 % (92.0-98.0) H Arterial Blood Base Excess 0.8 Antonio Test Positive Microbiology Date/Time Source Procedure Growth Status 12/31/16 18:20 Stool Clostridium difficile Toxin Assay - Final Complete Intake and Output 01/02/17 01/03/17 19:00 07:00 Intake Total 440 ml 360 ml Output Total 0 ml 0 ml Balance 440 ml 360 ml Tube Feeding 300 ml 300 ml Other 140 ml 60 ml Output Urine Total 0 ml 0 ml # Bowel Movements 3 Objective General Appearance: mild distress, thin EENT: PERRL/EOMI, normal ENT inspection Neck: non-tender, normal alignment, supple Cardiovascular: normal peripheral pulses, normal rate, regular rhythm, no gallop/murmur, no JVD Respiratory/Chest: Mech Vent; respiratory distress, crackles/rales, rhonchi - bilaterally, expiratory wheezing Abdomen: normal bowel sounds, non tender, soft, no organomegaly, no mass Neurologic: dredge or barge shore hand II-XII grossly normal Skin: normal pigmentation, warm/dry Assessment/Plan Problem List: (1) Encephalopathy (2) ESRD (end stage renal disease) on dialysis Assessment & Plan: Next hemodialysis 01/01/17-See nephrology note. (3) HTN (hypertension) Assessment & Plan: Currently hypotensive. (4) Acute respiratory failure Assessment & Plan: Failed CPAP; Cont mech vent per pulmonary. May require tracheostomy (5) CHF (congestive heart failure) (6) Anemia (7) Liver cirrhosis (8) Sepsis Assessment & Plan: Cont off antibiotics per ID (9) Septic shock Assessment & Plan: Continue pressors. (10) Hyponatremia Status: not improved DIONE BULL Jan 03, 2017 13:50
--- NOTE | 2017-01-03 15:58 | Cardiology Progress Note ---
Assessment/Plan Assessment/Plan ams hypotension hs of mod to sever MR paf hs of avb with pvc cirrhosis , esrd on dialyusis mgus htn scleroderma hs of [place] o gave continue on rhtymol for now watch on tele for afib recurrence or for av block has been failing weaning attempts iv abx dialysisas indicated lv function has been preserved tele sinus i donot appreciate the rub today ekg was neg Subjective ROS Limited/Unobtainable: Yes Cardiovascular: Denies: chest pain, palpitations Gastrointestinal/Abdominal: Denies: abdominal pain Objective Last 24 Hour Vital Signs Date Time Temp Pulse Resp B/P Pulse Ox O2 Delivery O2 Flow Rate FiO2 01/03/17 15:18 87 14 30 01/03/17 15:00 96 17 98/63 100 Mechanical Ventilator 30 01/03/17 14:00 87 17 100/67 100 Mechanical Ventilator 30 01/03/17 13:26 89 14 30 01/03/17 13:00 88 18 109/67 100 Mechanical Ventilator 30 01/03/17 12:59 92 01/03/17 12:00 97.2 90 14 100/64 100 Mechanical Ventilator 30 01/03/17 12:00 80 01/03/17 12:00 30 01/03/17 11:08 88 14 30 01/03/17 11:00 86 18 120/84 100 Mechanical Ventilator 30 01/03/17 10:00 87 18 90/62 100 Mechanical Ventilator 30 01/03/17 09:33 90 14 30 01/03/17 09:00 89 18 119/66 100 Mechanical Ventilator 30 01/03/17 08:39 97 01/03/17 08:00 95 01/03/17 08:00 30 01/03/17 08:00 97.0 94 16 126/70 98 Mechanical Ventilator 30 01/03/17 07:02 96 16 30 01/03/17 07:00 93 18 134/79 100 Mechanical Ventilator 30 01/03/17 06:00 95 16 146/85 100 Mechanical Ventilator 30 01/03/17 05:00 99 19 114/64 100 Mechanical Ventilator 30 01/03/17 04:57 94 14 30 01/03/17 04:00 30 01/03/17 04:00 96.8 89 17 114/64 100 Mechanical Ventilator 30 01/03/17 04:00 89 01/03/17 03:00 96 17 122/71 100 Mechanical Ventilator 30 01/03/17 02:45 95 15 30 01/03/17 02:00 94 14 122/71 100 Mechanical Ventilator 30 01/03/17 01:15 93 17 30 01/03/17 01:00 93 17 90/50 100 Mechanical Ventilator 30 01/03/17 01:00 90/50 01/03/17 00:00 98.0 105 24 153/80 100 Mechanical Ventilator 30 01/03/17 00:00 105 01/03/17 00:00 30 01/02/17 23:06 97 16 30 01/02/17 23:00 95 15 104/56 100 Mechanical Ventilator 30 01/02/17 22:00 94 16 122/68 100 Mechanical Ventilator 30 01/02/17 21:03 93 17 30 01/02/17 21:00 90 19 117/69 100 Mechanical Ventilator 30 01/02/17 20:00 91 01/02/17 20:00 98.0 90 17 113/70 100 Mechanical Ventilator 30 01/02/17 20:00 30 01/02/17 19:00 90 21 119/83 99 Mechanical Ventilator 30 01/02/17 18:41 89 14 30 01/02/17 18:03 92 01/02/17 18:00 92 19 118/70 100 Mechanical Ventilator 30 01/02/17 17:10 90 14 30 01/02/17 17:00 93 27 121/77 100 Mechanical Ventilator 30 01/02/17 16:00 91 14 135/74 100 Mechanical Ventilator 30 01/02/17 16:00 30 01/02/17 16:00 101 General Appearance: no apparent distress, alert, on vent Neck: supple Cardiovascular: normal rate, regular rhythm Respiratory/Chest: lungs clear Abdomen: normal bowel sounds, non tender, soft Extremities: no swelling Intake and Output 01/02/17 01/03/17 19:00 07:00 Intake Total 440 ml 360 ml Output Total 0 ml 0 ml Balance 440 ml 360 ml Tube Feeding 300 ml 300 ml Other 140 ml 60 ml Output Urine Total 0 ml 0 ml # Bowel Movements 3 Laboratory Tests Test 01/03/17 04:58 01/03/17 08:33 White Blood Count 8.9 K/UL (4.8-10.8) Red Blood Count 2.81 M/UL (4.20-5.40) L Hemoglobin 8.8 G/DL (12.0-16.0) L Hematocrit 26.4 % (37.0-47.0) L Mean Corpuscular Volume 94 FL (80-99) Mean Corpuscular Hemoglobin 31.3 PG (27.0-31.0) H Mean Corpuscular Hemoglobin Concent 33.3 G/DL (32.0-36.0) Red Cell Distribution Width 19.7 % (11.6-14.8) H Platelet Count 211 K/UL (150-450) Mean Platelet Volume 7.3 FL (6.5-10.1) Neutrophils (%) (Auto) 78.9 % (45.0-75.0) H Lymphocytes (%) (Auto) 4.4 % (20.0-45.0) L Monocytes (%) (Auto) 11.9 % (1.0-10.0) H Eosinophils (%) (Auto) 3.1 % (0.0-3.0) H Basophils (%) (Auto) 1.7 % (0.0-2.0) Sodium Level 133 mEQ/L (135-145) L Potassium Level 4.0 mEQ/L (3.4-4.9) Chloride Level 94 mEQ/L (98-107) L Carbon Dioxide Level 25 mEQ/L (20-30) Anion Gap 14 (5-15) Blood Urea Nitrogen 44 mg/dL (7-23) H Creatinine 3.1 mg/dL (0.5-0.9) H Estimat Glomerular Filtration Rate 15.2 mL/min (>60) Glucose Level 106 mg/dL (74-106) Calcium Level 8.7 mg/dL (8.6-10.2) Phosphorus Level 2.7 mg/dL (2.5-4.8) Magnesium Level 2.1 mg/dL (1.7-2.5) Total Bilirubin 0.3 mg/dL (0.0-1.2) Aspartate Amino Transf (AST/SGOT) 19 U/L (5-40) Alanine Aminotransferase (ALT/SGPT) 5 U/L (3-33) Alkaline Phosphatase 209 U/L (35-104) H Total Protein 6.0 g/dL (6.6-8.7) L Albumin 2.6 g/dL (3.5-5.2) L Globulin 3.4 g/dL Albumin/Globulin Ratio 0.7 (1.0-2.7) L Arterial Blood pH 7.404 (7.350-7.450) Arterial Blood Partial Pressure CO2 41.9 mmHg (35.0-45.0) Arterial Blood Partial Pressure O2 121.3 mmHg (75.0-100.0) H Arterial Blood HCO3 25.6 mmol/L (22.0-26.0) Arterial Blood Oxygen Saturation 98.4 % (92.0-98.0) H Arterial Blood Base Excess 0.8 Antonio Test Positive Microbiology Date/Time Source Procedure Growth Status 12/31/16 18:20 Stool Clostridium difficile Toxin Assay - Final Complete CHRISTIN JIMENEZ Jan 03, 2017 15:58
[2017-01-03] MEDS ORDERED: NS 275ml ONE (16:19)
[2017-01-04] VITALS (31 sets, daily range): BP systolic 79–148; BP diastolic 47–87
[2017-01-04 05:34] LABS: BASOPHILS % (AUTO) 0.8 % (0.0-2.0); EOSINOPHILS % (AUTO) 2.8 % (0.0-3.0); LYMPHOCYTES % (AUTO) 4.8 % (20.0-45.0); MEAN CORPUSCULAR HEMOGLOBIN 30.9 PG (27.0-31.0); MEAN CORPUSCULAR HGB CONC 32.6 G/DL (32.0-36.0); MEAN CORPUSCULAR VOLUME 95 FL (80-99); MEAN PLATELET VOLUME 7.1 FL (6.5-10.1); MONOCYTES % (AUTO) 7.8 % (1.0-10.0); NEUTROPHILS % (AUTO) 83.8 % (45.0-75.0); PLATELET COUNT 260 K/UL (150-450); RED BLOOD COUNT 2.82 M/UL (4.20-5.40); RED CELL DISTRIBUTION WIDTH 18.9 % (11.6-14.8); WHITE BLOOD COUNT 10.3 K/UL (4.8-10.8)
[2017-01-04] MEDS ORDERED: Heparin Sod 1000 units/ml 10ml IV PRN (06:00)
[2017-01-04 06:44] LABS: ALBUMIN/GLOBULIN RATIO 0.7 (1.0-2.7); CALCIUM 8.7 mg/dL (8.6-10.2); CREATININE 4.1 mg/dL (0.5-0.9); GLOMERULAR FILTRATION RATE 11.1 mL/min (>60); MAGNESIUM 2.1 mg/dL (1.7-2.5); PHOSPHORUS 3.2 mg/dL (2.5-4.8); TOTAL PROTEIN 6.3 g/dL (6.6-8.7)
--- NOTE | 2017-01-04 07:51 | Infectious Diseases Prog Note ---
Assessment/Plan Assessment/Plan ASSESSMENT: 61 y/o female with: // SP probable sepsis - cultures(-) // Negative C.difficile // Hypotension - off pressors // Leukopenia SP // Hypothermia SP // Acute encephalopathy / found down ?hepatic ( elevated NH4 ) r/o septic - improved - CT Head: No evidence of acute intracranial pathology. Bilateral cerebral periventricular and deepwhite matter low attenuation, nonspecific, likely chronic microvascular ischemic in nature. Atrophy // Acute VDRF - intubated 12/22, failing weaning - CXR 12/30: Lungs are essentially clear. // ?Cirrhosis / chronic liver disease with elevated LFTs, leukopenia, chronic macrocytic anemia, TCP, coagulopathy, hypoalbuminemia - US: pending // ESRD / HD with right chest TDC // FOBT(+) macrocytic anemia SP PRBCs - recent EGD: GAVE // Probable CHF exacerbation - CXR: evidence of congestive heart failure including pulmonary edema, small bilateral pleural effusions - TTE: EF 65%, grade I diastolic dysfunction, mild-mod TR, mod MR, pulmonary HTN // Elevated ESR // [facility] resident // NKDA // Full Code PLAN: - monitor pt off of ABX ( 12/27 SP IV vancomycin d# 5 / 5 ) ( 12/23 SP zosyn ) - monitor CBC, temperatures, re-culture if febrile or worsening leukocytosis - monitor BMP - monitor CXR - vent support, wean as tolerated - transfuse prn - pressors prn Subjective Allergies: Coded Allergies: No Known Allergies (Unverified , 12/22/16) Subjective afebrile Objective Vital Signs Last 24 Hour Vital Signs Date Time Temp Pulse Resp B/P Pulse Ox O2 Delivery O2 Flow Rate FiO2 01/04/17 07:00 91 14 148/87 100 Mechanical Ventilator 30 01/04/17 06:30 89 14 30 01/04/17 06:00 92 14 88/54 100 Mechanical Ventilator 30 01/04/17 05:09 86 14 30 01/04/17 05:00 85 14 81/55 100 Mechanical Ventilator 30 01/04/17 04:00 96 01/04/17 04:00 30 01/04/17 04:00 98.0 96 16 108/71 100 Mechanical Ventilator 30 01/04/17 03:06 92 14 30 01/04/17 03:00 91 14 90/47 100 Mechanical Ventilator 30 01/04/17 02:00 91 14 82/51 100 Mechanical Ventilator 30 01/04/17 01:12 92 14 30 01/04/17 01:00 99 14 88/53 100 Mechanical Ventilator 30 01/04/17 01:00 128/66 01/04/17 00:00 97.9 94 19 102/59 100 Mechanical Ventilator 30 01/04/17 00:00 97 01/04/17 00:00 30 01/03/17 23:15 94 14 30 01/03/17 23:00 95 14 113/73 100 Mechanical Ventilator 30 01/03/17 22:00 98 14 118/75 100 Mechanical Ventilator 30 01/03/17 21:00 99 15 134/75 100 Mechanical Ventilator 30 01/03/17 20:45 106 21 30 01/03/17 20:00 98.3 108 19 106/74 100 Mechanical Ventilator 30 01/03/17 20:00 30 01/03/17 20:00 94 01/03/17 19:10 95 16 30 01/03/17 19:09 95 01/03/17 19:00 94 14 115/69 100 Mechanical Ventilator 30 01/03/17 18:00 97 19 144/95 100 Mechanical Ventilator 30 01/03/17 17:23 93 15 30 01/03/17 17:00 94 17 125/69 100 Mechanical Ventilator 30 01/03/17 16:00 98.3 90 15 108/65 100 Mechanical Ventilator 30 01/03/17 16:00 30 01/03/17 16:00 89 01/03/17 15:18 87 14 30 01/03/17 15:00 96 17 98/63 100 Mechanical Ventilator 30 01/03/17 14:00 87 17 100/67 100 Mechanical Ventilator 30 01/03/17 13:26 89 14 30 01/03/17 13:00 88 18 109/67 100 Mechanical Ventilator 30 01/03/17 12:59 92 01/03/17 12:00 97.2 90 14 100/64 100 Mechanical Ventilator 30 01/03/17 12:00 80 01/03/17 12:00 30 01/03/17 11:08 88 14 30 01/03/17 11:00 86 18 120/84 100 Mechanical Ventilator 30 01/03/17 10:00 87 18 90/62 100 Mechanical Ventilator 30 01/03/17 09:33 90 14 30 01/03/17 09:00 89 18 119/66 100 Mechanical Ventilator 30 01/03/17 08:39 97 01/03/17 08:00 95 01/03/17 08:00 30 01/03/17 08:00 97.0 94 16 126/70 98 Mechanical Ventilator 30 Height (Feet): 4 Height (Inches): 9.00 Weight (Pounds): 75 HEENT: atraumatic Respiratory/Chest: lungs clear Cardiovascular: regular rhythm Abdomen: non distended Laboratory Tests Test 01/03/17 08:33 01/04/17 04:00 Arterial Blood pH 7.404 (7.350-7.450) Arterial Blood Partial Pressure CO2 41.9 mmHg (35.0-45.0) Arterial Blood Partial Pressure O2 121.3 mmHg (75.0-100.0) H Arterial Blood HCO3 25.6 mmol/L (22.0-26.0) Arterial Blood Oxygen Saturation 98.4 % (92.0-98.0) H Arterial Blood Base Excess 0.8 Antonio Test Positive White Blood Count 10.3 K/UL (4.8-10.8) Red Blood Count 2.82 M/UL (4.20-5.40) L Hemoglobin 8.7 G/DL (12.0-16.0) L Hematocrit 26.7 % (37.0-47.0) L Mean Corpuscular Volume 95 FL (80-99) Mean Corpuscular Hemoglobin 30.9 PG (27.0-31.0) Mean Corpuscular Hemoglobin Concent 32.6 G/DL (32.0-36.0) Red Cell Distribution Width 18.9 % (11.6-14.8) H Platelet Count 260 K/UL (150-450) Mean Platelet Volume 7.1 FL (6.5-10.1) Neutrophils (%) (Auto) 83.8 % (45.0-75.0) H Lymphocytes (%) (Auto) 4.8 % (20.0-45.0) L Monocytes (%) (Auto) 7.8 % (1.0-10.0) Eosinophils (%) (Auto) 2.8 % (0.0-3.0) Basophils (%) (Auto) 0.8 % (0.0-2.0) Sodium Level 130 mEQ/L (135-145) L Potassium Level 4.0 mEQ/L (3.4-4.9) Chloride Level 90 mEQ/L (98-107) L Carbon Dioxide Level 24 mEQ/L (20-30) Anion Gap 16 (5-15) H Blood Urea Nitrogen 60 mg/dL (7-23) H Creatinine 4.1 mg/dL (0.5-0.9) H Estimat Glomerular Filtration Rate 11.1 mL/min (>60) Glucose Level 115 mg/dL (74-106) H Calcium Level 8.7 mg/dL (8.6-10.2) Phosphorus Level 3.2 mg/dL (2.5-4.8) Magnesium Level 2.1 mg/dL (1.7-2.5) Total Bilirubin 0.3 mg/dL (0.0-1.2) Aspartate Amino Transf (AST/SGOT) 21 U/L (5-40) Alanine Aminotransferase (ALT/SGPT) 6 U/L (3-33) Alkaline Phosphatase 218 U/L (35-104) H Total Protein 6.3 g/dL (6.6-8.7) L Albumin 2.6 g/dL (3.5-5.2) L Globulin 3.7 g/dL Albumin/Globulin Ratio 0.7 (1.0-2.7) L Current Medications Medications (Trade) Dose Ordered Sig/Reji Route PRN Reason Start Time Stop Time Status Last Admin Dose Admin Acetaminophen (Tylenol) 650 mg Q4H PRN ORAL fever 12/22/16 13:45 01/21/17 13:44 Albumin Human (Albumisol) 100 ml @ 200 mls/hr PRN PRN IV sbp<90 during hd 01/01/17 06:00 01/31/17 05:59 Albumin Human (Albumisol) 100 ml @ 200 mls/hr PRN PRN IV sbp<90 during hd 01/04/17 06:00 01/05/17 05:59 Benzocaine 1 applic 1 applic NEEDED PRN GAMA For Pain 01/01/17 11:45 01/31/17 11:44 01/02/17 00:37 Epoetin José Miguel (Procrit (for ESRD on dialysis)) 10,000 units WED-WED-WED SUBQ 12/28/16 21:00 01/27/17 20:59 01/01/17 21:58 Heparin Sodium (Porcine) (Heparin Sod 1000 units/ml 10ml) 2,000 unit ONCE PRN IV FOR HD 01/04/17 06:00 01/04/17 22:00 Mirtazapine (Remeron) 7.5 mg BEDTIME ORAL 01/01/17 00:30 01/31/17 00:29 01/03/17 21:37 Nitroglycerin 0.4 mg 0.4 mg Q5MIN X 3 DOSES PRN SL Prn Chest Pain 12/22/16 13:45 01/21/17 13:44 Norepinephrine Bitartrate/ Dextrose (Levophed/D5W) 250 ml @ 0 mls/hr Q24H IV 12/23/16 01:00 01/22/17 00:59 12/31/16 00:38 Ondansetron HCl (Zofran) 4 mg Q6H PRN IVP Nausea & Vomiting 12/22/16 13:45 01/21/17 13:44 12/30/16 23:02 Pantoprazole 40 mg 40 mg BID IVP 12/28/16 18:00 01/27/17 17:59 01/03/17 19:09 Polyethylene Glycol (Miralax) 17 gm DAILYPRN PRN GT Constipation 12/25/16 11:03 01/21/17 13:44 Propafenone HCl (Rythmol) 225 mg TID NG 12/23/16 21:00 01/22/17 20:59 01/03/17 19:09 Sodium Chloride 1,000 ml @ 500 mls/hr Q2H PRN IVLG sbp<90 during hd 01/04/17 11:00 02/03/17 10:59 RISHABH COTTO M.D. Jan 04, 2017 07:51
[2017-01-04] MEDS: Pantoprazole Inj IVP SCH ×2 (08:16→17:56)
--- NOTE | 2017-01-04 08:38 | Diagnostic Imaging Report ---
Indication: Dyspnea Comparison: 01/01/17 A single view chest radiograph was obtained. Findings: Tubes and lines are stable. Heart is normal and stable. Bones are osteopenic. Basilar atelectasis likely present. Mild interstitial edema may be present. Impression: No significant change in one day
[2017-01-04 09:09] LABS: ABG ALLEN TEST POSITIVE; ABG BASE EXCESS -0.4; ABG PCO2 43.4 mmHg (35.0-45.0)
--- NOTE | 2017-01-04 11:28 | Diagnostic Imaging Report ---
Indications: DYSPNEA Technique: Portable AP chest Findings: Comparison: 01/03/17 Borderline cardiomegaly, bilateral interstitial infiltrates, small bibasal pleural effusions unchanged. Lines and tubes remain in place. No new abnormality identified. IMPRESSION: Stable bilateral congestive changes
--- NOTE | 2017-01-04 11:37 | GI Progress Note ---
Assessment/Plan Problems: (1) End-stage kidney disease ICD Codes: N18.6 - End stage renal disease SNOMED: 40644108 (2) GAVE (gastric antral vascular ectasia) ICD Codes: K31.819 - Angiodysplasia of stomach and duodenum without bleeding SNOMED: 10586726 (3) Severe malnutrition ICD Codes: E43 - Unspecified severe protein-calorie malnutrition SNOMED: 19947022 (4) Hypoalbuminemia ICD Codes: E88.09 - Other disorders of plasma-protein metabolism, not elsewhere classified SNOMED: 768418569 (5) Anemia ICD Codes: D64.9 - Anemia, unspecified SNOMED: 958438790 (6) Liver cirrhosis ICD Codes: K74.60 - Unspecified cirrhosis of liver SNOMED: 00400032 Status: unchanged Status Narrative Discussed with Dr. Galarza. Assessment/Plan s/p EGD/colon at [facility] recently, see full report in chart. >> - No varices given history of cirrhosis. - GAVE appearance and did not show portal hypertensive gastropathy. - Findings included an active bleed in the focal area of the antrum which was treated. - Noted that the patient went into a CODE BLUE during the procedure. KUB >> negative abd U/S >> Moderate ascites. Mild gallbladder wall thickening. >> s/p 1600 paracentesis 2 days ago elevated ammonia OB stool positive Hep panel negative cdiff negative defer any GI procedures at this time pt scheduled to be trached >> family decision pending monitor H&H, transfuse prn ppi BID OGT to goal rate per dietary, consider PEG dc lactulose, cont Xifaxan fu labs poor prognosis Subjective Subjective limited Objective Last 24 Hour Vital Signs Date Time Temp Pulse Resp B/P Pulse Ox O2 Delivery O2 Flow Rate FiO2 01/04/17 11:06 91 16 30 01/04/17 11:00 89 14 100/56 100 Mechanical Ventilator 30 01/04/17 10:00 81 14 92/60 100 Mechanical Ventilator 30 01/04/17 09:00 89 14 116/70 96 Mechanical Ventilator 30 01/04/17 08:30 86 14 30 01/04/17 08:15 92 01/04/17 08:00 91 01/04/17 08:00 98.2 91 14 110/62 100 Mechanical Ventilator 30 01/04/17 08:00 30 01/04/17 07:00 91 14 148/87 100 Mechanical Ventilator 30 01/04/17 06:30 89 14 30 01/04/17 06:00 92 14 88/54 100 Mechanical Ventilator 30 01/04/17 05:09 86 14 30 01/04/17 05:00 85 14 81/55 100 Mechanical Ventilator 30 01/04/17 04:00 96 01/04/17 04:00 30 01/04/17 04:00 98.0 96 16 108/71 100 Mechanical Ventilator 30 01/04/17 03:06 92 14 30 01/04/17 03:00 91 14 90/47 100 Mechanical Ventilator 30 01/04/17 02:00 91 14 82/51 100 Mechanical Ventilator 30 01/04/17 01:12 92 14 30 01/04/17 01:00 99 14 88/53 100 Mechanical Ventilator 30 01/04/17 01:00 128/66 01/04/17 00:00 97.9 94 19 102/59 100 Mechanical Ventilator 30 01/04/17 00:00 97 01/04/17 00:00 30 01/03/17 23:15 94 14 30 01/03/17 23:00 95 14 113/73 100 Mechanical Ventilator 30 01/03/17 22:00 98 14 118/75 100 Mechanical Ventilator 30 01/03/17 21:00 99 15 134/75 100 Mechanical Ventilator 30 01/03/17 20:45 106 21 30 01/03/17 20:00 98.3 108 19 106/74 100 Mechanical Ventilator 30 01/03/17 20:00 30 01/03/17 20:00 94 01/03/17 19:10 95 16 30 01/03/17 19:09 95 01/03/17 19:00 94 14 115/69 100 Mechanical Ventilator 30 01/03/17 18:00 97 19 144/95 100 Mechanical Ventilator 30 01/03/17 17:23 93 15 30 01/03/17 17:00 94 17 125/69 100 Mechanical Ventilator 30 01/03/17 16:00 98.3 90 15 108/65 100 Mechanical Ventilator 30 01/03/17 16:00 30 01/03/17 16:00 89 01/03/17 15:18 87 14 30 01/03/17 15:00 96 17 98/63 100 Mechanical Ventilator 30 2/26/17 14:00 87 17 100/67 100 Mechanical Ventilator 30 01/03/17 13:26 89 14 30 01/03/17 13:00 88 18 109/67 100 Mechanical Ventilator 30 01/03/17 12:59 92 01/03/17 12:00 97.2 90 14 100/64 100 Mechanical Ventilator 30 01/03/17 12:00 80 01/03/17 12:00 30 Intake and Output 01/03/17 01/04/17 19:00 07:00 Intake Total 450 ml 440 ml Output Total 0 ml 0 ml Balance 450 ml 440 ml Free Water 100 ml 80 ml Tube Feeding 300 ml 300 ml Other 50 ml 60 ml Output Urine Total 0 ml 0 ml # Bowel Movements 1 4 Laboratory Tests Test 01/04/17 04:00 01/04/17 08:50 White Blood Count 10.3 K/UL (4.8-10.8) Red Blood Count 2.82 M/UL (4.20-5.40) L Hemoglobin 8.7 G/DL (12.0-16.0) L Hematocrit 26.7 % (37.0-47.0) L Mean Corpuscular Volume 95 FL (80-99) Mean Corpuscular Hemoglobin 30.9 PG (27.0-31.0) Mean Corpuscular Hemoglobin Concent 32.6 G/DL (32.0-36.0) Red Cell Distribution Width 18.9 % (11.6-14.8) H Platelet Count 260 K/UL (150-450) Mean Platelet Volume 7.1 FL (6.5-10.1) Neutrophils (%) (Auto) 83.8 % (45.0-75.0) H Lymphocytes (%) (Auto) 4.8 % (20.0-45.0) L Monocytes (%) (Auto) 7.8 % (1.0-10.0) Eosinophils (%) (Auto) 2.8 % (0.0-3.0) Basophils (%) (Auto) 0.8 % (0.0-2.0) Sodium Level 130 mEQ/L (135-145) L Potassium Level 4.0 mEQ/L (3.4-4.9) Chloride Level 90 mEQ/L (98-107) L Carbon Dioxide Level 24 mEQ/L (20-30) Anion Gap 16 (5-15) H Blood Urea Nitrogen 60 mg/dL (7-23) H Creatinine 4.1 mg/dL (0.5-0.9) H Estimat Glomerular Filtration Rate 11.1 mL/min (>60) Glucose Level 115 mg/dL (74-106) H Calcium Level 8.7 mg/dL (8.6-10.2) Phosphorus Level 3.2 mg/dL (2.5-4.8) Magnesium Level 2.1 mg/dL (1.7-2.5) Total Bilirubin 0.3 mg/dL (0.0-1.2) Aspartate Amino Transf (AST/SGOT) 21 U/L (5-40) Alanine Aminotransferase (ALT/SGPT) 6 U/L (3-33) Alkaline Phosphatase 218 U/L (35-104) H Total Protein 6.3 g/dL (6.6-8.7) L Albumin 2.6 g/dL (3.5-5.2) L Globulin 3.7 g/dL Albumin/Globulin Ratio 0.7 (1.0-2.7) L Arterial Blood pH 7.378 (7.350-7.450) Arterial Blood Partial Pressure CO2 43.4 mmHg (35.0-45.0) Arterial Blood Partial Pressure O2 120.6 mmHg (75.0-100.0) H Arterial Blood HCO3 25.0 mmol/L (22.0-26.0) Arterial Blood Oxygen Saturation Pending Arterial Blood Base Excess -0.4 Antonio Test Positive Height (Feet): 4 Height (Inches): 9.00 Weight (Pounds): 75 General Appearance: no apparent distress, alert, thin Cardiovascular: normal rate Respiratory/Chest: normal breath sounds, no respiratory distress Abdominal Exam: normal bowel sounds, non tender, soft Objective Procedure: US ABD Complete Indication: Abnormal liver function tests and renal function tests Impression: Moderate ascites, nonspecific as regards etiology Negative for gallstones. There is mild gallbladder wall thickening, suspect secondary to whatever process is causing ascites, but acute acalculous cholecystitis not completely excludable. Consider nuclear medicine hepatobiliary scan if there is high clinical suspicion for acute cholecystitis Bilateral echogenic atrophic kidneys, consistent with known history of chronic renal disease Suzy Middleton N.P. Jan 04, 2017 11:37
--- NOTE | 2017-01-04 11:41 | Internal Med Progress Note ---
Subjective Date of Service: Jan 04, 2017 Physician Name LaurieDione Attending Physician Jes Bautista Current Medications Medications (Trade) Dose Ordered Sig/Reji Route PRN Reason Start Time Stop Time Status Last Admin Dose Admin Acetaminophen (Tylenol) 650 mg Q4H PRN ORAL fever 12/22/16 13:45 01/21/17 13:44 Albumin Human (Albumisol) 100 ml @ 200 mls/hr PRN PRN IV sbp<90 during hd 01/01/17 06:00 01/31/17 05:59 Albumin Human (Albumisol) 100 ml @ 200 mls/hr PRN PRN IV sbp<90 during hd 01/04/17 06:00 01/05/17 05:59 Benzocaine 1 applic 1 applic NEEDED PRN GAMA For Pain 01/01/17 11:45 01/31/17 11:44 01/02/17 00:37 Epoetin José Miguel (Procrit (for ESRD on dialysis)) 10,000 units WED-WED-WED SUBQ 12/28/16 21:00 01/27/17 20:59 01/01/17 21:58 Heparin Sodium (Porcine) (Heparin Sod 1000 units/ml 10ml) 2,000 unit ONCE PRN IV FOR HD 01/04/17 06:00 01/04/17 22:00 Mirtazapine (Remeron) 7.5 mg BEDTIME ORAL 01/01/17 00:30 01/31/17 00:29 01/03/17 21:37 Nitroglycerin 0.4 mg 0.4 mg Q5MIN X 3 DOSES PRN SL Prn Chest Pain 12/22/16 13:45 01/21/17 13:44 Norepinephrine Bitartrate/ Dextrose (Levophed/D5W) 250 ml @ 0 mls/hr Q24H IV 12/23/16 01:00 01/22/17 00:59 12/31/16 00:38 Ondansetron HCl (Zofran) 4 mg Q6H PRN IVP Nausea & Vomiting 12/22/16 13:45 01/21/17 13:44 12/30/16 23:02 Pantoprazole 40 mg 40 mg BID IVP 12/28/16 18:00 01/27/17 17:59 01/04/17 08:16 Polyethylene Glycol (Miralax) 17 gm DAILYPRN PRN GT Constipation 12/25/16 11:03 01/21/17 13:44 Propafenone HCl (Rythmol) 225 mg TID NG 12/23/16 21:00 01/22/17 20:59 01/04/17 08:15 Sodium Chloride 1,000 ml @ 500 mls/hr Q2H PRN IVLG sbp<90 during hd 01/04/17 11:00 02/03/17 10:59 Allergies: Coded Allergies: No Known Allergies (Unverified , 12/22/16) ROS Limited/Unobtainable: Yes Subjective 61 YO F admitted with respiratory failure. Now sepsis. Intubated and sedated. ICU. On pressors. Failed CPAP trial. Cover for Int Jamie-Dr Vigil. Objective Last Vital Signs Date Time Temp Pulse Resp B/P Pulse Ox O2 Delivery O2 Flow Rate FiO2 01/04/17 11:06 91 16 30 01/04/17 11:00 100/56 100 Mechanical Ventilator 01/04/17 08:00 98.2 Laboratory Tests Test 01/04/17 04:00 01/04/17 08:50 White Blood Count 10.3 K/UL (4.8-10.8) Red Blood Count 2.82 M/UL (4.20-5.40) L Hemoglobin 8.7 G/DL (12.0-16.0) L Hematocrit 26.7 % (37.0-47.0) L Mean Corpuscular Volume 95 FL (80-99) Mean Corpuscular Hemoglobin 30.9 PG (27.0-31.0) Mean Corpuscular Hemoglobin Concent 32.6 G/DL (32.0-36.0) Red Cell Distribution Width 18.9 % (11.6-14.8) H Platelet Count 260 K/UL (150-450) Mean Platelet Volume 7.1 FL (6.5-10.1) Neutrophils (%) (Auto) 83.8 % (45.0-75.0) H Lymphocytes (%) (Auto) 4.8 % (20.0-45.0) L Monocytes (%) (Auto) 7.8 % (1.0-10.0) Eosinophils (%) (Auto) 2.8 % (0.0-3.0) Basophils (%) (Auto) 0.8 % (0.0-2.0) Sodium Level 130 mEQ/L (135-145) L Potassium Level 4.0 mEQ/L (3.4-4.9) Chloride Level 90 mEQ/L (98-107) L Carbon Dioxide Level 24 mEQ/L (20-30) Anion Gap 16 (5-15) H Blood Urea Nitrogen 60 mg/dL (7-23) H Creatinine 4.1 mg/dL (0.5-0.9) H Estimat Glomerular Filtration Rate 11.1 mL/min (>60) Glucose Level 115 mg/dL (74-106) H Calcium Level 8.7 mg/dL (8.6-10.2) Phosphorus Level 3.2 mg/dL (2.5-4.8) Magnesium Level 2.1 mg/dL (1.7-2.5) Total Bilirubin 0.3 mg/dL (0.0-1.2) Aspartate Amino Transf (AST/SGOT) 21 U/L (5-40) Alanine Aminotransferase (ALT/SGPT) 6 U/L (3-33) Alkaline Phosphatase 218 U/L (35-104) H Total Protein 6.3 g/dL (6.6-8.7) L Albumin 2.6 g/dL (3.5-5.2) L Globulin 3.7 g/dL Albumin/Globulin Ratio 0.7 (1.0-2.7) L Arterial Blood pH 7.378 (7.350-7.450) Arterial Blood Partial Pressure CO2 43.4 mmHg (35.0-45.0) Arterial Blood Partial Pressure O2 120.6 mmHg (75.0-100.0) H Arterial Blood HCO3 25.0 mmol/L (22.0-26.0) Arterial Blood Oxygen Saturation Pending Arterial Blood Base Excess -0.4 Antonio Test Positive Intake and Output 01/03/17 01/04/17 19:00 07:00 Intake Total 450 ml 440 ml Output Total 0 ml 0 ml Balance 450 ml 440 ml Free Water 100 ml 80 ml Tube Feeding 300 ml 300 ml Other 50 ml 60 ml Output Urine Total 0 ml 0 ml # Bowel Movements 1 4 Objective General Appearance: mild distress, thin EENT: PERRL/EOMI, normal ENT inspection Neck: non-tender, normal alignment, supple Cardiovascular: normal peripheral pulses, normal rate, regular rhythm, no gallop/murmur, no JVD Respiratory/Chest: Mech Vent; respiratory distress, crackles/rales, rhonchi - bilaterally, expiratory wheezing Abdomen: normal bowel sounds, non tender, soft, no organomegaly, no mass 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 (3) HTN (hypertension) Assessment & Plan: Currently hypotensive. (4) Acute respiratory failure Assessment & Plan: Failed CPAP; Cont mech vent per pulmonary. May require tracheostomy (5) CHF (congestive heart failure) (6) Anemia (7) Liver cirrhosis (8) Sepsis Assessment & Plan: Cont off antibiotics per ID (9) Septic shock Assessment & Plan: Continue pressors. (10) Hyponatremia Status: not improved DIONE BULL Jan 04, 2017 11:41
--- NOTE | 2017-01-04 12:51 | Anethesia Preoperative Eval ---
Anesthesia Pre-op PMH/ROS General Date of Evaluation: Jan 04, 2017 Time of Evaluation: 14:30 Anesthesiologist: Emma ASA Score: ASA 4 Mallampati Score Class I : Soft palate, uvula, fauces, pillars visible Class II: Soft palate, uvula, fauces visible Class III: Soft palate, base of uvula visible Class IV: Only hard plate visible Mallampati Classification: Class II Surgeon: Yong Diagnosis: Respirtory failure Surgical Procedure: Trach Allergies: Coded Allergies: No Known Allergies (Unverified , 12/22/16) Medications: see eMAR Past Medical History Cardiovascular: Reports: HTN, other - CHF Pulmonary: Reports: other - Respiratory failure Gastrointestinal/Genitourinary: Reports: ESRD, other - Cirrhosis Neurologic/Psychiatric: Reports: depression/anxiety Hematology/Immune: Reports: anemia PMH Narrative: ESRD, CHF, Cirrhosis (maintained liver functions), ascites, scleroderma Anesthesia Pre-op Phys. Exam Physician Exam Last Vital Signs Date Time Temp Pulse Resp B/P Pulse Ox O2 Delivery O2 Flow Rate FiO2 01/04/17 11:06 91 16 30 01/04/17 11:00 100/56 100 Mechanical Ventilator 01/04/17 08:00 98.2 Constitutional: NAD Neurologic: CN 2-12 intact Cardiovascular: other - Ventilated Respiratory: CTA Gastrointestinal: S/NT/ND Airway Exam Mallampati Score: Class II MO: full ROM: full Anesthesia Pre-op A/P Labs Hematology Test 01/04/17 04:00 White Blood Count 10.3 K/UL (4.8-10.8) Red Blood Count 2.82 M/UL (4.20-5.40) L Hemoglobin 8.7 G/DL (12.0-16.0) L Hematocrit 26.7 % (37.0-47.0) L Mean Corpuscular Volume 95 FL (80-99) Mean Corpuscular Hemoglobin 30.9 PG (27.0-31.0) Mean Corpuscular Hemoglobin Concent 32.6 G/DL (32.0-36.0) Red Cell Distribution Width 18.9 % (11.6-14.8) H Platelet Count 260 K/UL (150-450) Mean Platelet Volume 7.1 FL (6.5-10.1) Neutrophils (%) (Auto) 83.8 % (45.0-75.0) H Lymphocytes (%) (Auto) 4.8 % (20.0-45.0) L Monocytes (%) (Auto) 7.8 % (1.0-10.0) Eosinophils (%) (Auto) 2.8 % (0.0-3.0) Basophils (%) (Auto) 0.8 % (0.0-2.0) Chemistry Test 01/04/17 04:00 Sodium Level 130 mEQ/L (135-145) L Potassium Level 4.0 mEQ/L (3.4-4.9) Chloride Level 90 mEQ/L (98-107) L Carbon Dioxide Level 24 mEQ/L (20-30) Anion Gap 16 (5-15) H Blood Urea Nitrogen 60 mg/dL (7-23) H Creatinine 4.1 mg/dL (0.5-0.9) H Estimat Glomerular Filtration Rate 11.1 mL/min (>60) Glucose Level 115 mg/dL (74-106) H Calcium Level 8.7 mg/dL (8.6-10.2) Phosphorus Level 3.2 mg/dL (2.5-4.8) Magnesium Level 2.1 mg/dL (1.7-2.5) Total Bilirubin 0.3 mg/dL (0.0-1.2) Aspartate Amino Transf (AST/SGOT) 21 U/L (5-40) Alanine Aminotransferase (ALT/SGPT) 6 U/L (3-33) Alkaline Phosphatase 218 U/L (35-104) H Total Protein 6.3 g/dL (6.6-8.7) L Albumin 2.6 g/dL (3.5-5.2) L Globulin 3.7 g/dL Albumin/Globulin Ratio 0.7 (1.0-2.7) L Studies Pre-op Studies: EKG - SR with 1st degreee AVB Risk Assessment & Plan Assessment: ESRD, respiratory failure for trach Plan: Discussed with patient the procedure tentatively scheduled for tomorrow. She understands and will decide whether to proceed or not. GA Status Change Before Surgery: SHILPI Dang M.D. Jan 04, 2017 12:51
[2017-01-04] MEDS: ORAJEL 20% ORO PRN (15:03)
--- NOTE | 2017-01-04 15:22 | Cardiology Progress Note ---
Assessment/Plan Assessment/Plan ams hypotension hs of mod to sever MR paf hs of avb with pvc cirrhosis , esrd on dialyusis mgus htn scleroderma hs of [place] o gave continue on rhtymol for now watch on tele for afib recurrence or for av block has been failing weaning attempts still iv abx dialysisas indicated lv function has been preserved tele sinus 01/04/17 i donot appreciate the rub today ekg was neg Subjective Cardiovascular: Reports: lightheadedness, Denies: chest pain, irregular heart rate Respiratory: Denies: SOB with excertion, shortness of breath Gastrointestinal/Abdominal: Denies: abdominal pain Genitourinary: Denies: burning Objective Last 24 Hour Vital Signs Date Time Temp Pulse Resp B/P Pulse Ox O2 Delivery O2 Flow Rate FiO2 01/04/17 15:00 88 14 126/76 100 Mechanical Ventilator 30 01/04/17 14:52 90 14 30 01/04/17 14:00 88 14 95/54 100 Mechanical Ventilator 01/04/17 13:04 87 01/04/17 13:00 85 14 104/54 100 Mechanical Ventilator 01/04/17 12:34 92 19 30 01/04/17 12:00 30 01/04/17 12:00 98.4 73 25 115/51 100 Mechanical Ventilator 01/04/17 12:00 85 01/04/17 11:06 91 16 30 01/04/17 11:00 89 14 100/56 100 Mechanical Ventilator 30 01/04/17 10:00 81 14 92/60 100 Mechanical Ventilator 30 01/04/17 09:00 89 14 116/70 96 Mechanical Ventilator 01/04/17 08:30 86 14 30 01/04/17 08:15 92 01/04/17 08:00 91 01/04/17 08:00 98.2 91 14 110/62 100 Mechanical Ventilator 01/04/17 08:00 30 01/04/17 07:00 91 14 148/87 100 Mechanical Ventilator 01/04/17 06:30 89 14 30 01/04/17 06:00 92 14 88/54 100 Mechanical Ventilator 30 01/04/17 05:09 86 14 30 01/04/17 05:00 85 14 81/55 100 Mechanical Ventilator 01/04/17 04:00 96 01/04/17 04:00 30 01/04/17 04:00 98.0 96 16 108/71 100 Mechanical Ventilator 30 01/04/17 03:06 92 14 30 01/04/17 03:00 91 14 90/47 100 Mechanical Ventilator 30 01/04/17 02:00 91 14 82/51 100 Mechanical Ventilator 30 01/04/17 01:12 92 14 30 01/04/17 01:00 99 14 88/53 100 Mechanical Ventilator 01/04/17 01:00 128/66 01/04/17 00:00 97.9 94 19 102/59 100 Mechanical Ventilator 30 01/04/17 00:00 97 01/04/17 00:00 30 01/03/17 23:15 94 14 30 01/03/17 23:00 95 14 113/73 100 Mechanical Ventilator 01/03/17 22:00 98 14 118/75 100 Mechanical Ventilator 30 01/03/17 21:00 99 15 134/75 100 Mechanical Ventilator 01/03/17 20:45 106 21 30 01/03/17 20:00 98.3 108 19 106/74 100 Mechanical Ventilator 30 01/03/17 20:00 30 01/03/17 20:00 94 01/03/17 19:10 95 16 30 01/03/17 19:09 95 01/03/17 19:00 94 14 115/69 100 Mechanical Ventilator 01/03/17 18:00 97 19 144/95 100 Mechanical Ventilator 30 01/03/17 17:23 93 15 30 01/03/17 17:00 94 17 125/69 100 Mechanical Ventilator 30 01/03/17 16:00 98.3 90 15 108/65 100 Mechanical Ventilator 01/03/17 16:00 30 01/03/17 16:00 89 General Appearance: alert, on vent Neck: supple Cardiovascular: normal rate, regular rhythm Respiratory/Chest: lungs clear, normal breath sounds Abdomen: non tender, soft Extremities: no swelling Intake and Output 01/03/17 01/04/17 19:00 07:00 Intake Total 450 ml 440 ml Output Total 0 ml 0 ml Balance 450 ml 440 ml Free Water 100 ml 80 ml Tube Feeding 300 ml 300 ml Other 50 ml 60 ml Output Urine Total 0 ml 0 ml # Bowel Movements 1 4 Laboratory Tests Test 01/04/17 04:00 01/04/17 08:50 White Blood Count 10.3 K/UL (4.8-10.8) Red Blood Count 2.82 M/UL (4.20-5.40) L Hemoglobin 8.7 G/DL (12.0-16.0) L Hematocrit 26.7 % (37.0-47.0) L Mean Corpuscular Volume 95 FL (80-99) Mean Corpuscular Hemoglobin 30.9 PG (27.0-31.0) Mean Corpuscular Hemoglobin Concent 32.6 G/DL (32.0-36.0) Red Cell Distribution Width 18.9 % (11.6-14.8) H Platelet Count 260 K/UL (150-450) Mean Platelet Volume 7.1 FL (6.5-10.1) Neutrophils (%) (Auto) 83.8 % (45.0-75.0) H Lymphocytes (%) (Auto) 4.8 % (20.0-45.0) L Monocytes (%) (Auto) 7.8 % (1.0-10.0) Eosinophils (%) (Auto) 2.8 % (0.0-3.0) Basophils (%) (Auto) 0.8 % (0.0-2.0) Sodium Level 130 mEQ/L (135-145) L Potassium Level 4.0 mEQ/L (3.4-4.9) Chloride Level 90 mEQ/L (98-107) L Carbon Dioxide Level 24 mEQ/L (20-30) Anion Gap 16 (5-15) H Blood Urea Nitrogen 60 mg/dL (7-23) H Creatinine 4.1 mg/dL (0.5-0.9) H Estimat Glomerular Filtration Rate 11.1 mL/min (>60) Glucose Level 115 mg/dL (74-106) H Calcium Level 8.7 mg/dL (8.6-10.2) Phosphorus Level 3.2 mg/dL (2.5-4.8) Magnesium Level 2.1 mg/dL (1.7-2.5) Total Bilirubin 0.3 mg/dL (0.0-1.2) Aspartate Amino Transf (AST/SGOT) 21 U/L (5-40) Alanine Aminotransferase (ALT/SGPT) 6 U/L (3-33) Alkaline Phosphatase 218 U/L (35-104) H Total Protein 6.3 g/dL (6.6-8.7) L Albumin 2.6 g/dL (3.5-5.2) L Globulin 3.7 g/dL Albumin/Globulin Ratio 0.7 (1.0-2.7) L Arterial Blood pH 7.378 (7.350-7.450) Arterial Blood Partial Pressure CO2 43.4 mmHg (35.0-45.0) Arterial Blood Partial Pressure O2 120.6 mmHg (75.0-100.0) H Arterial Blood HCO3 25.0 mmol/L (22.0-26.0) Arterial Blood Oxygen Saturation Pending Arterial Blood Base Excess -0.4 Antonio Test Positive CHRISTIN JIMENEZ Jan 04, 2017 15:21
--- NOTE | 2017-01-04 15:27 | Nephrology Progress Note ---
Assessment/Plan Problem List: (1) Hypovolemic shock (2) End-stage kidney disease (3) Acute respiratory failure (4) CHF (congestive heart failure) (5) Liver cirrhosis (6) Hypoalbuminemia (7) Severe malnutrition (8) GAVE (gastric antral vascular ectasia) (9) Diarrhea (10) Anemia in chronic kidney disease Plan try to wean off levophed, done , seen on hd 01/04 stable watch bp closely, adjust tube feeding, stop iv fluids, needs epogen anemia, remains ventilator dependent hd 01/04 Subjective Constitutional: Reports: weakness HEENT: Reports: no symptoms Genitourinary: Reports: no symptoms Neurologic/Psychiatric: Reports: no symptoms Subjective awake on vent Objective Objective Last 24 Hour Vital Signs Date Time Temp Pulse Resp B/P Pulse Ox O2 Delivery O2 Flow Rate FiO2 01/04/17 15:00 88 14 126/76 100 Mechanical Ventilator 30 01/04/17 14:52 90 14 30 01/04/17 14:00 88 14 95/54 100 Mechanical Ventilator 01/04/17 13:04 87 01/04/17 13:00 85 14 104/54 100 Mechanical Ventilator 01/04/17 12:34 92 19 30 01/04/17 12:00 30 01/04/17 12:00 98.4 73 25 115/51 100 Mechanical Ventilator 01/04/17 12:00 85 01/04/17 11:06 91 16 30 01/04/17 11:00 89 14 100/56 100 Mechanical Ventilator 30 01/04/17 10:00 81 14 92/60 100 Mechanical Ventilator 30 01/04/17 09:00 89 14 116/70 96 Mechanical Ventilator 30 01/04/17 08:30 86 14 30 01/04/17 08:15 92 01/04/17 08:00 91 01/04/17 08:00 98.2 91 14 110/62 100 Mechanical Ventilator 01/04/17 08:00 30 01/04/17 07:00 91 14 148/87 100 Mechanical Ventilator 30 01/04/17 06:30 89 14 30 01/04/17 06:00 92 14 88/54 100 Mechanical Ventilator 30 01/04/17 05:09 86 14 30 01/04/17 05:00 85 14 81/55 100 Mechanical Ventilator 30 01/04/17 04:00 96 01/04/17 04:00 30 01/04/17 04:00 98.0 96 16 108/71 100 Mechanical Ventilator 01/04/17 03:06 92 14 30 01/04/17 03:00 91 14 90/47 100 Mechanical Ventilator 30 01/04/17 02:00 91 14 82/51 100 Mechanical Ventilator 30 01/04/17 01:12 92 14 30 01/04/17 01:00 99 14 88/53 100 Mechanical Ventilator 30 01/04/17 01:00 128/66 01/04/17 00:00 97.9 94 19 102/59 100 Mechanical Ventilator 01/04/17 00:00 97 01/04/17 00:00 30 01/03/17 23:15 94 14 30 01/03/17 23:00 95 14 113/73 100 Mechanical Ventilator 01/03/17 22:00 98 14 118/75 100 Mechanical Ventilator 30 01/03/17 21:00 99 15 134/75 100 Mechanical Ventilator 01/03/17 20:45 106 21 30 01/03/17 20:00 98.3 108 19 106/74 100 Mechanical Ventilator 30 01/03/17 20:00 30 01/03/17 20:00 94 01/03/17 19:10 95 16 30 01/03/17 19:09 95 01/03/17 19:00 94 14 115/69 100 Mechanical Ventilator 01/03/17 18:00 97 19 144/95 100 Mechanical Ventilator 01/03/17 17:23 93 15 30 01/03/17 17:00 94 17 125/69 100 Mechanical Ventilator 01/03/17 16:00 98.3 90 15 108/65 100 Mechanical Ventilator 01/03/17 16:00 30 01/03/17 16:00 89 Intake and Output 01/03/17 01/04/17 19:00 07:00 Intake Total 450 ml 440 ml Output Total 0 ml 0 ml Balance 450 ml 440 ml Free Water 100 ml 80 ml Tube Feeding 300 ml 300 ml Other 50 ml 60 ml Output Urine Total 0 ml 0 ml # Bowel Movements 1 4 Laboratory Tests 01/04/17 04:00: White Blood Count 10.3, Red Blood Count 2.82L, Hemoglobin 8.7L, Hematocrit 26.7L , Mean Corpuscular Volume 95, Mean Corpuscular Hemoglobin 30.9, Mean Corpuscular Hemoglobin Concent 32.6, Red Cell Distribution Width 18.9H, Platelet Count 260, Mean Platelet Volume 7.1, Neutrophils (%) (Auto) 83.8H, Lymphocytes (%) (Auto) 4.8L, Monocytes (%) (Auto) 7.8, Eosinophils (%) (Auto) 2.8, Basophils (%) (Auto) 0.8, Sodium Level 130L, Potassium Level 4.0, Chloride Level 90L, Carbon Dioxide Level 24, Anion Gap 16H, Blood Urea Nitrogen 60H, Creatinine 4.1H, Estimat Glomerular Filtration Rate 11.1, Glucose Level 115H, Calcium Level 8.7, Phosphorus Level 3.2, Magnesium Level 2.1, Total Bilirubin 0.3, Aspartate Amino Transf (AST/SGOT) 21, Alanine Aminotransferase (ALT/SGPT) 6 , Alkaline Phosphatase 218H, Total Protein 6.3L, Albumin 2.6L, Globulin 3.7, Albumin/Globulin Ratio 0.7L 01/04/17 08:50: Arterial Blood pH 7.378, Arterial Blood Partial Pressure CO2 43.4, Arterial Blood Partial Pressure O2 120.6H, Arterial Blood HCO3 25.0, Arterial Blood Oxygen Saturation [Pending], Arterial Blood Base Excess -0.4, Antonio Test Positive Height (Feet): 4 Height (Inches): 9.00 Weight (Pounds): 75 General Appearance: no apparent distress, mild distress, thin EENT: normal ENT inspection Neck: normal alignment Cardiovascular: normal rate, regular rhythm Respiratory/Chest: decreased breath sounds Abdomen: non tender, other - soft ascites Neurologic: outsewer II-XII grossly normal PERLITA HOOD Jan 04, 2017 15:27
[2017-01-04] MEDS: Epogen (for ESRD on dialysis) SUBQ SCH (20:46)
[2017-01-05] VITALS (15 sets, daily range): BP systolic 83–144; BP diastolic 42–97
[2017-01-05] MEDS ORDERED: Lidocaine 1% 10mg/ml/Epi 0.005mg/ml 30ml vial INJ ONE (05:00)
[2017-01-05 06:06] LABS: MEAN CORPUSCULAR HEMOGLOBIN 30.8 PG (27.0-31.0); MEAN CORPUSCULAR HGB CONC 32.5 G/DL (32.0-36.0); MEAN CORPUSCULAR VOLUME 95 FL (80-99); MEAN PLATELET VOLUME 6.8 FL (6.5-10.1); PLATELET COUNT 209 K/UL (150-450); RED BLOOD COUNT 2.61 M/UL (4.20-5.40); RED CELL DISTRIBUTION WIDTH 19.6 % (11.6-14.8); WHITE BLOOD COUNT 11.6 K/UL (4.8-10.8)
[2017-01-05 06:35] LABS: ALBUMIN/GLOBULIN RATIO 0.7 (1.0-2.7); CREATININE 2.1 mg/dL (0.5-0.9); GLOMERULAR FILTRATION RATE 23.9 mL/min (>60); MAGNESIUM 1.7 mg/dL (1.7-2.5); PHOSPHORUS 2.1 mg/dL (2.5-4.8); POTASSIUM 3.5 mEQ/L (3.4-4.9); TOTAL PROTEIN 6.1 g/dL (6.6-8.7)
[2017-01-05] MEDS: Pantoprazole Inj IVP SCH (09:05)
[2017-01-05 09:43] LABS: ABG ALLEN TEST POSITIVE; ABG PCO2 37.8 mmHg (35.0-45.0)
--- NOTE | 2017-01-05 09:59 | Pulmonolgy Critical Care Note ---
Critical Care - Asmt/Plan Problems: (1) Acute respiratory failure (2) Altered mental state (3) CKD (chronic kidney disease) (4) Hyperkalemia (5) Liver cirrhosis (6) Connective tissue disease (7) CHF (congestive heart failure) Respiratory: adjust tidal volume, adjust FIO2, CXR, other - refusing trach, will try to transfer to [facility]. Cardiac: continue to monitor HR/BP Renal: F/U I&O, keep IV fluid, check electrolytes Infectious Disease: check cultures, continue antibiotics Gastrointestinal: continue feedings/current rate Endocrine: monitor blood sugar Hematologic: monitor H/H Neurologic: PRN Ativan, PRN Morphine Affect: PRN ativan Prophylaxis: Heparin Disposition: keep in ICU Notes Reviewed: curriculum consultant, renal Discussed with: nurses, consultants, case aidesustainability project manager - Objective Last 24 Hour Vital Signs Date Time Temp Pulse Resp B/P Pulse Ox O2 Delivery O2 Flow Rate FiO2 01/05/17 09:14 93 16 30 01/05/17 09:05 96 01/05/17 09:00 97 14 104/60 100 Mechanical Ventilator 30 01/05/17 08:00 30 01/05/17 08:00 89 01/05/17 07:29 101 26 30 01/05/17 07:00 89 16 144/74 100 Mechanical Ventilator 30 01/05/17 06:00 89 16 118/57 100 Mechanical Ventilator 30 01/05/17 05:08 87 14 30 01/05/17 05:00 93 16 135/81 100 Mechanical Ventilator 30 01/05/17 04:00 30 01/05/17 04:00 98.0 90 16 125/79 100 Mechanical Ventilator 30 01/05/17 04:00 90 01/05/17 03:11 92 14 30 01/05/17 03:00 91 16 105/60 100 Mechanical Ventilator 30 01/05/17 02:00 83 16 111/63 100 Mechanical Ventilator 30 01/05/17 01:14 89 14 30 01/05/17 01:00 117/65 01/05/17 01:00 90 16 99/56 100 Mechanical Ventilator 30 01/05/17 00:00 94 01/05/17 00:00 30 01/05/17 00:00 98.0 91 16 89/49 100 Mechanical Ventilator 30 01/04/17 23:55 92 16 99/50 Mechanical Ventilator 01/04/17 23:45 95 16 101/52 Mechanical Ventilator 01/04/17 23:30 92 16 97/53 Mechanical Ventilator 01/04/17 23:27 92 15 30 01/04/17 23:15 56 16 91/60 Mechanical Ventilator 01/04/17 23:00 62 16 100/50 Mechanical Ventilator 01/04/17 23:00 91 16 91/56 100 Mechanical Ventilator 30 01/04/17 22:40 94 16 112/50 Mechanical Ventilator 01/04/17 22:30 95 16 115/60 Mechanical Ventilator 01/04/17 22:00 94 17 127/77 100 Mechanical Ventilator 30 01/04/17 21:45 98.2 94 127/77 01/04/17 21:17 93 20 30 01/04/17 21:00 92 17 141/79 100 Mechanical Ventilator 30 01/04/17 20:00 86 17 118/71 100 Mechanical Ventilator 30 01/04/17 20:00 86 01/04/17 20:00 30 01/04/17 19:11 87 23 30 01/04/17 19:00 89 22 106/73 86 Mechanical Ventilator 30 01/04/17 18:00 87 14 79/47 100 Mechanical Ventilator 30 01/04/17 17:57 86 01/04/17 17:02 94 16 30 01/04/17 17:00 92 23 107/64 100 Mechanical Ventilator 30 01/04/17 16:00 90 01/04/17 16:00 30 01/04/17 16:00 97.6 91 16 117/68 100 Mechanical Ventilator 30 01/04/17 15:00 88 14 126/76 100 Mechanical Ventilator 30 01/04/17 14:52 90 14 30 01/04/17 14:00 88 14 95/54 100 Mechanical Ventilator 30 01/04/17 13:04 87 01/04/17 13:00 85 14 104/54 100 Mechanical Ventilator 30 01/04/17 12:34 92 19 30 01/04/17 12:00 30 01/04/17 12:00 98.4 73 25 115/51 100 Mechanical Ventilator 30 01/04/17 12:00 85 01/04/17 11:06 91 16 30 01/04/17 11:00 89 14 100/56 100 Mechanical Ventilator 30 01/04/17 10:00 81 14 92/60 100 Mechanical Ventilator 30 Status: awake Condition: critical HEENT: atraumatic Neck: full ROM Lungs: clear, chest wall tender Heart: HR/BP stable Abdomen: soft, non-tender Extremities: no C/C/E Decubiti: location Accucheck: 55 Critical Care - Subjective ROS Limited/Unobtainable: No ICU Day: 14 Intubation Day: 14 Condition: critical EKG Rhythm: Sinus Rhythm FI02: 30 Vent Support Breath Rate: 14 Vent Support Mode: AC Vent Tidal Volume: 450 Sputum Amount: Moderate PEEP: 5.0 PIP: 43 Secretions: small Tube Feeding Amount: 25 I&O: Intake and Output 01/04/17 01/05/17 19:00 07:00 Intake Total 420 ml 280 ml Output Total 0 ml 1300 ml Balance 420 ml -1020 ml Free Water 50 ml Tube Feeding 300 ml 250 ml Other 70 ml 30 ml Output Urine Total 0 ml Hemodialysis UF 1300 ml # Bowel Movements 4 4 CXR: no change ET-Tube: 7.5 ET Position: 23 Labs: Laboratory Tests Test 01/05/17 04:00 01/05/17 09:10 White Blood Count 11.6 K/UL (4.8-10.8) H Red Blood Count 2.61 M/UL (4.20-5.40) L Hemoglobin 8.0 G/DL (12.0-16.0) L Hematocrit 24.7 % (37.0-47.0) L Mean Corpuscular Volume 95 FL (80-99) Mean Corpuscular Hemoglobin 30.8 PG (27.0-31.0) Mean Corpuscular Hemoglobin Concent 32.5 G/DL (32.0-36.0) Red Cell Distribution Width 19.6 % (11.6-14.8) H Platelet Count 209 K/UL (150-450) Mean Platelet Volume 6.8 FL (6.5-10.1) Neutrophils (%) (Auto) % (45.0-75.0) Lymphocytes (%) (Auto) % (20.0-45.0) Monocytes (%) (Auto) % (1.0-10.0) Eosinophils (%) (Auto) % (0.0-3.0) Basophils (%) (Auto) % (0.0-2.0) Sodium Level 128 mEQ/L (135-145) L Potassium Level 3.5 mEQ/L (3.4-4.9) Chloride Level 89 mEQ/L (98-107) L Carbon Dioxide Level 26 mEQ/L (20-30) Anion Gap 13 (5-15) Blood Urea Nitrogen 25 mg/dL (7-23) #H Creatinine 2.1 mg/dL (0.5-0.9) H Estimat Glomerular Filtration Rate 23.9 mL/min (>60) Glucose Level 90 mg/dL (74-106) Calcium Level 8.0 mg/dL (8.6-10.2) L Phosphorus Level 2.1 mg/dL (2.5-4.8) L Magnesium Level 1.7 mg/dL (1.7-2.5) Total Bilirubin 0.4 mg/dL (0.0-1.2) Aspartate Amino Transf (AST/SGOT) 18 U/L (5-40) Alanine Aminotransferase (ALT/SGPT) 6 U/L (3-33) Alkaline Phosphatase 177 U/L (35-104) H Total Protein 6.1 g/dL (6.6-8.7) L Albumin 2.6 g/dL (3.5-5.2) L Globulin 3.5 g/dL Albumin/Globulin Ratio 0.7 (1.0-2.7) L Arterial Blood pH 7.440 (7.350-7.450) Arterial Blood Partial Pressure CO2 37.8 mmHg (35.0-45.0) Arterial Blood Partial Pressure O2 122.5 mmHg (75.0-100.0) H Arterial Blood HCO3 25.1 mmol/L (22.0-26.0) Arterial Blood Oxygen Saturation 98.5 % (92.0-98.0) H Arterial Blood Base Excess 1.0 Antonio Test Positive FRANCESCA FELTON Jan 05, 2017 09:59
--- NOTE | 2017-01-05 10:01 | Infectious Diseases Prog Note ---
Assessment/Plan Assessment/Plan ASSESSMENT: 61 y/o female with: // SP probable sepsis - cultures(-) // Negative C.difficile // Hypotension - off pressors // Leukocytosis , mild // Hypothermia SP // Acute encephalopathy / found down ?hepatic ( elevated NH4 ) r/o septic - improved - CT Head: No evidence of acute intracranial pathology. Bilateral cerebral periventricular and deepwhite matter low attenuation, nonspecific, likely chronic microvascular ischemic in nature. Atrophy // Acute VDRF - intubated 12/22, failing weaning - CXR 12/30: Lungs are essentially clear. // ?Cirrhosis / chronic liver disease with elevated LFTs, leukopenia, chronic macrocytic anemia, TCP, coagulopathy, hypoalbuminemia - US: pending // ESRD / HD with right chest TDC // FOBT(+) macrocytic anemia SP PRBCs - recent EGD: GAVE // Probable CHF exacerbation - CXR: evidence of congestive heart failure including pulmonary edema, small bilateral pleural effusions - TTE: EF 65%, grade I diastolic dysfunction, mild-mod TR, mod MR, pulmonary HTN // Elevated ESR // NH resident // NKDA // Full Code PLAN: - monitor pt off of ABX ( 12/27 SP IV vancomycin d# 5 / 5 ) ( 12/23 SP zosyn ) - monitor CBC, temperatures, re-culture if febrile or worsening leukocytosis - monitor BMP - monitor CXR - vent support, wean as tolerated - transfuse prn - pressors prn Subjective Constitutional: Denies: anorexia, chills, drenching sweats, fatigue, fever, no symptoms, other Allergies: Coded Allergies: No Known Allergies (Unverified , 12/22/16) Subjective afebrile Objective Vital Signs Last 24 Hour Vital Signs Date Time Temp Pulse Resp B/P Pulse Ox O2 Delivery O2 Flow Rate FiO2 01/05/17 09:14 93 16 30 01/05/17 09:05 96 01/05/17 09:00 97 14 104/60 100 Mechanical Ventilator 30 01/05/17 08:00 30 01/05/17 08:00 89 01/05/17 07:29 101 26 30 01/05/17 07:00 89 16 144/74 100 Mechanical Ventilator 01/05/17 06:00 89 16 118/57 100 Mechanical Ventilator 01/05/17 05:08 87 14 30 01/05/17 05:00 93 16 135/81 100 Mechanical Ventilator 30 01/05/17 04:00 30 01/05/17 04:00 98.0 90 16 125/79 100 Mechanical Ventilator 30 01/05/17 04:00 90 01/05/17 03:11 92 14 30 01/05/17 03:00 91 16 105/60 100 Mechanical Ventilator 30 01/05/17 02:00 83 16 111/63 100 Mechanical Ventilator 30 01/05/17 01:14 89 14 30 01/05/17 01:00 117/65 01/05/17 01:00 90 16 99/56 100 Mechanical Ventilator 30 01/05/17 00:00 94 01/05/17 00:00 30 01/05/17 00:00 98.0 91 16 89/49 100 Mechanical Ventilator 30 01/04/17 23:55 92 16 99/50 Mechanical Ventilator 01/04/17 23:45 95 16 101/52 Mechanical Ventilator 01/04/17 23:30 92 16 97/53 Mechanical Ventilator 01/04/17 23:27 92 15 30 01/04/17 23:15 56 16 91/60 Mechanical Ventilator 01/04/17 23:00 62 16 100/50 Mechanical Ventilator 01/04/17 23:00 91 16 91/56 100 Mechanical Ventilator 30 01/04/17 22:40 94 16 112/50 Mechanical Ventilator 01/04/17 22:30 95 16 115/60 Mechanical Ventilator 01/04/17 22:00 94 17 127/77 100 Mechanical Ventilator 30 01/04/17 21:45 98.2 94 127/77 01/04/17 21:17 93 20 30 01/04/17 21:00 92 17 141/79 100 Mechanical Ventilator 30 01/04/17 20:00 86 17 118/71 100 Mechanical Ventilator 30 01/04/17 20:00 86 01/04/17 20:00 30 01/04/17 19:11 87 23 30 01/04/17 19:00 89 22 106/73 86 Mechanical Ventilator 30 01/04/17 18:00 87 14 79/47 100 Mechanical Ventilator 30 01/04/17 17:57 86 01/04/17 17:02 94 16 30 01/04/17 17:00 92 23 107/64 100 Mechanical Ventilator 30 01/04/17 16:00 90 01/04/17 16:00 30 01/04/17 16:00 97.6 91 16 117/68 100 Mechanical Ventilator 30 01/04/17 15:00 88 14 126/76 100 Mechanical Ventilator 30 01/04/17 14:52 90 14 30 01/04/17 14:00 88 14 95/54 100 Mechanical Ventilator 30 01/04/17 13:04 87 01/04/17 13:00 85 14 104/54 100 Mechanical Ventilator 30 01/04/17 12:34 92 19 30 01/04/17 12:00 30 01/04/17 12:00 98.4 73 25 115/51 100 Mechanical Ventilator 30 01/04/17 12:00 85 01/04/17 11:06 91 16 30 01/04/17 11:00 89 14 100/56 100 Mechanical Ventilator 30 Height (Feet): 4 Height (Inches): 9.00 Weight (Pounds): 75 HEENT: atraumatic Respiratory/Chest: decreased breath sounds Cardiovascular: regular rhythm Abdomen: non distended Laboratory Tests Test 01/05/17 04:00 01/05/17 09:10 White Blood Count 11.6 K/UL (4.8-10.8) H Red Blood Count 2.61 M/UL (4.20-5.40) L Hemoglobin 8.0 G/DL (12.0-16.0) L Hematocrit 24.7 % (37.0-47.0) L Mean Corpuscular Volume 95 FL (80-99) Mean Corpuscular Hemoglobin 30.8 PG (27.0-31.0) Mean Corpuscular Hemoglobin Concent 32.5 G/DL (32.0-36.0) Red Cell Distribution Width 19.6 % (11.6-14.8) H Platelet Count 209 K/UL (150-450) Mean Platelet Volume 6.8 FL (6.5-10.1) Neutrophils (%) (Auto) % (45.0-75.0) Lymphocytes (%) (Auto) % (20.0-45.0) Monocytes (%) (Auto) % (1.0-10.0) Eosinophils (%) (Auto) % (0.0-3.0) Basophils (%) (Auto) % (0.0-2.0) Sodium Level 128 mEQ/L (135-145) L Potassium Level 3.5 mEQ/L (3.4-4.9) Chloride Level 89 mEQ/L (98-107) L Carbon Dioxide Level 26 mEQ/L (20-30) Anion Gap 13 (5-15) Blood Urea Nitrogen 25 mg/dL (7-23) #H Creatinine 2.1 mg/dL (0.5-0.9) H Estimat Glomerular Filtration Rate 23.9 mL/min (>60) Glucose Level 90 mg/dL (74-106) Calcium Level 8.0 mg/dL (8.6-10.2) L Phosphorus Level 2.1 mg/dL (2.5-4.8) L Magnesium Level 1.7 mg/dL (1.7-2.5) Total Bilirubin 0.4 mg/dL (0.0-1.2) Aspartate Amino Transf (AST/SGOT) 18 U/L (5-40) Alanine Aminotransferase (ALT/SGPT) 6 U/L (3-33) Alkaline Phosphatase 177 U/L (35-104) H Total Protein 6.1 g/dL (6.6-8.7) L Albumin 2.6 g/dL (3.5-5.2) L Globulin 3.5 g/dL Albumin/Globulin Ratio 0.7 (1.0-2.7) L Arterial Blood pH 7.440 (7.350-7.450) Arterial Blood Partial Pressure CO2 37.8 mmHg (35.0-45.0) Arterial Blood Partial Pressure O2 122.5 mmHg (75.0-100.0) H Arterial Blood HCO3 25.1 mmol/L (22.0-26.0) Arterial Blood Oxygen Saturation 98.5 % (92.0-98.0) H Arterial Blood Base Excess 1.0 Antonio Test Positive Current Medications Medications (Trade) Dose Ordered Sig/Reji Route PRN Reason Start Time Stop Time Status Last Admin Dose Admin Acetaminophen (Tylenol) 650 mg Q4H PRN ORAL fever 12/22/16 13:45 01/21/17 13:44 Albumin Human (Albumisol) 100 ml @ 200 mls/hr PRN PRN IV sbp<90 during hd 01/01/17 06:00 01/31/17 05:59 Benzocaine 1 applic 1 applic NEEDED PRN GAMA For Pain 01/01/17 11:45 01/31/17 11:44 01/04/17 15:03 Epoetin José Miguel (Procrit (for ESRD on dialysis)) 10,000 units WED-WED-WED SUBQ 12/28/16 21:00 01/27/17 20:59 01/04/17 20:46 Mirtazapine (Remeron) 7.5 mg BEDTIME ORAL 01/01/17 00:30 01/31/17 00:29 01/04/17 20:47 Nitroglycerin 0.4 mg 0.4 mg Q5MIN X 3 DOSES PRN SL Prn Chest Pain 12/22/16 13:45 01/21/17 13:44 Norepinephrine Bitartrate/ Dextrose (Levophed/D5W) 250 ml @ 0 mls/hr Q24H IV 12/23/16 01:00 01/22/17 00:59 12/31/16 00:38 Ondansetron HCl (Zofran) 4 mg Q6H PRN IVP Nausea & Vomiting 12/22/16 13:45 01/21/17 13:44 12/30/16 23:02 Pantoprazole 40 mg 40 mg BID IVP 12/28/16 18:00 01/27/17 17:59 01/05/17 09:05 Polyethylene Glycol (Miralax) 17 gm DAILYPRN PRN GT Constipation 12/25/16 11:03 01/21/17 13:44 Propafenone HCl (Rythmol) 225 mg TID NG 12/23/16 21:00 01/22/17 20:59 01/05/17 09:05 Sodium Chloride (Sodium Chloride 1000ml bag) 1,000 ml @ 500 mls/hr Q2H PRN IVLG sbp<90 during hd 01/04/17 11:00 02/03/17 10:59 RISHABH COTTO M.D. Jan 05, 2017 10:01
--- NOTE | 2017-01-05 11:07 | GI Progress Note ---
Assessment/Plan Problems: (1) End-stage kidney disease ICD Codes: N18.6 - End stage renal disease SNOMED: 91595522 (2) GAVE (gastric antral vascular ectasia) ICD Codes: K31.819 - Angiodysplasia of stomach and duodenum without bleeding SNOMED: 60275819 (3) Severe malnutrition ICD Codes: E43 - Unspecified severe protein-calorie malnutrition SNOMED: 05034339 (4) Hypoalbuminemia ICD Codes: E88.09 - Other disorders of plasma-protein metabolism, not elsewhere classified SNOMED: 289504015 (5) Anemia ICD Codes: D64.9 - Anemia, unspecified SNOMED: 028047542 (6) Liver cirrhosis ICD Codes: K74.60 - Unspecified cirrhosis of liver SNOMED: 59257495 Status: unchanged Status Narrative Discussed with Dr. Galarza. Assessment/Plan s/p EGD/colon at [facility] recently, see full report in chart. >> - No varices given history of cirrhosis. - GAVE appearance and did not show portal hypertensive gastropathy. - Findings included an active bleed in the focal area of the antrum which was treated. - Noted that the patient went into a CODE BLUE during the procedure. KUB >> negative abd U/S >> Moderate ascites. Mild gallbladder wall thickening. >> s/p 1600 paracentesis 2 days ago elevated ammonia OB stool positive Hep panel negative cdiff negative defer any GI procedures at this time pt to be trached >> family decision pending monitor H&H, transfuse prn ppi BID OGT to goal rate per dietary, consider PEG dc lactulose, cont Xifaxan fu labs poor prognosis Subjective Subjective limited Objective Last 24 Hour Vital Signs Date Time Temp Pulse Resp B/P Pulse Ox O2 Delivery O2 Flow Rate FiO2 01/05/17 10:53 91 15 30 01/05/17 10:00 84 14 83/42 100 Mechanical Ventilator 30 01/05/17 09:14 93 16 30 01/05/17 09:05 96 01/05/17 09:00 97 14 104/60 100 Mechanical Ventilator 30 01/05/17 08:00 30 01/05/17 08:00 89 01/05/17 08:00 98.2 90 21 108/49 100 Mechanical Ventilator 30 01/05/17 07:29 101 26 30 01/05/17 07:00 89 16 144/74 100 Mechanical Ventilator 30 01/05/17 06:00 89 16 118/57 100 Mechanical Ventilator 30 01/05/17 05:08 87 14 30 01/05/17 05:00 93 16 135/81 100 Mechanical Ventilator 30 01/05/17 04:00 30 01/05/17 04:00 98.0 90 16 125/79 100 Mechanical Ventilator 30 01/05/17 04:00 90 01/05/17 03:11 92 14 30 01/05/17 03:00 91 16 105/60 100 Mechanical Ventilator 30 01/05/17 02:00 83 16 111/63 100 Mechanical Ventilator 30 01/05/17 01:14 89 14 30 01/05/17 01:00 117/65 01/05/17 01:00 90 16 99/56 100 Mechanical Ventilator 30 01/05/17 00:00 94 01/05/17 00:00 30 01/05/17 00:00 98.0 91 16 89/49 100 Mechanical Ventilator 30 01/04/17 23:55 92 16 99/50 Mechanical Ventilator 01/04/17 23:45 95 16 101/52 Mechanical Ventilator 01/04/17 23:30 92 16 97/53 Mechanical Ventilator 01/04/17 23:27 92 15 30 01/04/17 23:15 56 16 91/60 Mechanical Ventilator 01/04/17 23:00 62 16 100/50 Mechanical Ventilator 01/04/17 23:00 91 16 91/56 100 Mechanical Ventilator 30 01/04/17 22:40 94 16 112/50 Mechanical Ventilator 01/04/17 22:30 95 16 115/60 Mechanical Ventilator 01/04/17 22:00 94 17 127/77 100 Mechanical Ventilator 30 01/04/17 21:45 98.2 94 127/77 01/04/17 21:17 93 20 30 01/04/17 21:00 92 17 141/79 100 Mechanical Ventilator 30 01/04/17 20:00 86 17 118/71 100 Mechanical Ventilator 30 01/04/17 20:00 86 01/04/17 20:00 30 01/04/17 19:11 87 23 30 01/04/17 19:00 89 22 106/73 86 Mechanical Ventilator 30 01/04/17 18:00 87 14 79/47 100 Mechanical Ventilator 30 01/04/17 17:57 86 01/04/17 17:02 94 16 30 01/04/17 17:00 92 23 107/64 100 Mechanical Ventilator 30 01/04/17 16:00 90 01/04/17 16:00 30 01/04/17 16:00 97.6 91 16 117/68 100 Mechanical Ventilator 30 01/04/17 15:00 88 14 126/76 100 Mechanical Ventilator 30 01/04/17 14:52 90 14 30 01/04/17 14:00 88 14 95/54 100 Mechanical Ventilator 30 01/04/17 13:04 87 01/04/17 13:00 85 14 104/54 100 Mechanical Ventilator 30 01/04/17 12:34 92 19 30 01/04/17 12:00 30 01/04/17 12:00 98.4 73 25 115/51 100 Mechanical Ventilator 30 01/04/17 12:00 85 01/04/17 11:06 91 16 30 Intake and Output 01/04/17 01/05/17 19:00 07:00 Intake Total 420 ml 280 ml Output Total 0 ml 1300 ml Balance 420 ml -1020 ml Free Water 50 ml Tube Feeding 300 ml 250 ml Other 70 ml 30 ml Output Urine Total 0 ml Hemodialysis UF 1300 ml # Bowel Movements 4 4 Laboratory Tests Test 01/05/17 04:00 01/05/17 09:10 White Blood Count 11.6 K/UL (4.8-10.8) H Red Blood Count 2.61 M/UL (4.20-5.40) L Hemoglobin 8.0 G/DL (12.0-16.0) L Hematocrit 24.7 % (37.0-47.0) L Mean Corpuscular Volume 95 FL (80-99) Mean Corpuscular Hemoglobin 30.8 PG (27.0-31.0) Mean Corpuscular Hemoglobin Concent 32.5 G/DL (32.0-36.0) Red Cell Distribution Width 19.6 % (11.6-14.8) H Platelet Count 209 K/UL (150-450) Mean Platelet Volume 6.8 FL (6.5-10.1) Neutrophils (%) (Auto) % (45.0-75.0) Lymphocytes (%) (Auto) % (20.0-45.0) Monocytes (%) (Auto) % (1.0-10.0) Eosinophils (%) (Auto) % (0.0-3.0) Basophils (%) (Auto) % (0.0-2.0) Sodium Level 128 mEQ/L (135-145) L Potassium Level 3.5 mEQ/L (3.4-4.9) Chloride Level 89 mEQ/L (98-107) L Carbon Dioxide Level 26 mEQ/L (20-30) Anion Gap 13 (5-15) Blood Urea Nitrogen 25 mg/dL (7-23) #H Creatinine 2.1 mg/dL (0.5-0.9) H Estimat Glomerular Filtration Rate 23.9 mL/min (>60) Glucose Level 90 mg/dL (74-106) Calcium Level 8.0 mg/dL (8.6-10.2) L Phosphorus Level 2.1 mg/dL (2.5-4.8) L Magnesium Level 1.7 mg/dL (1.7-2.5) Total Bilirubin 0.4 mg/dL (0.0-1.2) Aspartate Amino Transf (AST/SGOT) 18 U/L (5-40) Alanine Aminotransferase (ALT/SGPT) 6 U/L (3-33) Alkaline Phosphatase 177 U/L (35-104) H Total Protein 6.1 g/dL (6.6-8.7) L Albumin 2.6 g/dL (3.5-5.2) L Globulin 3.5 g/dL Albumin/Globulin Ratio 0.7 (1.0-2.7) L Arterial Blood pH 7.440 (7.350-7.450) Arterial Blood Partial Pressure CO2 37.8 mmHg (35.0-45.0) Arterial Blood Partial Pressure O2 122.5 mmHg (75.0-100.0) H Arterial Blood HCO3 25.1 mmol/L (22.0-26.0) Arterial Blood Oxygen Saturation 98.5 % (92.0-98.0) H Arterial Blood Base Excess 1.0 Antonio Test Positive Height (Feet): 4 Height (Inches): 9.00 Weight (Pounds): 75 General Appearance: no apparent distress, alert Cardiovascular: normal rate Respiratory/Chest: other - mech vent Abdominal Exam: normal bowel sounds, non tender, soft, other - OGT Extremities: normal range of motion, non-tender Objective Procedure: US ABD Complete Indication: Abnormal liver function tests and renal function tests Impression: Moderate ascites, nonspecific as regards etiology Negative for gallstones. There is mild gallbladder wall thickening, suspect secondary to whatever process is causing ascites, but acute acalculous cholecystitis not completely excludable. Consider nuclear medicine hepatobiliary scan if there is high clinical suspicion for acute cholecystitis Bilateral echogenic atrophic kidneys, consistent with known history of chronic renal disease Suzy Middleton N.P. Jan 05, 2017 11:07
--- NOTE | 2017-01-05 11:56 | Diagnostic Imaging Report ---
Indication: Dyspnea Comparison: 01/04/2017 A single view chest radiograph was obtained. Findings: Tubes and lines are stable. There is evidence of mild left basal atelectasis. Heart size is stable. Impression: No significant change compared to the previous day
[2017-01-05] MEDS ORDERED: Sterile Water Irrig 1000ml IRRIG ONE (14:09)
[2017-01-05] MEDS ORDERED: NS 275ml ONE (14:09)
[2017-01-05] MEDS ORDERED: Tubing IV Secondary IV ONE (14:09)
--- NOTE | 2017-01-05 20:58 | Consultation ---
DATE OF CONSULTATION: Please note that the patient was seen on 12/31/2016. This is note is being dictated to 01/05/2017. Please note that this is a patient who has a long-term intubation whose family is concerned about whether they want a trach or not. Ultimately decided not to trach her which is why delayed in this note. She has encephalopathy, end-stage renal disease, on dialysis, hypertension, and acute respiratory failure which is why is trach was requested. Congestive heart failure, anemia, liver cirrhosis, sepsis. She had septic shock and hyponatremia. OBJECTIVE: Her landmarks in her neck or fine for placing the trach. ASSESSMENT: She is a candidate for a tracheostomy but her family is unwilling to approve the tracheostomy. PLAN: I will be available as needed. She will be need an INR within 24 hours of the trach if they decide to go ahead. Please re-contact me if they are considering going ahead with a trach. Liang Beach M.D. DR: Bobby JOB#: [id number] CC:
--- NOTE | 2017-01-07 08:29 | Cardiology Report ---
APPROVED REPORT EKG Measurement Heart [id number] Sinus rhythm with occasional premature ventricular complexes Possible Left atrial enlargement Septal infarct, age undetermined Abnormal ECG
--- NOTE | 2017-01-08 19:22 | Discharge Summary ---
Discharge Summary Hospital Course Date of Admission Dec 22, 2016 at 11:42 Date of Discharge Jan 05, 2017 at 14:10 Admitting Diagnosis respiratory failure HPI Dejan Barbour is a 61 year old female who was admitted on Dec 22, 2016 at 11:42 for Respiratory Failure Hospital Course [id number] Discharge Discharge Disposition Patient was discharged to [facility] (63) Discharge Diagnoses: Lori Donahue NP Jan 08, 2017 19:22
--- NOTE | 2017-01-09 02:28 | Discharge Summary 2 SIG ---
DATE OF ADMISSION: 12/22/2016 DATE OF DISCHARGE: 01/05/2017 CONSULTANTS: 1. Vince Doty M.D. 2. Orlando Reagan M.D. 3. Zander Vigil M.D. 4. Cristian Green M.D. 5. Chau Galarza M.D. 6. Liang Beach M.D. BRIEF HOSPITAL COURSE: The patient is a 61-year-old female with cirrhosis of liver and end-stage renal failure, on hemodialysis and connective tissue disorder, who resides at correction, was found lying down with hypothermia. She was taken to ED where she was orally intubated. Head CT was negative. She was hypotensive and was started on IV pressors. She was admitted to ICU and was followed by Infectious Disease specialist for antibiotic management. She was pancultured. Cultures were negative. C. difficile was negative. She had elevated ammonia level and was followed by Dr. Galarza. She had a recent EGD with colonoscopy done at [facility] recently and has GAVE. GI procedures were deferred and the patient was given lactulose and Xifaxan with proton pump inhibitors. Unable to insert NG tube. She was given tube feedings through OGT. Dr. Reagan was consulted and the patient was given inpatient hemodialysis. Also, had anemia and was given Epogen and received three units packed RBC blood transfusion during the hospital stay. She was followed by Dr. Green. The patient has preserved left ventricular function per echocardiogram. EKG was negative. She had been failing weaning from ventilator and family was offered tracheostomy; however, family refused. The patient was transferred to long-term acute care facility for continuance of care. FINAL DIAGNOSES: 1. Acute respiratory failure, requiring intubation. 2. Acute metabolic encephalopathy. 3. End-stage renal disease. 4. Liver cirrhosis with hepatic encephalopathy. 5. Hyperkalemia. 6. Connective tissue disease. 7. Gastric antral vascular ectasia. 8. Severe protein-calorie malnutrition. 9. Hypoalbuminemia. 10. Anemia of kidney disease. 11. Liver cirrhosis. 12. Probable sepsis. 13. Probable congestive heart failure exacerbation with diastolic dysfunction. 14. Septic shock. 15. Hyponatremia. 16. Hypertension by history, currently hypotensive. 17. Sacral DTI, present on admission. Jes Bautista M.D. I have been assigned to dictate discharge summary on this account and I was not involved in the patient's management. Lori Donahue N.P. DR: SEBAS JOB#: [id number] CC: JESUS
== END 2017-01-05 14:10 | DRG 870 ==
LOC: EDBD 11:03 → EDBEDREQ 11:33 → EMR 11:41 → ICU 11:42 → EDBEDREQ 12:00
PROC: 5A1955Z Respiratory Ventilation, Greater than 96 Consecutive Hours (ICD-10-PCS; principal; 2016-12-22)
PROC: 5A1D60Z (ICD-10-PCS; principal; 2016-12-22)
PROC: 0BH17EZ Insertion of Endotracheal Airway into Trachea, Via Natural or Artificial Opening (ICD-10-PCS; principal; 2016-12-22)
PROC: 0W9G3ZZ Drainage of Peritoneal Cavity, Percutaneous Approach (ICD-10-PCS; 2016-12-25)
DX: A41.9 Sepsis, unspecified organism (principal); J96.00 Acute respiratory failure, unspecified whether with hypoxia or hypercapnia; R57.1 Hypovolemic shock; G92 Toxic encephalopathy; I50.33 Acute on chronic diastolic (congestive) heart failure; J18.9 Pneumonia, unspecified organism; E43 Unspecified severe protein-calorie malnutrition; Z99.11 Dependence on respirator [ventilator] status; K31.811 Angiodysplasia of stomach and duodenum with bleeding; R65.21 Severe sepsis with septic shock; N18.6 End stage renal disease; I13.2 Hypertensive heart and chronic kidney disease with heart failure and with stage 5 chronic kidney disease, or end stage renal disease; N39.0 Urinary tract infection, site not specified; E87.1 Hypo-osmolality and hyponatremia; Z99.2 Dependence on renal dialysis; K74.69 Other cirrhosis of liver; F32.9 Major depressive disorder, single episode, unspecified; D50.0 Iron deficiency anemia secondary to blood loss (chronic); D63.1 Anemia in chronic kidney disease; D69.6 Thrombocytopenia, unspecified; I34.0 Nonrheumatic mitral (valve) insufficiency; M34.9 Systemic sclerosis, unspecified; R19.7 Diarrhea, unspecified; K72.90 Hepatic failure, unspecified without coma
CPT/HCPCS: 36415; 36600; 70450; 71010; 74000; 76700; 76942; 80053; 80076; 80202; 82140; 82270; 82378; 82550; 82553; 82607; 82746; 82803; 82962; 83540; 83550; 83605; 83615; 83735; 84100; 84484; 85007; 85025; 85044; 85060; 85610; 85651; 85730; 86705; 86709; 86803; 86850; 86900; 86901; 86920; 87040; 87070; 87081; 87086; 87205; 87340; 87493; 93005; 93306; 93970; 94002; 94003; 94640; J0171; J2405; J7620